=== PATIENT | male | born 1975 | race Caucasian/White ===

== ENCOUNTER 2016-08-08 13:09 | Emergency (ER) | payer MEDICARE, MEDICAID ==
[~2016-08-08] VITALS: Ht 170.2 cm; Wt 70.5 kg
[~2016-08-08 13:09] MED LIST: CIPR-198 PO; DICY20TA33 PO; METR500T PO; MORP15TA PO; ONDA-54 PO; ONDA8TAB7 PO; OXYC-474 PO; POLY17PO6 PO; TAMS0.4C98 PO
[2016-08-08 13:23] VITALS: BP 152/90; PULSE 91; RESP 18; O2SAT 99
--- NOTE | 2016-08-08 14:20 | ED.REPORT ---
HPI-Back Pain 40 and Over Date of Service Aug 08, 2016 ED Provider: Doc,Ed MD History of Present Illness: 40-year-old male here for back pain. He had back surgery on 07/08/2016 down at [facility]. He states he had fatty tissue removed from his spinal canal as well as a widening of the spinal canal. He has gradually improved since that surgery and was walking normally and had minimal pain. 2 Days ago he bent over and picked up his 70 pound daughter. Not supposed to bend or lift anything during his healing. He had immediate pain in his low back with occasional radiation down his bilateral legs as well as intermittent numbness and tingling down bilateral legs. Radiculopathy depends on which position he is in. His position of comfort is standing. Denies loss of bowel or bladder, saddle anesthezia, or LE weakness. Nursing Notes Stated Complaint: BACK PAIN/LEG NUMBNESS/TINGLING Chief Complaint: Back Pain or Injury Allergies: Coded Allergies: No Known Allergies (Unverified , 04/28/16) Scheduled Ciprofloxacin (Ciprofloxacin) 500 Mg Tablet 500 MG PO BID Metronidazole (Flagyl) 500 Mg Tablet 500 MG PO Q8H Morphine Sulfate (Morphine Sulfate) 15 Mg Tablet 15 MG PO BID Polyethylene Glycol 3350 (Miralax) 17 Gm Powd.pack 17 GM PO DAILY Tamsulosin (Flomax) 0.4 Mg Capsule 0.4 MG PO DAILY Scheduled PRN Dicyclomine (Bentyl) 20 Mg Tablet 20 MG PO QID PRN PRN cramps Ondansetron (Ondansetron) 8 Mg Tablet 8 MG PO PRN For Nausea Ondansetron ODT (Zofran ODT) 8 Mg Tablet 8 MG PO Q4H PRN PRN For Nausea Oxycodone (Roxicodone) 5 Mg Tablet 5 MG PO 5XD PRN PRN For Pain General Time Seen by MD: 14:19 Chief Complaint Back pain Hx Obtained From: Patient Arrived By: Walk-in Sudden in Onset?: Yes Onset Occurred: 2 days ago Symptom Duration: Constant Caused by: Bending, Lifting Location: : Perispinal lumbar Quality: Sharp, Stabbing Radiation: : Left leg above knee: Left leg below knee: Right leg above knee: Right leg below knee Severity: Current: Severe Severity: Maximum: Severe Recent Healthcare: Previous surgery Similar Sx Previous: Yes Past Medical History Past Medical History Notes: PCP: [facility] 04/28/2016 surgery low back 07/08/16 Past Medical History Clostridium difficile colitis 05/2015 and 12/2014 Colitis IBS Cyclical vomiting Small bowel obstruction Migraine. Guillen's esophagus. GERD. Prostatitis. Fibromyalgia. Kidney stones Reports: GERD, Gastritis Past Surgical History Right ear drum repair laparoscopy in 2001 and again in 2013 with lysis of adhesion and incidental appy at that time at [facility] in [place] Right ACL reconstruction C5, C6, C7 Fusion Jul 30, 2014 done at [facility] [place] Reports: Appendectomy Family History Reviewed, not relevant. Prostate cancer in brother and father. Mom-stroke, HTN Smoking History Current Every Day Smoker Social History Alcohol Use: Denies alcohol use Drug Use: Denies drug use Other Social History: Frequent ED visitor, , Local resident Occupation no work or school Ambulatory Status Independent Review of Systems Review of Systems Note: denies saddle anesthsia or loss of bowel/bladder feels similar as the day after his surgery. Basic Review of Systems Eyes: Vision NL ENT: Hearing NL Hematologic: No bleeding Skin: No bruising, No rash Psychiatric: Normal thought content Constitutional: Denies: Fatigue, Fever Respiratory: Denies: Dyspnea on exertion Cardiovascular: Denies: Chest pain GI: Denies: Abdominal pain, Nausea, Vomiting Musculoskeletal: Reports: Back pain, Extremity pain Complete sys rev & neg: except as marked. Physical Exam Physical Exam Notes: Pt in obvious discomfort. Initial Vital Signs Vital Signs (First) Date Time Temp Pulse Resp B/P Pulse Ox O2 Delivery O2 Flow Rate FiO2 08/08/16 13:23 37.0 91 18 152/90 99 Room Air Head / Eyes: Atraumatic Neck: Supple Lymphatic: No lymphadenopathy Extremities: Vascular intact, Neuro intact, No swelling, No tenderness Skin: Warm, Dry, No cyanosis Psychiatric: Mood/affect normal, Behavior normal, Normal thought content Cardiovascular: Heart rate NL, Regular rhythm, Heart sounds NL, No gallop, No murmurs, No rubs Flank / Spine / Paraspinal: Positive: Lumbar paraspinal tend..., Lumbar spine tender... Muscle Spasm / ROM: Positive: Lumbar area spasm straight leg not tested r/t pain patellar reflexes 3+ and equal and intact bilaterally. The patient present in bilateral lower extremities. Ankle strength bilaterally strong. Neurologic: Oriented X3, Speech NL, No motor deficits, No sensory deficits Re-Eval/Medical Decision Med Decision/Clinical Course Patient having decreased pain since receiving 2 mg of Dilaudid. He feels that he gets 1 more milligram and he can go home and controlled the pain with his home medications. He has Percocet and takes 30 mg a day. Agreed to give him 1 more milligram and will send him on his way to follow up with Dr. Garrett. She does appear more comfortable sitting on the [facility] Discharge & Departure Shift Change Sign-Out Response to Therapy: Improved Impression: Primary Impression: Low back pain Chronicity: unspecified Back pain laterality: bilateral Sciatica presence: with sciatica Sciatica laterality: bilateral sciatica Qualified Code: M54.42 - Lumbago with sciatica, left side Disposition: Home Discharge Condition All VS Reviewed: Yes Condition: Stable Patient Instructions: Low Back Strain (ED) Additional Instructions: Use home pain meds to treat pain as you have been. Follow-up with Dr. Garrett tomorrow to review pain contract and ER visit. If saddle anesthesia, severe pain, loss of bowel or bladder, or fever return to ER immediately. Otherwise follow-up with [facility] as discussed or to get an earlier appointment or extra week as scheduled. Referrals: Haroon Perdomo DO (PCP) EDSupervising Provider for APC: Jarek Billy MD, Linnea K ARNP Aug 08, 2016 14:20
[2016-08-08] MEDS ORDERED: HYDROmorphone 1 mg/mL Inj IM ONE ×3 (14:30→15:55)
[2016-08-08 16:07] VITALS: BP 136/83; PULSE 74; RESP 16; O2SAT 96
== END 2016-08-08 16:09 | disposition home or self-care (01) ==
LOC: SED 13:09
DX: M54.42 Lumbago with sciatica, left side (principal); X50.0XXA Overexertion from strenuous movement or load, initial encounter; Y92.9 Unspecified place or not applicable; Y93.89 Activity, other specified; Y99.8 Other external cause status; K21.9 Gastro-esophageal reflux disease without esophagitis; K29.70 Gastritis, unspecified, without bleeding; F17.200 Nicotine dependence, unspecified, uncomplicated; Z98.890 Other specified postprocedural states; Z87.442 Personal history of urinary calculi
CPT/HCPCS: 96372; 99284; J1170

== ENCOUNTER 2016-08-10 20:21 | Emergency (ER) | payer MEDICARE, MEDICAID ==
[~2016-08-10] VITALS: Ht 170.2 cm; Wt 70.0 kg
[2016-08-10 20:42] VITALS: BP 156/87; PULSE 81; RESP 22; O2SAT 99
--- NOTE | 2016-08-10 22:05 | ED.REPORT ---
HPI-Back Pain 40 and Over Date of Service Aug 10, 2016 ED Provider: Joe Crooks MD Patient is a 40 year old male with a history of fibromyalgia, chronic back pain , and recent back surgery on 07/08/2016 who presents to the ED after he developed urinary incontinence numbness today, associated with a recent injury to his back. Patient had fatty tissue and widening of the spinal canal at L4 preformed at [facility] by Dr. Nunn on July 08. Patient states that he was instructed not to lift or bending over until he was healed. However, 5 days ago his daughter injured her foot and he bent down to pick her up out of instinct. She weighted approximately 70lbs and he has been experiencing increased pain since that time. The patient was seen in the ED on 08/08 for increased back pain following this event. However, he only reported radiation of his pain down his legs at that time. Since then he has developed saddle/groin pain and numbness, urine incontinence, and leg numbness. Patient reports difficulty ambulating. He reports associated nausea due to pain. Nursing Notes Stated Complaint: BACK PAIN, HAD BACK SURGERY 07/08/2016 Chief Complaint: General Complaint Nursing Notes Reviewed: Yes Allergies: Coded Allergies: No Known Allergies (Unverified , 04/28/16) Scheduled Ciprofloxacin (Ciprofloxacin) 500 Mg Tablet 500 MG PO BID Metronidazole (Flagyl) 500 Mg Tablet 500 MG PO Q8H Morphine Sulfate (Morphine Sulfate) 15 Mg Tablet 15 MG PO BID Polyethylene Glycol 3350 (Miralax) 17 Gm Powd.pack 17 GM PO DAILY Tamsulosin (Flomax) 0.4 Mg Capsule 0.4 MG PO DAILY Scheduled PRN Dicyclomine (Bentyl) 20 Mg Tablet 20 MG PO QID PRN PRN cramps Ondansetron (Ondansetron) 8 Mg Tablet 8 MG PO PRN For Nausea Ondansetron ODT (Zofran ODT) 8 Mg Tablet 8 MG PO Q4H PRN PRN For Nausea Oxycodone (Roxicodone) 5 Mg Tablet 5 MG PO 5XD PRN PRN For Pain General Time Seen by MD: 22:00 Chief Complaint Back pain, Other (urinary incontinence) Hx Obtained From: Patient Arrived By: Walk-in Sudden in Onset?: No Onset Occurred: 5 - 8 hours ago Quality: Painful Severity: Current: Severe Severity: Maximum: Severe Recent Healthcare: Recent doctor visit, Previous surgery Similar Sx Previous: No Past Medical History Past Medical History Notes: [facility]: [facility] Past Medical History Clostridium difficile colitis 05/2015 and 12/2014 Colitis IBS Cyclical vomiting Small bowel obstruction Migraine. Guillen's esophagus. GERD. Prostatitis. Fibromyalgia. Kidney stones Reports: Gastritis Past Surgical History Right ear drum repair laparoscopy in 2001 and again in 2013 with lysis of adhesion and incidental appy at that time at [facility] in [place] Right ACL reconstruction C5, C6, C7 Fusion Jul 30, 2014 done at [facility] fatty tissue removal and spinal canal widening at [facility] on Jul 08 2016 Reports: Appendectomy Family History Reviewed, not relevant. Prostate cancer in brother and father. Mom-stroke, HTN Smoking History Current Every Day Smoker Social History Alcohol Use: Denies alcohol use Drug Use: Denies drug use Other Social History: Frequent ED visitor, , Local resident Occupation no work or school Ambulatory Status Independent Review of Systems GI: Reports: Nausea Male: Reports Incontinence Musculoskeletal: Reports: Back pain, Extremity pain Neurologic: Reports: Bladder dysfunction, Numbness, Weakness Complete sys rev & neg: except as marked. Physical Exam Initial Vital Signs Vital Signs (First) Date Time Temp Pulse Resp B/P Pulse Ox O2 Delivery O2 Flow Rate FiO2 08/10/16 20:42 36.8 81 22 156/87 99 Room Air Initial VS: Reviewed, Vital signs normal Head / Eyes: Atraumatic, Normocephalic, PERRL ENT: Conjunctiva normal, No scleral icterus Neck: Supple, Full range of motion Extremities: Vascular intact, Neuro intact Skin: Warm, Dry, No cyanosis Psychiatric: Mood/affect normal, Behavior normal, Normal thought content General/Constitutional: Awake, Alert Respiratory / Chest: Breath sounds NL, Breath sounds = bilat, No respiratory distress, No rales, No rhonchi, No wheezing Cardiovascular: Heart rate NL, Regular rhythm, Heart sounds NL, No murmurs Abdomen: Soft, Non-tender Back: Incision site is healing well, covered with bandage. It is not soaked through and there is no surrounding erythema. Neurologic: Oriented X3, Speech NL, No sensory deficits Reflexes are 3+ and symmetric at the patellar tendons. 2+ and symmetric reflexes at the achilles tendons. strength is diminished globally by complaint of pain. Neck: Supple, Full range of motion Lower Extremity / Pelvis / MS: Neurologic intact, Vascular intact ambulating with a slow broad based gait Interpretation & Diagnostics MR LUMBAR SPINE CONCLUSION: Findings are most consistent with an anterior epidural hematoma extending from the L4-5 disc level down through S1 and impinging on the spinal canal. There are expected postoperative changes with edema and enhancement in the operative bed posteriorly involving the superficial and deeper paraspinal tissues. This postoperative process extends somewhat into the epidural space, particularly on the right and into the element of spinal canal stenosis. Radiologist: Tiago Calderon MD 08/10/2016 - 11:23:21 PM PST Lab Results Interpretation Test 08/11/16 00:00 Hold Urine Received (Received) Re-Eval/Medical Decision Med Decision/Clinical Course 40-year-old male with recent lumbar spine surgery was healing well until he lifted a child 4 days ago. He now has increasing low back pain with pain and numbness in his legs and today developed urinary incontinence. Dry of the lumbar spine with and without contrast shows an epidural hematoma at the L4 through S1 level impinging the cord and compressing the nerve roots. Case was discussed with Dr. Boyer, on-call spine surgeon at [facility]. He accepted him in transfer for further evaluation and treatment. Source of Hx: Old records Re-Evaluation/Progress #1: Time of Eval: 23:51 Patient Status: Condition improved Re-Evaluation/Progress Note: Informed the patient of the results of his MRI. Will consult [facility] for how to proceed and if he needs transfer to their facility. All questions were addressed. Re-Evaluation/Progress #2: Time of Eval: 00:36 Re-Evaluation/Progress Note: Informed the patient of the plan to transfer him to [facility]. Patient understands and agrees with this plan. All questions were addressed. Consultation #1: Call Returned at: 00:00 Note: Spoke to the [facility] transfer center about the patient's case. Will call back. Consultation #2: Call Returned at: 00:31 Biomedical Technician: Will see patient, Agrees with eval, Agrees with plan, Accepts admit Note: Spoke with Dr. Veronica Boyer, spinal surgeon at [facility]. He agrees to accept the patient for transfer. Counseled Regarding: Diagnosis, Need for transfer Discharge & Departure Impression: Primary Impression: Epidural hematoma Additional Impressions: Postoperative hematoma Surgical complication system/body Area: musculoskeletal system Procedure type : musculoskeletal Qualified Code: M96.830 - Postprocedural hemorrhage and hematoma of a musculoskeletal structure following a musculoskeletal system procedure Urinary incontinence Urinary Incontinence type: other incontinence Qualified Code: N39.498 - Other specified urinary incontinence Disposition: Transfer, Acute Care Facility Receiving Hospital: [facility] Transfer Accepted: Yes Transfer Accepted at: 00:33 Transfer Reason: Higher level of care Spoke with: Specialty physician (Dr. Veronica Boyer) Patient Status: Stable Patient Informed: Yes Discharge Condition All VS Reviewed: Yes Condition: Stable Referrals: Haroon Perdomo DO (PCP) Ryanne Attestation Portions of this note were transcribed by Carlene Davila. I, Dr. Crooks personally performed the history, physical exam and medical decision-making; I reviewed and confirmed the accuracy of the information in the transcribed note. Signed by: Ryanne Antonio, 08/11/2016 0038 copies to: Haroon Perdomo Howard L MD Aug 10, 2016 22:05 Carlene Davila Aug 10, 2016 22:17
[2016-08-10] MEDS ORDERED: Ondansetron 2 mg/mL 2 mL Inj IV PRN (22:15)
[2016-08-10] MEDS: HYDROmorphone 0.5 mg/0.5 mL iSecure Syringe IVPUSH PRN ×2 (22:37→23:58)
[2016-08-11 00:09] VITALS: BP 123/69; PULSE 62; RESP 18; O2SAT 99
[2016-08-11] MEDS: HYDROmorphone 0.5 mg/0.5 mL iSecure Syringe IVPUSH PRN ×2 (00:09→00:45)
[2016-08-11 01:00] VITALS: BP 123/69; PULSE 62; RESP 18; O2SAT 99
--- NOTE | 2016-08-11 10:26 | DRSVH ---
PROCEDURE: MRI LUMBAR SPINE WITH AND WITHOUT CONTRAST ([id number]) INDICATIONS: Urinary incontinence s/p lumbar spine surgery TECHNIQUE: Noncontrast sagittal T1 spin echo and T2 fast spin echo, sagittal STIR, axial T1 and T2 fast spin ech o through the lumbar spine. In cases with scoliosis, additional coronal T2 fast spin echo may be per formed. After the administration of contrast, sagittal and axial T1 spin echo with fat saturation th rough the lumbar spine. COMPARISON: [facility], MR, MR LUMBAR SPINE WO CON, 04/28/2016, 8:18. FINDINGS: Image quality: Excellent. Alignment and curvature: There is normal bony alignment. Marrow: Marrow is of normal overall signal. No acute vertebral body compression fractures. No susp icious marrow enhancement. Postsurgical changes are noted dorsal to L5 and S1. Spinal cord: Conus medullaris terminates at the L1 L. no Devan Eric radiology level. Visualized spinal cord demonstrates normal signal, without suspicious enhancement. Paraspinous soft tissues: No paravertebral masses or abnormal enhancement. L1-L2: Normal appearance. L2-L3: Normal appearance. L3-L4: Normal appearance. L4-L5: Stable appearance of moderate degenerative disc disease with a posterior broad-based transvers e disc bulge, previously present. Moderate facet osteoarthritis is present, as was previously the ca se, perhaps very slightly greater on the right than the left, and this could produce asymmetric mild impingement on the course of the right L4 nerve root. L5-S1: Postsurgical change with prominent granulation tissue through the bilateral laminectomy bed, w ithout rim-enhancing fluid collection that would indicate abscess formation. On axial and sagittal i maging there is a mild to moderate degree of narrowing of the inferior tip of the thecal sac, associa carlos with this inflammatory process, and the nerve roots crossing through this area do not appear appr eciably displaced or compressed but are certainly surrounded by the enhancing inflammatory change. A hematoma is not seen. IMPRESSION: 1. Stable appearance of the lumbosacral spine to the L4-5 level where mild to moderate degenerative osteoarthritis at the facet joints is slightly greater on the right than the left, with potential for mild asymmetric impingement on the course of the right L4 nerve root as a result. No significant sp inal stenosis at that level, where a mild posterior disc bulge is present. 2. Prominent granulation tissue, with inflammatory enhancement, is shown at the operative bed after L5 S1 laminectomy bilaterally, with mild mass effect against the thecal sac at its inferior aspect th rough that area. No rim-enhancing fluid collection is seen that would indicate abscess formation. T he granulation tissue surrounds the individual nerve roots bilaterally crossing inferiorly through th e operative area. No hematoma is identified after surgery. Note: These findings are concordant with the preliminary interpretation, except for the opinion that a L5-S1 anterior hematoma is not present. Dictated by: Devan Reyes M.D. on 08/11/2016 at 10:06 Approved by: Devan Reyes M.D. on 08/11/2016 at 10:23
== END 2016-08-11 01:03 | disposition short-term general hospital (02) ==
LOC: SED 20:21
DX: S06.4X0A Epidural hemorrhage without loss of consciousness, initial encounter (principal); X50.0XXA Overexertion from strenuous movement or load, initial encounter; Y92.9 Unspecified place or not applicable; Y93.89 Activity, other specified; Y99.8 Other external cause status; M96.830 Postprocedural hemorrhage of a musculoskeletal structure following a musculoskeletal system procedure; N39.498 Other specified urinary incontinence; R11.0 Nausea; R20.2 Paresthesia of skin; M79.7 Fibromyalgia; M54.9 Dorsalgia, unspecified; G89.29 Other chronic pain; K21.9 Gastro-esophageal reflux disease without esophagitis; F17.200 Nicotine dependence, unspecified, uncomplicated; Z98.890 Other specified postprocedural states
CPT/HCPCS: 72158; 96374; 96375; 96376; 99285; A9585; J1170; J2405

== ENCOUNTER 2016-08-15 14:53 | Emergency (ER) | payer MEDICARE, MEDICAID ==
[~2016-08-15] VITALS: Ht 170.2 cm; Wt 70.5 kg
[2016-08-15 15:07] VITALS: BP 155/96; PULSE 84; RESP 16; O2SAT 98
--- NOTE | 2016-08-15 15:45 | ED.REPORT ---
HPI- Male Date of Service Aug 15, 2016 ED Provider: Dr. Jarek Billy M.D. A 40 year old male with a medical history including interstitial cystitis, colitis, gastritis, IBS, and epidural hematoma s/p recent back surgery x2 presents to the ED with intermittent inability to urinate onset four days ago. Associated symptoms include suprapubic pain, dysuria, subjective fever, and buttocks numbness. The patient denies leg weakness or vomiting. He underwent fatty tissue removal and spinal canal widening on 07/08/16 and another emergency back surgery for an epidural hematoma on 08/10/16. The patient has an appointment with his PCP in three days. Nursing Notes Stated Complaint: UNABLE TO URINATE AFTER BACK SURGERY Chief Complaint: General Complaint Nursing Notes Reviewed: Yes Allergies: Coded Allergies: No Known Allergies (Unverified , 08/15/16) Scheduled Ciprofloxacin (Ciprofloxacin) 500 Mg Tablet 500 MG PO BID Metronidazole (Flagyl) 500 Mg Tablet 500 MG PO Q8H Morphine Sulfate (Morphine Sulfate) 15 Mg Tablet 15 MG PO BID Polyethylene Glycol 3350 (Miralax) 17 Gm Powd.pack 17 GM PO DAILY Tamsulosin (Flomax) 0.4 Mg Capsule 0.4 MG PO DAILY Scheduled PRN Dicyclomine (Bentyl) 20 Mg Tablet 20 MG PO QID PRN PRN cramps Ondansetron (Ondansetron) 8 Mg Tablet 8 MG PO PRN For Nausea Ondansetron ODT (Zofran ODT) 8 Mg Tablet 8 MG PO Q4H PRN PRN For Nausea Oxycodone (Roxicodone) 5 Mg Tablet 5 MG PO 5XD PRN PRN For Pain General Time Seen by MD: 15:44 Chief Complaint Unable to urinate Hx Obtained From: Patient Arrived By: Walk-in Onset Occurred: 4 days ago Symptom Duration: Since onset Location: : Suprapubic Quality: Painful Severity: Current: Moderate Severity: Maximum: Moderate Associated with: Reports: Fever, Denies: Vomiting Pertinent Negative: Relieved by nothing Recent Healthcare: Recent doctor visit, Recent hospitalization Past Medical History Past Medical History Notes: [facility]CP: [facility] Past Medical History Clostridium difficile colitis 05/2015 and 12/2014 Colitis IBS Cyclical vomiting Small bowel obstruction Migraine. Guillen's esophagus. GERD. Prostatitis. Fibromyalgia. Kidney stones Interstitial cystitis Epidural hematoma Reports: Gastritis Past Surgical History Right ear drum repair laparoscopy in 2001 and again in 2013 with lysis of adhesion and incidental appy at that time at [facility] in [place] Right ACL reconstruction C5, C6, C7 Fusion Jul 30, 2014 done at [facility] [place] Fatty tissue removal and spinal canal widening at [facility] [place] on Jul 08 2016 Back surgery for epidural hematoma, Aug 10, 2016 Reports: Appendectomy Family History Reviewed, not relevant. Prostate cancer in brother and father. Mom-stroke, HTN Smoking History Current Every Day Smoker Social History Alcohol Use: Denies alcohol use Drug Use: Denies drug use Other Social History: Frequent ED visitor, , Local resident Occupation no work or school Ambulatory Status Independent Review of Systems Constitutional: Reports: Fever (Subjective) GI: Reports: Abdominal pain (Suprapubic), Denies: Vomiting Male: Reports Dysuria, Reports Urination decreased (Inability to Urinate) Complete sys rev & neg: except as marked. Respiratory: Denies: Non-productive cough, Shortness of breath Neurologic: Reports: Numbness (Buttocks), Denies: Focal weakness Physical Exam Initial Vital Signs Vital Signs (First) Date Time Temp Pulse Resp B/P Pulse Ox O2 Delivery O2 Flow Rate FiO2 08/15/16 15:07 37.4 84 16 155/96 98 Room Air Initial VS: Reviewed Head / Eyes: Atraumatic, Normocephalic ENT: Conjunctiva normal, No scleral icterus Neck: Supple, Full range of motion Respiratory: Breath sounds normal, Clear to auscultation, No respiratory distress Cardiovascular: Regular rate & rhythm, Heart sounds normal Skin: Warm, Dry, No cyanosis Neurologic: Alert, Oriented, Nonfocal Psychiatric: Mood/affect normal, Behavior normal, Normal thought content General/Constitutional: Awake, Alert, No acute distress Abdomen: Soft Tenderness/Guarding/Rebound: Positive: Tender diffuse (Mild) Interpretation & Diagnostics Lab Results Interpretation Test 08/15/16 17:16 Urine Color Yellow (YELLOW) Urine Appearance Clear (CLEAR,HAZY) Urine pH 7.0 (5.0-8.0) Urine Specific [place] 1.020 (1.003-1.035) Urine Protein Negativemg/dL (NEG,TRACE) Urine Glucose (UA) Negativemg/dL (NEGATIVE) Urine Ketones Negativemg/dL (NEGATIVE) Urine Occult Blood Negative (NEGATIVE) Urine Nitrite Negative (NEGATIVE) Urine Bilirubin Negative (NEGATIVE) Urine Urobilinogen Normalmg/dL (NORMAL) Urine Leukocyte Esterase Negative (NEGATIVE) Urine RBC 0-2/hpf (0-2) Urine WBC 0-5/hpf (0-5) Urine Epithelial Cells None/hpf (NONE-MOD) Urine Crystals None seen (NONE SEEN) Urine Bacteria None/hpf (NONE-FEW) Urine Hyaline Casts None/lpf (NONE) Urine Granular Casts None seen (NONE SEEN) Urine Waxy Casts None seen (NONE SEEN) Urine Red Blood Cell Casts None seen (NONE SEEN) Urine White Blood Cell Casts None seen (NONE SEEN) Urine Mucus None seen (None Seen) Urine Trichomonas None seen (NONE SEEN) Urine Yeast None (NONE SEEN) Urinalysis Comment None Urine Culture Reflexed Not indicated Re-Eval/Medical Decision Source of Hx: Old records Re-Evaluation/Progress : Time of Eval: 16:00 Patient Status: Condition improved Re-Evaluation/Progress Note: Catheter was placed. Discussed with patient diagnosis and plan for discharge. Follow-up and return to the ER instructions given. Patient agrees with plan for care and all questions were addressed. Counseled Regarding: Diagnosis, Need for follow-up, When/why to return to ED Discharge & Departure Impression: Primary Impression: Urinary retention Disposition: Home Discharge Condition All VS Reviewed: Yes Condition: Stable Patient Instructions: Urinary Retention in Men (ED) Additional Instructions: Leave the catheter in place until you see your doctor on . Call [facility] or return to the emergency department if you have new neurologic problems. Referrals: Haroon Perdomo DO (PCP) Ryanne Attestation Portions of this note were transcribed by Marci Stack. I, Dr. Billy, personally performed the history, physical exam, and medical decision-making; I reviewed and confirmed the accuracy of the information in the transcribed note. Signed by: Raynne Franco, 08/15/2016, 16:44 copies to: Haroon Perdomo Kirk H MD Aug 15, 2016 15:45 MARCI STACK Aug 15, 2016 15:59
[2016-08-15 17:54] LABS: APPEARANCE,URINE CLEAR (CLEAR,HAZY); COLOR,URINE YELLOW (YELLOW); OCCULT BLOOD,URINE NEGATIVE (NEGATIVE); UROBILINOGEN,URINE NORMAL (NORMAL)
== END 2016-08-15 16:35 | disposition home or self-care (01) ==
LOC: SED 14:53
DX: R33.9 Retention of urine, unspecified (principal); R10.30 Lower abdominal pain, unspecified; R30.0 Dysuria; R50.9 Fever, unspecified; R20.0 Anesthesia of skin; K21.9 Gastro-esophageal reflux disease without esophagitis; Z98.890 Other specified postprocedural states; F17.200 Nicotine dependence, unspecified, uncomplicated

== ENCOUNTER 2016-08-17 11:11 | Emergency (ER) | payer MEDICARE, MEDICAID ==
[~2016-08-17] VITALS: Ht 170.2 cm; Wt 70.5 kg
[2016-08-17 11:13] VITALS: BP 139/98; PULSE 87; RESP 16; O2SAT 100
--- NOTE | 2016-08-17 11:17 | ED.REPORT ---
HPI- Male Date of Service Aug 17, 2016 ED Provider: Aarti Hernandez MD The patient is a 40 year old male who presents to the ED with a plugged Christie catheter which was inserted 3 days ago. Pt had emergency surgery at [facility] a week ago for a blood clot. Following this surgery, he couldn't urinate so he came to [facility] 3 days ago and had a catheter inserted. He now reports with hematuria onset last night, dysuria and lower abdominal pain when he sits or puts pressure on his bladder. He has been able to produce a small amount of urine in the past 3 hours but still states that he feels very, "full, uncomfortable, and lots of pressure." Pt c/o associated nausea, fever, and diaphoresis. He is not on anticoagulants and denies vomiting. Pt also had a surgery 5 weeks ago (07/08/16) on his spine. Nursing Notes Stated Complaint: BLOOD IN URINE Chief Complaint: Male Abdominal Pain Nursing Notes Reviewed: Yes Allergies: Coded Allergies: No Known Allergies (Unverified , 08/17/16) Scheduled Ciprofloxacin (Ciprofloxacin) 500 Mg Tablet 500 MG PO BID Metronidazole (Flagyl) 500 Mg Tablet 500 MG PO Q8H Morphine Sulfate (Morphine Sulfate) 15 Mg Tablet 15 MG PO BID Polyethylene Glycol 3350 (Miralax) 17 Gm Powd.pack 17 GM PO DAILY Tamsulosin (Flomax) 0.4 Mg Capsule 0.4 MG PO DAILY Scheduled PRN Dicyclomine (Bentyl) 20 Mg Tablet 20 MG PO QID PRN PRN cramps Ondansetron (Ondansetron) 8 Mg Tablet 8 MG PO PRN For Nausea Ondansetron ODT (Zofran ODT) 8 Mg Tablet 8 MG PO Q4H PRN PRN For Nausea Oxycodone (Roxicodone) 5 Mg Tablet 5 MG PO 5XD PRN PRN For Pain General Time Seen by MD: 11:17 Chief Complaint Urinary catheter problem Hx Obtained From: Patient Arrived By: Walk-in Onset Occurred: 1 day ago Symptom Duration: Since onset Location: : Abdomen lower Quality: Heaviness, Painful Severity: Current: Mild Recent Healthcare: Recent doctor visit, Recent hospitalization Similar Sx Previous: Yes Past Medical History Past Medical History Notes: [facility]: [facility] Past Medical History Clostridium difficile colitis 05/2015 and 12/2014 Colitis IBS Cyclical vomiting Small bowel obstruction Migraine. Guillen's esophagus. GERD. Prostatitis. Fibromyalgia. Kidney stones Interstitial cystitis Epidural hematoma Reports: Gastritis Past Surgical History Right ear drum repair laparoscopy in 2001 and again in 2013 with lysis of adhesion and incidental appy at that time at [facility] in [place] Right ACL reconstruction C5, C6, C7 [place] Jul [place] [facility] [place] [facility] [place] Back surgery for epidural hematoma, Aug 10, 2016 Reports: Appendectomy Family History Reviewed, not relevant. Prostate cancer in brother and father. Mom-stroke, HTN Smoking History Current Every Day Smoker Social History Alcohol Use: Denies alcohol use Drug Use: Denies drug use Other Social History: Frequent ED visitor, , Local resident Occupation no work or school Ambulatory Status Independent Review of Systems Constitutional: Reports: Fever GI: Reports: Nausea, Denies: Vomiting Male: Reports Dysuria, Reports Hematuria, Reports Urination decreased Skin: Reports Diaphoresis Complete sys rev & neg: except as marked. Physical Exam Initial Vital Signs Vital Signs (First) Date Time Temp Pulse Resp B/P Pulse Ox O2 Delivery O2 Flow Rate FiO2 08/17/16 11:13 36.5 87 16 139/98 100 Room Air Initial VS: Reviewed General/Constitutional: Well-developed Head / Eyes: Atraumatic, Normocephalic, PERRL ENT: Mucous membranes moist, Conjunctiva normal, No scleral icterus Neck: Supple, Non-tender, Full range of motion Respiratory: Breath sounds normal, Clear to auscultation, No respiratory distress Extremities: Vascular intact, Neuro intact, No swelling, No tenderness Skin: Warm, Dry, No cyanosis Neurologic: Alert, Oriented, Nonfocal Psychiatric: Mood/affect normal, Behavior normal, Normal thought content Male Genitourinary: Atraumatic christie catheter in place with some urine output Abdomen: Atraumatic, Soft general tenderness super pubic area Heart Rate / Rhythm: Positive: Tachycardia Interpretation & Diagnostics Lab Results Interpretation Test 08/17/16 11:34 Hold Urine Received (Received) Re-Eval/Medical Decision Med Decision/Clinical Course This patient presented with urinary retention, there are no blood clots seen in his back and he is producing urine. On examination he had discomfort but I did not palpate her bladder. He was observed and continued to have urinary output and was discharged home. Counseled Regarding: Diagnosis, Lab results, Need for follow-up, When/why to return to ED Discharge & Departure Impression: Primary Impression: Christie catheter problem Encounter type: initial encounter Qualified Code: T83.9XXA - Unspecified complication of genitourinary prosthetic device, implant and graft, initial encounter Disposition: Home Discharge Condition All VS Reviewed: Yes Condition: Stable Additional Instructions: Thank you for coming to the Emergency Department today. Make sure you're drinking plenty of water and fluids to keep the catheter flowing. If there is no urine output for more then 6 hours, seek care. Return to the Emergency Department if you experience any new or worsening symptoms. We hope you feel better soon! Referrals: Haroon Perdomo DO (PCP) Francescaibkathy Attestation Portion of this note were transcribed by Fernando Raya. I, Dr. Hernandez, personally performed the history, physical exam, and medical decision-making: I reviewed and confirmed the accuracy for the information in the transcribed note. Signed by: lalo Wright, 08/17/16 1200 copies to: Haroon Perdomo Jena M MD Aug 17, 2016 11:17 FERNANDO RAYA Aug 17, 2016 11:37
[2016-08-17] MEDS ORDERED: Ondansetron 8 mg ODT Tablet PO ONE (12:25)
[2016-08-17 12:35] VITALS: BP 142/101; PULSE 80; RESP 18; O2SAT 98
== END 2016-08-17 12:54 | disposition home or self-care (01) ==
LOC: SED 11:11
DX: T83.091A Other mechanical complication of indwelling urethral catheter, initial encounter (principal); Y73.2 Prosthetic and other implants, materials and accessory gastroenterology and urology devices associated with adverse incidents; Y92.9 Unspecified place or not applicable; Y93.89 Activity, other specified; Y99.8 Other external cause status; R31.9 Hematuria, unspecified; R30.0 Dysuria; R10.30 Lower abdominal pain, unspecified; K29.70 Gastritis, unspecified, without bleeding; K21.9 Gastro-esophageal reflux disease without esophagitis; F17.200 Nicotine dependence, unspecified, uncomplicated; Z98.890 Other specified postprocedural states

== ENCOUNTER 2016-09-06 20:44 | Emergency (ER) | payer MEDICARE, MEDICAID ==
[~2016-09-06] VITALS: Ht 170.2 cm; Wt 70.5 kg
[2016-09-06 20:47] VITALS: BP 152/94; PULSE 92; RESP 18; O2SAT 98
[2016-09-06 22:31] LABS: BASOPHILS % (AUTO) 0.4 % (0-3); EOSINOPHILS % (AUTO) 1.3 % (0-5); MONOCYTES % (AUTO) 11.9 % (4-12); Mean Corpuscular Volume 90.3 fL (81-100); NEUTROPHILS % (AUTO) 51.7 % (40-74); Platelet Count 292 bil/L (150-400)
[2016-09-06 22:53] LABS: Magnesium 1.9 mg/dL (1.6-2.6)
[2016-09-06 22:54] VITALS: BP 145/96; PULSE 85; RESP 16; O2SAT 98
--- NOTE | 2016-09-06 23:49 | ED.REPORT ---
HPI-General Illness Date of Service Sep 06, 2016 ED Provider: Dr. Man Shore The patient is a 41 year old male w/ multiple recent back surgeries who presents to the ED due to intermittent fever for the past 2 days that peaked at 100.9F. Patient denies cough, sore throat, ear ache, dysuria, diarrhea. He also c/o dizziness and one episode of vomiting yesterday. Patient denies numbness in his legs. He has had a rough go over the past couple of months. He is status post lumbar surgery with fatty tumor resection. This was complicated with an epidural hematoma that also required drainage. He had classic I Murphy if the symptoms with numbness, weakness and intractable pain. He states that none of that is going on right now. He has not been incontinent of urine. He has not had urine retention. He has not had any numbness, weakness or paresthesias that are new since his surgery. He does have pain however it is well controlled with oxycodone. Fatty tissue removal and spinal canal widening [place] [facility] [place] C5, C6, C7 Fusion Jul 30, 2014 done at [facility] [place] Back surgery for epidural hematoma, Aug 10, 2016 Nursing Notes Stated Complaint: BACK PAIN,LEG NUMBNESS,NAUSEA,FEVER Chief Complaint: General Complaint Nursing Notes Reviewed: Yes Allergies: Coded Allergies: No Known Allergies (Unverified , 09/06/16) Scheduled Ciprofloxacin (Ciprofloxacin) 500 Mg Tablet 500 MG PO BID Metronidazole (Flagyl) 500 Mg Tablet 500 MG PO Q8H Morphine Sulfate (Morphine Sulfate) 15 Mg Tablet 15 MG PO BID Polyethylene Glycol 3350 (Miralax) 17 Gm Powd.pack 17 GM PO DAILY Prednisone (PredniSONE) 5 Mg Tab 5 MG PO DIRECTED 8 tabs po on day 1, then 7 tabs po on day 2, then 6 tabs po on day 3, then 5 tabs po on day 4, then 4 tabs po on day 5, then 3 tabs po on day 6, then 2 tabs po on day 7, then 1 tab po on day 8 Tamsulosin (Flomax) 0.4 Mg Capsule 0.4 MG PO DAILY Scheduled PRN Dicyclomine (Bentyl) 20 Mg Tablet 20 MG PO QID PRN PRN cramps Ondansetron (Ondansetron) 8 Mg Tablet 8 MG PO PRN For Nausea Ondansetron ODT (Zofran ODT) 8 Mg Tablet 8 MG PO Q4H PRN PRN For Nausea Oxycodone (Roxicodone) 5 Mg Tablet 5 MG PO 5XD PRN PRN For Pain General Time Seen by MD: 23:48 Chief Complaint Fever Hx Obtained From: Patient Arrived By: Walk-in Sudden in Onset?: Yes Symptom Duration: 2 days Location: : Back Quality: Painful Radiation: : Does not radiate Severity: Current: Moderate Recent Healthcare: Recent doctor visit, Recent hospitalization, Previous surgery Similar Sx Previous: No Past Medical History Past Medical History Notes: [facility]CP: [facility] Past Medical History Clostridium difficile colitis 05/2015 and 12/2014 Colitis IBS Cyclical vomiting Small bowel obstruction Migraine. Guillen's esophagus. GERD. Prostatitis. Fibromyalgia. Kidney stones Interstitial cystitis Epidural hematoma Reports: Gastritis Past Surgical History Right ear drum repair laparoscopy in 2001 and again in 2013 with lysis of adhesion and incidental appy at that time at [facility] in [place] Right ACL reconstruction C5, C6, C7 Fusion Jul 30, 2014 done at [facility] [place] Fatty tissue removal and spinal canal widening at [facility] [place] Back surgery for epidural hematoma, Aug 10, 2016 Reports: Appendectomy Family History Reviewed, not relevant. Prostate cancer in brother and father. Mom-stroke, HTN Smoking History Current Every Day Smoker Social History Alcohol Use: Denies alcohol use Drug Use: Denies drug use Other Social History: Frequent ED visitor, , Local resident Occupation no work or school Ambulatory Status Independent Review of Systems Full Review of Systems Constitutional: Reports: Fever Ears / Nose / Throat: Denies: Earache bilateral, Sore throat Respiratory: Denies: Dyspnea on exertion, Non-productive cough, Pleuritic pain Cardiovascular: Denies: Chest pain GI: Reports: Vomiting, Denies: Diarrhea Male: Denies Dysuria Neurologic: Denies: Bladder dysfunction, Bowel dysfunction, Focal weakness, Problem walking, Seizure, Shaking Complete sys rev & neg: except as marked. Physical Exam Vital Signs Vital Signs Date Time Temp Pulse Resp B/P Pulse Ox O2 Delivery O2 Flow Rate FiO2 09/07/16 02:49 36.1 76 18 140/85 96 Room Air 09/07/16 02:38 36.1 76 18 140/85 96 Room Air 09/06/16 22:54 85 16 145/96 98 Room Air 09/06/16 20:47 36.8 92 18 152/94 98 Room Air Initial VS: Reviewed General/Constitutional: Well-developed, Well-nourished Head / Eyes: Atraumatic, Normocephalic, PERRL ENT: Mucous membranes moist, Conjunctiva normal, No scleral icterus Neck: Supple, Non-tender, Full range of motion Respiratory: Breath sounds normal, Clear to auscultation, No respiratory distress Cardiovascular: Regular rate & rhythm, Heart sounds normal, Intact distal pulses Abdomen / GI: Soft, Non-tender, No guarding, No rebound, No distention Lymphatic: No lymphadenopathy Extremities: Vascular intact, Neuro intact, No swelling, No tenderness Skin: Warm, Dry, No cyanosis Neurologic: Alert, Oriented, Nonfocal Psychiatric: Mood/affect normal, Behavior normal, Normal thought content Flank / Spine / Paraspinal: Positive: Lumbar spine tender... Trauma - General: Positive: Laceration midline posterior incision tender at caudal aspect of wound Neurologic: Oriented X3, Speech NL, No motor deficits, No sensory deficits, CN II - XII intact, Reflexes equal bilat, Cerebellar NL, Memory NL, Gait NL Interpretation & Diagnostics Lab Results Interpretation Result Diagram: 09/06/16 2223 09/06/16 2223 Test 09/06/16 22:23 09/07/16 00:04 09/07/16 00:45 White Blood Count 12.0th/mm3 (3.8-10.1) Red Blood Count 4.53mil/mm3 (4.40-5.80) Hemoglobin 13.6g/dL (13.8-17.2) Hematocrit 40.9% (41.0-50.0) Mean Corpuscular Volume 90.3fL (81-100) Mean Corpuscular Hemoglobin 30.0pg (27.0-35.0) Mean Corpuscular Hemoglobin Concent 33.3% (32.0-37.0) Red Cell Distribution Width 14.2% (12.3-15.4) Platelet Count 292bil/L (150-400) Neutrophils (%) (Auto) 51.7% (40-74) Lymphocytes (%) (Auto) 34.4% (14-46) Monocytes (%) (Auto) 11.9% (4-12) Eosinophils (%) (Auto) 1.3% (0-5) Basophils (%) (Auto) 0.4% (0-3) Band Neutrophils % 0% (1-5) Sodium Level 136mEq/L (134-144) Potassium Level 3.3mEq/L (3.5-5.2) Chloride Level 98mEq/L (97-108) Carbon Dioxide Level 23mmol/L (18-29) Blood Urea Nitrogen 12mg/dL (6-24) Creatinine 0.70mg/dL (0.76-1.27) Estimat Glomerular Filtration Rate 131mL/min (>59) Glucose Level 94mg/dL (60-99) Calcium Level 8.9mg/dL (8.5-10.1) Magnesium Level 1.9mg/dL (1.6-2.6) Total Bilirubin 0.3mg/dL (0.0-1.2) Aspartate Amino Transf (AST/SGOT) 17U/L (0-50) Alanine Aminotransferase (ALT/SGPT) 13U/L (0-44) Alkaline Phosphatase 55U/L (25-150) Total Protein 7.5g/dL (6.4-8.4) Albumin 4.6g/dL (3.4-5.0) Hold Andrea Top Tube Received (Received) Procalcitonin 0.03ng/mL (0.00-0.08) Urine Color Yellow (YELLOW) Urine Appearance Clear (CLEAR,HAZY) Urine pH 6.0 (5.0-8.0) Urine Specific [place] 1.030 (1.003-1.035) Urine Protein Negativemg/dL (NEG,TRACE) Urine Glucose (UA) Negativemg/dL (NEGATIVE) Urine Ketones Negativemg/dL (NEGATIVE) Urine Occult Blood Negative (NEGATIVE) Urine Nitrite Negative (NEGATIVE) Urine Bilirubin Negative (NEGATIVE) Urine Urobilinogen Normalmg/dL (NORMAL) Urine Leukocyte Esterase Negative (NEGATIVE) Urine RBC 0-2/hpf (0-2) Urine WBC 0-5/hpf (0-5) Urine Epithelial Cells Occasional/hpf (NONE-MOD) Urine Crystals None seen (NONE SEEN) Urine Bacteria Few/hpf (NONE-FEW) Urine Hyaline Casts None/lpf (NONE) Urine Granular Casts None seen (NONE SEEN) Urine Waxy Casts None seen (NONE SEEN) Urine Red Blood Cell Casts None seen (NONE SEEN) Urine White Blood Cell Casts None seen (NONE SEEN) Urine Mucus None seen (None Seen) Urine Trichomonas None seen (NONE SEEN) Urine Yeast None (NONE SEEN) Urinalysis Comment None Urine Culture Reflexed Not indicated Lab Results Interpretation: negative for influenza A & B Re-Eval/Medical Decision Med Decision/Clinical Course Orlando has done very well. He has been here for almost 6 hours and is yet to spike a fever. His vital signs are stable. He does not show any signs of sepsis. His examination is very reassuring. He has no saddle anesthesia. He has no loss of bowel or bladder control. He has no urine retention. He has no leg weakness. He has symmetric reflexes. He has no signs of a cord syndrome myelopathy. He is certain that his symptoms are nothing like his epidural hematoma. His white blood cell count is normal. I take that back is slightly elevated. His pro-calcitonin is normal. All things considered I do not think that he has a deep space infection. His wound looks good and has trivial amount of midline tenderness. No signs of cellulitis or an abscess. A CT scan was performed however it was inadvertently performed without contrast. Taking into account the limitations of a noncontrast lumbar spine CT there are no signs of infection. I talked this over with Orlando. I think then said of putting him through another CT with IV contrast that he should probably have an MRI for really concerned about infection. I do not think that he has a deep space infection but I certainly could be wrong. He and I made up the following plan: He is going to go home tonight and rest. He is going to call his spinal surgeon first thing in the morning. If his surgeon recommends an MRI he will come in. If he has any fever later tonight she will come back to the emergency department. He will follow up the blood cultures as well. And if there is any questions whatsoever he will come back for an MRI. I think this is a very reasonable plan. As it were we do not have hospital beds right now. I did offer Orlando admission into the emergency department until we could get an MRI in the morning. He does not have an acute neurosurgical emergencies I will not transfer him right now for an emergent MRI. He would much rather go home. He will come back as instructed. Counseled Regarding: Diagnosis, Lab results, Need for follow-up, When/why to return to ED Discharge & Departure Primary Impression: Low back pain Chronicity: chronic Back pain laterality: midline Sciatica presence: without sciatica Qualified Code: M54.5 - Low back pain Additional Impression: Fever Fever type: unspecified Qualified Code: R50.9 - Fever, unspecified Disposition: Home Discharge Condition All VS Reviewed: Yes Condition: Stable Patient Instructions: Acute Low Back Pain (ED), Fever in Adults (GEN) Additional Instructions: Contact your surgeon first thing this morning. If he or she wants you to have an MRI then come back and we will do this. If you develop another fever then come back and we will MRI your back. If the pain is not better or if you have any new or worsening symptoms come back and we will perform an MRI. Come back after about 8 AM b so that we can perform the MRI. Your exam, lab work and noncontrast CT were not consistent with an infection. Nothing is 100% however. If you are developing a deep space infection this will only get worse. It is essential that you followed up with closely. Do not drive tonight as you have received sedating medications. Otherwise use your oxycodone as instructed. It was very nice seeing you again. I am glad that you seem to be healing well. Referrals: Haroon Perdomo DO (PCP) Francescaibkathy Attestation Portion of this note were transcribed by Ninoska Raya. I, Dr. Shore, personally performed the history, physical exam, and medical decision-making: I reviewed and confirmed the accuracy for the information in the transcribed note. Signed by: lalo Wright, 09/07/16 020 copies to: Haroon Perdomo Todd P DO Sep 06, 2016 23:48 Ninoska Raya Sep 07, 2016 00:05
[2016-09-07] MEDS: HYDROmorphone 0.5 mg/0.5 mL iSecure Syringe IVPUSH PRN ×3 (00:40→02:49)
[2016-09-07 00:56] LABS: APPEARANCE,URINE CLEAR (CLEAR,HAZY); OCCULT BLOOD,URINE NEGATIVE (NEGATIVE); UROBILINOGEN,URINE NORMAL (NORMAL)
[2016-09-07 02:38] VITALS: BP 140/85; PULSE 76; RESP 18; O2SAT 96
[2016-09-07 02:49] VITALS: BP 140/85; PULSE 76; RESP 18; O2SAT 96
--- NOTE | 2016-09-07 11:27 | DRSVH ---
PROCEDURE: CT LUMBAR SPINE WITHOUT CONTRAST ([id number]) INDICATIONS: post op pain and fever TECHNIQUE: Noncontrast 3 mm thick sections acquired from the T12 level to the sacrum. Sagittal and coronal refo rmats were constructed. For radiation dose reduction, the following was used: automated exposure co ntrol. COMPARISON: None. FINDINGS: Image quality: Excellent. Diagnostic sensitivity for abscess is limited secondary to lack of contras t administration. Bones: Postsurgical changes compatible with L5 and S1 laminectomy is noted. There is normal bony ali gnment. No acute vertebral body compression fractures. No suspicious lytic or blastic bony lesions. Central spinal caliber is of normal overall caliber. No pars defects. Soft tissues: No retroperitoneal masses or hematomas. Postsurgical scarring noted in the posterior p araspinous soft tissues level of the laminectomies. Visualized aorta is normal in caliber. Scattered atherosclerotic desiccation is noted in the abdominal and pelvic vasculature. IMPRESSION: 1. Status post L5 and S1 laminectomies. 2. No definite abscess identified within limitations related to sensitivity of noncontrast study. Dictated by: Amanda Bermudez MD, PhD on 09/07/2016 at 11:17 Approved by: Amanda Bermudez MD, PhD on 09/07/2016 at 11:20
[2016-09-07] MEDS ORDERED: PRD5T PO (11:36)
[2016-09-09 11:13] LABS: COLOR,URINE YELLOW (YELLOW)
== END 2016-09-07 02:50 | disposition home or self-care (01) ==
LOC: SED 20:44
DX: M54.5 Low back pain (principal); R50.9 Fever, unspecified; R42 Dizziness and giddiness; R11.10 Vomiting, unspecified; K21.9 Gastro-esophageal reflux disease without esophagitis; M79.7 Fibromyalgia; F17.200 Nicotine dependence, unspecified, uncomplicated; Z98.1 Arthrodesis status
CPT/HCPCS: 36415; 72131; 80053; 81000; 82308; 83735; 85025; 87040; 87804; 96374; 96376; 99285; J1170

== ENCOUNTER 2016-09-07 04:59 | Emergency (ER) | payer MEDICARE, MEDICAID ==
[~2016-09-07] VITALS: Ht 170.2 cm; Wt 70.5 kg
[2016-09-07 05:14] VITALS: BP 144/95; PULSE 62; RESP 16; O2SAT 95
--- NOTE | 2016-09-07 06:50 | ED.REPORT ---
HPI-Back Pain 40 and Over Date of Service Sep 07, 2016 ED Provider: Paul Cedillo DO A 41 year old male with a history of bulging discs, arthritis of spine, multiple back surgeries, and a blood clot in August presents to the ED complaining of bilateral leg pain exacerbated by movement and bilateral leg numbness. Numbness has been present for the last week. Associated symptoms include diminished sensation below left knee and generalized weakness, describing that he has difficulty standing or sitting up if he sits down for too long. He does report having sensation in genital area and denies any incontinence. The patient visited the ED yesterday complaining of fever (max 100.9) and numbness in his legs caused by walking. Tylenol helped to relieve the fever. He reports that he had back surgery on August 11 and July 11 at [facility], with his last check-up being a week ago. He was told to get an MRI by the doctors that performed the procedure. He reports that fatty tissue has built up on the back of his spinal chord. Recent Back surgeries include: Fatty tissue removal and spinal canal widening at [facility] [place] on [place] 08 2016 C5, C6, C7 Fusion Jul 30, 2014 done at [facility] [place] Back surgery for epidural hematoma, Aug 10, 2016 Nursing Notes Stated Complaint: LEG PAIN/NUMBNESS/FEVER Chief Complaint: General Complaint Nursing Notes Reviewed: Yes Allergies: Coded Allergies: No Known Allergies (Unverified , 09/06/16) Scheduled Ciprofloxacin (Ciprofloxacin) 500 Mg Tablet 500 MG PO BID Metronidazole (Flagyl) 500 Mg Tablet 500 MG PO Q8H Morphine Sulfate (Morphine Sulfate) 15 Mg Tablet 15 MG PO BID Polyethylene Glycol 3350 (Miralax) 17 Gm Powd.pack 17 GM PO DAILY Prednisone (PredniSONE) 5 Mg Tab 5 MG PO DIRECTED 8 tabs po on day 1, then 7 tabs po on day 2, then 6 tabs po on day 3, then 5 tabs po on day 4, then 4 tabs po on day 5, then 3 tabs po on day 6, then 2 tabs po on day 7, then 1 tab po on day 8 Tamsulosin (Flomax) 0.4 Mg Capsule 0.4 MG PO DAILY Scheduled PRN Dicyclomine (Bentyl) 20 Mg Tablet 20 MG PO QID PRN PRN cramps Ondansetron (Ondansetron) 8 Mg Tablet 8 MG PO PRN For Nausea Ondansetron ODT (Zofran ODT) 8 Mg Tablet 8 MG PO Q4H PRN PRN For Nausea Oxycodone (Roxicodone) 5 Mg Tablet 5 MG PO 5XD PRN PRN For Pain General Time Seen by MD: 06:30 Chief Complaint Other (Bilateral leg pain and numbness) Hx Obtained From: Patient Arrived By: Walk-in Sudden in Onset?: No Onset Occurred: More than a week ago... Symptom Duration: Intermittent Severity: Current: Moderate Severity: Maximum: Moderate Recent Healthcare: Recent doctor visit Similar Sx Previous: Yes (Visited ED yesterday) Past Medical History Past Medical History Notes: PCP: Conor [facility]. Nunn is Spine Doctor/Surgeon. Past Medical History Clostridium difficile colitis 05/2015 and 12/2014 Colitis IBS Cyclical vomiting Small bowel obstruction Migraine. Guillen's esophagus. GERD. Prostatitis. Fibromyalgia. Kidney stones Interstitial cystitis Epidural hematoma Reports: Gastritis Past Surgical History Right ear drum repair laparoscopy in 2001 and again in 2013 with lysis of adhesion and incidental appy at that time at [facility] in [place] Right ACL reconstruction C5, C6, C7 Fusion Jul 30, 2014 done at [facility] [place] Fatty tissue removal and spinal canal widening at [facility] [place] on Jul 08 2016 Back surgery for epidural hematoma, Aug 10, 2016 Reports: Appendectomy Family History Reviewed, not relevant. Prostate cancer in brother and father. Mom-stroke, HTN Smoking History Current Every Day Smoker Social History Alcohol Use: Denies alcohol use Drug Use: Denies drug use Other Social History: Frequent ED visitor, , Local resident Occupation no work or school Ambulatory Status Independent Review of Systems Review of Systems Note: Diminished sensation below left knee. Constitutional: Reports: Fever Male: Denies Incontinence Neurologic: Reports: Numbness (in legs), Weakness Complete sys rev & neg: except as marked. Physical Exam Physical Exam Notes: Initial Vital Signs Vital Signs (First) Date Time Temp Pulse Resp B/P Pulse Ox O2 Delivery O2 Flow Rate FiO2 09/07/16 05:14 36.1 62 16 144/95 95 09/07/16 11:34 Room Air Initial VS: Reviewed General/Constitutional: Awake, Alert Distress / Hydration: Positive: Distress mild Respiratory / Chest: Atraumatic, Breath sounds NL, Breath sounds = bilat, No respiratory distress Cardiovascular: Heart rate NL, Regular rhythm, Heart sounds NL, No gallop, No murmurs, No rubs Abdomen: Atraumatic, No guarding, No rebound Back: Atraumatic, Full range of motion Neurologic: Oriented X3, Speech NL Paresthesia in right leg from knee down. Neck: Atraumatic, Full range of motion Right sided weakness in lower extremities. 4/5 strength test on right leg. Skin: Warm, Dry Incision from back surgery is clean, dry, and intact. Head / Eyes: Atraumatic, Normocephalic, PERRL, EOMI ENT: Atraumatic, Mucous membranes moist Upper Extremity / MS: Atraumatic, Full range of motion Wrist / Hand: Atraumatic, Full range of motion Interpretation & Diagnostics Interpretation & Diagnostics: Lumbar Spine MRI without contrast IMPRESSION 1. L4-5 post surgical changes. Overall exam is stable over recent prior exams without evidence of acute change. Dictated by: Christiana Bruce M.D. on 09/07/2016 at 9:44 Approved by: Christiana Bruce M.D. on 09/07/2016 at 10:16 Lab Results Interpretation Result Diagram: 09/07/16 0710 Test 09/07/16 07:10 White Blood Count 8.1th/mm3 (3.8-10.1) Red Blood Count 4.13mil/mm3 (4.40-5.80) Hemoglobin 12.3g/dL (13.8-17.2) Hematocrit 37.2% (41.0-50.0) Mean Corpuscular Volume 90.1fL (81-100) Mean Corpuscular Hemoglobin 29.8pg (27.0-35.0) Mean Corpuscular Hemoglobin Concent 33.1% (32.0-37.0) Red Cell Distribution Width 14.0% (12.3-15.4) Platelet Count 261bil/L (150-400) Neutrophils (%) (Auto) 44.9% (40-74) Lymphocytes (%) (Auto) 40.7% (14-46) Monocytes (%) (Auto) 12.0% (4-12) Eosinophils (%) (Auto) 2.1% (0-5) Basophils (%) (Auto) 0.2% (0-3) Erythrocyte Sedimentation Rate 7mm/hr (0-15) C-Reactive Protein 0.1mg/dL (0.0-0.5) Re-Eval/Medical Decision Med Decision/Clinical Course No obvious infection and stable appearance of lumbar spine MRI, patient will be discharged to follow-up with [facility] spine. This is decided after discussion with [facility] spine. Return precautions given. Prednisone taper prescribed. Source of Hx: Old records Re-Evaluation/Progress #1: Time of Eval: 10:20 Re-Evaluation/Progress Note: Rechecked patient. Patient reports that numbness has recently been worse than it was after his first back surgery. Numbness and tingling have been more excessive since 2nd surgery. Re-Evaluation/Progress #2: Time of Eval: 11:30 Re-Evaluation/Progress Note: Rechecked patient, explained test results, diagnosis, and plan for discharge. Patient understands and agrees with the plan. All questions addressed. Consultation : Call Returned at: 11:02 Note: Consulted Dr. Gerard Nunn, orthopedic surgeon who states that patient can followup as an outpatient ,steroid taper if improvement on last dose. Counseled Regarding: Diagnosis, Lab results, Need for follow-up, When/why to return to ED Discharge & Departure Impression: Primary Impression: Low back pain Disposition: Home Discharge Condition All VS Reviewed: Yes Condition: Improved Additional Instructions: Call [facility] for close follow-up regarding your ongoing back pain. There is no obvious changes on your MRI compared to prior. If you develop loss of bowel or bladder function, inability to ambulate due to neurologic weakness, these are life-threatening emergencies and you should return the ER or if you have other concerns. Referrals: Haroon Perdomo DO (PCP) Francescaibkathy Attestation Portions of this note were transcribed by Anival Vargas. I, Dr. Cedillo personally performed the history, physical exam and medical decision-making; I reviewed and confirmed the accuracy of the information in the transcribed note. Signed by: Ryanne Dominguez, 09/07/2016 1143. copies to: Haroon Perdomo Timothy S DO Sep 07, 2016 06:50 Anival Vargas Sep 07, 2016 06:53
[2016-09-07 07:35] LABS: BASOPHILS % (AUTO) 0.2 % (0-3); EOSINOPHILS % (AUTO) 2.1 % (0-5); Mean Corpuscular Hemoglobin 29.8 pg (27.0-35.0); Mean Corpuscular Volume 90.1 fL (81-100); NEUTROPHILS % (AUTO) 44.9 % (40-74); Platelet Count 261 bil/L (150-400)
[2016-09-07 08:14] LABS: ERYTHROCYTE SEDIMENTATION RATE 7 mm/hr (0-15)
--- NOTE | 2016-09-07 10:18 | DRSVH ---
PROCEDURE: MRI LUMBAR SPINE WITH AND WITHOUT CONTRAST ([id number]) INDICATIONS: recent lumbar surgery, fever, leg weakness TECHNIQUE: Noncontrast sagittal T1 spin echo and T2 fast spin echo, sagittal STIR, axial T1 and T2 fast spin ech o through the lumbar spine. In cases with scoliosis, additional coronal T2 fast spin echo may be per formed. After the administration of contrast, sagittal and axial T1 spin echo with fat saturation th rough the lumbar spine. COMPARISON: [facility], CT, CT LUMBAR SPINE WO CON, 09/07/2016, 1:30. [facility], MR, MR LUMBAR SPINE W&WO CON, 08/10/2016, 22:44. FINDINGS: Image quality: Excellent. Alignment and curvature: There is trace retrolisthesis of L4 on L5 and L5 on S1. Marrow: Marrow is of normal overall signal. No acute vertebral body compression fractures. No susp icious marrow enhancement. Spinal cord: Conus medullaris terminates at the L1 level. Visualized spinal cord demonstrates gary l signal, without suspicious enhancement. Paraspinous soft tissues: No paravertebral masses or abnormal enhancement. Discs: Moderate desiccation is present at L4-5 and L5-S1. L1-L2: No disc bulge, spinal stenosis or foraminal narrowing. No interval change. L2-L3: No disc bulge, spinal stenosis or foraminal narrowing. No interval change. L3-L4: No disc bulge or spinal stenosis. There is minimal bilateral foraminal narrowing. No interval change. L4-L5: Mild disc bulge with superimposed posterior central protrusion with increased T2 signal. This is suspicious for an underlying annular fissure or tear. This appears more prominent when compared to prior exam. Postsurgical right laminectomy changes are noted. There is moderate bilateral foraminal narrowing. L5-S1: Postsurgical bilateral laminectomy changes are present at this level. There is mild narrowing of the thecal sac by presumed granulation tissue. There is mild to moderate bilateral foraminal narr owing. IMPRESSION 1. L4-5 post surgical changes. Overall exam is stable over recent prior exams without evidence of ac clarice change. Dictated by: Christiana Bruce M.D. on 09/07/2016 at 9:44 Approved by: Christiana Bruce M.D. on 09/07/2016 at 10:16
[2016-09-07 11:34] VITALS: BP 130/83; PULSE 69; O2SAT 97
[2016-09-07] MEDS ORDERED: PRD5T PO (11:36)
[2016-09-07 12:18] VITALS: BP 130/83; PULSE 69; O2SAT 97
== END 2016-09-07 12:17 | disposition home or self-care (01) ==
LOC: SED 04:59
DX: M54.5 Low back pain (principal); M79.605 Pain in left leg; R20.0 Anesthesia of skin; R53.1 Weakness; R50.9 Fever, unspecified; K21.9 Gastro-esophageal reflux disease without esophagitis; M79.7 Fibromyalgia; F17.200 Nicotine dependence, unspecified, uncomplicated; Z98.890 Other specified postprocedural states
CPT/HCPCS: 36415; 72158; 85025; 85651; 86140; 96374; 99285; A9585; J2270

== ENCOUNTER 2016-11-06 13:26 | Emergency (ER) | payer MEDICARE, MEDICAID ==
[~2016-11-06] VITALS: Ht 170.2 cm; Wt 65.9 kg
[~2016-11-06 13:26] MED LIST changes: +PRD5T PO
[2016-11-06 13:49] VITALS: BP 144/84; PULSE 81; RESP 19; O2SAT 98
== END 2016-11-06 13:56 | disposition left against medical advice (07) ==
LOC: SED 13:26
DX: Z53.21 Procedure and treatment not carried out due to patient leaving prior to being seen by health care provider (principal)

== ENCOUNTER 2016-12-05 12:18 | Inpatient (IN) | payer MEDICARE, MEDICAID ==
[~2016-12-05] VITALS: Ht 170.2 cm; Wt 67.0 kg
[2016-12-05 12:21] VITALS: BP 143/92; PULSE 73; RESP 16; O2SAT 100
--- NOTE | 2016-12-05 12:30 | ED.REPORT ---
HPI-General Illness Date of Service Dec 05, 2016 ED Provider: Dr. Valerio Pt is a 41 year old male with a history of gastritis, IBS, and hemorrhoids who presents to the ED complaining of abdominal pain onset 6 days ago. Pt c/o blood in stool (every other day), stool incontinence, dizziness, vomiting, nausea, fever on (3 days ago, 102.1), chills, diaphoresis, and diarrhea. Pain is exacerbated by movement and drinking, and relieved with sitting. He denies hematemesis, lightheadedness, or any other symptoms. [place] [facility] he was diagnosed via CT with Crohn's then was told to come here today if his symptoms do not improve because [facility] has a GI doctor. He was unable to keep any food or fluid down. Pt describes the pain as primarily pain (95%) when moving, with muscles spasms occurring before vomiting and diarrhea episodes. He has been taking Tylenol for his symptoms. He stopped taking pain medications 12 days ago from his back surgery. He was able to successfully taper off of them. Nursing Notes Stated Complaint: ABDOMINAL PAIN Chief Complaint: Male Abdominal Pain Nursing Notes Reviewed: Yes Allergies: Coded Allergies: No Known Allergies (Unverified , 12/05/16) Scheduled PRN Acetaminophen (Acetaminophen) 500 Mg Tablet 1,000 MG PO BID PRN PRN For Pain Ondansetron (Ondansetron) 8 Mg Tablet 8 MG PO PRN For Nausea General Time Seen by MD: 12:41 Chief Complaint Abdominal pain Hx Obtained From: Patient Arrived By: Walk-in Sudden in Onset?: No Onset Occurred: 6 days ago Symptom Duration: Since onset Location: : Abdomen Quality: Painful Radiation: : Does not radiate Severity: Current: Moderate Severity: Maximum: Moderate Recent Healthcare: Recent doctor visit Similar Sx Previous: Yes Past Medical History Past Medical History Notes: PCP: Conor [facility] Dr. Nunn is Spine Doctor/Surgeon. Hx of narcotic seeking 10/02/15: Records from Lambert Tirado MD, at . Work up with enteroscopy and capsule exam demonstrating no luminal abnormality. No inflammatory bowel changes. Past Medical History Clostridium difficile colitis 05/2015 and 12/2014 Colitis IBS Cyclical vomiting Small bowel obstruction Migraine. Guillen's esophagus. GERD. Prostatitis. Fibromyalgia. Kidney stones Interstitial cystitis Epidural hematoma Internal and blood BM chronically diverticulitus Reports: Gastritis, Denies: Diabetes mellitus Past Surgical History Right ear drum repair laparoscopy in 2001 and again in 2013 with lysis of adhesion and incidental appy at that time at [facility] in [place] Right ACL reconstruction C5, C6, C7 Fusion Jul 30, 2014 [place] [facility] [place] canal [place] [facility] [place] Back surgery for epidural hematoma, Aug 10, 2016 Reports: Appendectomy Family History Reviewed, not relevant. Prostate cancer in brother and father. Mom-stroke, HTN Smoking History Current Every Day Smoker (4-5 cigarettes per day) Social History Trying to quit smoking Alcohol Use: Denies alcohol use Drug Use: Denies drug use Other Social History: Frequent ED visitor, , Local resident Occupation no work or school Ambulatory Status Independent Review of Systems +Incontinence of stool Full Review of Systems Constitutional: Reports: Chills, Fever GI: Reports: Abdominal pain, Diarrhea, Hematochezia, Nausea, Vomiting, Denies: Hematemesis Neurologic: Reports: Dizziness, Denies: Lightheaded Complete sys rev & neg: except as marked. Physical Exam Vital Signs Vital Signs Date Time Temp Pulse Resp B/P Pulse Ox O2 Delivery O2 Flow Rate FiO2 12/05/16 15:20 36.4 66 14 137/75 100 Room Air 12/05/16 13:59 66 14 137/75 100 Room Air 12/05/16 12:21 36.4 73 16 143/92 100 Room Air Initial VS: Reviewed Head / Eyes: Atraumatic, Normocephalic Extremities: Vascular intact, Neuro intact Skin: Warm, Dry, No cyanosis Neurologic: Alert, Oriented, Nonfocal Psychiatric: Mood/affect normal, Behavior normal General/Constitutional: Awake, Alert, Cooperative Brown stool with red clots observed in stool sample. Neck: Atraumatic, Full range of motion Respiratory / Chest: Atraumatic, Breath sounds NL, Breath sounds = bilat Cardiovascular: Heart rate NL, Regular rhythm Heart Sounds / Murmur: Positive: Systolic murmur present.. (II/) Abdomen: Atraumatic, Soft No bowel tones. Not particularly distended. Guarding over whole abdominal region. Mild peritoneal signs. Interpretation & Diagnostics Lab Results Interpretation Result Diagram: 12/06/16 0455 12/06/16 0455 Test 12/05/16 12:30 12/05/16 12:35 Urine Color Yellow (YELLOW) Urine Appearance Clear (CLEAR,HAZY) Urine pH 6.0 (5.0-8.0) Urine Specific Emery 1.030 (1.003-1.035) Urine Protein Negativemg/dL (NEG,TRACE) Urine Glucose (UA) Negativemg/dL (NEGATIVE) Urine Ketones Negativemg/dL (NEGATIVE) Urine Occult Blood Negative (NEGATIVE) Urine Nitrite Negative (NEGATIVE) Urine Bilirubin Negative (NEGATIVE) Urine Urobilinogen Normalmg/dL (NORMAL) Urine Leukocyte Esterase Negative (NEGATIVE) Urine RBC 0-2/hpf (0-2) Urine WBC 0-5/hpf (0-5) Urine Epithelial Cells Occasional/hpf (NONE-MOD) Urine Crystals None seen (NONE SEEN) Urine Bacteria None/hpf (NONE-FEW) Urine Hyaline Casts None/lpf (NONE) Urine Granular Casts None seen (NONE SEEN) Urine Waxy Casts None seen (NONE SEEN) Urine Red Blood Cell Casts None seen (NONE SEEN) Urine White Blood Cell Casts None seen (NONE SEEN) Urine Mucus Present (None Seen) Urine Trichomonas None seen (NONE SEEN) Urine Yeast None (NONE SEEN) Urine Culture Reflexed Not indicated Hold Urine Received (Received) Magnesium Level 1.8mg/dL (1.6-2.6) Hold Andrea Top Tube Received (Received) Re-Eval/Medical Decision Med Decision/Clinical Course 41-year-old gentleman with 6-7 days of severe diarrhea and bloody with clots and intractable nausea now with severely increasing abdominal pain. Presented to [facility] yesterday was rehydrated labs were relatively reassuring CT scan of the abdomen suggested ulcerative colitis. Over the 12 hours since discharge from that emergency department he has worsened pain is back to similar levels and he presents to our emergency department for additional help. Stool was sent for PCR. It does have blood clots in it. He is not hemodynamically unstable. Pain has been controlled with nausea medicine Dilaudid and IV fluid. Discussed with GI, Dr. Garcia, who recommended against steroids at this time. He will consult. Records from the [facility] where he has had a camera endoscopy and colonoscopy within the last year are obtained. Records from [facility] with labs and CT results are also available on the chart We need to be admitted for pain control hydration and any additional workup recommended His belly is significantly tender Source of Hx: Old records Time of Eval: 14:04 Re-Evaluation/Progress Note: Pt rechecked. The pain is controlled as long as he doesn't move. Informed pt of plan for admission. Pt understands and agrees with plan for admission. All questions addressed. Consultation #1: Referral / Consult Name: Jovany Garcia MD Call Returned at: 14:09 Taxi Servicer: Will see patient, Agrees with eval, Agrees with plan Note: Consult with Dr. Garcia in GI. Discussed patient's case. Advised against using steroids. Agrees to consult. Consultation #2: Consulted With: Hospitalist Note: Dr Mcfarland will be admitting Counseled Regarding: Diagnosis, Lab results, Need for admission Discharge & Departure Primary Impression: Crohn's disease Gastrointestinal tract location: unspecified location Digestive disease complication type: unspecified complication Qualified Code: K50.919 - Crohn' s disease, unspecified, with unspecified complications Additional Impressions: Intractable nausea and vomiting Vomiting type: unspecified Qualified Code: R11.2 - Nausea with vomiting, unspecified Abdominal pain Abdominal location: unspecified location Qualified Code: R10.9 - Unspecified abdominal pain Disposition: ADMITTED TO HOSPITAL Discharge Condition All VS Reviewed: Yes Condition: Stable Referrals: Haroon Perdomo DO (PCP) Ryanne Attestation Portions of this note were transcribed by Lucien Rucker. Dr. Iman Carty personally performed the history, physical exam and medical decision-making; I reviewed and confirmed the accuracy of the information in the transcribed note. Signed by: Ryanne Cross, 12/05/16 and 14:30 copies to: Haroon Perdomo Shawna L MD Dec 05, 2016 12:30 Keesha Gongora Dec 05, 2016 12:45 LUCIEN DONNELLY Dec 05, 2016 13:05 Condition: Stable Referrals: Haroon Perdomo DO (PCP) Ryanne Attestation Portions of this note were transcribed by Lucien Rucker. Dr. Iman Carty personally performed the history, physical exam and medical decision-making; I reviewed and confirmed the accuracy of the information in the transcribed note. Signed by: Ryanne Cross, 12/05/16 and 14:30 copies to: Haroon Perdomo Shawna L MD Dec 05, 2016 12:30 Keesha Gongora Dec 05, 2016 12:45 LUCIEN DONNELLY Dec 05, 2016 13:05
[2016-12-05] MEDS ORDERED: 0.9% Sodium Chloride 1,000 ML IV ONE (12:57)
[2016-12-05] MEDS ORDERED: HYDROmorphone 1 mg/mL Inj IVPUSH ONE (13:00)
[2016-12-05] MEDS ORDERED: Pantoprazole 4 mg/mL 10 mL Inj IVPUSH ONE (13:00)
[2016-12-05] MEDS ORDERED: Ondansetron 2 mg/mL 2 mL Inj IVPUSH ONE (13:00)
[2016-12-05 13:06] LABS: BASOPHILS % (AUTO) 0.3 % (0-3); EOSINOPHILS % (AUTO) 0.2 % (0-5); MONOCYTES % (AUTO) 8.5 % (4-12); Mean Corpuscular Hemoglobin 29.1 pg (27.0-35.0); Mean Corpuscular Volume 86.4 fL (81-100); NEUTROPHILS % (AUTO) 68.1 % (40-74); Platelet Count 257 bil/L (150-400)
[2016-12-05 13:16] LABS: Magnesium 1.8 mg/dL (1.6-2.6)
[2016-12-05] MEDS: HYDROmorphone 1 mg/mL Inj IVPUSH PRN ×2 (13:58→14:57)
[2016-12-05 13:59] VITALS: BP 137/75; PULSE 66; RESP 14; O2SAT 100
[2016-12-05] MEDS ORDERED: Promethazine Inj 50 MG in 0.9% Sodium Chloride-Pha MIX 100 ML IV ONE (14:50)
[2016-12-05 15:20] VITALS: BP 137/75; PULSE 66; RESP 14; O2SAT 100
[2016-12-05] MEDS ORDERED: Polyethylene Glycol (PEG) 17 Gm Powder PO PRN (15:40)
[2016-12-05] MEDS ORDERED: Alum-Mag Hydrox-Simeth 30 mL Suspension PO PRN (15:40)
--- NOTE | 2016-12-05 15:48 | PCM.HPMED ---
Subjective Date of Service Dec 05, 2016 Primary Provider: Admitting Physician: Mady Mcfarland DO Primary Care Physician: Haroon Perdomo DO Attending Physician: Mady Mcfarland DO Admit Status: From the Emergency Department Chief Complaint: Lower abdominal pain History of Present Illness: This is a 41-year-old white male with PMH of chronic abdominal pain , chronic diarrhea , chronic intermittent hematochezia ( without a clear diagnosis of etiology of all these symptoms except that he has IBS), C. difficile colitis 2 , small bowel adhesions 3 (one of which required surgery), Guillen's esophagus , cyclical vomiting syndrome, fibromyalgia, interstitial cystitis and nephrolithiasis, chronic pain secondary to back problems and several spine surgeries ( states he voluntarily guard up of chronic pain medications 13 days ago with the help of his ) presenting to the ER with diffuse abdominal pain. States that he went to [facility] yesterday with similar symptoms, was offered a CT abdominopelvic that he says showed Crohn's disease type of findings ( this cannot be verified as I do not have a copy of the CT scan from the ER, it is requested but not available at this time). It appears that they discharged him on Cipro, Flagyl, and a tapering dose of prednisone. He denies being on these medications at home, states that he takes no home medications. [facility] ER also told him to go to [facility] ed if his symptoms have not resolved overnight, as [facility] does not have GI. Last bout of severe diarrhea was in June 2015. States had 35 bowel movements so far since yesterday. He states that [facility] has mentioned partial colon resection at one point. He states that his chronic symptoms would usually resolve after a few days but this time around he has been sick for 4-5 days and significantly getting worse. His hematochezia is intermittent, he has fevers and chills at home he had a fever 102 on Tuesday. He is nauseated and has not eaten in 2 days. States that he is feeling lightheaded his abdominal pain is currently 7 out of 10 he has tingling in his legs, he has shooting back pain towards left side, denies edema , urinary symptoms, dyspnea, orthopnea, chest pain. He states that [facility] told him that he has diffuse colitis based on his CT abdomen, and he believes that he is now finally diagnosed with Crohn's. In the ER that showed concern for hypokalemia at 3.3 lipase is elevated at 129. Stool PCR is ordered and results are pending. White count is 10.4 H&H 13.9 over 41.3. Records were requested from and on 10/02/2015 records from [facility] showed enteroscopy and capsule exam without any abnormal findings. Dilaudid 1 mg 2, Phenergan 50 mg IV, Zofran IV, pantoprazole 40 mg IV were given. He was thought to be having mild peritoneal signs in the ER. At the time of this visit, patient is conversing though occasionally complaining that if he moves his pain will get worse. He was able to give me history. While he displayed diffuse abdominal pain emphasizing pain below his umbilicus more to the left than right, he did not display peritoneal signs. Records indicate the patient has seen Dr. Mello in the past. He says he did not transfer from Dr. cesar, rather Dr. cesar felt he did not have equipment ready for a video capsule endoscopy and asked him to go to . Records indicate that patient has several visits to ER. He states that he has had a colonoscopy in [facility] last November. He he has not seen Dr. Cesar since October 2015. He also had a double balloon enteroscopy into the small bowel going from antegrade and retrograde and nothing was found. Review of Systems: All review of systems negative except as stated in the history of present illness Allergies Coded Allergies: No Known Allergies (Unverified , 12/05/16) Home Medications None per patient PMH C. difficile colitis 2, IBS, small bowel obstructions due to adhesions, cyclical vomiting syndrome, Guillen's esophagus, GERD, prostatitis, fibromyalgia , kidney stones, interstitial cystitis, epidural hematoma, chronic bloody bowel movements, chronic reticulitis, gastritis, chronic pain issues, diverticulosis, hemorrhoids Surgical History C5 C6 C7 fusion performed on 07/30/14 at [facility], removal of fatty tissue, spinal widening, back surgery due to hematoma and 08/10/16, appendectomy, several colonoscopies, last colonoscopy was last November in Family History Prostate cancer in brother and father Mom had stroke and hypertension Social History Occupation: disabled Hx Alcohol Use: No Hx Substance Use: No Hx Tobacco Use: Yes (5 cigarettes/day x 2years; previous 1ppd x25y) Smoking Status: Current Every Day Smoker (4-5 cigarettes per day) Living Arrangement: with Family ( and 2 children) Additional Information The patient is , with two children. He lives in [place]. He currently does not work. Exam Vital Signs Vital Sign - Last Date Time Temp Pulse Resp B/P Pulse Ox O2 Delivery O2 Flow Rate FiO2 12/05/16 15:20 36.4 66 14 137/75 100 Room Air Exam Gen.: Appears somewhat nervous HEENT: NCAT, poor dentition Heart: Regular rate and rhythm no S3-S4 sounds Lungs: Clear to auscultation no crackles or wheezes Abdomen: Not noticeably distended, he states he has tenderness all over his abdomen but mainly below the umbilicus more to the left than right. Bowel sounds are present Extremities: Negative for edema Vascular: Pedal pulses are palpable Skin: No rashes or erythema, abdominal surgical incisions are seen Neuro: No focal deficits Psych: Affect is reserved, mood neutral Lab and Diagnostics Result Diagram: 12/05/16 1235 12/05/16 1235 Assessment & Plan K if the MRI is available at night MRI of work. The active but at that time with any This is a 41-year-old male with several complaints mostly related to abdominal pain and back pain and neck pain with several medical facility visits is presenting to the ER with abdominal pain. Because of her toenail signs that were noticed in the ER we will need to have surgery involved (to rule out bowel infarction, peneumatoperitoneum, mesenteric ischemia etc) , GI is already consulted by ER and they are aware. Assessment #1 lower abdominal pain: Due to peritoneal signs, pneumatoperitoneum , peritonitis will need ot be rule dout. -- Consult general surgery to rule out bowel infarction, peneumatoperitoneum, mesenteric ischemia, truama etc : Spoke with Dr. Headley and he asked for a repeat CT abd/pelvic wiht IV and PO contrast. This has been ordered and no diffuse inflammation is noted on the read. "IMPRESSION: Normal for age, source of current symptoms is not seen." -- We will consult GI: ER has contacted Dr. Cody, he has done an extensive investigation already and is willing to investigate patient's symptoms further as long as trauma etc are ruled out. -- Cipro, Flagyl antibiotics per GI. -- Morphine IV for pain control -- Protonix IV 40 mg for GI prophylaxis -- Nothing by mouth diet -- Normal 100 mL per hour -- Cipro, flagyl IV abx per GI -- Dr. Garcia is recommending an MR Enterography (to investigate small bowel scarring )after surgery evaluates patient and r/o peritoneal signs. There is currently no order for this study, topography technician has gone home for the day. Call and investigate this study in the AM. Assessment #2 elevated lipase : --DDX includes Acute pancreatitis, Chronic pancreatitis, Acute cholecystitis, Bowel obstruction or infarction, Duodenal ulceration, Pancreatic calculus, Pancreatic tumors, HIV disease Macrolipasemia, Celiac disease, Idiopathic Drugs -- CT abdominopelvic ruled out acute pancreatitis, chronic pancreatitis, acute cholecystitis, bowel obstruction, pancreatic tumors -- Surgery will be looking at bowel infarction as a cause. -- RUQ U/S will be ordered. -- Consider MR abdomen W contrast after discussing with Dr. Garcia/GI -- HIV test -- GGT is ordered -- Celiac panel is ordered Assessment #3 Hematochezia, POA: apparently his H&H is fairly stable -- H&H follow up in 4 hrs -- Stool guiac is ordered. Assessment #4 GERD,chronic: -- IV Protonix 40 mg Daily Pain Evaluation: Pain not Controlled VTE Prophylaxis Indicated: Contraindicated (he states he has rectal bleeding) Resuscitation Status: CPR: Attempt Resuscitation ( is his alternate decision-maker) Time spent 40 min Mady Mcfarland DO Dec 05, 2016 15:48
[2016-12-05 16:08] VITALS: BP 137/83; PULSE 58; RESP 20; O2SAT 98
--- NOTE | 2016-12-05 16:30 | NUR ---
Admit Patient admitted into room 1005 via ED [facility] at 1600. Patient transferred SBA onto bed in room and was unsteady on his feet and patient reports he has been weak since he has been unable to eat or drink. RA. Dk Locked. Belongings came up with patient. Admission completed, patient good historian. Patient does deny N/V but reports 12/11 for pain in abdomen and radiates to left side and to back and is tender to touch. Oriented to room, call light within reach. Addendum: 12/05/16 at 1818 by MANNY SHARMA RN Med Rec completed. MD in room and went through medications with patient and RN at bedside.
[2016-12-05] MEDS ORDERED: ACET-171 PO (16:46)
[2016-12-05] MEDS: 0.9% Sodium Chloride 1,000 ML IV SCH (16:51)
[2016-12-05] MEDS ORDERED: DEXTROSE IV ONE ×2 (17:25)
[2016-12-05] MEDS ORDERED: POTASSIUM CHLORIDE 10 MEQ/100 ML IV ONE ×2 (17:25)
--- NOTE | 2016-12-05 17:34 | CONS ---
[address] [address] CONSULTATION REPORT PATIENT: SARAH SELBY : 1975 MR#: [id number] ADMIT: 12/05/2016 JOB ID: [id number] DATE OF SERVICE: 12/05/2016 REASON FOR CONSULTATION: I am seeing this patient at [facility] for diarrhea and blood in the stools. HISTORY OF PRESENT ILLNESS: This is a 41-year-old gentleman who has extensive GI workup history for obscure GI bleeding, possible small bowel obstruction who also had a history of leaving against medical advice during anemia workup and had rectal bleeding as well as melena. He had multiple EGD/colonoscopies done locally in [place] as well as [facility]. Initially, he was seen in [place], then he saw Dr. Mast a few times and he was transferred to [facility] for further care. It appears the last time he had an EGD done was in 2014 where they found esophagitis. Colonoscopy was also done in 2014 where they found hyperplastic polyps. He also had a double balloon enteroscopy into the small bowel going from antegrade and retrograde and nothing was found. They also did a capsule endoscopy which was negative. He also has a history of cyclic vomiting as well and this was also looked into. At one point, he had C. difficile and he presented with 10-15 times of stools a day. He also has a history of irritable bowel syndrome, and he came to the ED complaining of abdominal pain starting six days ago. Prior to six days ago, he had no prior history of travel, camping. However, there was a barbecue that he was at. Prior to six days ago, he said he was doing great. No abdominal pain, nausea, vomiting. Then, six days ago, he slowly starting having abdominal discomfort. Abdominal discomfort was described as generalized abdominal bloating, cramping sensation with increasing intensity without any radiation. This was also associated with nausea, later vomiting, and diarrhea later on. Then, the following days, his symptoms have gotten worse with increased frequency of diarrhea, worsening of abdominal pain and now getting persistent vomiting. Three days ago, he had a temp of 102.1. Started having chills, diaphoresis and diarrhea worsens. Because the pain was getting worse and every time he tried to eat something, he said he felt like there was glass. Nothing seems to make it better or worse, and he stopped eating. But, he persistently had diarrhea. Then, he went to [facility] where they did a CT scan, and they said there could be Crohn disease. However, I do not have the CT scan results from the [facility]. Then, he was discharged from [facility] saying they could not do anything for him.It appears he was given steroids cipro and flagyl. If the symptoms did not get any better, he was asked to go to [facility]. He was unable to keep food down and he was unable to also keep fluids down. Because of this, because of the persistent symptoms, weakness, he came to the emergency department. In the emergency department, he was noted to be in pain. By the time I saw him, he was given pain medications. His abdominal examination by the ED doctor was documented as atraumatic, soft, no bowel tones, not particularly distended and guarding all over the abdominal region. He said there were mild peritoneal signs. White count was elevated at 10.4. The patient was given pain medications. The patient informed me that the pain is better than how it was, but still having quite a bit of pain. He is not nauseated right now and has not vomited since he has been in the hospital. PAST MEDICAL HISTORY: C. diff colitis, cyclical vomiting, small bowel obstruction, migraine, Guillen's esophagus. However, the [facility] documentation indicates only esophagitis. Reflux, prostatitis, fibromyalgia, kidney stone, cystitis, epidural hematoma, internal and external hemorrhoids, diverticulitis, gastritis. PAST SURGICAL HISTORY: 1. Right eardrum repaired. 2. Laparoscopy in 2001 and 2013. 3. Appendectomy. 4. Right ACL reconstruction. 5. Back surgery. FAMILY HISTORY: Prostate cancer. SOCIAL HISTORY: Smokes 5-6 cigarettes per day. Denies use of alcohol or drugs. MEDICATIONS HERE: Include Dilaudid, pantoprazole, morphine, Tylenol, polyethylene glycol, senna, Zofran, Maalox. PHYSICAL EXAMINATION: Patient is alert, oriented, did appear comfortable when I saw him. Temp of 36.9, pulse 58, respiration 20, blood pressure 137/83. Head and neck: No icterus. Lungs: Clear. Cardiovascular: Regular rate, rhythm. Normal S1, S2. Abdomen: Diffuse tenderness. I do not elicit guarding, rebound or firmness. Bowel sounds are there but quiet then intermittently are very active. Extremities: No pitting edema of the ankles. Skin shows no jaundice. Radial pulses bilateral strong and intact. LABORATORY DATA: Hemoglobin 13.9, platelets are 257,000, white count is 10.4. Chemistry shows potassium of 3.3, BUN of 8, creatinine 0.70, lipase of 129. Cultures from stool samples were all negative including C. difficile. IMPRESSION and PLAN: This is a gentleman who says on the CT scan from outside saying he could have Crohn disease, however, in 2014 and 2016 extensive workup was done for Crohn's, and there was no evidence of Crohn disease. He comes in suddenly with fever and diarrhea. This appears more to be an infectious type of diarrhea. However, the stool studies are thus far negative. On the other hand, he was given flagyl and cipro from [facility] as well as steroids. This can give false negative for C dif. therefore, our negative stool studies do not completely rule out infection. The ED note indicates that there were peritoneal signs. Because the patient received pain medication, my physical examination will be less accurate. Therefore, I will get surgeon on board for the ER finding. For now,I would recommend possible continuation of antibiotics with Cipro/ Flagyl. Please obtain surgical evaluation NEVILLE because the ED physical examination revealed peritoneal signs. I did not elicit peritoneal signs, however, by the time I did the physical examination, the patient received significant pain medication, therefore, it may not be as accurate. Please obtain MR enterography which is more accurate for small bowel scarring and inflammation. Plan discussed with the primary doctor. Dr. Mcfarland. RADHA
[2016-12-05] MEDS: Ondansetron 2 mg/mL 2 mL Inj IVPUSH PRN (17:54)
--- NOTE | 2016-12-05 18:10 | NUR ---
NAUSEA Patient currently NPO, but CT ABD/PELVIS ordered with contrast. After 1/4 of contrast had gone down patient began to feel nauseous and stated pain started to increase. Administered 8mg zofran IVP and IV morphine was administered by another RN for 6/10 abdominal pain.
--- NOTE | 2016-12-05 18:45 | NUR ---
To CT Patient off unit to CT via wheelchair. Saline locked for CT.
--- NOTE | 2016-12-05 19:06 | DRSVH ---
PROCEDURE: CT ABDOMEN AND PELVIS WITH CONTRAST ([id number]) INDICATIONS: peritoneal signs TECHNIQUE: After the administration of oral and intravenous contrast, 5 mm thick sections acquired from the diap hragms to the symphysis. 5 mm thick coronal and sagittal reformats were performed. For radiation do se reduction, the following was used: automated exposure control, adjustment of mA and/or kV accordi ng to patient size. COMPARISON: [facility], CT, CT ABD PELVIS W CON, 06/21/2015, 16:36. FINDINGS: Image quality: Excellent. ABDOMEN: Lung bases: Lung bases are clear. Heart size is normal. Solid organs: Liver and spleen are normal in size and enhancement. Gallbladder appears normal. Pan iary system is non-dilated. Pancreas enhances normally. No adrenal nodules. Kidneys are normal in size and enhancement, without hydronephrosis. Peritoneum and bowel: Stomach, small bowel, and colon loops are normal in caliber and wall thickness . No free fluid or air. Nodes and vessels: No retroperitoneal or mesenteric adenopathy. Aorta and inferior vena cava are no rmal in caliber. Miscellaneous: No ventral hernias. PELVIS: Genitourinary: Bladder wall thickness is normal. Miscellaneous: No inguinal hernias or adenopathy. Bones: No suspicious bony lesions. No vertebral body compression fractures. IMPRESSION: Normal for age, source of current symptoms is not seen. Dictated by: Devan Reyes M.D. on 12/05/2016 at 19:04 Approved by: Devan Reyes M.D. on 12/05/2016 at 19:05
--- NOTE | 2016-12-05 19:10 | CONS ---
[address] [address] CONSULTATION REPORT PATIENT: SARAH SELBY : 1975 MR#: [id number] ADMIT: 12/05/2016 JOB ID: [id number] DATE OF SERVICE: 12/05/2016 CHIEF COMPLAINT: Abdominal pain, blood in the stool, nausea, vomiting. HISTORY OF PRESENT ILLNESS: The patient is a 41-year-old male with a complicated past GI history who presented to the emergency department today due to abdominal pain. According to the patient he has been having abdominal pain for the past six days or so. This is associated with nausea, vomiting, and also diarrhea and there has been blood in the stool in four of the six days. He reports having a fever three days ago and he has been having dizziness and chills. Due to the abdominal complaint, patient was seen yesterday at [facility] where they did a CT scan. According the patient, they told him that this could be Crohn's and that there is nothing that they could do for him. He was released. They told him that if his abdominal pain gets worse to present to [facility] because there is a GI doc available. The patient has had previous history of obscure bleeding where he has undergone extensive workup up in [facility] with EGD and colonoscopies and also has had workup at the [facility] in 2016 with a capsule endoscopy and also double balloon enteroscopy, and according to the patient the findings were all negative. The patient also has had a history of C. diff colitis and cyclic vomiting syndrome and also has had history of small bowel obstructions, where he required a laparotomy for bowel obstruction up in [place] in 2013. I was consulted by the hospitalist, Dr. Mcfarland. PAST MEDICAL HISTORY: Is quite extensive and includes right eardrum surgery, history of SBO, history of EGD and colonoscopy, and extensive GI workup at the [facility], C. diff colitis, cyclic vomiting syndrome, IBS, appendectomy, right knee surgery, back surgery x3 this year at [facility], history of gastritis, hemorrhoids, Guillen's esophagus, fibromyalgia, kidney stones, migraines, neck fusion and a brain aneurysm. MEDICATIONS AT HOME: Include Tylenol, Maalox, Cipro, Flagyl, Zofran, Protonix, MiraLAX, senna. ALLERGIES: None. SOCIAL HISTORY: The patient is , with two children. He lives in [place]. He currently does not work. FAMILY HISTORY: Positive for prostate cancer. REVIEW OF SYSTEMS: Positive for the generalized abdominal pain, more on the left side. Nausea, vomiting, diarrhea and blood in the stool and chills. PHYSICAL EXAMINATION: The patient is currently in the hospital bed in no acute distress. His BMI is 22. His temperature is 36.9, blood pressure 137/83, pulse is 58, respirations 20. Head is normocephalic, atraumatic. The patient wears glasses. Neck is supple. Heart is regular rate. Lungs are clear bilaterally. Abdomen is nondistended. He is fairly tender to palpation on the left lateral abdomen and also in the epigastric location. The right side of the abdomen is soft and rather nontender. When I shake the bed he does report having abdominal pain. Extremities show no clubbing and no cyanosis. Neurologically, he is awake and alert and nonfocal and he is able to provide medical history. LABORATORY EXAMINATION: Today shows a white blood count of 10.4, hematocrit 41.3. Platelet count is 257. Sodium is 141, potassium 3.3, creatinine 0.70. Total bilirubin 0.5, lipase of 129. Currently, we do not have any of his records from [facility] yesterday. I do not have the CT scan report from yesterday. ASSESSMENT: This is a 41-year-old male with a 6-day history of abdominal pain, nausea, vomiting, and bloody diarrhea. The patient has a fairly extensive GI history as well the IBS, C. diff colitis and cyclic vomiting issues in the past. The patient also has prior surgical history in terms of appendectomy and laparotomy for small bowel obstruction up in [place]. It is not entirely clear to me at this point what is going on. I would like to see his CT scan report from [facility] yesterday. The patient does have a degree of pancreatitis due to his elevation of lipase. The patient is currently scheduled to undergo another CT scan here at this institution. I would recommend n.p.o. and IV fluid hydration and starting him on IV antibiotics. I believe the GI service has been consulted already. Stool studies should be helpful as well. I will follow the patient along with you. This patient does not have a rigid abdomen or gross peritonitis and does not need surgery tonight. CC: Mady Mcfarland MD. MTDD
[2016-12-05 20:20] VITALS: BP 138/77; PULSE 57; RESP 20; O2SAT 99
[2016-12-05] MEDS: Ciprofloxacin Inj 400 MG in IV Premix 1 EACH IV SCH (21:21)
[2016-12-05] MEDS: metroNIDAZOLE Inj 500 MG in IV Premix 1 EACH IV SCH (22:42)
[2016-12-06 00:06] LABS: APPEARANCE,URINE CLEAR (CLEAR,HAZY); COLOR,URINE YELLOW (YELLOW); OCCULT BLOOD,URINE NEGATIVE (NEGATIVE); UROBILINOGEN,URINE NORMAL (NORMAL)
--- NOTE | 2016-12-06 00:36 | NUR ---
PAIN/GI m.s. effective for abd pain. No reported bms. No c/o nausea or vomiting. Slept off and on this shift. NPO.
[2016-12-06 00:48] VITALS: BP 147/80; PULSE 47; RESP 16; O2SAT 96
[2016-12-06] MEDS: Ondansetron 2 mg/mL 2 mL Inj IVPUSH PRN ×5 (03:43→19:59)
[2016-12-06] MEDS: 0.9% Sodium Chloride 1,000 ML IV SCH ×2 (03:44→16:47)
[2016-12-06 05:43] LABS: BASOPHILS % (AUTO) 0.3 % (0-3); EOSINOPHILS % (AUTO) 2.2 % (0-5); MONOCYTES % (AUTO) 10.1 % (4-12); Mean Corpuscular Volume 88.8 fL (81-100); NEUTROPHILS % (AUTO) 43.5 % (40-74); Platelet Count 205 bil/L (150-400)
[2016-12-06 05:56] LABS: INR 1.02 ratio
[2016-12-06 06:04] VITALS: BP 130/75; PULSE 56; RESP 16; O2SAT 98
[2016-12-06 07:10] LABS: BASOPHILS % (AUTO) 0.3 % (0-3); Mean Corpuscular Volume 89.6 fL (81-100); NEUTROPHILS % (AUTO) 46.1 % (40-74); Platelet Count 193 bil/L (150-400)
[2016-12-06 08:21] LABS: Magnesium 1.8 mg/dL (1.6-2.6)
[2016-12-06] MEDS: metroNIDAZOLE Inj 500 MG in IV Premix 1 EACH IV SCH (08:26)
[2016-12-06] MEDS: Pantoprazole 4 mg/mL 10 mL Inj IVPUSH SCH (08:26)
[2016-12-06] MEDS: Ciprofloxacin Inj 400 MG in IV Premix 1 EACH IV SCH (09:20)
--- NOTE | 2016-12-06 10:13 | NUR ---
Case Management: HURT and Medicare Part D Pamphlet delivered and explained to patient. Signed original placed in chart. Copy left at bedside. Trinity Heredia RN
--- NOTE | 2016-12-06 10:30 | NUR ---
Off Unit to Xray at 1015 via w/c with chart = A&Ox3, ARCINIEGA, In stable condition and aware of imaging to be performed, IV infusing abx, left via w/c, pain present but tolerating at rest. Returned to [facility] unit 1005 from Xray d/t residual contrast from CT scan = unable to perform scan per central office technician. Pt back to bed. Dr. Levi made aware of this. Care continues.
[2016-12-06 10:33] VITALS: BP 124/77; PULSE 51; RESP 17; O2SAT 99
--- NOTE | 2016-12-06 10:44 | DRSVH ---
PROCEDURE: US ABDOMEN, LIMITED ([id number]) INDICATIONS: elevated lipase, pain, n./v TECHNIQUE: Real-time focused scanning was performed of the abdomen, with image documentation. COMPARISON: [facility], CT, ABD/PELVIS W/CON (PNL), 03/03/2015, 1:09. [facility], US, ABDOMEN SONOGRAM LIMITED, 03/04/2013, 23:26. FINDINGS: Multiple subcentimeter presumed hepatic cysts seen on prior CT scan not definitively identi fied sonographically. No gallstones identified. Normal gallbladder wall. No pericholecystic fluid. Negative sonographic Davis sign. No biliary dilatation. IMPRESSION: 1. Normal gallbladder. 2. No biliary dilatation. 3. Presumed hepatic cysts seen on prior CT scan not appreciated sonographically. Dictated by: Delvin CELAYA Interpreted: Shravan Tilley MD on 12/06/2016 at 10:41 Transcribed by: DAVID on 12/06/2016 at 10:43 Approved by: Ronen Tilley M.D. on 12/06/2016 at 10:47
--- NOTE | 2016-12-06 10:49 | DRSVH ---
PROCEDURE: X-RAY ABDOMEN, ONE VIEW ([id number]) INDICATIONS: ? chrohns TECHNIQUE: One view of the abdomen acquired. COMPARISON: [facility], CT, CT ABD PELVIS W CON, 12/05/2016, 18:51. FINDINGS: Surgical changes and devices: Lumbosacral spine fixation hardware redemonstrated. Bowel: Bowel gas pattern is normal, aside from residual contrast media throughout the course of the colon. Soft tissues: No suspicious abdominal calcifications. Visualized solid organ contours appear normal in size. Bones: No suspicious bony lesions. IMPRESSION: Residual contrast media within the colon. Patient will be rescheduled for small bowel se petey. Dictated by: Delvin CELAYA Interpreted: Shravan Tilley MD on 12/06/2016 at 10:47 Transcribed by: DAVID on 12/06/2016 at 10:48 Approved by: Ronen Tilley M.D. on 12/06/2016 at 16:31
--- NOTE | 2016-12-06 10:52 | PCM.PNSURG ---
Subjective Date of Service: Dec 06, 2016 Date of Service: Dec 06, 2016 Visit Information: Reason for Visit Colitis, Dehydration, Question New Onset Chrons Date of Admission: Dec 05, 2016 at 15:21 Hospital Day #2 Subjective: This morning patient reports pain that is worse with movement, when the pain worsens he becomes nauseous. The pain is localized in the lower abdominal area and with movement he feels it go up his left side and midline upward next to his belly button. Patient had 1 small bowel movement this morning of runny stool without blood. He has not been vomiting since he has been in the hospital however he continues to feel chills and nausea. No fevers have been recorded. Generally motion makes this pain worse, specifically it is the getting out of bed and turning, he does not feel an increase in his pain when he takes a step. His history is positive for bowel obstruction in September 2013, during his operation he also underwent appendectomy. His last episode of abdominal pain and severe IBS was over one year ago. He does report a history of diverticulosis in the past. Day 2 of IV ciprofloxacin and metronidazole. Gastrointestinal: Passing Stool, Other (severe abdominal pain, patient is nothing by mouth) Pain Management: IV Push Postop Activity: Ambulating Independently Objective Vital Sign- Last 8 Hours Date Time Temp Pulse Resp B/P Pulse Ox O2 Delivery O2 Flow Rate FiO2 12/06/16 10:33 36.7 51 17 124/77 99 Room Air 12/06/16 06:04 36.2 56 16 130/75 98 Room Air Intake and Output- Last 8 Hour 12/06/16 Cumulative From/Thru 07:00 12/05/16 12:21 - 12/06/16 06:04 Intake Total 1300 ml 1300 ml Output Total 1000 ml 1000 ml Balance 300 ml 300 ml Intake Oral 0 ml 0 ml IV Total 1300 ml 1300 ml Output Urine Total 1000 ml 1000 ml # Bowel Movements 0 0 General: Alert, Oriented X3, Mild Distress Neck: Supple, Full Range of Motion Lungs: Clear to Auscultation Heart: Regular Rate/Rhythm, No Murmurs/Rubs/Gallops Abdomen: Soft, Guarding, Non-distended, Normoactive bowel tones, Other ( acutely tender to very light palpation) Extremities: Distal Pulses Palpable, Warm Neuro: Grossly Neurologically Intact Catheters: None Result Diagram: 12/06/16 0700 12/06/16 0700 Diagnostics: PROCEDURE: CT ABDOMEN AND PELVIS WITH CONTRAST IMPRESSION: Normal for age, source of current symptoms is not seen. ADDENDUM: Findings were discussed with Dr. Headley of the surgical staff. He reports that a prior CT scan from one day ago was performed at an outside hospital, reporting a single loop of mildly thickened small bowel wall. The current study shows no area of small bowel mural thickening or inflammation and no pneumatosis is seen. A normal or abnormal appendix is not found. There is no secondary CT evidence of appendicitis at the right lower quadrant. Approved by: Devan Reyes M.D. on 12/05/2016 at 19:51 PROCEDURE: US ABDOMEN, LIMITED FINDINGS: Multiple subcentimeter presumed hepatic cysts seen on prior CT scan not definitively identified sonographically. No gallstones identified. Normal gallbladder wall. No pericholecystic fluid. Negative sonographic Davis sign. No biliary dilatation. IMPRESSION: 1. Normal gallbladder. 2. No biliary dilatation. 3. Presumed hepatic cysts seen on prior CT scan not appreciated sonographically. Dictated by: Delvin French [facility] Interpreted: Shravan Tilley MD on 12/06/2016 at 10: 41 Transcribed by: DAVID on 12/06/2016 at 10:43 Approved by: Ronen Tilley M.D. on 12/06/2016 at 10:47 Abdominal x-ray showed residual contrast and will be rescheduled. Assessment & Plan Impression This is a 41-year-old male with a 6-day history of abdominal pain, nausea, vomiting, and bloody diarrhea. The patient has a fairly extensive GI history as well with IBS, C. diff colitis, and cyclic vomiting issues in the past. The patient also has prior surgical history in terms of laparotomy for small bowel obstruction with appendectomy up in [place]. He is passing small amounts of non bloody stool. His Lipase continues to be normal at 16 after elevation on admission. Limited US does not show evidence of cholecystitis or biliary dilation. Stool PCR negative. Prior CT scan from the day prior to admission was performed at an outside hospital, reporting a single loop of mildly thickened small bowel wall. The current study shows no area of small bowel mural thickening or inflammation and no pneumatosis is seen. It was read as normal for age. Problems: Plan Recommend continuation of n.p.o. and IV fluid hydration Continue IV antibiotics. GI service has been consulted already which will be helpful for this patient, they will be moving forward with colonoscopy This patient does not have a rigid abdomen, gross peritonitis, is passing stool at this time and does not need surgery today. Pain Management: IV morphine as patient is NPO Resuscitation Status: CPR: Attempt Resuscitation ( is his alternate decision-maker) Attending Statement: I agree with Dr. Webb's assessment and plan. GI service is involved. copies to: Tonny Headley MD, Erika R DO Dec 06, 2016 10:52 Tonny Headley MD Dec 08, 2016 08:11
[2016-12-06] MEDS ORDERED: PEG/Electrolytes 4,000 mL Solution PO ONE (12:10)
--- NOTE | 2016-12-06 14:11 | NUR ---
NUTRITION ASSESSMENT: ASSESS: 41YOM admit with n/v/abdominal pain x 6d prior to admit. Note improvement in vomiting, abdominal pain persists,+fever, GI consulted, pt to undergo abdominal x-ray. MD notes indicate continue NPO/IV fluids. PMHX: Bowel obstruction, IBS,Diverticulosis,burden's esophagus,gastritis,laparotomy DIET: NPO LABS: Alb 3.5 MEDS: Reviewed GI: +BM per MD notes,non bloody WEIGHT: 65.0kg;BMI:22.4 admit wt 63.6kg: Wt in September 2016:70.5kg 9% weight loss x 3mos = Severe EST.NEEDS: Based on UBW 70.5kg (25-30kcal/kg;1.0-1.5g/kg pro) Kcal: 5956-5142 Pro: 70-105g NUTRITION DIAGNOSIS: (1) Severe protein calorie malnutrition related to altered GI tract function, n/v/abdominal pain as evidenced by 9% weight loss x 3mos per PMHx. INTERVENTION: (1) Await timely diet advancement vs. potential for nutrition support. MONITOR/EVALUATE: F/U per high risk.
--- NOTE | 2016-12-06 14:13 | PCM.PNMED ---
Subjective Date of Service Dec 06, 2016 Subjective No bowel movement overnight. No blood per rectum. Abdominal pain much improved. Exam Vital Signs Vital Sign - Last Date Time Temp Pulse Resp B/P Pulse Ox O2 Delivery O2 Flow Rate FiO2 12/06/16 10:33 36.7 51 17 124/77 99 Room Air Intake and Output 12/05/16 12/05/16 12/06/16 Cumulative From/Thru 15:00 23:00 07:00 12/05/16 12:21 - 12/06/16 06:04 Intake Total 1300 ml 1300 ml Output Total 1000 ml 1000 ml Balance 300 ml 300 ml Intake Oral 0 ml 0 ml IV Total 1300 ml 1300 ml Output Urine Total 1000 ml 1000 ml # Bowel Movements 0 0 Exam Gen.: Appears somewhat nervous HEENT: NCAT, poor dentition Heart: Regular rate and rhythm no S3-S4 sounds Lungs: Clear to auscultation no crackles or wheezes Abdomen: Abdomen is soft today. No tenderness appreciated. Positive bowel sounds. Extremities: Negative for edema Vascular: Pedal pulses are palpable Skin: No rashes or erythema, abdominal surgical incisions are seen Neuro: No focal deficits Psych: Affect is reserved, mood neutral IVs and Medications Medications Reviewed: Medications were reviewed in detail Lab and Diagnostics Result Diagram: 12/06/16 0700 12/06/16 0700 X-Rays, CTs and MRIs PROCEDURE: CT ABDOMEN AND PELVIS WITH CONTRAST ([id number]) INDICATIONS: peritoneal signs IMPRESSION: Normal for age, source of current symptoms is not seen. ADDENDUM: Findings were discussed with Dr. Headley of the surgical staff. He reports that a prior CT scan from one day ago was performed at an outside hospital, reporting a single loop of mildly thickened small bowel wall. The current study shows no area of small bowel mural thickening or inflammation and no pneumatosis is seen. A normal or abnormal appendix is not found. There is no secondary CT evidence of appendicitis at the right lower quadrant. Approved by: Devan Reyes M.D. on 12/05/2016 at 19:51 PROCEDURE: US ABDOMEN, LIMITED ([id number]) INDICATIONS: elevated lipase, pain, n./v IMPRESSION: 1. Normal gallbladder. 2. No biliary dilatation. 3. Presumed hepatic cysts seen on prior CT scan not appreciated sonographically. Dictated by: Delvin CELAYA Interpreted: Shravan Tilley MD on 12/06/2016 at 10: 41 Assessment & Plan This is a 41-year-old male with several complaints mostly related to abdominal pain and back pain and neck pain with several medical facility visits is presenting to the ER with abdominal pain. Because of her toenail signs that were noticed in the ER we will need to have surgery involved (to rule out bowel infarction, peneumatoperitoneum, mesenteric ischemia etc) , GI is already consulted by ER #1 lower abdominal pain: Probably due to his known IBS -- Initial CT at outside facility /[facility] reportedly showed Crohn's disease. Repeat CT in 12/06 normal. Patient also had extensive workup previously and no Crohn's disease. -- He was started on Cipro, Flagyl antibiotics. No diarrhea currently. Afebrile. No leukocytosis. procalcitonin negative. Stool guaiac negative . Discontinued antibiotic -- Morphine IV for pain control -- Protonix IV 40 mg for GI prophylaxis -- Dr. Garcia is initially recommending an MR Enterography. Spoke with technical product manager. Patient needs to take contrast 24 hours prior to study. Discussed with , he will do colonoscopy tomorrow given a normal CT scan yesterday. he will consider MRI enterography outpatient if colonoscopy is unrevealing and if patient continues to have symptoms #2 elevated lipase : --DDX includes Acute pancreatitis, Chronic pancreatitis, Acute cholecystitis, Bowel obstruction or infarction, Duodenal ulceration, Pancreatic calculus, Pancreatic tumors, HIV disease Macrolipasemia, Celiac disease, Idiopathic Drugs -- CT abdominopelvic ruled out acute pancreatitis, chronic pancreatitis, acute cholecystitis, bowel obstruction, pancreatic tumors -- RUQ U/S negative -- HIV test -- GGT is ordered -- Celiac panel is ordered #3 reported Hematochezia, POA: apparently his H&H is fairly stable -- H&H stable -- Stool guiac is negative #4 GERD,chronic: -- IV Protonix 40 mg Daily Disposition: Possible discharge tomorrow after colonoscopy Observation status VTE Mechanical Devices: Intermittant Pneumatic CD Resuscitation Status: CPR: Attempt Resuscitation ( is his alternate decision-maker) Gerardo Levi MD Dec 06, 2016 14:13 #4 GERD,chronic: -- IV Protonix 40 mg Daily VTE Mechanical Devices: Intermittant Pneumatic CD Resuscitation Status: CPR: Attempt Resuscitation ( is his alternate decision-maker) Gerardo Levi MD Dec 06, 2016 14:13
--- NOTE | 2016-12-06 14:50 | NUR ---
Social Work: Initial Assessment D: EMR reviewed. Pt is a 41 y/o male admitted for colitis, dehydration, question new onset per H&P. SW met with pt at bedside to conduct initial assessment. Pt was alert and oriented x3. SW explained role and wrote phone number on white board. Pt's insurance is Medicare and HS supplemental. Pt's PCP is Haroon Perdomo DO. SW discussed DPOA/advanced directive ppw and pt declined any further information. Pt has no Hx of HH or SNF. Pt has no LTC insurance or VA benefits. Pt is independent with ADLs. Pt does not use any DME. Pt drives. Pt is independent at baseline. Pt lives in an with 2 steps to enter in [place] with his spouse. Pt does not anticipate any discharge needs. Pt confirmed his spouse will provide transport home via POV when pt is medically stable. SW does not anticipate any discharge needs at this time but will continue to follow if needs arise. A: Pt who is independent at baseline P: Pt confirmed his spouse will provide transport home via POV when pt is medically stable. SHAHBAZ does not anticipate any discharge needs at this time but will continue to follow if needs arise. DAFNE Miller Addendum: 12/06/16 at 1454 by GAYATRI VEGA Amended: Links added.
--- NOTE | 2016-12-06 16:48 | NUR ---
Pain/Colyte Pt with abdominal pain, stated to be constant. Pt receiving 2mg IVP Morphine with IVP Zofran q4h as available. Stated no emesis, but nausea brought on d/t pain. Pt started on clear liquid diet for lunch, did not tolerate - unsure if d/t nausea with having been NPO previously or d/t pain issues. Pt continuing IVP Morphine and Zofran. Colyte started at 1415. Pt aware of prep for 12/07/16 colonoscopy plan. Pt not tolerating well - stating increased abdominal cramping and nausea. Stated feeling of bile in esophagus, not productive. Cook page to for increase in IVP Morphine as 2mg no longer effective for 4hr duration. Received increase in IV Morphine doses. Pt encouraged to drink what he can of the Colyte. Colyte on ice. Pt in pain but has been pleasant and cooperative with - Care continues. Addendum: 12/06/16 at 1855 by DENZEL BRADLEY RN Dinner Pt able to tolerate liquid tray, stating that he feels 'things moving' in bowels. Was able to drink his glass of Colyte and even requested more jello to rotate back and forth between jello and colyte. Care continues.
--- NOTE | 2016-12-06 17:02 | PCM.PNMED ---
Subjective Date of Service Dec 06, 2016 Subjective Patient still complains of abdominal pain however it is a lot better since he received pain medication about an hour ago. He is still having some blood in the stools but no diarrhea. Exam Vital Signs Vital Sign - Last Date Time Temp Pulse Resp B/P Pulse Ox O2 Delivery O2 Flow Rate FiO2 12/06/16 10:33 36.7 51 17 124/77 99 Room Air Intake and Output 12/05/16 12/05/16 12/06/16 Cumulative From/Thru 15:00 23:00 07:00 12/05/16 12:21 - 12/06/16 06:04 Intake Total 1300 ml 1300 ml Output Total 1000 ml 1000 ml Balance 300 ml 300 ml Intake Oral 0 ml 0 ml IV Total 1300 ml 1300 ml Output Urine Total 1000 ml 1000 ml # Bowel Movements 0 0 Exam Patient is alert oriented does appear comfortable. Head and neck no icterus Lungs clear Cardia vascular regular rate and rhythm, S1 and S2 Abdomen soft with diffuse tenderness nondistended active bowel sounds. No guarding rebound or firmness. Extremities no pitting edema ankles Lab and Diagnostics Result Diagram: 12/06/16 0700 12/06/16 0700 X-Rays, CTs and MRIs PROCEDURE: CT ABDOMEN AND PELVIS WITH CONTRAST ([id number]) INDICATIONS: peritoneal signs IMPRESSION: Normal for age, source of current symptoms is not seen. ADDENDUM: Findings were discussed with Dr. Headley of the surgical staff. He reports that a prior CT scan from one day ago was performed at an outside hospital, reporting a single loop of mildly thickened small bowel wall. The current study shows no area of small bowel mural thickening or inflammation and no pneumatosis is seen. A normal or abnormal appendix is not found. There is no secondary CT evidence of appendicitis at the right lower quadrant. Approved by: Devan Reyes M.D. on 12/05/2016 at 19:51 PROCEDURE: US ABDOMEN, LIMITED ([id number]) INDICATIONS: elevated lipase, pain, n./v IMPRESSION: 1. Normal gallbladder. 2. No biliary dilatation. 3. Presumed hepatic cysts seen on prior CT scan not appreciated sonographically. Dictated by: Delvin CELAYA Interpreted: Shravan Tilley MD on 12/06/2016 at 10: 41 Assessment & Plan This is a gentleman who says on the CT scan from outside saying he could have Crohn disease, however, in 2014 and 2015 extensive workup was done for Crohn's and there was no evidence of Crohn disease. He comes in suddenly with fever and diarrhea. This appears more to be an infectious type of diarrhea. However he has been on antibiotics for almost 36 hours now. His abdominal pain has gone any better. He still having a lot of nausea vomiting. She now tells me he did not receive antibiotics at [facility]. By tomorrow morning, if his abdominal pain has not improved significantly, we will proceed with colonoscopy. Tomorrow morning if his abdominal pain has improved significantly , and so colonoscopy. At this point, I do not think patient has Crohn's disease. Repeat CT scan was normal. Therefore we will proceed with colonoscopy and if terminal ileum is normal, we will proceed with MRI enterography will be the best test in short of a capsule or double balloon. If terminal ileum shows evidence of Crohn's disease , the CT that was done in [facility] was probably correct and he may be having Crohn's disease. If the colonoscopy is negative an MR enterography is negative, would not proceed any further. Hemoglobin 13.9 down to 11.3 and 11.4 down to 11.7. Stable for the past 24 hours. VTE Mechanical Devices: Intermittant Pneumatic CD Resuscitation Status: CPR: Attempt Resuscitation ( is his alternate decision-maker) Jovany Garcia MD Dec 06, 2016 17:02
--- NOTE | 2016-12-06 19:58 | NUR ---
Case Management: COS to IP. Explained IMM to patient at 1950, all questions answered. Signed original placed in chart, copy given to patient. Shea Granda RN
[2016-12-06 20:20] VITALS: BP 115/74; PULSE 60; RESP 16; O2SAT 94
[2016-12-07 02:13] LABS: Gamma Glutamyl Transpeptidase 6 IU/L (0-65)
--- NOTE | 2016-12-07 04:30 | NUR ---
Pain/colyte pt has reported pain in his abdomen 02/10. he has been getting 4mg of IV morphine for pain every 3-4 hrs this shift and says the 4mg dose is sufficient and allows him to sleep for a few hours. pt was only able to drink about half of the colyte prep. pt stated the cramping was too severe for him to continue. he did say that his last BM appeared clear with no stool. he has been NPO since midnight. zofran has been given as needed for nausea tho pt says that has improved as well. care continues.
[2016-12-07 05:02] VITALS: BP 138/75; PULSE 55; RESP 16; O2SAT 99
[2016-12-07 07:01] VITALS: BP 127/83; PULSE 43; RESP 14; O2SAT 98
[2016-12-07] MEDS: Lactated Ringer's 1,000 ML IV SCH ×2 (07:01→07:14)
--- NOTE | 2016-12-07 07:01 | PCM.HPANE ---
Patient Data Surgeon Admitting Provider:Mady Mcfarland DO Attending Provider:Mady Mcfarland DO Primary Care Physician:Haroon Perdomo DO Other Provider: Reason for Visit Colitis, Dehydration, Question New Onset Chrons Ht/WT & BMI Height (Feet): 5 Height (Inches): 7.00 Weight (Kilograms): 67.000 Body Mass Index 22.01 Allergies Coded Allergies: No Known Allergies (Unverified , 12/05/16) Past Anesthesia History Anesthesia History: Denies:: Abnormal Airway, Anesthesia Reactions, Difficult Intubation, Fam Anesthesia Reaction, Fam Malignant Hypertherm, Malignant Hyperthermia Diabetes History Hx Diabetes?: No MRSA MRSA: No Medications Hypertension Medication: No Home Meds Incl Beta Feli: No Active Scripts oxyCODONE-Acetaminophen 5-325 mg 1 Each Tablet1 Tab PO Q4H PRN For Pain #30 TABLET Prov:Gerardo Levi MD 12/07/16 Reported Medications Acetaminophen 500 Mg Tablet1,000 Mg PO BID PRN For Pain 12/05/16 Ondansetron 8 Mg Tablet8 Mg PO PRN For Nausea 10/09/15 Discontinued Reported Medications Oxycodone (Roxicodone)5 Mg Tablet5 Mg PO 5XD PRN For Pain Ref 0 10/09/15 Morphine Sulfate 15 Mg [id number] Mg PO BID 10/09/15 Discontinued Scripts Prednisone (PredniSONE)5 Mg Tab5 Mg PO DIRECTED #36 TABLET Ref 0 8 tabs po on day 1, then 7 tabs po on day 2, then 6 tabs po on day 3, then 5 tabs po on day 4, then 4 tabs po on day 5, then 3 tabs po on day 6, then 2 tabs po on day 7, then 1 tab po on day 8 Prov:Paul Cedillo DO 09/07/16 Dicyclomine (Bentyl)20 Mg Kprold56 Mg PO QID PRN cramps #20 TABLET Prov:Grey Cook MD 06/03/16 Ondansetron ODT (Zofran ODT)8 Mg Tablet8 Mg PO Q4H PRN For Nausea #12 TABLET Prov:Grey Beckford PAC 04/05/16 Tamsulosin (Flomax)0.4 Mg Capsule0.4 Mg PO DAILY 30 Days Ref 0 Prov:Robert Gama MD 03/10/16 Metronidazole (Flagyl)500 Mg [id number] Mg PO Q8H 10 Days Prov:Robert Gama MD 03/10/16 Ciprofloxacin 500 Mg [id number] Mg PO BID 10 Days Prov:Robert Gama MD 03/10/16 Polyethylene Glycol 3350 (Miralax)17 Gm Powd.pack17 Gm PO DAILY 30 Days Ref 0 Prov:Yulissa Moody MD 10/11/15 History History of ENT Problems?: Yes HEENT History: Positive for:: Hearing Problem (RIGHT EAR IMPLANT) Denies:: Abnormal Airway Cataracts Difficult Intubation Dysphagia Glaucoma Sinus Problem Denture Type: None Teeth Condition: Within Normal Limits Other HEENT Pertinent History: right prostetic ear drum. small brain aneurysm. Hx of Heart Problems?: Yes Cardiovascular History: Denies:: Atrial Fibrillation Cardiac Surgery Chest Pain Congestive Heart Failure Edema Heart Murmur Hypertension Irregular Heartbeat Pacemaker Thrombophlebitis Valvular Heart Disease Hx of Respiratory Problem?: Yes Respiratory History: Positive for:: Cough Pneumonia (2010 walking pneumonia) Denies:: Asthma COPD Chest Surgery Dyspnea Emphysema Hemoptysis Tuberculosis Use of C-PAP Machine Hx Neurologic Problems?: Yes Neurological History: Positive for:: Headaches Denies:: Alzheimer's Disease CVA Dementia Dizziness Parkinson's Disease Seizures Hx of GI Problems?: Yes Other GI Pertinent History: chronic abdonimal pain that comes and goes for about 2-3 days. vomiting diarrhea, and pain. Hx of Problems?: Yes Genitourinary History: Positive for:: Kidney Stones (once) Urinary Tract Infection Denies:: HX of Hemodialysis HX of Peritoneal Dialysis: No Male Hx: Positive for:: Prostate Problems (BPH) Denies:: Scrotal Mass Testicular Surgery Skin History: Positive for:: History Skin Disorders? (PSORIASIS) Denies:: Pressure Ulcers Hx Musculoskeletal Problems?: Yes Musculoskeletal History: Positive for:: Back Injury (3 back surgeries most recent 10/05/16) Denies:: Joint Replacement Musculoskeletal Trauma Hx of Psycho/Social Problems?: No Psycho Social History: Denies:: Anxiety Bipolar Disorder Hx Depression Suicide Attempt Hx Surgeries?: Yes (3 back surgeries) Hx Any Other Health Problems?: Yes Other History: Positive for:: Hospitalization (back surgeries) Denies:: Cancer Endocrine Disease Thyroid Disease History Blood Transfusions: Positive for:: Accept Blood Products? Denies:: Blood Transfuse Reaction Blood Transfusions Hx Diabetes: No Occupation: disabled Hx Alcohol Use: NoHx Substance Use: No Smoking Status: Current Every Day Smoker (4-5 cigarettes per day) Have You Smoked inLast 12 mo: YesApprox How Many Cigarettes/day: 4-5 cigarettes/day Stop/Bang Treated for Sleep Apnea?: No Do You Have a CPAP Machine?: No S-Snoring: Do You Snore Loudly: Yes T-Tired: feel tired, fatigued: Yes O-Obsered: Observed not breath: Yes P-Blood Pressure: treated: No B- Body Mass Index > 35 kg/m2: No A- Age over 50: No N- Neck Large Circumference: No G- Gender Male: Yes LIZ Total Score: 4 LIZ Risk Assessment: High Risk, =/>3 Yes LIZ Category 4 OutPt Procedure: Yes Risk Assessment Category Category 1A: Patient has history of documented sleep apnea, and HAS NOT received any narcotic, sedative or anesthesia administration during this stay. Category 1B: Patient has history of documented sleep apnea, and HAS received any narcotic , sedative or anesthesia administration during this stay Category 2: Patient has SUSPECTED Obstructive Sleep Apnea, and HAS received any narcotic , sedative or anesthesia administration during this stay. Category 3: Patient has SUSPECTED Obstructive Sleep Apnea and HAS NOT received narcotic, sedative or anesthesia administration during this stay. Category 4: Outpatient in Procedural Areas with known sleep apnea or who screen positive for High Risk via the STOP/BANG questionnaire. Exam Exam Vital Signs Vital Signs Date Time Temp Pulse Resp B/P Pulse Ox O2 Delivery O2 Flow Rate FiO2 12/07/16 05:02 36.9 55 16 138/75 99 Room Air General Appearance: Alert, Oriented X3, Cooperative, No Acute Distress HEENT/AIRWAY: MP 2 Lungs: Clear to Auscultation Heart: Regular Rate/Rhythm, No Murmurs/Rubs/Gallops Meds/Labs/Diagnostics Admission Meds Current Medications Pantoprazole (Protonix Inj) 40 mg DAILYAC IVPUSH Last administered on 12/06/16 08:26; Start 12/06/16 at 07:30 Polyethylene Glycol/ Electrolytes (Colyte) 4,000 ml ONCE ONCE PO Last administered on 12/06/16 14:12; Start 12/06/16 at 12:10; Stop 12/06/16 at 12:11; Status DC Morphine Sulfate (Morphine 2 mg/ mL Syringe) 2 mg STK-MED ONCE .ROUTE Last administered on 12/06/16t 15:45; Start 12/06/16 at 15:38; Stop 12/06/16 at 15:42; Status DC Labs Test 12/05/16 12:30 12/05/16 12:35 12/06/16 04:55 12/06/16 07:00 Urine Color Yellow (YELLOW) Urine Appearance Clear (CLEAR,HAZY) Urine pH 6.0 (5.0-8.0) Urine Specific Emblem 1.030 (1.003-1.035) Urine Protein Negativemg/dL (NEG,TRACE) Urine Glucose (UA) Negativemg/dL (NEGATIVE) Urine Ketones Negativemg/dL (NEGATIVE) Urine Occult Blood Negative (NEGATIVE) Urine Nitrite Negative (NEGATIVE) Urine Bilirubin Negative (NEGATIVE) Urine Urobilinogen Normalmg/dL (NORMAL) Urine Leukocyte Esterase Negative (NEGATIVE) Urine RBC 0-2/hpf (0-2) Urine WBC 0-5/hpf (0-5) Urine Epithelial Cells Occasional/hpf (NONE-MOD) Urine Crystals None seen (NONE SEEN) Urine Bacteria None/hpf (NONE-FEW) Urine Hyaline Casts None/lpf (NONE) Urine Granular Casts None seen (NONE SEEN) Urine Waxy Casts None seen (NONE SEEN) Urine Red Blood Cell Casts None seen (NONE SEEN) Urine White Blood Cell Casts None seen (NONE SEEN) Urine Mucus Present (None Seen) Urine Trichomonas None seen (NONE SEEN) Urine Yeast None (NONE SEEN) Urine Culture Reflexed Not indicated Hold Urine Received (Received) Hold Andrea Top Tube Received (Received) Prothrombin Time 10.9sec (8.1-12.5) Prothromb Time International Ratio 1.02ratio Gamma Glutamyl Transpeptidase 6IU/L (0-65) HIV (1&2) Ag and Ab, 4th Generation Non reactive (Non Reactive) White Blood Count 7.1th/mm3 (3.8-10.1) Red Blood Count 4.04mil/mm3 (4.40-5.80) Hemoglobin 11.7g/dL (13.8-17.2) Hematocrit 36.2% (41.0-50.0) Mean Corpuscular Volume 89.6fL (81-100) Mean Corpuscular Hemoglobin 29.0pg (27.0-35.0) Mean Corpuscular Hemoglobin Concent 32.3% (32.0-37.0) Red Cell Distribution Width 14.5% (12.3-15.4) Platelet Count 193bil/L (150-400) Neutrophils (%) (Auto) 46.1% (40-74) Lymphocytes (%) (Auto) 41.5% (14-46) Monocytes (%) (Auto) 10.0% (4-12) Eosinophils (%) (Auto) 2.0% (0-5) Basophils (%) (Auto) 0.3% (0-3) Sodium Level 142mEq/L (134-144) Potassium Level 4.2mEq/L (3.5-5.2) Chloride Level 109mEq/L (97-108) Carbon Dioxide Level 22mmol/L (18-29) Blood Urea Nitrogen 6mg/dL (6-24) Creatinine 0.70mg/dL (0.76-1.27) Estimat Glomerular Filtration Rate 131mL/min (>59) Glucose Level 94mg/dL (60-99) Calcium Level 8.7mg/dL (8.5-10.1) Magnesium Level 1.8mg/dL (1.6-2.6) Total Bilirubin 0.4mg/dL (0.0-1.2) Aspartate Amino Transf (AST/SGOT) 20U/L (0-50) Alanine Aminotransferase (ALT/SGPT) 9U/L (0-44) Alkaline Phosphatase 48U/L (25-150) Total Protein 5.6g/dL (6.4-8.4) Albumin 3.5g/dL (3.4-5.0) Lipase 16U/L (13-60) Procalcitonin 0.02ng/mL (0.00-0.08) Plan Impression Patient chart reviewed, patient interviewed and anesthestic plan with risks, benefits, and alternatives discussed, and informed consent obtained. NPO per Anesth. Guidelines: Yes ASA Physical Status: ASA2 Mod Systemic Disease Bene/Risks/Altern/Consents: Yes HP Complete Prior to Induction: Yes Bryant Hinton MD Dec 07, 2016 07:01
[2016-12-07] MEDS ORDERED: MetoCLOpramide 5 mg/mL 2 mL Inj IVPUSH PRN (07:05)
[2016-12-07] MEDS ORDERED: Ondansetron 2 mg/mL 2 mL Inj IVPUSH PRN (07:05)
[2016-12-07 07:50] VITALS: BP 104/55; PULSE 53; RESP 14; O2SAT 97
--- NOTE | 2016-12-07 07:53 | PCM.ENDCOL ---
Colonoscopy Date of Service: Dec 07, 2016 Physician Mady Mcfarland DO Pre Procedure Diagnosis: Abdominal pain and bloody diarrhea Post Procedure Dx & Findings: Diverticuli hemorrhoids normal TI poor prep Procedure Colonoscopy PROCEDURE IN DETAIL: Prep poor After unremarkable rectal examination the Olympus video colonoscope was inserted patient's anal canal and was advanced to cecum. Landmarks were identified including the ileocecal valve and appendiceal orifice. Further events to terminal ileum. We advanced 10 cm. The terminal visualization was again compromised due to fecal material but the areas that washed showed normal villous structures without any ulcer mass or erosion. Significant amount of fecal material noted. Some reddish tinge to to the fecal material. Was sent for guaiac. He had orange and red Jell-O yesterday. Scope was withdrawn systematically. Visualized colonic mucosa was significantly compromised however it showed healthy shiny mucosa with normal healthy-appearing vasculature. Diverticuli noted in the sigmoid colon and there were small into view. In the rectum retroflexion was done which showed hemorrhoids. Anal canal was inspected carefully on the way out and hemorrhoids noted. Impression Poor prep visualization of the mucosa significantly compromised. Terminal ileum appeared normal. Fecal material in the terminal ileum had a little bit of reddish tinged. However he took orange and red Jell-O yesterday. Hemorrhoids Recommendation MR enterography. If this is negative, I think were he does not have underlying Crohn's disease. Advanced diet as tolerated Fecal material that was suctioned. Presedation Assessment Risks and Benefits Informed consent was obtained from the patient after all risks and benefits including but not limited to drug reaction, infection, pain, bleeding, perforation, as well as alternatives were discussed. Patient monitoring Continuous pulse oximetry, cardiac monitoring, blood pressure monitoring, IV access, and oxygen at 2L per nasal cannula. Complications There were no periprocedural complications identified. Post Procedure Plan Post Procedure Recommendations 1. Restrict activities today. 2. Resume normal activities in the morning. 3. Resume medications. 4. Patient informed of normal post procedure side effects as bloating, drowsiness, blood streaking in the stool. 5. average risk CRCS. If colon polyps come back as: -Hyperplastic- can repeat colonoscopy in 10 years -Tubular adenoma- repeat colonoscopy in 5 years -Tubulovillous/villous adenoma- repeat colonoscopy in 3 years -If any dysplasia- return to clinic as soon as possible 6. Please don't hesitate to call me with any questions. Jovany Garcia MD Dec 07, 2016 07:53
[2016-12-07 08:00] VITALS: BP 114/66; PULSE 49; RESP 16; O2SAT 97
[2016-12-07 08:32] VITALS: BP 128/83; PULSE 56; RESP 16; O2SAT 99
--- NOTE | 2016-12-07 08:38 | PCM.PNSURG ---
Subjective Date of Service: Dec 07, 2016 Visit Information: Reason for Visit Colitis, Dehydration, Question New Onset Chrons Surgery/Surgery Date Post-Op Day # Date of Admission: Dec 05, 2016 at 15:21 Hospital Day #3 Subjective: Has just returned from colonoscopy which did not reveal evidence of Crohn's or other evidence of inflammation per Dr. Garcia's report. The patient reports that he has progressively been improving since his hospitalization. He still has diffuse abdominal pain, worse in the left lower quadrant, that requires IV pain medication. He denies nausea or vomiting. He is ambulatory in the room. Postop General: Other (as above) Gastrointestinal: Passing Stool Pain Management: IV Push Postop Activity: Ambulating in Room Only Objective Vital Sign- Last 8 Hours Date Time Temp Pulse Resp B/P Pulse Ox O2 Delivery O2 Flow Rate FiO2 12/07/16 08:00 49 16 114/66 97 Room Air 12/07/16 07:50 53 14 104/55 97 Room Air 12/07/16 07:01 36.1 43 14 127/83 98 Room Air 12/07/16 05:02 36.9 55 16 138/75 99 Room Air Intake and Output- Last 8 Hour 12/07/16 Cumulative From/Thru 07:00 12/05/16 12:21 - 12/07/16 06:19 Intake Total 1080 ml 4482 ml Output Total 750 ml 2520 ml Balance 330 ml 1962 ml Intake Oral 525 ml 1295 ml IV Total 555 ml 3187 ml Output Urine Total 750 ml 2520 ml # Bowel Movements 0 2 General: Alert, Cooperative, No Acute Distress, Anicteric Lungs: Clear to Auscultation Heart: Regular Rate/Rhythm, No Murmurs/Rubs/Gallops Abdomen: Soft, Non-distended, Other (subjectively tender in the left lower quadrant. Negative Davis's) Neuro: Normal Speech Catheters: None Result Diagram: 12/06/16 0700 12/06/16 0700 Assessment & Plan Impression Primary diagnosis: Abdominal pain. Most likely a nonspecific colitis. Other chronic conditions: History of C. difficile colitis 2 IBS History of small bowel obstructions Cyclical vomiting syndrome Guillen's esophagus GERD Prostatitis Fibromyalgia History of kidney stones History of interstitial cystitis History of epidural hematoma History of chronic bloody bowel movements [place] chronic reticulitis History of gastritis Chronic pain issues Diverticulosis Hemorrhoids Daily cigarette smoker Problems: Plan As per hospitalist team. No surgical intervention is warranted. Pain Management: Intermittent IV analgesic Resuscitation Status: CPR: Attempt Resuscitation ( is his alternate decision-maker) Dimitry Astudillo PA-C Dec 07, 2016 08:38
[2016-12-07] MEDS: Pantoprazole 4 mg/mL 10 mL Inj IVPUSH SCH (08:41)
[2016-12-07] MEDS: Ondansetron 2 mg/mL 2 mL Inj IVPUSH PRN (08:58)
[2016-12-07] MEDS ORDERED: oxyCODONE-Acetamin 5-325 mg Tablet PO PRN (09:05)
--- NOTE | 2016-12-07 09:11 | PCM.DIMED ---
Discharge Instructions Date of Service Dec 07, 2016 Dates of Hospitalization Dec 05, 2016 at 15:21 Discharge Diagnosis Discharge Diagnosis # lower abdominal pain: Probably due to his known IBS. There was initial concern for Crohn's disease but CT scan and colonoscopy negative. Patient also had extensive workup previously and is negative for Crohn's disease. # reported Hematochezia but stool guaiac is negative, POA: apparently his H&H is fairly stable # GERD,chronic: Diet Discharge Diet: Low fat, Low Sodium Activity Discharge Activity: Limited until seen by PCP Call your provider Call your provider for: Fever or Chills, Shortness of breath, Bleeding, Chest pain, Vomitting, Excessive diarrhea, Weakness (unilateral) Patient Instructions Patient Instructions You were hospitalized due to abdominal pain. CT scan in outside facility reportedly showed Crohn's disease but repeat CT scan here did not show any abnormality.You underwent colonoscopy which is also negative for Crohn's disease. Please follow-up with or his partner for MRI enterograph outpatient. Follow-up Provider: Haroon Perdomo DO Follow-up with PCP in: 2 weeks Provider: Jovany Garcia MD Follow-up in: 2 weeks Gerardo Levi MD Dec 07, 2016 09:11
[2016-12-07] MEDS ORDERED: OXYC1TAB24 PO (09:12)
--- NOTE | 2016-12-07 09:18 | PCM.DC.MED ---
Discharge Summary Date of Service Dec 07, 2016 Dates of Hospitalization Date of Hospital Admission Dec 05, 2016 at 15:21 Date of Discharge: Dec 07, 2016 Providers: Admitting Physician: Mady Mcfarland DO Primary Care Physician: Haroon Perdomo DO Attending Physician: Mady Mcfarland DO Diagnosis at Time of Discharge Diagnosis at Time of Discharge # lower abdominal pain: Probably due to his known IBS. There was initial concern for Crohn's disease but CT scan and colonoscopy negative. Patient also had extensive workup previously and is negative for Crohn's disease. # reported Hematochezia but stool guaiac is negative, POA: apparently his H&H is fairly stable # GERD,chronic: Procedures XRay, CTs & MRIs PROCEDURE: CT ABDOMEN AND PELVIS WITH CONTRAST ([id number]) INDICATIONS: peritoneal signs IMPRESSION: Normal for age, source of current symptoms is not seen. ADDENDUM: Findings were discussed with Dr. Headley of the surgical staff. He reports that a prior CT scan from one day ago was performed at an outside hospital, reporting a single loop of mildly thickened small bowel wall. The current study shows no area of small bowel mural thickening or inflammation and no pneumatosis is seen. A normal or abnormal appendix is not found. There is no secondary CT evidence of appendicitis at the right lower quadrant. Approved by: Devan Reyes M.D. on 12/05/2016 at 19:51 PROCEDURE: US ABDOMEN, LIMITED ([id number]) INDICATIONS: elevated lipase, pain, n./v IMPRESSION: 1. Normal gallbladder. 2. No biliary dilatation. 3. Presumed hepatic cysts seen on prior CT scan not appreciated sonographically. Dictated by: Delvin French [facility] Interpreted: Shravan Tilley MD on 12/06/2016 at 10: 41 Invasive Procedures Pre Procedure Diagnosis: Abdominal pain and bloody diarrhea Post Procedure Dx & Findings: Diverticuli hemorrhoids normal TI poor prep Procedure Colonoscopy PROCEDURE IN DETAIL: Prep poor After unremarkable rectal examination the Olympus video colonoscope was inserted patient's anal canal and was advanced to cecum. Landmarks were identified including the ileocecal valve and appendiceal orifice. Further events to terminal ileum. We advanced 10 cm. The terminal visualization was again compromised due to fecal material but the areas that washed showed normal villous structures without any ulcer mass or erosion. Significant amount of fecal material noted. Some reddish tinge to to the fecal material. Was sent for guaiac. He had orange and red Jell-O yesterday. Scope was withdrawn systematically. Visualized colonic mucosa was significantly compromised however it showed healthy shiny mucosa with normal healthy-appearing vasculature. Diverticuli noted in the sigmoid colon and there were small into view. In the rectum retroflexion was done which showed hemorrhoids. Anal canal was inspected carefully on the way out and hemorrhoids noted. Impression Poor prep visualization of the mucosa significantly compromised. Terminal ileum appeared normal. Fecal material in the terminal ileum had a little bit of reddish tinged. However he took orange and red Jell-O yesterday. Hemorrhoids Recommendation MR enterography. If this is negative, I think were he does not have underlying Crohn's disease. Advanced diet as tolerated Fecal material that was suctioned. Brief History per HPI This is a 41-year-old white male with PMH of chronic abdominal pain , chronic diarrhea , chronic intermittent hematochezia ( without a clear diagnosis of etiology of all these symptoms except that he has IBS), C. difficile colitis 2 , small bowel adhesions 3 (one of which required surgery), Guillen's esophagus , cyclical vomiting syndrome, fibromyalgia, interstitial cystitis and nephrolithiasis, chronic pain secondary to back problems and several spine surgeries ( states he voluntarily guard up of chronic pain medications 13 days ago with the help of his ) presenting to the ER with diffuse abdominal pain. States that he went to [facility] yesterday with similar symptoms, was offered a CT abdominopelvic that he says showed Crohn's disease type of findings ( this cannot be verified as I do not have a copy of the CT scan from the ER, it is requested but not available at this time). It appears that they discharged him on Cipro, Flagyl, and a tapering dose of prednisone. He denies being on these medications at home, states that he takes no home medications. [facility] ER also told him to go to [facility] ed if his symptoms have not resolved overnight, as [facility] does not have GI. Last bout of severe diarrhea was in June 2015. States had 35 bowel movements so far since yesterday. He states that [facility] has mentioned partial colon resection at one point. He states that his chronic symptoms would usually resolve after a few days but this time around he has been sick for 4-5 days and significantly getting worse. His hematochezia is intermittent, he has fevers and chills at home he had a fever 102 on Tuesday. He is nauseated and has not eaten in 2 days. States that he is feeling lightheaded his abdominal pain is currently 7 out of 10 he has tingling in his legs, he has shooting back pain towards left side, denies edema , urinary symptoms, dyspnea, orthopnea, chest pain. He states that [facility] told him that he has diffuse colitis based on his CT abdomen, and he believes that he is now finally diagnosed with Crohn's. In the ER that showed concern for hypokalemia at 3.3 lipase is elevated at 129. Stool PCR is ordered and results are pending. White count is 10.4 H&H 13.9 over 41.3. Records were requested from and on 10/02/2015 records from [facility] showed enteroscopy and capsule exam without any abnormal findings. Dilaudid 1 mg 2, Phenergan 50 mg IV, Zofran IV, pantoprazole 40 mg IV were given. He was thought to be having mild peritoneal signs in the ER. At the time of this visit, patient is conversing though occasionally complaining that if he moves his pain will get worse. He was able to give me history. While he displayed diffuse abdominal pain emphasizing pain below his umbilicus more to the left than right, he did not display peritoneal signs. Records indicate the patient has seen Dr. Mello in the past. He says he did not transfer from Dr. cesar, rather Dr. cesar felt he did not have equipment ready for a video capsule endoscopy and asked him to go to . Records indicate that patient has several visits to ER. He states that he has had a colonoscopy in [facility] last November. He he has not seen Dr. Cesar since October 2015. He also had a double balloon enteroscopy into the small bowel going from antegrade and retrograde and nothing was found. Hospital Course This is a 41-year-old male with several complaints mostly related to abdominal pain and back pain and neck pain with several medical facility visits is presenting to the ER with abdominal pain. Because of her toenail signs that were noticed in the ER we will need to have surgery involved (to rule out bowel infarction, peneumatoperitoneum, mesenteric ischemia etc) , GI is already consulted by ER #1 lower abdominal pain: Probably due to his known IBS -- Initial CT at outside facility /[facility], [place] reportedly showed Crohn's disease. Repeat CT in 12/06 normal. Patient also had extensive workup previously and no Crohn's disease. Underwent colonoscopy on 12/07 which is negative for Crohn's -- He was started on Cipro, Flagyl antibiotics initially. No diarrhea currently. Afebrile. No leukocytosis. procalcitonin negative. Stool guaiac negative . Discontinued antibiotics -- Dr. Garcia recommending an MR Enterography outpatient if patient continues to have symptoms Patient states pain is controlled and he is able to go home on by mouth pain medications #2 initially elevated lipase : --DDX includes Acute pancreatitis, Chronic pancreatitis, Acute cholecystitis, Bowel obstruction or infarction, Duodenal ulceration, Pancreatic calculus, Pancreatic tumors, HIV disease Macrolipasemia, Celiac disease, Idiopathic Drugs -- CT abdominopelvic ruled out acute pancreatitis, chronic pancreatitis, acute cholecystitis, bowel obstruction, pancreatic tumors -- RUQ U/S negative -- HIV test negative -- GGT and Celiac panel is ordered and pending. Follow-up results with #3 reported Hematochezia, POA: apparently his H&H is fairly stable -- H&H stable -- Stool guiac is negative #4 GERD,chronic: Protonix as needed Disposition: Discharge home Condition on discharge stable Exam Vital Signs (Last) Date Time Temp Pulse Resp B/P Pulse Ox O2 Delivery O2 Flow Rate FiO2 12/07/16 08:32 36.8 56 16 128/83 99 Room Air Exam Gen.: Appears somewhat nervous HEENT: NCAT, poor dentition Heart: Regular rate and rhythm no S3-S4 sounds Lungs: Clear to auscultation no crackles or wheezes Abdomen: Abdomen is soft today. No tenderness appreciated. Positive bowel sounds. Extremities: Negative for edema Vascular: Pedal pulses are palpable Skin: No rashes or erythema, abdominal surgical incisions are seen Neuro: No focal deficits Psych: Affect is reserved, mood neutral Test 12/05/16 12:30 12/05/16 12:35 12/06/16 04:55 12/06/16 07:00 Urine Color Yellow (YELLOW) Urine Appearance Clear (CLEAR,HAZY) Urine pH 6.0 (5.0-8.0) Urine Specific [place] 1.030 (1.003-1.035) Urine Protein Negativemg/dL (NEG,TRACE) Urine Glucose (UA) Negativemg/dL (NEGATIVE) Urine Ketones Negativemg/dL (NEGATIVE) Urine Occult Blood Negative (NEGATIVE) Urine Nitrite Negative (NEGATIVE) Urine Bilirubin Negative (NEGATIVE) Urine Urobilinogen Normalmg/dL (NORMAL) Urine Leukocyte Esterase Negative (NEGATIVE) Urine RBC 0-2/hpf (0-2) Urine WBC 0-5/hpf (0-5) Urine Epithelial Cells Occasional/hpf (NONE-MOD) Urine Crystals None seen (NONE SEEN) Urine Bacteria None/hpf (NONE-FEW) Urine Hyaline Casts None/lpf (NONE) Urine Granular Casts None seen (NONE SEEN) Urine Waxy Casts None seen (NONE SEEN) Urine Red Blood Cell Casts None seen (NONE SEEN) Urine White Blood Cell Casts None seen (NONE SEEN) Urine Mucus Present (None Seen) Urine Trichomonas None seen (NONE SEEN) Urine Yeast None (NONE SEEN) Urine Culture Reflexed Not indicated Hold Urine Received (Received) Hold Andrea Top Tube Received (Received) Prothrombin Time 10.9sec (8.1-12.5) Prothromb Time International Ratio 1.02ratio Gamma Glutamyl Transpeptidase 6IU/L (0-65) HIV (1&2) Ag and Ab, 4th Generation Non reactive (Non Reactive) White Blood Count 7.1th/mm3 (3.8-10.1) Red Blood Count 4.04mil/mm3 (4.40-5.80) Hemoglobin 11.7g/dL (13.8-17.2) Hematocrit 36.2% (41.0-50.0) Mean Corpuscular Volume 89.6fL (81-100) Mean Corpuscular Hemoglobin 29.0pg (27.0-35.0) Mean Corpuscular Hemoglobin Concent 32.3% (32.0-37.0) Red Cell Distribution Width 14.5% (12.3-15.4) Platelet Count 193bil/L (150-400) Neutrophils (%) (Auto) 46.1% (40-74) Lymphocytes (%) (Auto) 41.5% (14-46) Monocytes (%) (Auto) 10.0% (4-12) Eosinophils (%) (Auto) 2.0% (0-5) Basophils (%) (Auto) 0.3% (0-3) Sodium Level 142mEq/L (134-144) Potassium Level 4.2mEq/L (3.5-5.2) Chloride Level 109mEq/L (97-108) Carbon Dioxide Level 22mmol/L (18-29) Blood Urea Nitrogen 6mg/dL (6-24) Creatinine 0.70mg/dL (0.76-1.27) Estimat Glomerular Filtration Rate 131mL/min (>59) Glucose Level 94mg/dL (60-99) Calcium Level 8.7mg/dL (8.5-10.1) Magnesium Level 1.8mg/dL (1.6-2.6) Total Bilirubin 0.4mg/dL (0.0-1.2) Aspartate Amino Transf (AST/SGOT) 20U/L (0-50) Alanine Aminotransferase (ALT/SGPT) 9U/L (0-44) Alkaline Phosphatase 48U/L (25-150) Total Protein 5.6g/dL (6.4-8.4) Albumin 3.5g/dL (3.4-5.0) Lipase 16U/L (13-60) Procalcitonin 0.02ng/mL (0.00-0.08) Discharge Medications As needed Acetaminophen (Acetaminophen) 500 Mg Tablet 1,000 MG PO BID PRN PRN For Pain ( Reported) Ondansetron (Ondansetron) 8 Mg Tablet 8 MG PO PRN For Nausea (Reported) oxyCODONE-Acetaminophen 5-325 mg (oxyCODONE-Acetaminophen 5-325 mg) 1 Each Tablet 1 TAB PO Q4H PRN PRN For Pain Prescribed by: DION LOVE MD Followup Plan Disposition: Home Discharge Diet: Low fat, Low Sodium Discharge Activity: Limited until seen by PCP Patient Instructions You were hospitalized due to abdominal pain. CT scan in outside facility reportedly showed Crohn's disease but repeat CT scan here did not show any abnormality.You underwent colonoscopy which is also negative for Crohn's disease. Please follow-up with or his partner for MRI enterograph outpatient. Follow-up Provider: Haroon Perdomo DO Follow-up with PCP in: 2 weeks Provider: Jovany Garcia MD Follow-up in: 2 weeks Time spent 35 minutes copies to: Michelle Mast MD; Jovany Garcia MD; Haroon Perdomo Melaku MD Dec 07, 2016 09:18
--- NOTE | 2016-12-07 09:27 | NUR ---
Social Work- Readiness for Discharge Data: EMR reviewed. Pt is on day 2 of hospitalization for colitis, dehydration per H&P. Pt is likely to discharge today. Pt independent at baseline. Pt to discharge home with spouse to transport via POV. Anticipate no discharge needs, SW will continue to follow. Assessment: Pt who is independent at baseline. Plan: Pt anticipated to discharge home with spouse to transport via POV. Anticipate no discharge needs, SW will continue to follow. Megha Cheek MSW
--- NOTE | 2016-12-07 10:55 | NUR ---
Discharge Pt discharged from unit, accompanied by his family. Pt provided with information on diagnosis, signs to watch for, and follow up. Pt is still experience abd pain but confirms it is decreasing and feels comfortable going home. Taken off floor in a wheelchair with his belongings.
[2016-12-07] MEDS ORDERED: fentaNYL-PF 50 mCg/mL 2 mL Inj ONE (10:59)
[2016-12-07] MEDS ORDERED: Propofol 10,000 mCg/mL 20 mL Inj ONE (10:59)
[2016-12-07] MEDS ORDERED: Ketamine 10 mg/mL 20 mL Inj ONE (10:59)
--- NOTE | 2016-12-07 11:12 | PCM.ANEP1 ---
Post Anesthesia PACU Phase 1 Assessment Vital Signs Vital Signs Date Time Temp Pulse Resp B/P Pulse Ox O2 Delivery O2 Flow Rate FiO2 12/07/16 08:32 36.8 56 16 128/83 99 Room Air 12/07/16 08:00 49 16 114/66 97 Room Air 12/07/16 07:50 53 14 104/55 97 Room Air 12/07/16 07:01 36.1 43 14 127/83 98 Room Air 12/07/16 05:02 36.9 55 16 138/75 99 Room Air Anesthetic Administered: MAC Level of Alertness: Awake, talking ARCINIEGA's with Equal Strength: Yes Pain: Yes Pain Scale Score: 4 Nausea or Vomiting: No CV Function & Hydration Stable: Yes Airway Device: none Oxygen Delivery: Nasal Cannula Lungs: Clear to Auscultation Dermatome Level: Full Sensation PACU Phase 2 Assessment Complications: No Follow up Care: No Patient Instructions Provided: Yes Bryant Hinton MD Dec 07, 2016 11:12
--- NOTE | 2016-12-07 11:27 | NUR ---
Social Work-Discharge Data: EMR reviewed. Pt is on day 2 of hospitalization for colitis, dehydration per H&P. Pt discharged today. Pt independent at baseline. Pt to discharge home with spouse to transport via POV. No discharge needs. Assessment: Pt who is independent at baseline. Plan: Pt discharged home with spouse to transport via POV. No discharge needs. Megha Cheek [employer]
== END 2016-12-07 11:00 | disposition home or self-care (01) | DRG 392 ==
LOC: SED 12:18 → OBSVTOIN 15:21 → OSC 15:21
PROVIDERS: ADMIT Family Medicine; ATTEND Family Medicine
PROC: 0DJD8ZZ Inspection of Lower Intestinal Tract, Via Natural or Artificial Opening Endoscopic (ICD-10-PCS; principal; 2016-12-07 07:30)
DX: K58.0 Irritable bowel syndrome with diarrhea (principal); K21.9 Gastro-esophageal reflux disease without esophagitis; M79.7 Fibromyalgia; F17.200 Nicotine dependence, unspecified, uncomplicated; E87.6 Hypokalemia; E86.0 Dehydration; K22.70 Barrett's esophagus without dysplasia; G89.29 Other chronic pain; K57.30 Diverticulosis of large intestine without perforation or abscess without bleeding; Z90.49 Acquired absence of other specified parts of digestive tract

== ENCOUNTER 2016-12-31 18:18 | Emergency (ER) | payer MEDICARE, MEDICAID ==
[~2016-12-31] VITALS: Ht 170.2 cm; Wt 70.4 kg
[~2016-12-31 18:18] MED LIST changes: +ACET-171 PO; -CIPR-198 PO; -DICY20TA33 PO; -METR500T PO; -MORP15TA PO; -ONDA8TAB7 PO; -OXYC-474 PO; +OXYC1TAB24 PO; -POLY17PO6 PO; -PRD5T PO; -TAMS0.4C98 PO
[2016-12-31 18:27] VITALS: BP 130/84; PULSE 94; RESP 16; O2SAT 100
--- NOTE | 2016-12-31 18:42 | ED.REPORT ---
HPI-General Illness Date of Service Dec 31, 2016 ED Provider: Jim Milian MD Patient is a 41 year old male with a history of cyclic vomiting syndrome, opiate dependence, GERD, fibromyalgia, small bowel obstructions, IBS, diverticulitis and colitis who presents to the ED complaining of epigastric pain onset 3 days ago. Associated symptoms include nausea, vomiting, decreased appetite, constipation, belching and vomiting. He states that he was able to pass gas yesterday but has not been able to today. Patient denies dysuria. The patient states that the pain is worsened with eating and that belching helps relieve the pain. Patient describes the pain as a constant pressure and sharp when he moves. He reports that he has only had one bowel movement in the past 5 days. Nursing Notes Stated Complaint: DIZZINESS,STOMACH/CHEST/BACK PAIN,SHORT OF BREATH Chief Complaint: Chest Pain Nursing Notes Reviewed: Yes Allergies: Coded Allergies: No Known Allergies (Unverified , 12/05/16) Scheduled PRN Acetaminophen (Acetaminophen) 500 Mg Tablet 1,000 MG PO BID PRN PRN For Pain Ondansetron (Ondansetron) 8 Mg Tablet 8 MG PO PRN For Nausea oxyCODONE-Acetaminophen 5-325 mg (oxyCODONE-Acetaminophen 5-325 mg) 1 Each Tablet 1 TAB PO Q4H PRN PRN For Pain General Time Seen by MD: 18:40 Chief Complaint Abdominal pain Hx Obtained From: Patient Arrived By: Walk-in Sudden in Onset?: Yes Onset Occurred: 3 days ago Symptom Duration: Constant Location: : Abdomen Quality: Painful Radiation: : Shoulder Severity: Current: Moderate Recent Healthcare: Recent doctor visit, Recent hospitalization Similar Sx Previous: Yes Past Medical History Past Medical History Notes: PCP: Conor at [facility] Dr. Nunn is Spine Doctor/Surgeon. Hx of narcotic seeking Past Medical History Clostridium difficile colitis 05/2015 and 12/2014 Colitis IBS Cyclical vomiting Small bowel obstruction Migraine. Guillen's esophagus. GERD. Prostatitis. Fibromyalgia. Kidney stones Interstitial cystitis Epidural hematoma Internal and blood BM chronically diverticulitus Reports: Gastritis Past Surgical History Right ear drum repair laparoscopy in 2001 and again in 2013 with lysis of adhesion and incidental appy at that time at [facility] in [place] Right ACL reconstruction C5, C6, C7 [place] [facility] [place] and [place] canal [place] [facility] [place] Back surgery for epidural hematoma, Aug 10, 2016 Reports: Appendectomy Family History Reviewed, not relevant. Prostate cancer in brother and father. Mom-stroke, HTN Smoking History Current Every Day Smoker Social History Trying to quit smoking Alcohol Use: Denies alcohol use Drug Use: Denies drug use Other Social History: Frequent ED visitor, , Local resident Occupation no work or school Ambulatory Status Independent Review of Systems Full Review of Systems Constitutional: Denies: Chills, Fever Respiratory: Denies: Non-productive cough, Shortness of breath GI: Reports: Abdominal pain, Belching, Constipation, Nausea, Vomiting Male: Denies Dysuria Complete sys rev & neg: except as marked. Physical Exam Vital Signs Vital Signs Date Time Temp Pulse Resp B/P Pulse Ox O2 Delivery O2 Flow Rate FiO2 12/31/16 21:09 82 16 142/82 98 Room Air 12/31/16 19:36 82 16 149/86 97 Room Air 12/31/16 18:27 36.8 94 16 130/84 100 Room Air Initial VS: Reviewed General/Constitutional: Awake, Alert Appearance / Presentation: Positive: Uncomfortable Head / Eyes: Atraumatic, Normocephalic, PERRL, EOMI ENT: Atraumatic, Airway patent Mouth: Positive: Mucous membranes dry Respiratory / Chest: Atraumatic, Breath sounds NL, Breath sounds = bilat, No respiratory distress Cardiovascular: Heart rate NL, Regular rhythm, Heart sounds NL Abdomen: Atraumatic, Soft, No guarding, No rebound Tenderness/Guarding/Rebound: Positive: Tender epigastric tolerate palpation in all other quadrants bowel sounds are present but diminished Skin: Atraumatic, Color NL, No rash, Warm, Dry Neurologic: Oriented X3, Speech NL, No motor deficits, No sensory deficits Psychiatric: Affect NL, Mood NL Interpretation & Diagnostics Lab Results Interpretation Result Diagram: 12/31/16 1900 12/31/16 190 Test 12/31/16 19:00 12/31/16 19:46 White Blood Count 9.8th/mm3 (3.8-10.1) Red Blood Count 4.57mil/mm3 (4.40-5.80) Hemoglobin 13.4g/dL (13.8-17.2) Hematocrit 39.4% (41.0-50.0) Mean Corpuscular Volume 86.2fL (81-100) Mean Corpuscular Hemoglobin 29.3pg (27.0-35.0) Mean Corpuscular Hemoglobin Concent 34.0% (32.0-37.0) Red Cell Distribution Width 15.8% (12.3-15.4) Platelet Count 257bil/L (150-400) Neutrophils (%) (Auto) 58.2% (40-74) Lymphocytes (%) (Auto) 31.5% (14-46) Monocytes (%) (Auto) 9.3% (4-12) Eosinophils (%) (Auto) 0.6% (0-5) Basophils (%) (Auto) 0.2% (0-3) Sodium Level 140mEq/L (134-144) Potassium Level 3.5mEq/L (3.5-5.2) Chloride Level 102mEq/L (97-108) Carbon Dioxide Level 21mmol/L (18-29) Blood Urea Nitrogen 8mg/dL (6-24) Creatinine 0.63mg/dL (0.76-1.27) Estimat Glomerular Filtration Rate 148mL/min (>59) Glucose Level 97mg/dL (60-99) Calcium Level 9.6mg/dL (8.5-10.1) Magnesium Level 1.9mg/dL (1.6-2.6) Total Bilirubin 0.7mg/dL (0.0-1.2) Aspartate Amino Transf (AST/SGOT) 22U/L (0-50) Alanine Aminotransferase (ALT/SGPT) 17U/L (0-44) Alkaline Phosphatase 48U/L (25-150) Troponin T < 0.010ug/L (0.0-0.011) Total Protein 7.4g/dL (6.4-8.4) Albumin 4.5g/dL (3.4-5.0) Lipase 23U/L (13-60) Hold Andrea Top Tube Received (Received) Urine Color Yellow (YELLOW) Urine Appearance Clear (CLEAR,HAZY) Urine pH 5.5 (5.0-8.0) Urine Specific [place] 1.010 (1.003-1.035) Urine Protein Negativemg/dL (NEG,TRACE) Urine Glucose (UA) Negativemg/dL (NEGATIVE) Urine Ketones Tracemg/dL (NEGATIVE) Urine Occult Blood Negative (NEGATIVE) Urine Nitrite Negative (NEGATIVE) Urine Bilirubin Negative (NEGATIVE) Urine Urobilinogen Normalmg/dL (NORMAL) Urine Leukocyte Esterase Negative (NEGATIVE) Urine RBC 0-2/hpf (0-2) Urine WBC 0-5/hpf (0-5) Urine Epithelial Cells None/hpf (NONE-MOD) Urine Crystals None seen (NONE SEEN) Urine Bacteria None/hpf (NONE-FEW) Urine Hyaline Casts None/lpf (NONE) Urine Granular Casts None seen (NONE SEEN) Urine Waxy Casts None seen (NONE SEEN) Urine Red Blood Cell Casts None seen (NONE SEEN) Urine White Blood Cell Casts None seen (NONE SEEN) Urine Mucus None seen (None Seen) Urine Trichomonas None seen (NONE SEEN) Urine Yeast None (NONE SEEN) Urinalysis Comment None Urine Culture Reflexed Not indicated ECG Interpretation ECG Interpretation: normal axis normal interval no ST segment elevation no T wave abnormalities when compared to 10/09/15, no acute changes Time: 19:06 Interpreted by: ED physician Normal ECG Interpretation: Normal rate (74), Normal sinus rhythm X-Ray Abdominal Interpretation IMPRESSION: Normal bowel gas pattern. Dictated by: Devan Reyes M.D. on 12/31/2016 at 20:35 Approved by: Devan Reyes M.D. on 12/31/2016 at 20:36 Study: KUB Interpretation / Wet Read by: Interpret - Radiologist Re-Eval/Medical Decision Med Decision/Clinical Course Patient is a 41 year old male with a history of cyclic vomiting syndrome, opiate dependence, GERD, fibromyalgia, small bowel obstructions, IBS, diverticulitis and colitis who presents to the ED complaining of epigastric pain onset 3 days ago. Associated symptoms include nausea, vomiting, decreased appetite, constipation, belching and vomiting. He states that he was able to pass gas yesterday but has not been able to today. Patient denies dysuria. The patient states that the pain is worsened with eating and that belching helps relieve the pain. Patient describes the pain as a constant pressure and sharp when he moves. He reports that he has only had one bowel movement in the past 5 days. Here in the emergency department the patient is afebrile stable vital signs in no apparent distress. Examination of his abdomen is relatively benign. Patient was treated with the below medications: Zofran, GI cocktail, 1L NS Patient was reevaluated thereafter and reported significant symptomatic improvement that he stated he started some ongoing pain and requested IV narcotic pain medications. In reviewing the patient's RYLEY report I am surprised to see that he is obtained prescriptions for oxycodone and relatively large quantities from 6 different prescribing physicians in the last year. In the absence of any significant evidence of organic illness I am hesitant to provide the patient with more narcotic pain medications. X-ray acute abdominal series demonstrated no evidence of small bowel obstruction. Labs as below: CBC and CMP unremarkable Trop: negative Lipase within normal limits Urinalysis: no sign of UTI While the patient initially presented complaining of epigastric pain. This was apparently interpreted as possible chest pain by nursing staff. Therefore he had EKG and troponin ordered from triage neither of which demonstrate evidence of cardiac ischemia. Moreover, the patient has few cardiac risk factors, denies any chest pain on my history taking and evaluation and is relatively low risk from a cardiac standpoint. He has no cardiac history. I do not feel that further cardiac workup is indicated. Examination of his abdomen is not consistent with an acute surgical intra-abdominal process. Much of his presentation seems consistent with GERD/gastritis and he had significant improvement in his symptoms after receiving a GI cocktail. He is advised to take a PPI and follow up with his primary care physician. At this time, I feel he is appropriate for discharge. Prior to discharge follow-up and return precautions were reviewed in detail with the patient who verbalized understanding and agreement with the plan. The patient was discharged in stable condition. Time of Eval: 20:53 Re-Evaluation/Progress Note: Discussed results and plan for discharge. patient understands and agrees to plan. All questions were addressed. Counseled Regarding: Diagnosis, Lab results, Need for follow-up, When/why to return to ED Discharge & Departure Primary Impression: Abdominal pain Abdominal location: epigastric Qualified Code: R10.13 - Epigastric pain Additional Impressions: GERD (gastroesophageal reflux disease) Esophagitis presence: esophagitis presence not specified Qualified Code: K21.9 - Gastro-esophageal reflux disease without esophagitis Epigastric pain Opiate dependence Substance use status: with unspecified opioid-induced disorder Qualified Code : F11.29 - Opioid dependence with unspecified opioid-induced disorder Disposition: Home Discharge Condition All VS Reviewed: Yes Condition: Stable Patient Instructions: Abdominal Pain (ED) Additional Instructions: Thank you for seeking care at the emergency room. Our primary goal today in the ED was to evaluate you for any life-threatening conditions. Your evaluation was reassuring. You should follow-up with your primary doctor in the next week. You should return to the ED immediately if you develop any worsening symptoms, fevers, vomiting, cough, shortness of breath, chest pain, lightheadedness, weakness or any other concerning signs or symptoms. Referrals: Haroon Perdomo DO (PCP) Ryanne Attestation Portions of this note were transcribed by Sophy Kaur. I, Dr. Milian personally performed the history, physical exam and medical decision-making; I reviewed and confirmed the accuracy of the information in the transcribed note. Signed by: Ryanne Boyle, 12/31/16 and 1940 copies to: Haroon Perdomo Beck O MD Dec 31, 2016 18:42 Celestina Kaur Dec 31, 2016 19:22
[2016-12-31] MEDS ORDERED: Ondansetron 2 mg/mL 2 mL Inj IVPUSH ONE ×2 (19:05→20:10)
[2016-12-31] MEDS ORDERED: 0.9% Sodium Chloride 1,000 ML IV ONE ×2 (19:05→19:26)
[2016-12-31 19:13] LABS: BASOPHILS % (AUTO) 0.2 % (0-3); EOSINOPHILS % (AUTO) 0.6 % (0-5); MONOCYTES % (AUTO) 9.3 % (4-12); Mean Corpuscular Hemoglobin 29.3 pg (27.0-35.0); Mean Corpuscular Volume 86.2 fL (81-100); NEUTROPHILS % (AUTO) 58.2 % (40-74); Platelet Count 257 bil/L (150-400)
[2016-12-31] MEDS ORDERED: HYDROmorphone 0.5 mg/0.5 mL iSecure Syringe IVPUSH PRN (19:30)
[2016-12-31 19:36] VITALS: BP 149/86; PULSE 82; RESP 16; O2SAT 97
[2016-12-31 19:36] LABS: TROPONIN T < 0.010 ug/L (0.0-0.011)
[2016-12-31] MEDS ORDERED: LidocaineVisc 2%:Antacid 1:1 10 mL Syringe PO ONE (19:40)
[2016-12-31 19:45] LABS: Magnesium 1.9 mg/dL (1.6-2.6)
[2016-12-31 20:11] LABS: APPEARANCE,URINE CLEAR (CLEAR,HAZY); COLOR,URINE YELLOW (YELLOW); OCCULT BLOOD,URINE NEGATIVE (NEGATIVE); PH,URINE 5.5 (5.0-8.0); UROBILINOGEN,URINE NORMAL (NORMAL)
[2016-12-31] MEDS ORDERED: MetoCLOpramide 5 mg/mL 2 mL Inj IVPUSH PRN (20:35)
--- NOTE | 2016-12-31 20:38 | DRSVH ---
PROCEDURE: X-RAY ACUTE ABDOMINAL SERIES ([id number]) INDICATIONS: Assess for small bowel obstruction. TECHNIQUE: One view chest and two views of the abdomen were acquired. COMPARISON: Recent plain films of the abdomen/pelvis 12/06/[address] abdomen/pelvis 12/05/16 reveal ed. FINDINGS: Surgical changes and devices: No new surgery items found.. Chest: Lungs are clear. Heart size is normal. No pleural effusions. No pneumoperitoneum. Abdomen: Bowel gas pattern is normal. No suspicious calcifications. Visualized solid organ contour s appear normal. Bones: No suspicious bony lesions. IMPRESSION: Normal bowel gas pattern. Dictated by: Devan Reyes M.D. on 12/31/2016 at 20:35 Approved by: Devan Reyes M.D. on 12/31/2016 at 20:36
[2016-12-31 21:09] VITALS: BP 142/82; PULSE 82; RESP 16; O2SAT 98
== END 2016-12-31 21:05 | disposition home or self-care (01) ==
LOC: SED 18:18
DX: R10.13 Epigastric pain (principal); K21.9 Gastro-esophageal reflux disease without esophagitis; F11.29 Opioid dependence with unspecified opioid-induced disorder; K59.00 Constipation, unspecified; R63.0 Anorexia; G43.909 Migraine, unspecified, not intractable, without status migrainosus; M79.7 Fibromyalgia; F17.200 Nicotine dependence, unspecified, uncomplicated
CPT/HCPCS: 36415; 74022; 80053; 81000; 83690; 83735; 84484; 85025; 93005; 96361; 96374; 96375; 96376; 99285; J2405; J2765; J7030

== ENCOUNTER 2017-01-08 19:09 | Emergency (ER) | payer MEDICARE, MEDICAID ==
[~2017-01-08] VITALS: Ht 170.2 cm; Wt 65.9 kg
[2017-01-08 19:14] VITALS: BP 157/114; PULSE 98; RESP 16; O2SAT 99
--- NOTE | 2017-01-08 21:30 | ED.REPORT ---
HPI-Back Pain 40 and Over Date of Service Jan 08, 2017 ED Provider: Grey Cook MD 41-year-old male with history of drug abuse, multiple back surgeries on L5-S1. Comes in today with a seven-day history of progressive pain and weakness with neurological deficits. He states that his pain began 7 days ago he took opioids but this has not divided significant pain relief. He also appears to have loss of sensation in both legs, however he states that depending on his positioning it varies between legs as to which is more numb. His pain is rated 8/10 and radiates down the legs bilaterally. October was his most recent back surgery (performed at [facility]) and shortly after this an MRI was done which showed a "fluid sac" within the spinal cord. He states that sugars were concerned for infection however reluctant to open the surgery site at that time and elected to observe for time. Since that time he said no further workup, and no symptoms until now. He had one incidence of loss of bowel control, however part from this incidence he denies loss of bowel or bladder control. He states that he has had a low-grade fever which has been intermittent since the day of surgery. He has pain meds at home which are controlled by his . He states that once he noted the pain meds are not working his then confiscated them and he elected to come to the ER at that time. He is not asking for opioid pain meds at this time, however, suggested a dose of Toradol for pain control. He has not yet been able to follow-up with [facility] and want to come to the ER here for workup with MRI to determine if he needs to continue further workup at [facility] or if this is a benign situation which may be dealt with as an outpatient. Nursing Notes Chief Complaint: Back Pain or Injury Nursing Notes Reviewed: Yes Allergies: Coded Allergies: No Known Allergies (Unverified , 12/05/16) Scheduled PRN Acetaminophen (Acetaminophen) 500 Mg Tablet 1,000 MG PO BID PRN PRN For Pain Methocarbamol (Robaxin-750) 750 Mg Tablet 750 MG PO QID PRN PRN For Pain Ondansetron (Ondansetron) 8 Mg Tablet 8 MG PO PRN For Nausea oxyCODONE-Acetaminophen 5-325 mg (oxyCODONE-Acetaminophen 5-325 mg) 1 Each Tablet 1 TAB PO Q4H PRN PRN For Pain General Time Seen by MD: 21:09 Chief Complaint Back pain, Lumbar pain Hx Obtained From: Patient Sudden in Onset?: No Onset Occurred: 1 week ago Symptom Duration: Since onset Severity: Current: Pain level 8 out of 10 Associated with: Reports: Nausea, Numbness both low ext, Weakness both lower ext, Denies: Incontinence bladder, Vomiting Risk Factors )( AAA Risk Stratification Risk factors reviewed )( TAD Risk Stratification Risk factors reviewed Epidural Hematoma Risk Stratif Risk factors reviewed Epidural Abscess Risk Stratifi Risk factors reviewed Past Medical History Past Medical History Notes: PCP: Conor at [facility] Dr. Nunn is Spine Doctor/Surgeon. Hx of narcotic seeking Past Medical History Clostridium difficile colitis 05/2015 and 12/2014 Colitis IBS Cyclical vomiting Small bowel obstruction Migraine. Guillen's esophagus. GERD. Prostatitis. Fibromyalgia. Kidney stones Interstitial cystitis Epidural hematoma Internal and blood BM chronically diverticulitus Reports: Gastritis Past Surgical History Right ear drum repair laparoscopy in 2001 and again in 2013 with lysis of adhesion and incidental appy at that time at [facility] in [place] Right ACL reconstruction C5, C6, C7 [place] Jul [place] [facility] [place] [facility] [place] surgery for epidural hematoma, Aug 10, 2016 Reports: Appendectomy Family History Reviewed, not relevant. Prostate cancer in brother and father. Mom-stroke, HTN Smoking History Current Every Day Smoker Social History Trying to quit smoking Alcohol Use: Denies alcohol use Drug Use: Denies drug use Other Social History: Frequent ED visitor, , Local resident Occupation no work or school Ambulatory Status Independent Review of Systems Complete sys rev & neg: except as marked. Physical Exam Physical Exam Notes: Pain with palpation or movement of the lower extremity DTR diminished right patella, left intact Lower leg Range of motion intact bilaterally Sensation decreased to palpation on the left lower leg Initial Vital Signs Vital Signs (First) Date Time Temp Pulse Resp B/P Pulse Ox O2 Delivery O2 Flow Rate FiO2 01/08/17 19:14 37.2 98 16 157/114 99 Room Air Initial VS: Reviewed, Vital signs abnormal (slightly tachycardic on admission, likely due to pain) Head / Eyes: Atraumatic, Normocephalic, PERRL ENT: Mucous membranes moist, Conjunctiva normal, No scleral icterus Extremities: Vascular intact, Neuro intact Skin: Warm, Dry, No cyanosis Psychiatric: Mood/affect normal, Behavior normal, Normal thought content Lower Extremity / Pelvis / MS: Atraumatic, Full range of motion, No deformity, Vascular intact, No compartment syndrome Right Leg / Calf: Positive: Swelling present... (Mild), Tenderness present... ( Mild), Negative: Ecchymosis present, Erythema present Left Leg / Calf: Positive: Swelling present... (Mild), Tenderness present... ( Mild), Negative: Ecchymosis present, Erythema present Interpretation & Diagnostics MRI LUMBAR SPINE Findings: L5-S1 posterior spinal fusion noted. No bone marrow edema. Alignment anatomic. Post surgical related deformity of the thecal sac distally. Infiltration of epidural/perineural fat by enhancing soft tissue intensity. Posterior paraspinal enhancing soft tissue signal at the level of surgery consistent with scarring. Impression: Postoperative findings in the lumbosacral junction as above with enhancing fibrosis. No obvious acute traumatic change seen. Stability of findings is unknown in the absence of prior studies for comparison. Please see final report for other non-emergent incidental findings. This report was transmitted to the emergency room at 01/09/2017 12:04 a.m. Araseli Del Toro M.D. (manufacturing shift supervisor radiology) Lab Results Interpretation Result Diagram: 01/08/17 2330 01/08/17 2330 Test 01/08/17 22:05 01/08/17 23:30 Urine Color Straw (YELLOW) Urine Appearance Clear (CLEAR,HAZY) Urine pH 6.5 (5.0-8.0) Urine Specific [place] 1.020 (1.003-1.035) Urine Protein Negativemg/dL (NEG,TRACE) Urine Glucose (UA) Negativemg/dL (NEGATIVE) Urine Ketones Negativemg/dL (NEGATIVE) Urine Occult Blood Negative (NEGATIVE) Urine Nitrite Negative (NEGATIVE) Urine Bilirubin Negative (NEGATIVE) Urine Urobilinogen Normalmg/dL (NORMAL) Urine Leukocyte Esterase Negative (NEGATIVE) Urine RBC 0-2/hpf (0-2) Urine WBC 0-5/hpf (0-5) Urine Epithelial Cells Occasional/hpf (NONE-MOD) Urine Crystals None seen (NONE SEEN) Urine Bacteria None/hpf (NONE-FEW) Urine Hyaline Casts None/lpf (NONE) Urine Granular Casts None seen (NONE SEEN) Urine Waxy Casts None seen (NONE SEEN) Urine Red Blood Cell Casts None seen (NONE SEEN) Urine White Blood Cell Casts None seen (NONE SEEN) Urine Mucus Present (None Seen) Urine Trichomonas None seen (NONE SEEN) Urine Yeast None (NONE SEEN) Urinalysis Comment None Urine Culture Reflexed Not indicated White Blood Count 10.1th/mm3 (3.8-10.1) Red Blood Count 4.46mil/mm3 (4.40-5.80) Hemoglobin 12.9g/dL (13.8-17.2) Hematocrit 38.9% (41.0-50.0) Mean Corpuscular Volume 87.2fL (81-100) Mean Corpuscular Hemoglobin 28.9pg (27.0-35.0) Mean Corpuscular Hemoglobin Concent 33.2% (32.0-37.0) Red Cell Distribution Width 16.0% (12.3-15.4) Platelet Count 256bil/L (150-400) Neutrophils (%) (Auto) 54.4% (40-74) Lymphocytes (%) (Auto) 36.3% (14-46) Monocytes (%) (Auto) 7.3% (4-12) Eosinophils (%) (Auto) 1.5% (0-5) Basophils (%) (Auto) 0.3% (0-3) Erythrocyte Sedimentation Rate 4mm/hr (0-15) Sodium Level 139mEq/L (134-144) Potassium Level 3.9mEq/L (3.5-5.2) Chloride Level 103mEq/L (97-108) Carbon Dioxide Level 22mmol/L (18-29) Blood Urea Nitrogen 7mg/dL (6-24) Creatinine 0.61mg/dL (0.76-1.27) Estimat Glomerular Filtration Rate 153mL/min (>59) Glucose Level 98mg/dL (60-99) Calcium Level 8.8mg/dL (8.5-10.1) Total Bilirubin 0.3mg/dL (0.0-1.2) Aspartate Amino Transf (AST/SGOT) 16U/L (0-50) Alanine Aminotransferase (ALT/SGPT) 16U/L (0-44) Alkaline Phosphatase 47U/L (25-150) C-Reactive Protein 0.0mg/dL (0.0-0.5) Total Protein 6.8g/dL (6.4-8.4) Albumin 4.2g/dL (3.4-5.0) Hold Andrea Top Tube Received (Received) Lab Results Interpretation: Laboratory results insignificant, no concern for bleeding or infection at this time Re-Eval/Medical Decision Med Decision/Clinical Course MRI shows no evidence of acute pathology. It appears that the pain along with the neurological symptoms are most likely caused by excessive scarring and/or muscular/fascial changes post surgically. Patient should follow-up with [facility] for further workup. Counseled Regarding: Diagnosis, Lab results, Need for follow-up, When/why to return to ED Discharge & Departure Impression: Primary Impression: Low back pain Chronicity: acute Back pain laterality: midline Sciatica presence: with sciatica Sciatica laterality: bilateral sciatica Qualified Code: M54.42 - Lumbago with sciatica, left side Additional Impressions: Postoperative back pain Sciatica Laterality: bilateral Qualified Code: M54.31 - Sciatica, right side Disposition: Home Discharge Condition All VS Reviewed: Yes Condition: Stable Patient Instructions: Acute Low Back Pain (ED) Additional Instructions: You was seen today in the emergency room for back pain, as a follow-up from your surgery in October. MRI done today shows no obvious acute or traumatic changes. Your labs today showed no evidence of infection or postoperative complications. Decadron was given here in the hospital to help decrease inflammation. A prescription for Robaxin was provided to help with muscle pain relief. Is also appropriate to take 1 pill nightly of the opioids for your previously prescribed to help you sleep more comfortably. You should follow-up with [facility] whenever possible for further evaluation. Referrals: [facility] (PCP) Attending Statement As attending of record for this patient, I conducted an independent history and physical examination, and agree with the resident documentation as above and as amended. copies to: [facility] Lambert Mcclelland DO Jan 08, 2017 21:30 Grey Cook MD Jan 09, 2017 06:47
[2017-01-08 22:08] VITALS: BP 138/96; PULSE 81; RESP 20; O2SAT 98
[2017-01-08 22:38] LABS: APPEARANCE,URINE CLEAR (CLEAR,HAZY); COLOR,URINE STRAW (YELLOW); OCCULT BLOOD,URINE NEGATIVE (NEGATIVE); PH,URINE 6.5 (5.0-8.0); UROBILINOGEN,URINE NORMAL (NORMAL)
[2017-01-08 23:41] LABS: BASOPHILS % (AUTO) 0.3 % (0-3); EOSINOPHILS % (AUTO) 1.5 % (0-5); MONOCYTES % (AUTO) 7.3 % (4-12); Mean Corpuscular Hemoglobin 28.9 pg (27.0-35.0); Mean Corpuscular Volume 87.2 fL (81-100); NEUTROPHILS % (AUTO) 54.4 % (40-74); Platelet Count 256 bil/L (150-400)
[2017-01-08 23:57] LABS: ERYTHROCYTE SEDIMENTATION RATE 4 mm/hr (0-15)
[2017-01-09] MEDS ORDERED: Dexamethasone 10 mg/mL Inj IVPUSH ONE (01:00)
[2017-01-09] MEDS ORDERED: METH-313 PO (01:13)
[2017-01-09 01:23] VITALS: BP 138/100; PULSE 73; RESP 16; O2SAT 98
--- NOTE | 2017-01-09 09:16 | DRSVH ---
PROCEDURE: MRI LUMBAR SPINE WITH AND WITHOUT CONTRAST ([id number]) INDICATIONS: Bilateral leg numbness,recent surgery L5 S1 TECHNIQUE: Noncontrast sagittal T1 spin echo and T2 fast spin echo, sagittal STIR, axial T1 and T2 fast spin ech o through the lumbar spine. In cases with scoliosis, additional coronal T2 fast spin echo may be per formed. After the administration of contrast, sagittal and axial T1 spin echo with fat saturation th rough the lumbar spine. COMPARISON: [facility], CT, CT ABD PELVIS W CON, 12/05/2016, 18:51. [facility], CR, XR ABD ACUTE SERIES 3VW, 12/31/2016, 20:03. [facility], MR, MR LUMBAR SPINE W&WO CON, 09/07/2016, 8:07. [facility], CT, CT LUMBAR SPINE WO CON, 09/07/2016, 1:30. [facility], MR, MR LUMBAR SPINE W&WO CON, 08/10/2016, 22:44. [facility], CR, XR LUMBA R SPINE 2 OR 3VW, 04/16/2016, 14:55. FINDINGS: Image quality: Limited by metallic artifact at the lumbosacral junction. Alignment and curvature: There is normal bony alignment. 5 lumbar type vertebral levels are present by plain film. Marrow: Marrow is of normal overall signal. No acute vertebral body compression fractures. No susp icious marrow enhancement. L5 laminectomy has been performed. L4-L5 fusion has been performed with p aired posterior rods and pedicle screws. An interbody device at L5-S1 is present. Spinal cord: Conus medullaris terminates at the lower L1 level. Visualized spinal cord demonstrates normal signal, without suspicious enhancement. Paraspinous soft tissues: No paravertebral masses. Postsurgical STIR signal elevation and enhancemen t within the paraspinous soft tissues at L5-S1 is present. L1-L2: Normal appearance. L2-L3: Normal appearance. L3-L4: Normal appearance. L4-L5: Disc desiccation and diffuse disc bulge. Central/right paracentral annular tear. Bilateral fac et hypertrophy. Mild canal stenosis. Mild foraminal stenosis bilaterally. No change. L5-S1: There is low T1 signal intensity within the anterior and posterior epidural space, which demon strate probable postcontrast enhancement (this determination is limited by metallic artifact), as bef ore, consistent with scarring/granulation tissue. There is associated effacement of the CSF surroundi ng the cauda equina, which is decreased. No significant foraminal stenosis is present. There is mild relative enlargement of the left S1 nerve root within the lateral recess, as before, suggestive of ne uritis. IMPRESSION: 1. L5-S1 laminectomy, and fusion. There is enhancing scar/granulation tissue surrounding the thecal s pace at L5-S1, as before. There is associated effacement of CSF surrounding the cauda equina, which h as decreased, but persists. No change in mild relative enlargement of the left S1 nerve root within t he lateral recess, consistent with neuritis. 2. Concordant with preliminary interpretation. Dictated by: Rickey Payne M.D. on 01/09/2017 at 9:02 Approved by: Rickey Payne M.D. on 01/09/2017 at 9:15
== END 2017-01-09 01:19 | disposition home or self-care (01) ==
LOC: SED 19:09
DX: M54.42 Lumbago with sciatica, left side (principal); M54.31 Sciatica, right side; G89.18 Other acute postprocedural pain; G43.909 Migraine, unspecified, not intractable, without status migrainosus; R20.8 Other disturbances of skin sensation; R53.1 Weakness; K21.9 Gastro-esophageal reflux disease without esophagitis; M79.7 Fibromyalgia; F17.200 Nicotine dependence, unspecified, uncomplicated; Z98.890 Other specified postprocedural states; Z87.442 Personal history of urinary calculi; Z87.448 Personal history of other diseases of urinary system
CPT/HCPCS: 36415; 72158; 80053; 81000; 85025; 85651; 86140; 96374; 96375; 99285; A9585; J1100; J1885

== ENCOUNTER 2017-01-10 17:26 | Emergency (ER) | payer MEDICARE, MEDICAID ==
[~2017-01-10] VITALS: Ht 170.2 cm; Wt 65.9 kg
[~2017-01-10 17:26] MED LIST changes: +METH-313 PO
[2017-01-10 17:39] VITALS: BP 165/89; PULSE 89; RESP 16; O2SAT 99
--- NOTE | 2017-01-10 18:04 | ED.REPORT ---
HPI-Back Pain 40 and Over Date of Service Jan 10, 2017 ED Provider: Dr. Hernandez 41 y/o male with a hx of multiple back surgeries on L5-S1 (last surgery 3 months ago) , opiate dependence, fibromyalgia and multiple gastric diagnosis presents to the ED complaining of back pain with a tingling sensation shooting down his left leg, onset 10 days ago. His pain is sharp when he walks and dull and numb when lying down. He had some pain yesterday but it worsened last night when he rolled over in bed, at which point he also lost control of his bowel. Associated sx include mild swelling on the left side of the back, decreased sensation in the left groin area, left buttock and left leg. He is also experiencing numbness in the buttock and groin when sitting and weakness in lower extremity upon standing and walking. The pt denies fever, chills, dysuria , urinary incontinence, dehydration and change in appetite. The pt fell last week and a couple of hours later, he had lost control of his bowel. He was seen at the ED 2 days ago. At the time, his MRI was normal and he was discharged with a prescription for Robaxin and instructions to follow up with [facility]. He has an appointment with Dr. Nunn at [facility] in 2 weeks. Today, the pt contacted [facility] and was advised to go to the ED due to fecal incontinence. He states "little bit of stool keeps leaking out". The pt takes Methocarbamol for his pain, as prescribed by a PCP at [facility]. Nursing Notes Stated Complaint: SWOLLEN BACK, NUMB LEGS Chief Complaint: Back Pain or Injury Nursing Notes Reviewed: Yes Allergies: Coded Allergies: No Known Allergies (Unverified , 12/05/16) Scheduled PRN Acetaminophen (Acetaminophen) 500 Mg Tablet 1,000 MG PO BID PRN PRN For Pain Methocarbamol (Robaxin-750) 750 Mg Tablet 750 MG PO QID PRN PRN For Pain Ondansetron (Ondansetron) 8 Mg Tablet 8 MG PO PRN For Nausea oxyCODONE-Acetaminophen 5-325 mg (oxyCODONE-Acetaminophen 5-325 mg) 1 Each Tablet 1 TAB PO Q4H PRN PRN For Pain General Time Seen by MD: 18:03 Chief Complaint Back pain Hx Obtained From: Patient Arrived By: Walk-in Sudden in Onset?: No Onset Occurred: More than a week ago... (10 days) Symptom Duration: Since onset Location: : Coccyx: Spinal lumbar area: Spinal sacral area Quality: Painful Severity: Current: Severe Severity: Maximum: Severe Recent Healthcare: Recent doctor visit Similar Sx Previous: Yes Past Medical History Past Medical History Notes: PCP: Conor at [facility] Dr. Nunn is Spine Doctor/Surgeon. Hx of narcotic seeking Past Medical History Clostridium difficile colitis 05/2015 and 12/2014 Colitis IBS Cyclical vomiting Small bowel obstruction Migraine. Guillen's esophagus. GERD. Prostatitis. Fibromyalgia. Kidney stones Interstitial cystitis Epidural hematoma Internal and blood BM chronically diverticulitus Reports: Gastritis Past Surgical History Right ear drum repair laparoscopy in 2001 and again in 2013 with lysis of adhesion and incidental appy at that time at [facility] in [place] Right ACL reconstruction C5, C6, C7 Fusion Jul 30, 2014 done at [facility] Fatty tissue removal and spinal canal widening at [facility] on Jul 08 2016 Back surgery for epidural hematoma, Aug 10, 2016 Reports: Appendectomy Family History Reviewed, not relevant. Prostate cancer in brother and father. Mom-stroke, HTN Smoking History Current Every Day Smoker Social History Trying to quit smoking Alcohol Use: Denies alcohol use Drug Use: Denies drug use Other Social History: Frequent ED visitor, , Local resident Occupation no work or school Ambulatory Status Independent Review of Systems Reports: fecal incontinence Reports: tingling sensation in lower extremities Denies: urinary incontinence Denies: dehydration Denies; change in appetite Constitutional: Denies: Chills, Fever Male: Denies Dysuria Musculoskeletal: Reports: Back pain, Extremity pain (left leg) Neurologic: Reports: Numbness (buttock, left side of the groin), Weakness ( lower extremities ) Complete sys rev & neg: except as marked. Physical Exam Initial Vital Signs Vital Signs (First) Date Time Temp Pulse Resp B/P Pulse Ox O2 Delivery O2 Flow Rate FiO2 01/10/17 17:39 36.8 89 16 165/89 99 Room Air Initial VS: Reviewed, Vital signs abnormal Head / Eyes: Atraumatic, Normocephalic Extremities: Vascular intact, No swelling Skin: Warm, Dry, No cyanosis Respiratory / Chest: Atraumatic, Breath sounds NL, Breath sounds = bilat, No respiratory distress, No rales, No rhonchi, No wheezing Cardiovascular: Heart rate NL, Regular rhythm, Heart sounds NL, No gallop, No murmurs, No rubs Abdomen: Atraumatic, Soft, Non-tender, No guarding, No rebound, BS normoactive Back: Atraumatic, Full range of motion Neurologic: Oriented X3, Speech NL, No motor deficits Decreased groin sensation on the left. Decreased perianal sensation Rectum / Perineum: Atraumatic Decreased rectal tone Male Genitourinary: Atraumatic Absent bulbocavernosus reflex Re-Eval/Medical Decision Med Decision/Clinical Course The patient feels he has had a progression of symptoms. He had an MRI 2 days ago which did not show any obvious compression and he had had similar symptoms already. It may be related to inflammation of his S1 nerve root. I spoke with the on-call spine doctor from [facility] felt he should come down for evaluation. He lifted MRI and there was no need for emergent surgery however given he is getting worse he did not feel he should wait till the next possible appointment which should be in 1 week. Source of Hx: Old records Re-Evaluation/Progress #1: Time of Eval: 19:08 Re-Evaluation/Progress Note: Contacted [facility]. They will call back. Re-Evaluation/Progress #2: Time of Eval: 20:06 Re-Evaluation/Progress Note: Rechecked pt. Discussed diagnosis and plan to transfer to [facility]. Pt understands and agrees with the plan. All questions addressed. Consultation : Call Returned at: 19:18 Size Stamper: Will see patient, Agrees with eval, Accepts admit Note: Dr. Monique from [facility] accepts transfer Counseled Regarding: Diagnosis, Need for transfer Discharge & Departure Impression: Primary Impression: Neuritis Additional Impression: Fecal incontinence Fecal incontinence type: full incontinence of feces Qualified Code: R15.9 - Full incontinence of feces Disposition: Transfer, Acute Care Facility Receiving Hospital: [facility] Transfer Accepted at: 19:18 Transfer Reason: Higher level of care Spoke with: Attending physician Patient Status: Stable Patient Informed: Yes Discharge Condition All VS Reviewed: Yes Referrals: [facility] (PCP) Scribe Attestation Portions of this note were transcribed by Pete Ennis. I, , personally performed the history, physical exam and medical decision-making;I reviewed and confirmed the accuracy of the information in the transcribed note. Signed by Ryanne Ugarte. 01/10/17 20:07 Aarti Hernandez MD Jan 10, 2017 18:04 Pete Ennis Jan 10, 2017 18:09
[2017-01-10] MEDS ORDERED: HYDROmorphone 1 mg/mL Inj IM ONE (19:25)
[2017-01-10] MEDS ORDERED: HYDROmorphone 1 mg/mL Inj IVPUSH ONE (20:15)
[2017-01-10 20:22] VITALS: BP 142/98; PULSE 71; RESP 20; O2SAT 98
[2017-01-11] MEDS ORDERED: OXYC1TAB24 PO (14:32)
== END 2017-01-10 20:26 | disposition short-term general hospital (02) ==
LOC: SED 17:26
DX: M79.2 Neuralgia and neuritis, unspecified (principal); R15.9 Full incontinence of feces; F11.20 Opioid dependence, uncomplicated; M79.7 Fibromyalgia; K21.9 Gastro-esophageal reflux disease without esophagitis; K29.70 Gastritis, unspecified, without bleeding; F17.200 Nicotine dependence, unspecified, uncomplicated; Z98.890 Other specified postprocedural states; Z87.19 Personal history of other diseases of the digestive system
CPT/HCPCS: 96372; 96374; 99285; J1170

== ENCOUNTER 2017-01-11 14:08 | Emergency (ER) | payer MEDICARE, MEDICAID ==
[~2017-01-11] VITALS: Ht 170.2 cm; Wt 65.9 kg
[2017-01-11 14:11] VITALS: PULSE 85; RESP 16; O2SAT 98
--- NOTE | 2017-01-11 14:29 | ED.REPORT ---
HPI-General Illness Date of Service Jan 11, 2017 ED Provider: Jim Milian MD Prior to the patient's arrival I received a call from Dr. Kong at [facility]. The patient had been evaluated there earlier today after waiting for a prolonged period of time. He was seen for back pain with history of multiple neurospinal surgeries. The patient was seen and evaluated by neurosurgery and spinal surgery. He was discharged with 12 tablets of 5 mg oxycodone. Unfortunately he was given a prescription belonging to a different patient. They are unable to fax a prescription because it needs to be signed. They are requesting that we evaluate him here and prescribe the medication. They state he has already been fully worked up and evaluated earlier today and just needs the prescription. The patient denies any new or changed symptoms since he was discharged this morning. Nursing Notes Stated Complaint: BACK PAIN, LEG NUMBNESS Chief Complaint: General Complaint Nursing Notes Reviewed: Yes Allergies: Coded Allergies: No Known Allergies (Unverified , 01/11/17) Scheduled PRN Acetaminophen (Acetaminophen) 500 Mg Tablet 1,000 MG PO BID PRN PRN For Pain Methocarbamol (Robaxin-750) 750 Mg Tablet 750 MG PO QID PRN PRN For Pain Ondansetron (Ondansetron) 8 Mg Tablet 8 MG PO PRN For Nausea oxyCODONE-Acetaminophen 5-325 mg (oxyCODONE-Acetaminophen 5-325 mg) 1 Each Tablet 1 TAB PO Q4H PRN PRN For Pain oxyCODONE-Acetaminophen 5-325 mg (oxyCODONE-Acetaminophen 5-325 mg) 1 Each Tablet 1 TAB PO Q6H PRN PRN For Pain General Time Seen by MD: 14:28 Chief Complaint Medication refill Hx Obtained From: Patient Arrived By: Walk-in Sudden in Onset?: No Onset Occurred: 1 week ago Symptom Duration: Since onset Location: : Back Quality: Painful Severity: Current: Moderate Severity: Maximum: Moderate Recent Healthcare: Recent doctor visit Similar Sx Previous: Yes Past Medical History Past Medical History Notes: PCP: Conor [facility] Dr. Nunn is Spine Doctor/Surgeon. Hx of narcotic seeking Past Medical History Clostridium difficile colitis 05/2015 and 12/2014 Colitis IBS Cyclical vomiting Small bowel obstruction Migraine. Guillen's esophagus. GERD. Prostatitis. Fibromyalgia. Kidney stones Interstitial cystitis Epidural hematoma Internal and blood BM chronically diverticulitus Reports: Gastritis Past Surgical History Right ear drum repair laparoscopy in 2001 and again in 2013 with lysis of adhesion and incidental appy at that time at [facility] in [place] Right ACL reconstruction C5, C6, C7 Fusion Jul 30, 2014 done at [facility] Fatty tissue removal and spinal canal widening at [facility] on Jul 08 2016 Back surgery for epidural hematoma, Aug 10, 2016 Reports: Appendectomy Family History Reviewed, not relevant. Prostate cancer in brother and father. Mom-stroke, HTN Smoking History Current Every Day Smoker Social History Trying to quit smoking Alcohol Use: Denies alcohol use Drug Use: Denies drug use Other Social History: Frequent ED visitor, , Local resident Occupation no work or school Ambulatory Status Independent Review of Systems Full Review of Systems Musculoskeletal: Reports: Back pain Complete sys rev & neg: except as marked. Physical Exam Vital Signs Vital Signs Date Time Temp Pulse Resp B/P Pulse Ox O2 Delivery O2 Flow Rate FiO2 01/11/17 14:11 36.6 85 16 98 Room Air Initial VS: Reviewed Head / Eyes: Atraumatic, Normocephalic, PERRL ENT: Mucous membranes moist, Conjunctiva normal, No scleral icterus Neck: Supple, Non-tender, Full range of motion Respiratory: Breath sounds normal, Clear to auscultation, No respiratory distress Cardiovascular: Regular rate & rhythm, Heart sounds normal, Intact distal pulses Abdomen / GI: Soft, Non-tender, No guarding, No rebound, No distention Extremities: Vascular intact, Neuro intact, No swelling, No tenderness Skin: Warm, Dry, No cyanosis Neurologic: Alert, Oriented, Nonfocal Psychiatric: Mood/affect normal, Behavior normal, Normal thought content General/Constitutional: Awake, Alert Re-Eval/Medical Decision Med Decision/Clinical Course Prior to the patient's arrival I received a call from Dr. Kong at [facility]. The patient had been evaluated there earlier today after waiting for a prolonged period of time. He was seen for back pain with history of multiple neurospinal surgeries. The patient was seen and evaluated by neurosurgery and spinal surgery. He was discharged with 12 tablets of 5 mg oxycodone. Unfortunately he was given a prescription belonging to a different patient. They are unable to fax a prescription because it needs to be signed. They are requesting that we evaluate him here and prescribe the medication. They state he has already been fully worked up and evaluated earlier today and just needs the prescription. The patient denies any new or changed symptoms since he was discharged this morning. Here in the emergency department the patient is afebrile, hemodynamically stable and in no apparent distress. He has no acute complaints. The patient is been discussed with emergency physician at [facility] and I have confirmed the above prescription. He is provided with 12 tablets of oxycodone 5 mg strength. Prior to discharge follow-up and return precautions were reviewed in detail with the patient who verbalized understanding and agreement with the plan. The patient was discharged in stable condition. Source of Hx: Old records Time of Eval: 14:30 Re-Evaluation/Progress Note: Discussed plan for discharge. Counseled Regarding: Diagnosis, Need for follow-up, When/why to return to ED Discharge & Departure Primary Impression: Back pain Back pain location: back pain in unspecified location Chronicity: unspecified Back pain laterality: unspecified Qualified Code: M54.9 - Dorsalgia, unspecified Additional Impression: Medication refill Disposition: Home Discharge Condition All VS Reviewed: Yes Condition: Stable Additional Instructions: Thank you for entrusting us with your care today. We have refilled the prescription for pain medication that you should have been given at [facility]. Do not drink alcohol, drive, or operate heavy machinery while taking this medication. Followup as recommended by [facility]. Return to the emergency department for new or changed back pain, bladder incontinence, bowel incontinence, focal weakness, or any other new or concerning symptoms. Referrals: [facility] (PCP) Scribe Attestation Portions of this note were transcribed by Kary Guillory. I, Dr. Milian personally performed the history, physical exam and medical decision-making; I reviewed and confirmed the accuracy of the information in the transcribed note. Signed by: Ryanne Pressley, 01/11/2017 at 1500. copies to: [facility] Jim Milian MD Jan 11, 2017 14:29 Kary Guillory Jan 11, 2017 14:34
[2017-01-11] MEDS ORDERED: OXYC1TAB24 PO (14:32)
== END 2017-01-11 14:45 | disposition home or self-care (01) ==
LOC: SED 14:08
DX: M54.9 Dorsalgia, unspecified (principal); Z76.0 Encounter for issue of repeat prescription; K21.9 Gastro-esophageal reflux disease without esophagitis; M79.7 Fibromyalgia; F17.200 Nicotine dependence, unspecified, uncomplicated

== ENCOUNTER 2017-01-31 12:10 | Emergency (ER) | payer MEDICARE, MEDICAID ==
[~2017-01-31] VITALS: Ht 170.2 cm; Wt 65.9 kg
[2017-01-31 12:18] VITALS: BP 155/100; PULSE 90; RESP 15; O2SAT 99
[2017-01-31 12:54] LABS: BASOPHILS % (AUTO) 0.2 % (0-3); EOSINOPHILS % (AUTO) 0.5 % (0-5); MONOCYTES % (AUTO) 7.2 % (4-12); NEUTROPHILS % (AUTO) 72.5 % (40-74); Platelet Count 266 bil/L (150-400)
[2017-01-31 13:22] LABS: Magnesium 1.9 mg/dL (1.6-2.6)
== END 2017-01-31 15:28 | disposition left against medical advice (07) ==
LOC: SED 12:10
DX: Z53.21 Procedure and treatment not carried out due to patient leaving prior to being seen by health care provider (principal)

== ENCOUNTER 2017-02-17 17:19 | Emergency (ER) | payer MEDICARE, MEDICAID ==
[~2017-02-17] VITALS: Ht 170.2 cm; Wt 65.5 kg
[2017-02-17 17:22] VITALS: BP 148/99; PULSE 112; RESP 18; O2SAT 100
[2017-02-17] MEDS ORDERED: 0.9% Sodium Chloride 1,000 ML IV ONE (18:58)
[2017-02-17] MEDS ORDERED: Ondansetron 2 mg/mL 2 mL Inj IVPUSH ONE ×2 (19:00→21:15)
[2017-02-17] MEDS ORDERED: HYDROmorphone 1 mg/mL Inj IVPUSH PRN (19:05)
--- NOTE | 2017-02-17 19:13 | ED.REPORT ---
HPI-Abd Pain M 40 and Over Date of Service Feb 17, 2017 ED Provider: Sampson Russo PA-C [place] is a 41 over a history of cyclic vomiting syndrome, opiate dependence, GERD, fibromyalgia, small bowel obstructions, IBS, diverticulitis, colitis presenting to the emergency department with a chief complaint of bloody bowels/ vomiting. Patient reports an 8 day history of constipation, with the development of abdominal pain on Tuesday which affects his sleep. He reports he has not been eating, drinks only a small amount which sometimes causes him to vomit. Does report episodes of diarrhea which is described as watery, small volume, occasionally with blood and foamy. Measured a temperature of 100.9 at home, complains of chills. Pain is primarily suprapubic, constant and crampy but becomes sharp with vomiting. Also complains of dysuria. He has been attempting to treat himself with Zofran and oxycodone at home. Patient is seen by Dr. Joy at the residency clinic. He reports there was some concern about AAA at a previous visit. Denies chest pain, palpitations, shortness of breath, cough, hematuria, hematochezia, melena. Nursing Notes Stated Complaint: BLOODY BOWELS/VOMITING Chief Complaint: Male Abdominal Pain Nursing Notes Reviewed: Yes Allergies: Coded Allergies: No Known Allergies (Unverified , 01/31/17) Scheduled PRN Acetaminophen (Acetaminophen) 500 Mg Tablet 1,000 MG PO BID PRN PRN For Pain Methocarbamol (Robaxin-750) 750 Mg Tablet 750 MG PO QID PRN PRN For Pain Ondansetron (Ondansetron) 8 Mg Tablet 8 MG PO PRN For Nausea oxyCODONE-Acetaminophen 5-325 mg (oxyCODONE-Acetaminophen 5-325 mg) 1 Each Tablet 1 TAB PO Q4H PRN PRN For Pain oxyCODONE-Acetaminophen 5-325 mg (oxyCODONE-Acetaminophen 5-325 mg) 1 Each Tablet 1 TAB PO Q6H PRN PRN For Pain General Time Seen by MD: 18:38 Chief Complaint Other (bloody bowel/vomiting.) Sudden in Onset?: No Past Medical History Past Medical History Notes: PCP: Conor at Residency clinic Dr. Nunn is Spine Doctor/Surgeon. Hx of narcotic seeking Past Medical History Clostridium difficile colitis 05/2015 and 12/2014 Colitis IBS Cyclical vomiting Small bowel obstruction Migraine. Guillen's esophagus. GERD. Prostatitis. Fibromyalgia. Kidney stones Interstitial cystitis Epidural hematoma Internal and blood BM chronically diverticulitus Reports: Gastritis Past Surgical History Right ear drum repair laparoscopy in 2001 and again in 2013 with lysis of adhesion and incidental appy at that time at [facility] in [place] Right ACL reconstruction C5, C6, C7 [place] [facility] [place] [facility] [place] surgery for epidural hematoma, Aug 10, 2016 Reports: Appendectomy Family History Reviewed, not relevant. Prostate cancer in brother and father. Mom-stroke, HTN Smoking History Current Every Day Smoker Social History Trying to quit smoking Alcohol Use: Denies alcohol use Drug Use: Denies drug use Other Social History: Frequent ED visitor, , Local resident Occupation no work or school Ambulatory Status Independent Review of Systems General: Admits fever, chills, malaise. HEENT: Denies congestion, headache, sore throat. Respiratory: Denies dyspnea, cough, shortness of breath, wheezing. Cardiovascular: Denies chest pain, palpitations. Gastrointestinal: Admits vomiting, diarrhea, abdominal pain. Genitourinary: Admits dysuria, denies hematuria Otherwise as noted in HPI. Physical Exam General: Well appearing, well developed, well nourished, moderate distress. Appears quite uncomfortable. Head: Atraumatic, normocephalic. Eyes: No scleral icterus or injection. No discharge. Vision grossly intact. ENT: Voice clear, hearing grossly intact. Respiratory: Regular rate and rhythm. Breath sounds present, clear to auscultation and equal bilaterally. No respiratory distress. No increased work of breathing, speaks in complete sentences. Cardiovascular: Regular rate (88) and rhythm, without murmur, gallop or rub. No pedal edema. Gastrointestinal: Abdomen flat diffusely tender, most prominently suprapubic without rebound. Bowel sounds normoactive. Back: Normal to inspection, bilateral CVA tenderness to percussion. Skin: Warm and dry. Legs: Bilateral DP and PT pulses 2+. Neurological: Grossly nonfocal. Psychological: Alert and oriented. Speech appropriate, linear and logical. Behavior appropriate. Initial Vital Signs Vital Signs (First) Date Time Temp Pulse Resp B/P Pulse Ox O2 Delivery O2 Flow Rate FiO2 8/17/17 17:22 37.1 112 18 148/99 100 Room Air Tachycardic, elevated blood pressure Interpretation & Diagnostics Lab Results Interpretation Result Diagram: 02/17/174 02/17/171943 Test 02/17/17 17:46 02/17/17 19:44 Urine Color Yellow (YELLOW) Urine Appearance Turbid (CLEAR,HAZY) Urine pH 5.5 (5.0-8.0) Urine Specific [place] 1.030 (1.003-1.035) Urine Protein Negativemg/dL (NEG,TRACE) Urine Glucose (UA) Negativemg/dL (NEGATIVE) Urine Ketones Negativemg/dL (NEGATIVE) Urine Occult Blood Negative (NEGATIVE) Urine Nitrite Negative (NEGATIVE) Urine Bilirubin Negative (NEGATIVE) Urine Urobilinogen Normalmg/dL (NORMAL) Urine Leukocyte Esterase Negative (NEGATIVE) Urine RBC 0-2/hpf (0-2) Urine WBC 0-5/hpf (0-5) Urine Epithelial Cells None/hpf (NONE-MOD) Urine Crystals Amorphous urates (NONE Urine Bacteria Few/hpf (NONE-FEW) Urine Hyaline Casts None/lpf (NONE) Urine Granular Casts None seen (NONE SEEN) Urine Waxy Casts None seen (NONE SEEN) Urine Red Blood Cell Casts None seen (NONE SEEN) Urine White Blood Cell Casts None seen (NONE SEEN) Urine Mucus None seen (None Seen) Urine Trichomonas None seen (NONE SEEN) Urine Yeast None (NONE SEEN) Urinalysis Comment None Urine Culture Reflexed Not indicated Hold Urine Received (Received) White Blood Count 10.6th/mm3 (3.8-10.1) Red Blood Count 4.70mil/mm3 (4.40-5.80) Hemoglobin 13.9g/dL (13.8-17.2) Hematocrit 40.8% (41.0-50.0) Mean Corpuscular Volume 86.8fL (81-100) Mean Corpuscular Hemoglobin 29.6pg (27.0-35.0) Mean Corpuscular Hemoglobin Concent 34.1% (32.0-37.0) Red Cell Distribution Width 15.2% (12.3-15.4) Platelet Count 243bil/L (150-400) Neutrophils (%) (Auto) 66.3% (40-74) Lymphocytes (%) (Auto) 25.7% (14-46) Monocytes (%) (Auto) 7.1% (4-12) Eosinophils (%) (Auto) 0.4% (0-5) Basophils (%) (Auto) 0.2% (0-3) Sodium Level 141mEq/L (134-144) Potassium Level 3.8mEq/L (3.5-5.2) Chloride Level 104mEq/L (97-108) Carbon Dioxide Level 22mmol/L (18-29) Blood Urea Nitrogen 12mg/dL (6-24) Creatinine 0.64mg/dL (0.76-1.27) Estimat Glomerular Filtration Rate 145mL/min (>59) Glucose Level 94mg/dL (60-99) Calcium Level 9.6mg/dL (8.5-10.1) Total Bilirubin 0.5mg/dL (0.0-1.2) Aspartate Amino Transf (AST/SGOT) 26U/L (0-50) Alanine Aminotransferase (ALT/SGPT) 15U/L (0-44) Alkaline Phosphatase 47U/L (25-150) Total Protein 7.7g/dL (6.4-8.4) Albumin 4.8g/dL (3.4-5.0) Lipase 15U/L (13-60) Hold Andrea Top Tube Received (Received) Re-Eval/Medical Decision Med Decision/Clinical Course 41-year-old male with a history of abdominal complaints presents to the emergency department with complaint of abdominal pain, diarrhea, vomiting. Reports recent history of constipation followed by small volume watery diarrhea occasionally with blood and foamy. Complains of suprapubic, steady crampy abdominal pain worsened by vomiting or moving. Reports fever, chills, poor sleep, anorexia. Attempting treatment with oxycodone and Zofran to poor affect. Physical examination reveals a diffusely tender abdomen without rebound most prominently suprapubic. Bowel sounds are normal, heart tones are normal, lung sounds clear bilaterally. Pedal pulses are equal bilaterally. CVA tenderness bilaterally to percussion. Vital signs revealed moderately elevated blood pressure as well as tachycardia. CBC reveals trivial leukocytosis and reduced hematocrit. CMP, lipase return normal. Urinalysis is normal. Tachycardia resolved after 1 L of normal saline. Pain and nausea have improved after IV Dilaudid and ondansetron. Review of records indicates a normal abdominal aorta on CT with contrast roughly 1 month ago. I discussed the case with Dr. Yeung, who reviewed lab results as well as records. We agree that in light of recent normal workup for similar and normal labs today, this is unlikely to be to be an immediately dangerous condition such as cholecystitis, appendicitis, pancreatitis, bleeding ulcer, obstruction, pyelonephritis, nephrolithiasis, colitis, AAA. He believe he is stable and safe to be discharged home. Patient feels ready to be discharged to home. Advised analgesia at baseline with acetaminophen with the addition of his normal regimen of oxycodone. Advised increasing the MiraLAX to twice a day and follow up with primary care. Patient verbalizes understanding of and consent to the plan. Discharge & Departure Primary Impression: Abdominal pain Abdominal location: lower abdomen, unspecified Qualified Code: R10.30 - Lower abdominal pain, unspecified Disposition: Home Vital Signs - All Vital Signs Date Time Temp Pulse Resp B/P Pulse Ox O2 Delivery O2 Flow Rate FiO2 02/17/17 17:22 37.1 112 18 148/99 100 Room Air )( All Prior VS Reviewed: Yes Condition: Stable Patient Instructions: Acute Abdominal Pain (ED) Additional Instructions: Evaluation for abdominal pain in the emergency department includes interview, physical examination, blood work, urinalysis and routine lab records all of which are reassuring that she your symptoms are unlikely because plan immediately dangerous condition. Replete her stable and safe to go home. Continue to treat your nausea with ondansetron. I recommend increasing your MiraLAX for the next several days to twice a day. 1000 mg of acetaminophen every 6 hours for baseline pain control. To this you can add your typical regimen of oxycodone, though I cautioned that this will likely aggravate your abdominal symptoms. Follow-up your primary care provider in the next couple days to be sure this is progressing as expected. Return to emergency department for new or worsening symptoms such as significant increases in your abdominal pain, high fever, vomiting that does not respond to medication. Referrals: [facility] (PCP) EDSupervising Provider for APC: Jimbo Yeung MD, Seth PA-C Feb 17, 2017 19:13
[2017-02-17 19:34] LABS: APPEARANCE,URINE TURBID (CLEAR,HAZY); COLOR,URINE YELLOW (YELLOW); OCCULT BLOOD,URINE NEGATIVE (NEGATIVE); PH,URINE 5.5 (5.0-8.0); UROBILINOGEN,URINE NORMAL (NORMAL)
[2017-02-17 19:58] LABS: BASOPHILS % (AUTO) 0.2 % (0-3); EOSINOPHILS % (AUTO) 0.4 % (0-5); MONOCYTES % (AUTO) 7.1 % (4-12); Mean Corpuscular Hemoglobin 29.6 pg (27.0-35.0); Mean Corpuscular Volume 86.8 fL (81-100); NEUTROPHILS % (AUTO) 66.3 % (40-74); Platelet Count 243 bil/L (150-400)
[2017-02-17 21:19] VITALS: BP 138/85; PULSE 73; RESP 16; O2SAT 98
[2017-02-21] MEDS ORDERED: METR500T PO (13:03)
== END 2017-02-17 21:21 | disposition home or self-care (01) ==
LOC: SED 17:19
DX: R10.30 Lower abdominal pain, unspecified (principal); R11.10 Vomiting, unspecified; K59.00 Constipation, unspecified; R50.9 Fever, unspecified; K21.9 Gastro-esophageal reflux disease without esophagitis; F17.200 Nicotine dependence, unspecified, uncomplicated; Z87.442 Personal history of urinary calculi
CPT/HCPCS: 36415; 80053; 81000; 83690; 85025; 96361; 96374; 96375; 99285; J1170; J2405; J7030

== ENCOUNTER 2017-02-18 10:09 | Emergency (ER) | payer MEDICARE, MEDICAID ==
[~2017-02-18] VITALS: Ht 170.2 cm; Wt 65.9 kg
[2017-02-18 10:36] VITALS: BP 125/75; PULSE 98; RESP 18; O2SAT 100
--- NOTE | 2017-02-18 10:42 | ED.REPORT ---
HPI-General Illness Date of Service Feb 18, 2017 ED Provider: Jim Milian MD Pt is a 41 year old male with a hx of cyclic vomiting, gastroparesis, GERD, diverticulitis presenting to the ED complaining of nausea, vomiting and epigastric abdominal fullness. Associated symptoms include nausea, vomiting and diarrhea. Denies SOB, headache, fever, or chills. He was seen yesterday for similar symptoms, and when he went home he ate bread and drank 4 ounces of water and his symptoms returned. He states that this is similar to his previous symptoms associated with his gastroparesis, but that this also happens sometimes when he is about to have a bowel obstruction. His labs yesterday were normal. CBC unremarkable. White count 106, hematocrit 40.8 metabolic panel normal. Lipase within normal limits. LFTs normal. Not felt to require imaging studies. Nursing Notes Stated Complaint: BOWEL ISSUE/ NAUSEA/VOMITING Chief Complaint: Male Abdominal Pain Nursing Notes Reviewed: Yes Allergies: Coded Allergies: No Known Allergies (Unverified , 01/31/17) Scheduled PRN Acetaminophen (Acetaminophen) 500 Mg Tablet 1,000 MG PO BID PRN PRN For Pain Methocarbamol (Robaxin-750) 750 Mg Tablet 750 MG PO QID PRN PRN For Pain Ondansetron (Ondansetron) 8 Mg Tablet 8 MG PO PRN For Nausea oxyCODONE-Acetaminophen 5-325 mg (oxyCODONE-Acetaminophen 5-325 mg) 1 Each Tablet 1 TAB PO Q4H PRN PRN For Pain oxyCODONE-Acetaminophen 5-325 mg (oxyCODONE-Acetaminophen 5-325 mg) 1 Each Tablet 1 TAB PO Q6H PRN PRN For Pain General Time Seen by MD: 10:39 Chief Complaint Abdominal pain Hx Obtained From: Patient Arrived By: Walk-in Sudden in Onset?: Yes Onset Occurred: Yesterday Context of Onset: Other (After eating) Symptom Duration: Since onset Location: : Abdomen Quality: Painful Severity: Current: Moderate Severity: Maximum: Severe Recent Healthcare: No recent hospitalization, Recent doctor visit Similar Sx Previous: Yes Past Medical History Past Medical History Notes: PCP: Conor at Residency clinic Dr. Nunn is Spine Doctor/Surgeon. Hx of narcotic seeking Past Medical History Clostridium difficile colitis 05/2015 and 12/2014 Colitis IBS Cyclical vomiting Small bowel obstruction Migraine. Guillen's esophagus. GERD. Prostatitis. Fibromyalgia. Kidney stones Interstitial cystitis Epidural hematoma Internal and blood BM chronically diverticulitus Reports: Gastritis Past Surgical History Right ear drum repair laparoscopy in 2001 and again in 2013 with lysis of adhesion and incidental appy at that time at [facility] in [place] Right ACL reconstruction C5, C6, C7 Fusion Jul 30, 2014 [place] [facility] [place] canal [place] [facility] [place] Back surgery for epidural hematoma, Aug 10, 2016 Reports: Appendectomy Family History Reviewed, not relevant. Prostate cancer in brother and father. Mom-stroke, HTN Smoking History Current Every Day Smoker Social History Trying to quit smoking Alcohol Use: Denies alcohol use Drug Use: Denies drug use Other Social History: Frequent ED visitor, , Local resident Occupation no work or school Ambulatory Status Independent Review of Systems Full Review of Systems Constitutional: Denies: Chills, Fever Respiratory: Denies: Shortness of breath GI: Reports: Abdominal pain, Diarrhea, Nausea, Vomiting Neurologic: Denies: Headache Complete sys rev & neg: except as marked. Physical Exam Vital Signs Vital Signs Date Time Temp Pulse Resp B/P Pulse Ox O2 Delivery O2 Flow Rate FiO2 02/18/17 14:37 36.6 84 20 138/81 98 Room Air 02/18/17 14:25 36.6 84 20 138/81 98 Room Air 02/18/17 10:36 37 98 18 125/75 100 Room Air Initial VS: Reviewed General/Constitutional: Well-developed, Well-nourished Head / Eyes: Atraumatic, Normocephalic, PERRL ENT: Mucous membranes moist, Conjunctiva normal, No scleral icterus Neck: Supple, Non-tender, Full range of motion Respiratory: Breath sounds normal, Clear to auscultation, No respiratory distress Cardiovascular: Regular rate & rhythm, Heart sounds normal, Intact distal pulses Skin: Warm, Dry, No cyanosis Neurologic: Alert, Oriented, Nonfocal Psychiatric: Mood/affect normal, Behavior normal, Normal thought content Abdomen: Atraumatic, No guarding, No rebound, BS normoactive Mild tenderness in all 4 quadrants Interpretation & Diagnostics Lab Results Interpretation Test 02/18/17 11:05 02/18/17 12:41 Hold Purple Top Tube Received (Received) Hold Blue Top Tube Received (Received) Hold Red Top Tube Received (Received) Hold [place] Top Tube Received (Received) Hold Andrea Top Tube Received (Received) CT Abd / Pelvis Interpretation IMPRESSION: 1. No visualized obstruction. Mild, scattered fluid fluid loops of small bowel are noted with minimal thickening. Findings are overall nonspecific but can be seen with enteritis. Dictated by: Christiana Bruce M.D. on 02/18/2017 at 13:45 Study type: Abdominal CT IV contrast Interpretation / Wet Read by: Interpret - Radiologist Re-Eval/Medical Decision Med Decision/Clinical Course In summary, the patient is a 41-year-old male with a history of cyclical vomiting syndrome, gastroparesis, previous "partial small bowel obstructions" presents to the emergency department complaining of nausea, vomiting, diarrhea and epigastric abdominal fullness. He was seen here and evaluated in this emergency department yesterday. His labs yesterday were normal. CBC unremarkable. White count 106, hematocrit 40.8 metabolic panel normal. Lipase within normal limits. LFTs normal. Not felt to require imaging studies. Here in the emergency department he is afebrile with stable vital signs and examination as above. Even that he just had laboratory studies yesterday I did not feel that was necessary to repeat these today. Patient was treated with the below medications Phenergan and IV fluids Thereafter he reported mild symptom improvement and stated he is still very nauseated. He requested to be treated with IV opiates however I do not feel that this is the best treatment modality for gastroparesis and cyclical vomiting. Therefore, I discuss other treatment options and we opted to proceed with IV Haldol and Benadryl with good effect. His overall presentation is not suggestive of an acute surgical process however given his history of bowel obstruction opted to obtain a CT scan as below: No visualized obstruction. Mild, scattered fluid fluid loops of small bowel are noted with minimal thickening. Findings are overall nonspecific but can be seen with enteritis. At this time I feel that the patient is appropriate for discharge home. Overall presentation is consistent with an exacerbation of his underlying gastroparesis and cyclical vomiting syndrome. He has antiemetics at home which she will continue to take. He will follow up with his primary care physician. Prior to discharge follow-up and return precautions were reviewed in detail with the patient who verbalized understanding and agreement with the plan. The patient was discharged in stable condition. Time of Eval: 12:00 Patient Status: Condition improved Re-Evaluation/Progress Note: Discussed plan for CT and then discharge. Pt understands and agrees. Time of Eval: 14:03 Patient Status: Condition improved Re-Evaluation/Progress Note: Discussed CT results and plan for discharge. Pt understands and agrees. Counseled Regarding: Diagnosis, Lab results, Need for follow-up, When/why to return to ED Discharge & Departure Primary Impression: Cyclical vomiting syndrome Vomiting Intractability: non-intractable Nausea presence: with nausea Qualified Code: G43.A0 - Cyclical vomiting, not intractable Additional Impressions: Gastroparesis Dehydration History of small bowel obstruction Disposition: Home Discharge Condition All VS Reviewed: Yes Condition: Improved Patient Instructions: Dehydration (ED), Gastroparesis (ED) Additional Instructions: Thank you for seeking care at the emergency room. It is difficult for us to make definitive diagnoses in the ED but we believe that you are experiencing symptoms related to your gastroparesis and cyclical vomiting. Our primary goal today in the ED was to evaluate you for any life-threatening conditions. Your evaluation was reassuring. Continue taking your usual medications. You should follow-up with your primary doctor in the next week. You should return to the ED immediately if you develop fevers, worsened vomiting , cough, shortness of breath, chest pain, lightheadedness, weakness or any other concerning signs or symptoms. Thank you for letting us partake in your care today. Referrals: [facility] (PCP) Scribe Attestation Portions of this note were transcribed by Helen Condon. I, Dr. Milian personally performed the history, physical exam and medical decision-making; I reviewed and confirmed the accuracy of the information in the transcribed note. Signed by: Ryanne Austin, 02/18/2017. copies to: [facility] Jim Milian MD Feb 18, 2017 10:41 HELEN CONDON Feb 18, 2017 11:43
[2017-02-18] MEDS ORDERED: 0.9% Sodium Chloride 1,000 ML IV ONE (10:46)
[2017-02-18] MEDS ORDERED: Promethazine Inj 25 MG in 0.9% Sodium Chloride 50 ML IV ONE (10:50)
[2017-02-18] MEDS ORDERED: Haloperidol 5 mg/mL Inj IVPUSH ONE ×2 (12:05→14:05)
--- NOTE | 2017-02-18 14:00 | DRSVH ---
PROCEDURE: CT ABDOMEN AND PELVIS WITH CONTRAST ([id number]) INDICATIONS: abd pain/vomiting, h/o sbo TECHNIQUE: After the administration of intravenous contrast, 5 mm thick sections acquired from the diaphragm to the symphysis. 5 mm coronal and sagittal reformats were acquired. For radiation dose reduction, the following was used: automated exposure control, adjustment of mA and/or kV according to patient sae chavez. COMPARISON: [facility], CT, CT ABD PELVIS W CON, 12/05/2016, 18:51. FINDINGS: Image quality: Excellent. ABDOMEN: Lung bases: Lung bases are clear. Heart size is normal. Solid organs: Liver is mildly enlarged with steatosis. The spleen is normal in size. Low attenuatio n hepatic foci are present, unchanged Gallbladder is unremarkable. Biliary system is non dilated. Pancreas enhances normally. No adrenal nodules. Kidneys demonstrate normal size and enhancement, wi thout hydronephrosis. Peritoneum and bowel: Bowel loops are nonobstructed. There are minimal scattered fluid filled loops of small bowel with thickening. Nodes and vessels: No retroperitoneal or mesenteric adenopathy by size criteria. Aorta and inferior vena cava are normal in size. Miscellaneous: No ventral hernias. PELVIS: Genitourinary: Bladder wall thickness is normal. Miscellaneous: No inguinal hernias or adenopathy. Bones: No suspicious bony lesions. No vertebral body compression fractures. L5-S1 posterior fixati on is noted. Positioning a surgical hardware with distal tips extending across the margin of the vert ebral endplate are again noted. IMPRESSION: 1. No visualized obstruction. Mild, scattered fluid fluid loops of small bowel are noted with minimal thickening. Findings are overall nonspecific but can be seen with enteritis. Dictated by: Christiana Bruce M.D. on 02/18/2017 at 13:45 Approved by: Christiana Bruce M.D. on 02/18/2017 at 13:58
[2017-02-18 14:25] VITALS: BP 138/81; PULSE 84; RESP 20; O2SAT 98
[2017-02-18 14:37] VITALS: BP 138/81; PULSE 84; RESP 20; O2SAT 98
[2017-02-19] MEDS ORDERED: ONDA8TAB10 PO (16:39)
[2017-02-21] MEDS ORDERED: METR500T PO (13:03)
== END 2017-02-18 14:30 | disposition home or self-care (01) ==
LOC: SED 10:09
DX: G43.A0 Cyclical vomiting, in migraine, not intractable (principal); E86.0 Dehydration; K31.84 Gastroparesis; K21.9 Gastro-esophageal reflux disease without esophagitis; M79.7 Fibromyalgia; G43.909 Migraine, unspecified, not intractable, without status migrainosus; F17.200 Nicotine dependence, unspecified, uncomplicated; Z87.442 Personal history of urinary calculi; Z87.19 Personal history of other diseases of the digestive system
CPT/HCPCS: 74177; 96361; 96374; 96375; 96376; 99285; J1200; J1630; J2550; J7030; Q9967

== ENCOUNTER 2017-02-19 12:52 | Emergency (ER) | payer MEDICARE, MEDICAID ==
[~2017-02-19] VITALS: Ht 170.2 cm; Wt 65.9 kg
[2017-02-19 13:17] VITALS: BP 153/96; PULSE 87; RESP 22; O2SAT 100
[2017-02-19] MEDS ORDERED: Ondansetron 2 mg/mL 2 mL Inj IVPUSH ONE ×2 (13:25→16:20)
[2017-02-19] MEDS ORDERED: 0.9% Sodium Chloride 1,000 ML IV ONE ×2 (13:25→13:55)
--- NOTE | 2017-02-19 13:51 | ED.REPORT ---
HPI-Abd Pain M 40 and Over Date of Service Feb 19, 2017 ED Provider: Jimbo Yeung MD A 41 year old male with an extensive medical history including C. difficile, IBS , cyclical vomiting, small bowel obstruction, DVT, small brain aneurysm, stomach adhesions, GERD, fibromyalgia, kidney stones and frequent ED visits presents to the ED complaining of a possible IBS flare. The pt has been experiencing abdominal pain, back pain, nausea, vomiting and diarrhea for one week. These symptoms have been worsening over the last week to include dizziness , shortness of breath, weakness, dysuria, decreased appetite, low grade fever and possible syncope. The pt describes his abdominal pain as a constant cramping with intermittent sharp pains. His diarrhea is currently painful and watery with 10+ episodes per day. The pt was last admitted in 12/2016 and had an extensive negative workup performed, including endoscopy and colonoscopy. This is the third time the pt has been seen in the ED in the last three days for this complaint. Nursing Notes Stated Complaint: DIZZINESS,VOMITING Chief Complaint: Male Abdominal Pain Nursing Notes Reviewed: Yes (Linkdex not reconciled) Allergies: Coded Allergies: No Known Allergies (Unverified , 01/31/17) Scheduled PRN Acetaminophen (Acetaminophen) 500 Mg Tablet 1,000 MG PO BID PRN PRN For Pain Methocarbamol (Robaxin-750) 750 Mg Tablet 750 MG PO QID PRN PRN For Pain Ondansetron (Ondansetron) 8 Mg Tablet 8 MG PO PRN For Nausea Ondansetron ODT (Ondansetron ODT) 8 Mg Tab.rapdis 8 MG PO Q4H PRN PRN For Nausea oxyCODONE-Acetaminophen 5-325 mg (oxyCODONE-Acetaminophen 5-325 mg) 1 Each Tablet 1 TAB PO Q4H PRN PRN For Pain oxyCODONE-Acetaminophen 5-325 mg (oxyCODONE-Acetaminophen 5-325 mg) 1 Each Tablet 1 TAB PO Q6H PRN PRN For Pain General Time Seen by MD: 13:19 Chief Complaint Other (Possible IBS) Hx Obtained From: Patient Arrived By: Walk-in Sudden in Onset?: No Onset Occurred: 1 week ago Symptom Duration: Since onset Recent Healthcare: Recent doctor visit, Recent hospitalization Similar Sx Previous: Yes Past Medical History Past Medical History Notes: PCP: [facility] Dr. Nunn is Spine Doctor/Surgeon. 'Hx of narcotic seeking" - per EMR Multiple ED visits including yesterday and ealier this week, CT scan abdomen 02/2017 negative Last admit 12/2016: Extensive workup including endoscopy and colonoscopy negative (D/C notes indicate w/u for Inflammatory Bowel Disease negative) Past Medical History Clostridium difficile colitis 05/2015 and 12/2014 Colitis IBS Cyclical vomiting Small bowel obstruction Migraine. Guillen's esophagus. GERD. Prostatitis. Fibromyalgia. Kidney stones Interstitial cystitis Epidural hematoma Internal and blood BM chronically diverticulitus DVT Small brain aneurysm Stomach adhesions Back surgery Reports: Gastritis Past Surgical History Right ear drum repair laparoscopy in 2001 and again in 2013 with lysis of adhesion and incidental appy at that time at [facility] in [place] Right ACL reconstruction C5, C6, C7 Fusion Jul 30, 2014 done at [facility] Fatty tissue removal and spinal canal widening at [facility] on Jul 08 2016 Back surgery for epidural hematoma, Aug 10, 2016 Reports: Appendectomy Family History Reviewed, not relevant. Prostate cancer in brother and father. Mom-stroke, HTN Smoking History Current Every Day Smoker Social History Trying to quit smoking Alcohol Use: Denies alcohol use Drug Use: Denies drug use Other Social History: Good social support, Frequent ED visitor, , Local resident Occupation no work or school Ambulatory Status Independent Review of Systems Constitutional: Reports: Fever, Weakness - generalized Respiratory: Reports: Shortness of breath, Denies: Non-productive cough Cardiovascular: Denies: Chest pain GI: Reports: Abdominal pain, Diarrhea, Nausea, Vomiting Male: Reports Dysuria Musculoskeletal: Reports: Back pain, Denies: Neck pain Complete sys rev & neg: except as marked. Skin: Denies Rash Neurologic: Reports: Dizziness, Syncope (possible) Physical Exam Initial Vital Signs Vital Signs (First) Date Time Temp Pulse Resp B/P Pulse Ox O2 Delivery O2 Flow Rate FiO2 02/19/17 13:17 36.7 87 22 153/96 100 Room Air Initial VS: Reviewed, Vital signs normal General/Constitutional: Awake, Alert restless tremulous fatigued Respiratory / Chest: Atraumatic, Breath sounds NL, Breath sounds = bilat, No respiratory distress Cardiovascular: Heart rate NL, Regular rhythm, Heart sounds NL Abdomen: Atraumatic, Soft, BS normoactive diffusely tender, baseline Back: Atraumatic, Full range of motion Head / Eyes: Atraumatic, Normocephalic, PERRL, EOMI ENT: Atraumatic, Airway patent Mouth: Positive: Mucous membranes dry (mildly) Skin: Atraumatic, Color NL, No rash, Warm, Dry Neurologic: Oriented X3, Speech NL, No motor deficits, No sensory deficits Neck: Atraumatic, Supple, Full range of motion Upper Extremity / MS: Atraumatic, Full range of motion Lower Extremity / Pelvis / MS: Atraumatic, Full range of motion Psychiatric: Affect NL, Mood NL Interpretation & Diagnostics Interpretation & Diagnostics: CT abdomen from yesterday reviewed Lab Results Interpretation Result Diagram: 02/19/17 1329 02/19/17 1329 Test 02/19/17 13:29 02/19/17 15:50 White Blood Count 10.1th/mm3 (3.8-10.1) Red Blood Count 4.78mil/mm3 (4.40-5.80) Hemoglobin 14.1g/dL (13.8-17.2) Hematocrit 41.2% (41.0-50.0) Mean Corpuscular Volume 86.2fL (81-100) Mean Corpuscular Hemoglobin 29.5pg (27.0-35.0) Mean Corpuscular Hemoglobin Concent 34.2% (32.0-37.0) Red Cell Distribution Width 15.2% (12.3-15.4) Platelet Count 277bil/L (150-400) Neutrophils (%) (Auto) 65.8% (40-74) Lymphocytes (%) (Auto) 26.8% (14-46) Monocytes (%) (Auto) 6.6% (4-12) Eosinophils (%) (Auto) 0.4% (0-5) Basophils (%) (Auto) 0.3% (0-3) Sodium Level 142mEq/L (134-144) Potassium Level 3.3mEq/L (3.5-5.2) Chloride Level 105mEq/L (97-108) Carbon Dioxide Level 20mmol/L (18-29) Blood Urea Nitrogen 7mg/dL (6-24) Creatinine 0.69mg/dL (0.76-1.27) Estimat Glomerular Filtration Rate 133mL/min (>59) Glucose Level 102mg/dL (60-99) Calcium Level 9.8mg/dL (8.5-10.1) Total Bilirubin 0.5mg/dL (0.0-1.2) Aspartate Amino Transf (AST/SGOT) 23U/L (0-50) Alanine Aminotransferase (ALT/SGPT) 20U/L (0-44) Alkaline Phosphatase 52U/L (25-150) Total Protein 8.1g/dL (6.4-8.4) Albumin 5.0g/dL (3.4-5.0) Lipase 24U/L (13-60) Hold Andrea Top Tube Received (Received) Hold Urine Received (Received) Lab Results Interpretation: CBC normal CMP mild hypokalemia consistent with GI loss Lipase normal ECG Interpretation ECG Interpretation: normal sinus rhythm with a rate of 72 Time: 14:10 Interpreted by: ED physician Re-Eval/Medical Decision Med Decision/Clinical Course This is a 41-year-old male returns again to the emergency department complaining of ongoing abdominal pain, diarrhea, nausea and vomiting. Patient complex history, including a component what has been labeled cyclic vomiting,'s had a multiple ED visits. He has had an extensive evaluation with initial concern for Crohn's or inflammatory bowel disease, but endoscopies and evaluation were negative as of his most recent admission earlier this year. Been seen twice this week in the emergency department, and yesterday underwent CT imaging that was negative. It turns out, the patient's normally on between 5 and 6 oxycodone a day, has been trying to wean himself off, and rapidly cut back his oxycodone was only had one in the past 2 days. He presented today complaining of increasing tremors, nausea, vomiting, diarrhea, body aches-80. Quite uncomfortable initial arrival, and given the rapid titration he described, I raised the concern for the possible withdrawal which he had never thought of as contributing to his symptoms. He has mild abdominal tenderness on exam, but I know from previous visits and is routinely tender, do not appreciate jocelin signs of peritonitis. Repeat labs are obtained were normal. Again patient CT imaging was negative yesterday. In given my suspicion for withdrawal contributing to his symptoms a trial dose of Dilaudid was given-and the patient's parents marked resolution of symptoms. When I see chested my theory regarding a component of withdrawal exacerbating his symptoms, he can clearly agreed in retrospect. The patient feels much improved. I am not finding indication requires hospitalization or repeat imaging. He is discharged in much improved condition and will resume his oxycodone at his prescribed dose, but will continue to work with his PCP this point working on titrating him off slowly. She return precautions reviewed, and I provided additional prescription for ondansetron to make sure he has plenty of antiemetics. Source of Hx: Old records Time of Eval: 16:14 Patient Status: Condition improved Re-Evaluation/Progress Note: Pt rechecked, who is resting comfortably and significantly improved. Lab results are discussed. The diagnosis and plan for discharge are discussed. The pt understands and agrees with the plan. All questions are addressed at this time. Differential Diagnosis: Positive: Acute abdominal pain, Negative: Abdominal aortic aneurysm, Abscess, Bladder outlet obstruct, Bowel obstruction, Esophageal rupture, Pancreatitis, Stab wound abdomen, Unstable angina, Urinary obstruction Counseled Regarding: Diagnosis, Lab results, Need for follow-up, When/why to return to ED Discharge & Departure Primary Impression: Abdominal pain Abdominal location: generalized Qualified Code: R10.84 - Generalized abdominal pain Additional Impression: Vomiting Vomiting type: unspecified Vomiting Intractability: non-intractable Nausea presence: with nausea Qualified Code: R11.2 - Nausea with vomiting, unspecified Disposition: Home Vital Signs - All Vital Signs Date Time Temp Pulse Resp B/P Pulse Ox O2 Delivery O2 Flow Rate FiO2 02/19/17 13:17 36.7 87 22 153/96 100 Room Air )( All Prior VS Reviewed: Yes Condition: Stable Additional Instructions: 1. I suspect her symptoms are from a combination of flareup of your IBS as well as a component of some opiate withdrawal given her 10th back off the oxycodone so rapidly. 2. Your CT scan from yesterday was reviewed, and your blood tests are today were normal - and you responded well to medication in the department here today. 3. Resume your oxycodone. 4. Continue your nausea medicine. Drink small, frequent sips of fluids. Slowly advance diet as tolerated. 5. Return again if new or worsening symptoms. 6. Follow up with your doctor at the [facility] clinic. Referrals: [facility] Res[facility] (PCP) Scribe Attestation Portions of this note were transcribed by Karen Salmon. I, Dr. Yeung personally performed the history, physical exam and medical decision-making; I reviewed and confirmed the accuracy of the information in the transcribed note. copies to: [facility] Jimbo Yeung MD Feb 19, 2017 13:50 KAREN SALMON Feb 19, 2017 14:00
[2017-02-19 13:55] LABS: BASOPHILS % (AUTO) 0.3 % (0-3); EOSINOPHILS % (AUTO) 0.4 % (0-5); MONOCYTES % (AUTO) 6.6 % (4-12); Mean Corpuscular Hemoglobin 29.5 pg (27.0-35.0); Mean Corpuscular Volume 86.2 fL (81-100); NEUTROPHILS % (AUTO) 65.8 % (40-74); Platelet Count 277 bil/L (150-400)
[2017-02-19] MEDS ORDERED: Promethazine Inj 25 MG in Dextrose 5%-Pha MIX 50 ML IV ONE (13:55)
[2017-02-19] MEDS ORDERED: HYDROmorphone 1 mg/mL Inj IVPUSH ONE ×2 (14:00→16:20)
[2017-02-19] MEDS ORDERED: HYDROmorphone 0.5 mg/0.5 mL iSecure Syringe IVPUSH ONE ×2 (16:20→17:25)
[2017-02-19] MEDS ORDERED: ONDA8TAB10 PO (16:39)
[2017-02-19 17:53] VITALS: BP 143/92; PULSE 62; RESP 20; O2SAT 98
[2017-02-21] MEDS ORDERED: METR500T PO (13:03)
== END 2017-02-19 17:53 | disposition home or self-care (01) ==
LOC: SED 12:52
DX: R10.84 Generalized abdominal pain (principal); R11.2 Nausea with vomiting, unspecified; R19.7 Diarrhea, unspecified; F17.200 Nicotine dependence, unspecified, uncomplicated; K21.9 Gastro-esophageal reflux disease without esophagitis; Z86.718 Personal history of other venous thrombosis and embolism; Z86.19 Personal history of other infectious and parasitic diseases; Z87.442 Personal history of urinary calculi
CPT/HCPCS: 36415; 80053; 83690; 85025; 93005; 96361; 96374; 96375; 96376; 99285; J1170; J1200; J2405; J2550; J7030

== ENCOUNTER 2017-02-20 15:31 | Emergency (ER) | payer MEDICARE, MEDICAID ==
[~2017-02-20] VITALS: Ht 170.2 cm; Wt 65.9 kg
[~2017-02-20 15:31] MED LIST changes: +ONDA8TAB10 PO
[2017-02-20 15:34] VITALS: BP 128/63; PULSE 93; RESP 16; O2SAT 99
--- NOTE | 2017-02-20 16:48 | DRSVH ---
PROCEDURE: X-RAY CHEST ONE VIEW, PORTABLE ([id number]) INDICATIONS: EPIGASTRIC PAIN TECHNIQUE: One view of the chest was acquired. COMPARISON: None. FINDINGS: Surgical changes and devices: Cervical fixation hardware is partially visualized. Lungs and pleura: No pleural effusions or pneumothorax. Lungs are clear. Mediastinum: Mediastinal contours appear normal. Heart size is normal. Bones and chest wall: No suspicious bony lesions. Overlying soft tissues appear unremarkable. IMPRESSION: No acute cardiopulmonary findings. Dictated by: Angelita Alvarado M.D. on 02/20/2017 at 16:46 Approved by: Angelita Alvarado M.D. on 02/20/2017 at 16:47
--- NOTE | 2017-02-20 18:09 | ED.REPORT ---
HPI-Abd Pain M 40 and Over Date of Service Feb 20, 2017 ED Provider: Man Shore DO A 41 year old male with an extensive medical history including C. difficile, IBS , cyclical vomiting, small bowel obstruction, DVT, small brain aneurysm, stomach adhesions, GERD, fibromyalgia, kidney stones and frequent ED visits presents to the ED complaining of bloody diarrhea that initially began 6 days ago and become increasingly worse at 1300 this afternoon. He describes blood clots in his stool mixed with melanotic stools. Patient has been experiencing intractable vomiting, nausea, diarrhea, abdominal cramping and bloating. His Zofran and Oxycodone have been ineffective in relieving his symptoms. Patient was last seen in the ED on 02/19 and 02/18 for identical symptoms. He was discharged in stable condition after negative abdominal workup. His symptoms were attributed to a likely flare of IBS as well as a component of opiate withdrawal. He denies recent antibiotic use. Patient denies fever or chills. Nursing Notes Stated Complaint: BLOODY BOWEL,STOMACH PAIN,NAUSEA/VOMITING,DIZZY Chief Complaint: Male Abdominal Pain Nursing Notes Reviewed: Yes Allergies: Coded Allergies: No Known Allergies (Unverified , 01/31/17) Scheduled PRN Acetaminophen (Acetaminophen) 500 Mg Tablet 1,000 MG PO BID PRN PRN For Pain Methocarbamol (Robaxin-750) 750 Mg Tablet 750 MG PO QID PRN PRN For Pain Ondansetron (Ondansetron) 8 Mg Tablet 8 MG PO PRN For Nausea Ondansetron ODT (Ondansetron ODT) 8 Mg Tab.rapdis 8 MG PO Q4H PRN PRN For Nausea oxyCODONE-Acetaminophen 5-325 mg (oxyCODONE-Acetaminophen 5-325 mg) 1 Each Tablet 1 TAB PO Q4H PRN PRN For Pain oxyCODONE-Acetaminophen 5-325 mg (oxyCODONE-Acetaminophen 5-325 mg) 1 Each Tablet 1 TAB PO Q6H PRN PRN For Pain General Time Seen by MD: 18:07 Chief Complaint Diarrhea moderate Hx Obtained From: Patient Arrived By: Walk-in Sudden in Onset?: No Onset Occurred: 6 days ago Symptom Duration: Waxes and wanes Progression since Onset: Waxes and wanes Location: : Diffuse Quality: Cramping Radiation: : Does not radiate Severity: Current: Moderate Severity: Maximum: Moderate Associated with: Reports: Diarrhea, Nausea, Vomiting, Denies: Chills, Fever Pertinent Negative: Pt denies other symptoms Recent Healthcare: Recent doctor visit, Recent hospitalization Risk Factors )( AAA Risk Stratification Risk factors reviewed Past Medical History Past Medical History Notes: PCP: [facility] GI Specialisit: Dr. Pro Nunn is Spine Doctor/Surgeon. Multiple ED visits including yesterday and ealier this week, CT scan abdomen 02/2017 negative Last admit 12/2016: Extensive workup including endoscopy and colonoscopy negative (D/C notes indicate w/u for Inflammatory Bowel Disease negative) Past Medical History 1. Clostridium difficile colitis 05/2015 and 12/2014 2. Colitis 3. IBS 4. Cyclical vomiting 5. Small bowel obstruction 6. Migraine 7. Guillen's esophagus 8. GERD 9. Gastritis Prostatitis. Fibromyalgia. Kidney stones Interstitial cystitis Epidural hematoma Internal and blood BM chronically diverticulitus DVT Small brain aneurysm Stomach adhesions Back surgery Past Surgical History 1. Right ear drum repair 2. Laparoscopy in 2001 and again in 2013 with lysis of adhesion and incidental appy at that time at [facility] in [place] 3. Right ACL reconstruction 4. C5, C6, C7 Fusion Jul 30, 2014 done at [facility] 5. Fatty tissue removal and spinal canal widening at [facility] on Jul 08 2016 6. Back surgery for epidural hematoma, Aug 10, 2016 7. Appendectomy Family History Reviewed, not relevant. Prostate cancer in brother and father. Mom-stroke, HTN Smoking History Current Every Day Smoker Social History Trying to quit smoking 'Hx of narcotic seeking" - per EMR Alcohol Use: Denies alcohol use Drug Use: Denies drug use Other Social History: Good social support, Frequent ED visitor, , Local resident Occupation no work or school Ambulatory Status Independent Review of Systems Constitutional: Denies: Chills, Fever GI: Reports: Abdominal pain, Bloody/tarry stool, Diarrhea, Melena, Nausea, Vomiting Complete sys rev & neg: except as marked. Physical Exam Initial Vital Signs Vital Signs (First) Date Time Temp Pulse Resp B/P Pulse Ox O2 Delivery O2 Flow Rate FiO2 02/20/17 15:34 36.8 93 16 128/63 99 Initial VS: Reviewed Head / Eyes: Atraumatic, Normocephalic, PERRL Neck: Supple, Non-tender, Full range of motion Extremities: Vascular intact, Neuro intact, No swelling, No tenderness Skin: Warm, Dry, No cyanosis Neurologic: Alert, Oriented, Nonfocal Psychiatric: Mood/affect normal, Behavior normal, Normal thought content General/Constitutional: Awake, Alert Distress / Hydration: Positive: Distress mild Appearance / Presentation: Positive: Uncomfortable Respiratory / Chest: Atraumatic, Breath sounds NL, Breath sounds = bilat, No respiratory distress Cardiovascular: Heart rate NL, Regular rhythm, Heart sounds NL, Peripheral circulation NL, Pulses = bilaterally Abdomen: Atraumatic, Soft Tenderness/Guarding/Rebound: Positive: Tender diffuse (Moderate) Back: Atraumatic, Inspection NL Interpretation & Diagnostics Lab Results Interpretation Result Diagram: 02/20/174 02/20/174 Test 02/20/17 18:34 White Blood Count 10.7th/mm3 (3.8-10.1) Red Blood Count 4.88mil/mm3 (4.40-5.80) Hemoglobin 14.5g/dL (13.8-17.2) Hematocrit 42.1% (41.0-50.0) Mean Corpuscular Volume 86.3fL (81-100) Mean Corpuscular Hemoglobin 29.7pg (27.0-35.0) Mean Corpuscular Hemoglobin Concent 34.4% (32.0-37.0) Red Cell Distribution Width 14.9% (12.3-15.4) Platelet Count 305bil/L (150-400) Neutrophils (%) (Auto) 65.1% (40-74) Lymphocytes (%) (Auto) 25.0% (14-46) Monocytes (%) (Auto) 8.8% (4-12) Eosinophils (%) (Auto) 0.6% (0-5) Basophils (%) (Auto) 0.3% (0-3) Sodium Level 137mEq/L (134-144) Potassium Level 5.6mEq/L (3.5-5.2) Chloride Level 101mEq/L (97-108) Carbon Dioxide Level 22mmol/L (18-29) Blood Urea Nitrogen 8mg/dL (6-24) Creatinine 0.64mg/dL (0.76-1.27) Estimat Glomerular Filtration Rate 145mL/min (>59) Glucose Level 90mg/dL (60-99) Calcium Level 9.4mg/dL (8.5-10.1) Magnesium Level 1.9mg/dL (1.6-2.6) Total Bilirubin 0.6mg/dL (0.0-1.2) Aspartate Amino Transf (AST/SGOT) 103U/L (0-50) Alanine Aminotransferase (ALT/SGPT) 27U/L (0-44) Alkaline Phosphatase 37U/L (25-150) Troponin T < 0.010ug/L (0.0-0.011) Total Protein 8.5g/dL (6.4-8.4) Albumin 4.9g/dL (3.4-5.0) Hold Andrea Top Tube Received (Received) Pulse Oximetry Interpretation Pulse Oximetry: Pulse Ox normal (99%), On room air ECG Interpretation ECG Interpretation: Sinus Rhythm Rate 82 bpm No change from previous 02/19/2017 Time: 17:43 Interpreted by: ED physician Rhythm Strip Interpretation : Time: 18:10 Rhythm Strip Interpretation: Interpreted by me, Rate (82), Normal sinus rhythm X-Ray Chest Interpretation Chest Xray Interpretation: IMPRESSION: No acute cardiopulmonary findings. Dictated by: Angelita Alvaardo M.D. on 02/20/2017 at 16:46 Interpretation / Wet Read by: Interpret - Radiologist Re-Eval/Medical Decision Med Decision/Clinical Course Multiple visits with similar complaints. Benign examination. I did not appreciate any significant tenderness. Certainly no peritonitis. Laboratory work reassuring. Good symptomatic control. He was unable to produce a stool sample. After treatment he looked and felt better. He kept down a dose of his oral pain medication. Ready to be discharged. Recommend next day follow-up. Routine opiate warnings were given. Time of Eval: 18:25 Patient Status: Condition improved Re-Evaluation/Progress Note: Patient is rechecked. Symptoms have improved upon recheck. He is informed of his results including lab work, EKG and chest X-ray. All of his questions about the intended treatment plan are addressed. The patient understands and agrees with the plan to discharge with follow up. Counseled Regarding: Diagnosis, Lab results, Need for follow-up, When/why to return to ED Discharge & Departure Primary Impression: Abdominal pain Abdominal location: generalized Qualified Code: R10.84 - Generalized abdominal pain Disposition: Home Vital Signs - All Vital Signs Date Time Temp Pulse Resp B/P Pulse Ox O2 Delivery O2 Flow Rate FiO2 02/20/17 21:41 88 20 141/84 98 02/20/17 15:34 36.8 93 16 128/63 99 )( All Prior VS Reviewed: Yes Condition: Improved Patient Instructions: Acute Abdominal Pain (ED) Additional Instructions: Thank you for entrusting us with your care today. Your emergency department evaluation today including examination, EKG and chest X-ray are reassuring that there is no dangerous cause for concern at this time and I believe your symptoms are due to exacerbation of your IBS. Your white count was slightly elevated but your lab work was otherwise reassuring. Eat a clear liquid diet for the next 24 hours. Continue to take your home medication as directed. Do not however take any other pain medication tonight as he received IV and oral pain medication. Do not drive tonight. Please schedule a follow-up appointment with your primary care physician and your GI specialist in the next week for a recheck. Please return to the emergency department for any new or worsening conditions including any worsening abdominal pain, large amounts of blood in your stool, blood in your vomit, chest pain, shortness of breath, fevers, chills, lightheadedness, numbness/tingling or weakness. Referrals: [facility] (PCP) Michelle Mast MD Scribe Attestation Portions of this note were transcribed by Ijeoma Bocanegra. I, Dr. Shore, personally performed the history, physical exam and medical decision-making; I reviewed and confirmed the accuracy of the information in the transcribed note. Signed by: Ijeoma Bocanegra, 02/20/17. copies to: [facility] Man Shore DO Feb 20, 2017 18:08 IJEOMA BOCANEGRA Feb 20, 2017 18:12
[2017-02-20] MEDS ORDERED: Promethazine Inj 12.5 MG in Dextrose 5%-Pha MIX 50 ML IV ONE (18:25)
[2017-02-20] MEDS ORDERED: 0.9% Sodium Chloride 1,000 ML IV SCH (18:25)
[2017-02-20] MEDS: HYDROmorphone 1 mg/mL Inj IVPUSH PRN ×2 (18:37→19:25)
[2017-02-20 18:39] LABS: BASOPHILS % (AUTO) 0.3 % (0-3); EOSINOPHILS % (AUTO) 0.6 % (0-5); MONOCYTES % (AUTO) 8.8 % (4-12); Mean Corpuscular Hemoglobin 29.7 pg (27.0-35.0); Mean Corpuscular Volume 86.3 fL (81-100); NEUTROPHILS % (AUTO) 65.1 % (40-74); Platelet Count 305 bil/L (150-400)
[2017-02-20 18:58] LABS: TROPONIN T < 0.010 ug/L (0.0-0.011)
--- NOTE | 2017-02-20 19:06 | DRSVH ---
PROCEDURE: X-RAY ABDOMEN, ONE VIEW ([id number]) INDICATIONS: pain, vomiting, prior sbo TECHNIQUE: One view of the abdomen acquired. COMPARISON: None. FINDINGS: Surgical changes and devices: Cervical fixation hardware is present at L5-S1. Bowel: Bowel gas pattern is normal. Soft tissues: No suspicious abdominal calcifications. Visualized solid organ contours appear normal in size. Probable phleboliths are present within the pelvis. Bones: No suspicious bony lesions. IMPRESSION: No acute intra-abdominal findings. Dictated by: Angelita Alvarado M.D. on 02/20/2017 at 19:04 Approved by: Angelita Alvarado M.D. on 02/20/2017 at 19:04
[2017-02-20 19:09] LABS: Magnesium 1.9 mg/dL (1.6-2.6)
[2017-02-20] MEDS ORDERED: HYDROmorphone 0.5 mg/0.5 mL iSecure Syringe IVPUSH ONE (20:25)
[2017-02-20 21:41] VITALS: BP 141/84; PULSE 88; RESP 20; O2SAT 98
[2017-02-21] MEDS ORDERED: METR500T PO (13:03)
== END 2017-02-20 21:42 | disposition home or self-care (01) ==
LOC: SED 15:31
DX: R10.84 Generalized abdominal pain (principal); R11.2 Nausea with vomiting, unspecified; R19.7 Diarrhea, unspecified; F17.200 Nicotine dependence, unspecified, uncomplicated; K21.9 Gastro-esophageal reflux disease without esophagitis; Z87.19 Personal history of other diseases of the digestive system; Z86.79 Personal history of other diseases of the circulatory system; Z86.718 Personal history of other venous thrombosis and embolism; Z90.89 Acquired absence of other organs; Z87.442 Personal history of urinary calculi
CPT/HCPCS: 36415; 71010; 74000; 80053; 83735; 84484; 85025; 87493; 93005; 96374; 96375; 96376; 99285; J1170; J2550; J7030

== ENCOUNTER 2017-02-21 13:50 | Emergency (ER) | payer MEDICARE, MEDICAID ==
[~2017-02-21] VITALS: Ht 170.2 cm; Wt 65.9 kg
[~2017-02-21 13:50] MED LIST changes: +METR500T PO
[2017-02-21 13:53] VITALS: BP 145/84; PULSE 92; RESP 15; O2SAT 98
--- NOTE | 2017-02-21 15:31 | ED.REPORT ---
HPI-Abd Pain M 40 and Over Date of Service Feb 21, 2017 ED Provider: Sampson Russo PA-C [place] is a 41-year-old male with a history of C. difficile, cyclical vomiting, small bowel obstruction, DVT, brain aneurysm, stomach adhesions, GERD, fibromyalgia, kidney stones showing tumor to department after being informed of positive test results for C. difficile in his stool culture. Patient has been seen daily for the last 5 days for symptoms of abdominal pain, vomiting, diarrhea sometimes bloody. This is not responding well to Zofran and oxycodone and is aggravated by eating and drinking. He describes pain and difficulty having bowel movements which he describes as soft and small volume but not watery. Denies fever, shaking chills, antibiotic use. Previous visits resulted and the patient being discharged to home with diagnosis of a likely IBS flare with component of opiate withdrawal. Patient reports that he does not have money to purchase the required metronidazole and hopefully can be dispensed here. Nursing Notes Stated Complaint: ABD PAIN,POSSIBLE C DIF Chief Complaint: Male Abdominal Pain Nursing Notes Reviewed: Yes Allergies: Coded Allergies: No Known Allergies (Unverified , 01/31/17) Scheduled Metronidazole (Flagyl) 500 Mg Tablet 500 MG PO TID Scheduled PRN Acetaminophen (Acetaminophen) 500 Mg Tablet 1,000 MG PO BID PRN PRN For Pain Methocarbamol (Robaxin-750) 750 Mg Tablet 750 MG PO QID PRN PRN For Pain Ondansetron (Ondansetron) 8 Mg Tablet 8 MG PO PRN For Nausea Ondansetron ODT (Ondansetron ODT) 8 Mg Tab.rapdis 8 MG PO Q4H PRN PRN For Nausea oxyCODONE-Acetaminophen 5-325 mg (oxyCODONE-Acetaminophen 5-325 mg) 1 Each Tablet 1 TAB PO Q4H PRN PRN For Pain oxyCODONE-Acetaminophen 5-325 mg (oxyCODONE-Acetaminophen 5-325 mg) 1 Each Tablet 1 TAB PO Q6H PRN PRN For Pain General Time Seen by MD: 15:02 Chief Complaint Abdominal pain Sudden in Onset?: No Past Medical History Past Medical History Notes: [facility] Special[facility]: Dr. Pro Nunn is Spine Doctor/Surgeon. Multiple ED visits including yesterday and ealier this week, CT scan abdomen 02/2017 negative Last admit 12/2016: Extensive workup including endoscopy and colonoscopy negative (D/C notes indicate w/u for Inflammatory Bowel Disease negative) Past Medical History 1. Clostridium difficile colitis 05/2015 and 12/2014 2. Colitis 3. IBS 4. Cyclical vomiting 5. Small bowel obstruction 6. Migraine 7. Guillen's esophagus 8. GERD 9. Gastritis Prostatitis. Fibromyalgia. Kidney stones Interstitial cystitis Epidural hematoma Internal and blood BM chronically diverticulitus DVT Small brain aneurysm Stomach adhesions Back surgery Past Surgical History 1. Right ear drum repair 2. Laparoscopy in 2001 and again in 2013 with lysis of adhesion and incidental appy at that time at [facility] in [place] 3. Right ACL reconstruction 4. C5, C6, C7 Fusion Jul 30, 2014 done at [facility] [place] [place] 5. Fatty tissue removal and spinal canal widening at [facility] [place] [place] on Jul 08 2016 6. Back surgery for epidural hematoma, Aug 10, 2016 7. Appendectomy Family History Reviewed, not relevant. Prostate cancer in brother and father. Mom-stroke, HTN Smoking History Current Every Day Smoker Social History Trying to quit smoking 'Hx of narcotic seeking" - per EMR Alcohol Use: Denies alcohol use Drug Use: Denies drug use Other Social History: Good social support, Frequent ED visitor, , Local resident Occupation no work or school Ambulatory Status Independent Review of Systems Review of Systems Note: Negative unless stated otherwise in history of present illness Physical Exam General: Well appearing, well developed, well nourished, moderate distress. Head: Atraumatic, normocephalic. Eyes: No scleral icterus or injection. No discharge. Vision grossly intact. ENT: Voice clear, hearing grossly intact. Respiratory: Regular rate and rhythm. Breath sounds present, clear to auscultation and equal bilaterally. No respiratory distress. No increased work of breathing, speaks in complete sentences. Cardiovascular: Regular rate and rhythm, without murmur, gallop or rub. No pedal edema. Gastrointestinal: Abdomen flat and diffusely tender with guarding but no rebound. Bowel sounds normoactive. Skin: Warm and dry. Neurological: Grossly nonfocal. Psychological: Alert and oriented. Speech appropriate, linear and logical. Behavior appropriate. Initial Vital Signs Vital Signs (First) Date Time Temp Pulse Resp B/P Pulse Ox O2 Delivery O2 Flow Rate FiO2 02/21/17 13:53 37 92 15 145/84 98 Room Air Normal Re-Eval/Medical Decision Med Decision/Clinical Course 41-year-old male seen repeatedly in this department in recent days for symptoms of abdominal pain, vomiting, diarrhea. Patient reports ongoing symptoms aggravated by eating and drinking. He presents today because he is been informed of a stool study that tested positive for C. difficile. He does not have money to purchase metronidazole and hopes it can be dispensed. Physical examination reveals diffuse abdominal tenderness, negative for peritoneal signs, otherwise benign. Vital signs are normal. Review of records indicates stable blood work including a very mild leukocytosis of just slightly over 10. Patient had a reassuring abdominal CT , abdominal x-ray series 02/20 and a chest x-ray 02/20. EKG last night was normal. I discussed this case with Dr. Shadi Mckeon. We agree that in light of his unchanged symptomology, stable vitals, reassuring studies and stable labs no further workup is warranted at this time. We will fill his metronidazole, offer ketorolac for pain. Advised continuing home medications, follow-up with primary care as soon as possible. Advised regarding primary care follow-up, provided emergency return precautions. Patient verbalized understanding of, and consent to, the plan. Discharge & Departure Primary Impression: C. difficile colitis Additional Impressions: Generalized abdominal pain Nausea and vomiting Vomiting type: unspecified Vomiting Intractability: unspecified Qualified Code: R11.2 - Nausea with vomiting, unspecified Disposition: Home Vital Signs - All Vital Signs Date Time Temp Pulse Resp B/P Pulse Ox O2 Delivery O2 Flow Rate FiO2 02/21/17 13:53 37 92 15 145/84 98 Room Air )( All Prior VS Reviewed: Yes Patient Instructions: Acute Abdominal Pain (ED) Additional Instructions: Evaluation for abdominal pain with vomiting in the emergency department includes interview, physical examination and review of recent laboratory testing including abdominal CT, chest x-ray, abdominal x-ray, serial blood work. Testing of the stool indicates infection with Clostridium difficile. This is treated with antibiotics which we will provide to you. Imaging and testing appears to be otherwise reassuring and stable. We see no indication for further testing today. Continue taking your home medications as directed. Please follow up with your primary care provider tomorrow. Return the emergency Department for new or worsening symptoms including worsening abdominal pain, large amounts of blood in your stool, blood in your vomit, chest pain, shortness of breath, fevers, chills, lightheadedness, numbness/tingling or weakness. Referrals: [facility] (PCP) EDSupervising Provider for APC: Paul Cedillo Seth PA-C Feb 21, 2017 15:31
[2017-02-21 16:16] VITALS: BP 137/81; PULSE 71; RESP 16; O2SAT 98
[2017-02-21] MEDS ORDERED: _metroNIDAZOLE 500 mg Tablet PO SCH (20:30)
== END 2017-02-21 16:17 | disposition home or self-care (01) ==
LOC: SED 13:50
DX: A04.7 Enterocolitis due to Clostridium difficile (principal); K21.9 Gastro-esophageal reflux disease without esophagitis; F17.200 Nicotine dependence, unspecified, uncomplicated
CPT/HCPCS: 96372; 99283; J1885

== ENCOUNTER 2017-03-02 17:39 | Emergency (ER) | payer MEDICARE, MEDICAID ==
[~2017-03-02] VITALS: Ht 170.2 cm; Wt 65.0 kg
[2017-03-02 17:50] VITALS: BP 136/83; PULSE 89; RESP 17; O2SAT 98
--- NOTE | 2017-03-02 17:57 | ED.REPORT ---
HPI-General Illness Date of Service Mar 02, 2017 ED Provider: Jim Milian MD Patient is a 41 year old male with a history of previous bowel surgery, diverticulitis, bowel obstruction, hiatal hernia, GERD, C.diff and IBS who presents to the ED complaining of abdominal bloating onset today. Associated symptoms include increasing vague/diffuse abdominal pain and constipation. The patient reports he has been unable to pass gas and has not had a bowel movement for the past 4 days. Patient is on his 8th day of Flagyl for C.diff. Nursing Notes Stated Complaint: STOMACH/BACK PAIN,DIZZINESS,NAUSEA,C-DIFF Chief Complaint: Male Abdominal Pain Nursing Notes Reviewed: Yes Allergies: Coded Allergies: No Known Allergies (Unverified , 01/31/17) Scheduled Metronidazole (Flagyl) 500 Mg Tablet 500 MG PO TID Scheduled PRN Acetaminophen (Acetaminophen) 500 Mg Tablet 1,000 MG PO BID PRN PRN For Pain Methocarbamol (Robaxin-750) 750 Mg Tablet 750 MG PO QID PRN PRN For Pain Ondansetron (Ondansetron) 8 Mg Tablet 8 MG PO BID PRN PRN For Nausea oxyCODONE-Acetaminophen 5-325 mg (oxyCODONE-Acetaminophen 5-325 mg) 1 Each Tablet 1 TAB PO Q6H PRN PRN For Pain General Time Seen by MD: 17:55 Chief Complaint Abdominal pain Hx Obtained From: Patient Arrived By: Walk-in Sudden in Onset?: Yes Onset Occurred: 1 - 4 hours ago Symptom Duration: Since onset Location: : Abdomen Quality: Painful Severity: Current: Moderate Recent Healthcare: Recent doctor visit Similar Sx Previous: Yes Past Medical History Past Medical History Notes: [facility] Special[facility]: Dr. Pro Nunn is Spine Doctor/Surgeon. Multiple ED visits including yesterday and ealier this week, CT scan abdomen 02/2017 negative Last admit 12/2016: Extensive workup including endoscopy and colonoscopy negative (D/C notes indicate w/u for Inflammatory Bowel Disease negative) Past Medical History 1. Clostridium difficile colitis 05/2015 and 12/2014 2. Colitis 3. IBS 4. Cyclical vomiting 5. Small bowel obstruction 6. Migraine 7. Guillen's esophagus 8. GERD 9. Gastritis Prostatitis. Fibromyalgia. Kidney stones Interstitial cystitis Epidural hematoma Internal and blood BM chronically diverticulitus DVT Small brain aneurysm Stomach adhesions Back surgery Past Surgical History 1. Right ear drum repair 2. Laparoscopy in 2001 and again in 2013 with lysis of adhesion and incidental appy at that time at [facility] in [place] 3. Right ACL reconstruction 4. C5, C6, C7 [place] [facility] [place] [facility] [place] 6. Back surgery for epidural hematoma, Aug 10, 2016 7. Appendectomy Family History Reviewed, not relevant. Prostate cancer in brother and father. Mom-stroke, HTN Smoking History Current Every Day Smoker Social History Trying to quit smoking 'Hx of narcotic seeking" - per EMR Alcohol Use: Denies alcohol use Drug Use: Denies drug use Other Social History: Good social support, Frequent ED visitor, , Local resident Occupation no work or school Ambulatory Status Independent Review of Systems Full Review of Systems Constitutional: Denies: Chills, Fever Respiratory: Denies: Non-productive cough, Shortness of breath GI: Reports: Abdominal pain, Constipation, Denies: Belching, Diarrhea Neurologic: Denies: Numbness, Weakness Complete sys rev & neg: except as marked. Physical Exam Vital Signs Vital Signs Date Time Temp Pulse Resp B/P Pulse Ox O2 Delivery O2 Flow Rate FiO2 03/02/17 21:23 63 18 148/79 97 Room Air 03/02/17 17:50 36.7 89 17 136/83 98 Room Air Initial VS: Reviewed General/Constitutional: Awake, Alert Head / Eyes: Atraumatic, Normocephalic, PERRL, EOMI Respiratory / Chest: Atraumatic, Breath sounds NL, Breath sounds = bilat, No respiratory distress Cardiovascular: Heart rate NL, Regular rhythm, Heart sounds NL, No gallop, No murmurs, No rubs Abdomen: Atraumatic, Soft Tenderness/Guarding/Rebound: Positive: Tender diffuse well healed midline surgical scar abdomen distended slightly tympanic Upper Extremities Upper Extremity / MS: Atraumatic, Full range of motion Lower Extremity / Pelvis / MS: Atraumatic, Inspection NL Skin: Atraumatic, Color NL, No rash, Warm, Dry Neurologic: Oriented X3, Speech NL Interpretation & Diagnostics Lab Results Interpretation Result Diagram: 03/02/17 1810 03/02/17 181 Test 03/02/17 18:10 03/02/17 18:49 White Blood Count 9.8th/mm3 (3.8-10.1) Red Blood Count 4.55mil/mm3 (4.40-5.80) Hemoglobin 13.5g/dL (13.8-17.2) Hematocrit 40.2% (41.0-50.0) Mean Corpuscular Volume 88.4fL (81-100) Mean Corpuscular Hemoglobin 29.7pg (27.0-35.0) Mean Corpuscular Hemoglobin Concent 33.6% (32.0-37.0) Red Cell Distribution Width 16.2% (12.3-15.4) Platelet Count 308bil/L (150-400) Neutrophils (%) (Auto) 44.0% (40-74) Lymphocytes (%) (Auto) 43.5% (14-46) Monocytes (%) (Auto) 9.6% (4-12) Eosinophils (%) (Auto) 2.5% (0-5) Basophils (%) (Auto) 0.3% (0-3) Sodium Level 143mEq/L (134-144) Potassium Level 3.8mEq/L (3.5-5.2) Chloride Level 103mEq/L (97-108) Carbon Dioxide Level 26mmol/L (18-29) Blood Urea Nitrogen 12mg/dL (6-24) Creatinine 0.75mg/dL (0.76-1.27) Estimat Glomerular Filtration Rate 121mL/min (>59) Glucose Level 114mg/dL (60-99) Calcium Level 9.3mg/dL (8.5-10.1) Magnesium Level 2.1mg/dL (1.6-2.6) Total Bilirubin 0.2mg/dL (0.0-1.2) Aspartate Amino Transf (AST/SGOT) 18U/L (0-50) Alanine Aminotransferase (ALT/SGPT) 22U/L (0-44) Alkaline Phosphatase 52U/L (25-150) Total Protein 7.3g/dL (6.4-8.4) Albumin 4.4g/dL (3.4-5.0) Lipase 25U/L (13-60) Hold Andrea Top Tube Received (Received) Urine Color Yellow (YELLOW) Urine Appearance Cloudy (CLEAR,HAZY) Urine pH 7.5 (5.0-8.0) Urine Specific [place] 1.010 (1.003-1.035) Urine Protein Negativemg/dL (NEG,TRACE) Urine Glucose (UA) Negativemg/dL (NEGATIVE) Urine Ketones Negativemg/dL (NEGATIVE) Urine Occult Blood Negative (NEGATIVE) Urine Nitrite Negative (NEGATIVE) Urine Bilirubin Negative (NEGATIVE) Urine Urobilinogen Normalmg/dL (NORMAL) Urine Leukocyte Esterase Negative (NEGATIVE) Urine RBC 0-2/hpf (0-2) Urine WBC 0-5/hpf (0-5) Urine Epithelial Cells Occasional/hpf (NONE-MOD) Urine Crystals None seen (NONE SEEN) Urine Bacteria None/hpf (NONE-FEW) Urine Hyaline Casts None/lpf (NONE) Urine Granular Casts None seen (NONE SEEN) Urine Waxy Casts None seen (NONE SEEN) Urine Red Blood Cell Casts None seen (NONE SEEN) Urine White Blood Cell Casts None seen (NONE SEEN) Urine Mucus None seen (None Seen) Urine Trichomonas None seen (NONE SEEN) Urine Yeast None (NONE SEEN) Urinalysis Comment None Urine Culture Reflexed Not indicated CT Abd / Pelvis Interpretation IMPRESSION: 1. Fluid-filled stomach and small intestine. This finding is nonspecific and could be related to gastroenteritis. 2. Diverticulosis. No acute diverticulitis. 3. Moderate amount of colonic stool. 4. Tiny hepatic hypodensities are too small to further characterize but probably cysts. Dictated by: Danny Sage M.D. on 03/02/2017 at 20:09 Approved by: Danny Sage M.D. on 03/02/2017 at 20:15 Interpretation / Wet Read by: Interpret - Radiologist Re-Eval/Medical Decision Med Decision/Clinical Course Patient is a 41 year old male with a history of previous bowel surgery, diverticulitis, bowel obstruction, hiatal hernia, GERD, C.diff and IBS who presents to the ED complaining of abdominal bloating onset today. Associated symptoms include increasing vague/diffuse abdominal pain and constipation. The patient reports he has been unable to pass gas and has not had a bowel movement for the past 4 days. Patient is on his 8th day of Flagyl for C.diff. Here in the emergency department the patient is afebrile stable vital signs and examination as above. The patient treated with IV fluids, Zofran and hydromorphone. He reported significant subjective improvement. Labs: CBC unremarkable CMP unremarkable Lipase within normal limits Urine dip demonstrated no signs of infection CT ABDOMEN: IMPRESSION: 1. Fluid-filled stomach and small intestine. This finding is nonspecific and could be related to gastroenteritis. 2. Diverticulosis. No acute diverticulitis. 3. Moderate amount of colonic stool. 4. Tiny hepatic hypodensities are too small to further characterize but probably cysts. Initial presentation was concerning for possible small bowel obstruction with distention of his abdomen and not passing flatus. Here in the emergency department he passed flatus and thereafter reported feeling dramatically better. His abdominal distention had improved. I see no evidence at this time of any acute surgical process. He does have quite a bit of fluid in his stomach I suspect that this may be related to his chronic/long-term use of opiates and delayed gastric emptying as a result thereof. Given the patient's reassuring workup I feel it is appropriate for discharge. On further discussion he reports that he has had multiple similar presentations in the past and that this is not all that out of the ordinary for him. He is advised to return for any new or worsening symptoms. Prior to discharge follow-up and return precautions were reviewed in detail with the patient who verbalized understanding and agreement with the plan. The patient was discharged in stable condition. Time of Eval: 20:52 Re-Evaluation/Progress Note: Discussed CT results and plan for discharge. Patient understands and agrees to plan. All questions were addressed. Counseled Regarding: Diagnosis, Lab results, Need for follow-up, When/why to return to ED Discharge & Departure Primary Impression: Constipation Constipation type: unspecified constipation type Qualified Code: K59.00 - Constipation, unspecified Additional Impressions: Generalized abdominal pain History of small bowel obstruction Abdominal distention History of abdominal surgery Disposition: Home Discharge Condition All VS Reviewed: Yes Condition: Stable Additional Instructions: Thank you for seeking care at the emergency room. Your CT scan was reassuring. Our primary goal today in the Emergency Department was to evaluate you for any life-threatening conditions. Start using your suppositories to help with your constipation. You should follow-up with your primary doctor in the next week. You should return to the Emergency Department immediately if you develop fevers , vomiting, weakness or any other concerning signs or symptoms. Thank you for letting us partake in your care today. Referrals: [facility] (PCP) Francescaibkathy Attestation Portions of this note were transcribed by Sophy Kaur. I, Dr. Milian personally performed the history, physical exam and medical decision-making; I reviewed and confirmed the accuracy of the information in the transcribed note. Signed by: Ryanne Boyle, 03/02/17 copies to: [facility] Jim Milian MD Mar 02, 2017 17:57 Celestina Kaur Mar 02, 2017 19:05
[2017-03-02] MEDS ORDERED: 0.9% Sodium Chloride 1,000 ML IV ONE (17:58)
[2017-03-02] MEDS ORDERED: Ondansetron 2 mg/mL 2 mL Inj IVPUSH ONE ×2 (18:00→20:10)
[2017-03-02 18:23] LABS: BASOPHILS % (AUTO) 0.3 % (0-3); EOSINOPHILS % (AUTO) 2.5 % (0-5); MONOCYTES % (AUTO) 9.6 % (4-12); Mean Corpuscular Hemoglobin 29.7 pg (27.0-35.0); Mean Corpuscular Volume 88.4 fL (81-100); Platelet Count 308 bil/L (150-400)
[2017-03-02] MEDS ORDERED: HYDROmorphone 1 mg/mL Inj IVPUSH ONE ×2 (18:50→20:10)
[2017-03-02 18:55] LABS: Magnesium 2.1 mg/dL (1.6-2.6)
[2017-03-02 19:16] LABS: APPEARANCE,URINE CLOUDY (CLEAR,HAZY); COLOR,URINE YELLOW (YELLOW)
[2017-03-02 19:17] LABS: OCCULT BLOOD,URINE NEGATIVE (NEGATIVE); PH,URINE 7.5 (5.0-8.0); UROBILINOGEN,URINE NORMAL (NORMAL)
--- NOTE | 2017-03-02 20:16 | DRSVH ---
PROCEDURE: CT ABDOMEN AND PELVIS WITH CONTRAST ([id number]) INDICATIONS: pain TECHNIQUE: After the administration of intravenous contrast, 5 mm thick sections acquired from the diaphragm to the symphysis. 5 mm coronal and sagittal reformats were acquired. For radiation dose reduction, the following was used: automated exposure control, adjustment of mA and/or kV according to patient siz e. COMPARISON: [facility], CT, CT ABD PELVIS W CON, 05/21/2015, 18:07. [facility], CT, CT ABD PELVIS W CON, 06/21/2015, 16:36. [facility], CT, CT ABD PELVIS W CON, 10/2016, 18:51. [facility], CT, CT ABD PELVIS W CON, 02/18/2017, 13:34. FINDINGS: Image quality: Excellent. ABDOMEN: Lung bases: Lung bases are clear. Heart size is normal. Solid organs: There are tiny indeterminate hepatic hypodensities, too small to further characterize. Liver and spleen are normal in size and enhancement. Gallbladder is normal. Biliary system is non dilated. Pancreas enhances normally. No adrenal nodules. Kidneys demonstrate normal size and enhan cement, without hydronephrosis. Peritoneum and bowel: Fluid filled stomach and small intestines. There is moderate amount of stool i n colon. There are scattered colonic diverticula. No active diverticulitis. Bowel loops demonstrate n ormal wall thickness and caliber. No free fluid or air. Nodes and vessels: No retroperitoneal or mesenteric adenopathy by size criteria. Aorta and inferior vena cava are normal in size. Miscellaneous: No ventral hernias. PELVIS: Genitourinary: Bladder wall thickness is normal. Miscellaneous: No inguinal hernias or adenopathy. Bones: No suspicious bony lesions. No vertebral body compression fractures. Post surgical changes i n lumbar spine. IMPRESSION: 1. Fluid-filled stomach and small intestine. This finding is nonspecific and could be related to ivis roenteritis. 2. Diverticulosis. No acute diverticulitis. 3. Moderate amount of colonic stool. 4. Tiny hepatic hypodensities are too small to further characterize but probably cysts. Dictated by: Danny Sage M.D. on 03/02/2017 at 20:09 Approved by: Danny Sage M.D. on 03/02/2017 at 20:15
[2017-03-02 21:23] VITALS: BP 148/79; PULSE 63; RESP 18; O2SAT 97
== END 2017-03-02 21:24 | disposition home or self-care (01) ==
LOC: SED 17:39
DX: K59.00 Constipation, unspecified (principal); R14.0 Abdominal distension (gaseous); K21.9 Gastro-esophageal reflux disease without esophagitis; M79.7 Fibromyalgia; G43.909 Migraine, unspecified, not intractable, without status migrainosus; Z98.890 Other specified postprocedural states; F17.200 Nicotine dependence, unspecified, uncomplicated; Z87.19 Personal history of other diseases of the digestive system; Z87.442 Personal history of urinary calculi
CPT/HCPCS: 36415; 74177; 80053; 81000; 83690; 83735; 85025; 96361; 96374; 96375; 96376; 99285; J1170; J2405; J7030; Q9967

== ENCOUNTER 2017-03-11 11:37 | Emergency (ER) | payer MEDICARE, MEDICAID ==
[~2017-03-11] VITALS: Ht 170.2 cm; Wt 68.2 kg
[~2017-03-11 11:37] MED LIST changes: -ONDA8TAB10 PO
[2017-03-11 12:09] VITALS: BP 129/92; PULSE 95; RESP 18; O2SAT 99
[2017-03-11 13:50] LABS: BASOPHILS % (AUTO) 0.2 % (0-3); EOSINOPHILS % (AUTO) 0.2 % (0-5); MONOCYTES % (AUTO) 6.5 % (4-12); Mean Corpuscular Hemoglobin 30.2 pg (27.0-35.0); NEUTROPHILS % (AUTO) 83.6 % (40-74); Platelet Count 245 bil/L (150-400)
--- NOTE | 2017-03-11 14:34 | ED.REPORT ---
HPI-Abd Pain M 40 and Over Date of Service Mar 11, 2017 ED Provider: Dr. Cedillo Pt is a 41 y/o male w/ a hx of recurrent and recent C. difficile colitis, IBS, cyclical vomiting, SBO, GI bleeding, diverticulitis, gastric adhesions, presenting to the ED with multiple GI complaints. The patient recently finished a 14 day course of Flagyl prescribed for C. difficile colitis on 03/08. The next day he began to experience diarrhea, fever, and nausea. This morning he woke up experiencing nausea, vomiting, diarrhea, and severe LLQ abdominal pain. He is scheduled to see infectious disease specialist Dr. Valencia on 03/16. Last abd/ pelvis CT scan on 03/02 was unremarkable. Nursing Notes Stated Complaint: NAUSOUS/ VOMITING, STOMACH, BACK PAIN, FEVER, DIAR Chief Complaint: Male Abdominal Pain Nursing Notes Reviewed: Yes Allergies: Coded Allergies: No Known Allergies (Unverified , 01/31/17) Scheduled Metronidazole (Flagyl) 500 Mg Tablet 500 MG PO TID Vancomycin (Vancomycin) 125 Mg Capsule 125 MG PO QID Scheduled PRN Acetaminophen (Acetaminophen) 500 Mg Tablet 1,000 MG PO BID PRN PRN For Pain Methocarbamol (Robaxin-750) 750 Mg Tablet 750 MG PO QID PRN PRN For Pain Ondansetron (Ondansetron) 8 Mg Tablet 8 MG PO BID PRN PRN For Nausea oxyCODONE-Acetaminophen 5-325 mg (oxyCODONE-Acetaminophen 5-325 mg) 1 Each Tablet 1 TAB PO Q6H PRN PRN For Pain General Time Seen by MD: 14:33 Chief Complaint Abdominal pain Hx Obtained From: Patient Arrived By: Walk-in Sudden in Onset?: No Onset Occurred: 9 - 12 hours ago Symptom Duration: Since onset Progression since Onset: Gradually improving Location: : LLQ Quality: Painful Severity: Current: Moderate Severity: Maximum: Severe Recent Healthcare: Recent doctor visit, Recent testing, Previous diagnosis, Prior workup Similar Sx Previous: Yes Past Medical History Past Medical History Notes: [facility]: [facility] Specialisit: Dr. Pro Nunn is Spine Doctor/Surgeon. 8 ED visits from 01/31-03/11 for GI complaints Last admit 12/2016: Extensive workup including endoscopy and colonoscopy negative (D/C notes indicate w/u for Inflammatory Bowel Disease negative) Past Medical History 1. Clostridium difficile colitis 05/2015 and 12/2014 and 02/2017 2. Colitis 3. IBS 4. Cyclical vomiting 5. Small bowel obstruction 6. Migraine 7. Guillen's esophagus 8. GERD 9. Gastritis Prostatitis. Fibromyalgia. Kidney stones Interstitial cystitis Epidural hematoma Internal and blood BM chronically diverticulitus DVT Small brain aneurysm Stomach adhesions Back surgery Past Surgical History 1. Right ear drum repair 2. Laparoscopy in 2001 and again in 2013 with lysis of adhesion and incidental appy at that time at [facility] in [place] 3. Right ACL reconstruction 4. C5, C6, C7 Fusion Jul 30, 2014 done at [facility] [place] 5. Fatty tissue removal and spinal canal widening at [facility] [place] on Jul 08 2016 6. Back surgery for epidural hematoma, Aug 10, 2016 7. Appendectomy Family History Reviewed, not relevant. Prostate cancer in brother and father. Mom-stroke, HTN Smoking History Current Every Day Smoker Social History Trying to quit smoking 'Hx of narcotic seeking" - per EMR Alcohol Use: Denies alcohol use Drug Use: Denies drug use Other Social History: Good social support, Frequent ED visitor, , Local resident Occupation no work or school Ambulatory Status Independent Review of Systems Constitutional: Reports: Chills, Fever, Malaise GI: Reports: Abdominal pain, Diarrhea, Nausea, Vomiting Complete sys rev & neg: except as marked. Physical Exam Initial Vital Signs Vital Signs (First) Date Time Temp Pulse Resp B/P Pulse Ox O2 Delivery O2 Flow Rate FiO2 03/11/17 12:09 37.1 95 18 129/92 99 Room Air Initial VS: Reviewed, Vital signs normal Head / Eyes: Atraumatic, Normocephalic ENT: Mucous membranes moist, Conjunctiva normal Neck: Full range of motion Extremities: Vascular intact, Neuro intact, No swelling Skin: Warm, Dry, No cyanosis Neurologic: Alert, Oriented, Nonfocal Psychiatric: Mood/affect normal, Behavior normal, Normal thought content General/Constitutional: Awake, Alert, No acute distress, Cooperative, Not toxic appearing Respiratory / Chest: Breath sounds NL, Breath sounds = bilat, No respiratory distress, No rales, No rhonchi, No wheezing Cardiovascular: Heart rate NL, Regular rhythm, Heart sounds NL, No gallop, No murmurs, No rubs, Cap refill not delayed, Peripheral circulation NL Abdomen: Atraumatic, Soft, No guarding, No rebound, No distention, No palpable mass Diffuse lower abdominal tenderness Back: Full range of motion, Painless range of motion Interpretation & Diagnostics Lab Results Interpretation Result Diagram: 03/11/17 1335 03/11/17 1335 Test 03/11/17 13:35 03/11/17 13:36 03/11/17 15:00 White Blood Count 12.4th/mm3 (3.8-10.1) Red Blood Count 4.84mil/mm3 (4.40-5.80) Hemoglobin 14.6g/dL (13.8-17.2) Hematocrit 43.1% (41.0-50.0) Mean Corpuscular Volume 89.0fL (81-100) Mean Corpuscular Hemoglobin 30.2pg (27.0-35.0) Mean Corpuscular Hemoglobin Concent 33.9% (32.0-37.0) Red Cell Distribution Width 15.2% (12.3-15.4) Platelet Count 245bil/L (150-400) Neutrophils (%) (Auto) 83.6% (40-74) Lymphocytes (%) (Auto) 9.3% (14-46) Monocytes (%) (Auto) 6.5% (4-12) Eosinophils (%) (Auto) 0.2% (0-5) Basophils (%) (Auto) 0.2% (0-3) Sodium Level 140mEq/L (134-144) Potassium Level 4.6mEq/L (3.5-5.2) Chloride Level 100mEq/L (97-108) Carbon Dioxide Level 25mmol/L (18-29) Blood Urea Nitrogen 12mg/dL (6-24) Creatinine 0.72mg/dL (0.76-1.27) Estimat Glomerular Filtration Rate 127mL/min (>59) Glucose Level 107mg/dL (60-99) Calcium Level 10.1mg/dL (8.5-10.1) Magnesium Level 2.0mg/dL (1.6-2.6) Total Bilirubin 0.6mg/dL (0.0-1.2) Aspartate Amino Transf (AST/SGOT) 20U/L (0-50) Alanine Aminotransferase (ALT/SGPT) 18U/L (0-44) Alkaline Phosphatase 53U/L (25-150) Total Protein 8.0g/dL (6.4-8.4) Albumin 5.1g/dL (3.4-5.0) Lipase 31U/L (13-60) Hold Andrea Top Tube Received (Received) Hold Urine Received (Received) X-Ray Abdominal Interpretation IMPRESSION: 1. No definite acute intra-abdominal radiographic abnormality. Specifically, no evidence of bowel obstruction. Dictated by: Walter Francisco M.D. on 03/11/2017 at 15:27 Approved by: Walter Francisco M.D. on 03/11/2017 at 15:30 Study: 4 view Interpretation / Wet Read by: Interpret - Radiologist Re-Eval/Medical Decision Med Decision/Clinical Course Likely recurrent C. difficile colitis with stable vital signs and labs. Will start oral vancomycin. Return and follow-up precautions given. Stool sent. Source of Hx: Old records Counseled Regarding: Diagnosis, Lab results, Need for follow-up, When/why to return to ED Discharge & Departure Primary Impression: C. difficile colitis Disposition: Home Vital Signs - All Vital Signs Date Time Temp Pulse Resp B/P Pulse Ox O2 Delivery O2 Flow Rate FiO2 03/11/17 12:09 37.1 95 18 129/92 99 Room Air )( All Prior VS Reviewed: Yes Condition: Stable Additional Instructions: You most likely have recurrent C. difficile colitis. Begin taking oral vancomycin as prescribed. Call your regular doctor for close follow-up. Return to the ER as needed if worse. Referrals: [facility] ([facility]P) Scribe Attestation Portions of this note were transcribed by Terry Cedeno. I, Dr. Cedillo personally performed the history, physical exam and medical decision-making; I reviewed and confirmed the accuracy of the information in the transcribed note. copies to: [facility] Paul Cedillo DO Mar 11, 2017 14:34 TERRY CEDENO Mar 11, 2017 14:53
--- NOTE | 2017-03-11 15:32 | DRSVH ---
PROCEDURE: X-RAY ACUTE ABDOMINAL SERIES ([id number]) INDICATIONS: Abdominal dpain, vomiting diarrhea TECHNIQUE: One view chest and two views of the abdomen were acquired. COMPARISON: [facility], CR, XR ABD ACUTE SERIES 3VW, 12/31/2016, 20:03. FINDINGS: Surgical changes and devices: Postsurgical changes are redemonstrated in the lower cervical spine and lower lumbar spine. Chest: Lungs are clear. Heart size is normal. No pleural effusions. No pneumoperitoneum. Abdomen: Bowel gas pattern is normal. No suspicious calcifications. Bones: No suspicious bony lesions. IMPRESSION: 1. No definite acute intra-abdominal radiographic abnormality. Specifically, no evidence of bowel o bstruction. Dictated by: Walter Francisco M.D. on 03/11/2017 at 15:27 Approved by: Walter Francisco M.D. on 03/11/2017 at 15:30
[2017-03-11] MEDS ORDERED: oxyCODONE-Acetamin 5-325 mg Tablet PO ONE (16:05)
[2017-03-11] MEDS ORDERED: VANC125C10 PO (17:18)
[2017-03-12] MEDS ORDERED: METO5TAB78 PO (16:16)
== END 2017-03-11 17:38 | disposition home or self-care (01) ==
LOC: SED 11:37
DX: A04.7 Enterocolitis due to Clostridium difficile (principal); K21.9 Gastro-esophageal reflux disease without esophagitis; G43.909 Migraine, unspecified, not intractable, without status migrainosus; M79.7 Fibromyalgia; F17.200 Nicotine dependence, unspecified, uncomplicated

== ENCOUNTER 2017-03-12 13:08 | Emergency (ER) | payer MEDICARE, MEDICAID ==
[~2017-03-12] VITALS: Ht 170.2 cm; Wt 68.2 kg
[~2017-03-12 13:08] MED LIST changes: +VANC125C10 PO
[2017-03-12 13:11] VITALS: BP 137/95; PULSE 115; RESP 15; O2SAT 100
--- NOTE | 2017-03-12 13:33 | ED.REPORT ---
HPI-General Illness Date of Service Mar 12, 2017 ED Provider: Jim Milian MD Pt is a 41 y/o male w/ a hx of recurrent and recent C. difficile colitis, IBS, cyclical vomiting, SBO, GI bleeding, diverticulitis, gastric adhesions, presenting to the ED with multiple GI complaints. The patient recently finished a 14 day course of Flagyl prescribed for C. difficile colitis on 03/08. The next day he began to experience diarrhea, fever, and nausea. This morning he woke up experiencing nausea, vomiting, diarrhea, and severe LLQ abdominal pain. He is scheduled to see infectious disease specialist Dr. Valencia on 03/16. Last abd/ pelvis CT scan on 03/02 was unremarkable. The patient was seen in the ED once again yesterday at which point stool tested positive for C. difficile toxin. He was started on oral vancomycin with plan to follow-up with Dr. Valencia as scheduled. The patient has not been able to keep down and fluids or food since being discharged and is therefore unable to keep down his medications. His insurance doesn't cover the ODT version of Zofran. His goal today is for symptomatic relief but he does think he may need to be admitted because his symptoms during this episode of C. diff are much worse than previous episodes. He experienced one episode of mildly bloody stool. Nursing Notes Stated Complaint: POSSIBLE C DIFF/ NVD Chief Complaint: Male Abdominal Pain Nursing Notes Reviewed: Yes Allergies: Coded Allergies: No Known Allergies (Unverified , 01/31/17) Scheduled Metronidazole (Flagyl) 500 Mg Tablet 500 MG PO TID Vancomycin (Vancomycin) 125 Mg Capsule 125 MG PO QID Scheduled PRN Acetaminophen (Acetaminophen) 500 Mg Tablet 1,000 MG PO BID PRN PRN For Pain Methocarbamol (Robaxin-750) 750 Mg Tablet 750 MG PO QID PRN PRN For Pain Metoclopramide (Reglan) 5 Mg Tablet 5 MG PO QID PRN PRN For Nausea Ondansetron (Ondansetron) 8 Mg Tablet 8 MG PO BID PRN PRN For Nausea oxyCODONE-Acetaminophen 5-325 mg (oxyCODONE-Acetaminophen 5-325 mg) 1 Each Tablet 1 TAB PO Q6H PRN PRN For Pain General Time Seen by MD: 13:32 Chief Complaint Multip medical complaints Hx Obtained From: Patient Arrived By: Walk-in Sudden in Onset?: No Onset Occurred: Yesterday Symptom Duration: Since onset Location: : Abdomen Quality: Painful Severity: Current: Moderate Severity: Maximum: Severe Recent Healthcare: Recent doctor visit, Recent testing, Previous diagnosis, Prior workup Similar Sx Previous: Yes Past Medical History Past Medical History Notes: [facility]: [facility] Specialis[facility]: Dr. Pro Nunn is Spine Doctor/Surgeon. 8 ED visits from 01/31-03/11 for GI complaints Last admit 12/2016: Extensive workup including endoscopy and colonoscopy negative (D/C notes indicate w/u for Inflammatory Bowel Disease negative) Past Medical History 1. Clostridium difficile colitis 05/2015 and 12/2014 and 02/2017 2. Colitis 3. IBS 4. Cyclical vomiting 5. Small bowel obstruction 6. Migraine 7. Guillen's esophagus 8. GERD 9. Gastritis Prostatitis. Fibromyalgia. Kidney stones Interstitial cystitis Epidural hematoma Internal and blood BM chronically diverticulitus DVT Small brain aneurysm Stomach adhesions Back surgery Past Surgical History 1. Right ear drum repair 2. Laparoscopy in 2001 and again in 2013 with lysis of adhesion and incidental appy at that time at [facility] in [place] 3. Right ACL reconstruction 4. C5, C6, C7 Fusion Jul 30, 2014 done at [facility] [place] 5. Fatty tissue removal and spinal canal widening at [facility] [place] on Jul 08 2016 6. Back surgery for epidural hematoma, Aug 10, 2016 7. Appendectomy Family History Reviewed, not relevant. Prostate cancer in brother and father. Mom-stroke, HTN Smoking History Current Every Day Smoker Social History Trying to quit smoking 'Hx of narcotic seeking" - per EMR Alcohol Use: Denies alcohol use Drug Use: Denies drug use Other Social History: Good social support, Frequent ED visitor, , Local resident Occupation no work or school Ambulatory Status Independent Review of Systems Full Review of Systems Constitutional: Reports: Chills, Fever, Malaise, Weakness - generalized GI: Reports: Abdominal pain, Anorexia, Bloody/tarry stool, Diarrhea, Nausea, Vomiting Complete sys rev & neg: except as marked. Physical Exam Vital Signs Vital Signs Date Time Temp Pulse Resp B/P Pulse Ox O2 Delivery O2 Flow Rate FiO2 03/12/17 16:32 72 12 133/80 97 Room Air 03/12/17 13:11 37 115 15 137/95 100 Room Air Initial VS: Reviewed, Vital signs abnormal Head / Eyes: Atraumatic, Normocephalic Neck: Full range of motion Respiratory: Breath sounds normal, Clear to auscultation, No respiratory distress Cardiovascular: Regular rate & rhythm, Heart sounds normal, Intact distal pulses Extremities: Vascular intact, Neuro intact, No swelling Skin: Warm, Dry, No cyanosis Neurologic: Alert, Oriented, Nonfocal Psychiatric: Mood/affect normal, Behavior normal, Normal thought content General/Constitutional: Awake, Alert, No acute distress, Cooperative, Not toxic appearing Appearance / Presentation: Positive: Uncomfortable ENT: Airway patent Mouth: Positive: Mucous membranes dry Abdomen: Atraumatic, Soft, No guarding, No rebound, No distention, No palpable mass Tenderness/Guarding/Rebound: Positive: Tender diffuse (mild) Interpretation & Diagnostics Lab Results Interpretation Test 03/12/17 14:15 Hold Purple Top Tube Received (Received) Hold Blue Top Tube Received (Received) Hold Red Top Tube Received (Received) Hold Dewitt Top Tube Received (Received) Re-Eval/Medical Decision Med Decision/Clinical Course Pt is a 41 y/o male w/ a hx of recurrent and recent C. difficile colitis, IBS, cyclical vomiting, SBO, GI bleeding, diverticulitis, gastric adhesions, presenting to the ED with multiple GI complaints. The patient recently finished a 14 day course of Flagyl prescribed for C. difficile colitis on 03/08. The next day he began to experience diarrhea, fever, and nausea. This morning he woke up experiencing nausea, vomiting, diarrhea, and severe LLQ abdominal pain. He is scheduled to see infectious disease specialist Dr. Valencia on 03/16. Last abd/ pelvis CT scan on 03/02 was unremarkable. The patient was seen in the ED once again yesterday at which point stool tested positive for C. difficile toxin. He was started on oral vancomycin with plan to follow-up with Dr. Valencia as scheduled. The patient has not been able to keep down and fluids or food since being discharged and is therefore unable to keep down his medications. Here in the emergency department the patient is afebrile with stable vital signs and examination as above. Reviewed labs obtained during ED visit yesterday: borderline leukocytosis of 12.4, stable HCT. Good renal function, no significant electrolyte abnormalities , LFTs and lipase WNL. Plain films of the abdomen were unremarkable. Started on oral vancomycin. Does not examination consistent with ongoing symptoms related to patient's C. difficile. I see no indication to immediately repeat all of his laboratory studies and abdominal examination is reassuring against an acute surgical process. I do not feel that emergent imaging studies are indicated at this moment. In further discussions with the patient is stated goal is symptom improvement though he would like to be admitted for unable to achieve this. Here in the emergency department the patient was treated with IV fluids, Zofran , Reglan and Benadryl. He was additionally given hydromorphone as he stated that he was expressing intermittent cramping pain. After the above interventions the patient reported dramatic subjective improvement and was able to pass a PO challenge. Patient's history is responded relatively well to Reglan and has been provided with a prescription for this medication. He will continue to take his oral Vancomycin and follow-up with infectious disease as previously arranged. Patient is comfortable with this plan. He is to return immediately for new/worsening abdominal pain, fevers, inability to tolerate PO or other concerning signs or symptoms. Prior to discharge follow-up and return precautions were reviewed in detail with the patient who verbalized understanding and agreement with the plan. The patient was discharged in stable condition. Source of Hx: Old records Time of Eval: 16:18 Re-Evaluation/Progress Note: Pt rechecked. Feeling better wanting to be dced. Informed pt of plan for discharge. Pt understands and agrees with plan for discharge. F/U instructions and RTER warnings given. All questions addressed. Counseled Regarding: Diagnosis, Lab results, Need for follow-up, When/why to return to ED Discharge & Departure Primary Impression: C. difficile colitis Additional Impressions: Dehydration Nausea and vomiting Vomiting type: unspecified Vomiting Intractability: unspecified Qualified Code: R11.2 - Nausea with vomiting, unspecified Diarrhea Diarrhea type: unspecified type Qualified Code: R19.7 - Diarrhea, unspecified Abdominal cramping Disposition: Home Discharge Condition All VS Reviewed: Yes Condition: Stable Patient Instructions: Clostridium Difficile Infection (ED) Additional Instructions: Thank you for seeking care at the emergency room. You will be discharged with a prescription for Reglan. Take this as prescribed as needed for nausea and vomiting. This may prove more helpful than the Zofran. Continue taking the Vancomycin as prescribed. You should follow-up with Dr. Valencia as scheduled. You should return to the Emergency Department immediately if you develop fevers , persistent vomiting, worsening abdominal pain, lightheadedness, weakness or any other concerning signs or symptoms. Thank you for letting us partake in your care today. Referrals: [facility] ([facility]P) Lc Valencia MD Scribe Attestation Portions of this note were transcribed by Terry Cedeno. I, Dr. Milian personally performed the history, physical exam and medical decision-making; I reviewed and confirmed the accuracy of the information in the transcribed note. copies to: [facility]; Lc Valencia MD, Beck O MD Mar 12, 2017 13:33 TERRY CEDENO Mar 12, 2017 13:38
[2017-03-12] MEDS ORDERED: MetoCLOpramide 5 mg/mL 2 mL Inj IVPUSH PRN (14:05)
[2017-03-12] MEDS ORDERED: Ondansetron 2 mg/mL 2 mL Inj IVPUSH ONE (14:05)
[2017-03-12] MEDS ORDERED: 0.9% Sodium Chloride 1,000 ML IV SCH (14:05)
[2017-03-12] MEDS ORDERED: HYDROmorphone 1 mg/mL Inj IVPUSH ONE (15:25)
[2017-03-12] MEDS ORDERED: METO5TAB78 PO (16:16)
[2017-03-12 16:32] VITALS: BP 133/80; PULSE 72; RESP 12; O2SAT 97
== END 2017-03-12 16:35 | disposition home or self-care (01) ==
LOC: SED 13:08
DX: A04.7 Enterocolitis due to Clostridium difficile (principal); E86.0 Dehydration; R11.2 Nausea with vomiting, unspecified; K21.9 Gastro-esophageal reflux disease without esophagitis; F17.200 Nicotine dependence, unspecified, uncomplicated; Z86.718 Personal history of other venous thrombosis and embolism; Z87.442 Personal history of urinary calculi; Z87.19 Personal history of other diseases of the digestive system
CPT/HCPCS: 96361; 96374; 96375; 99284; J1170; J1200; J2405; J2765; J7030

== ENCOUNTER 2017-03-28 09:40 | Emergency (ER) | payer MEDICARE, MEDICAID ==
[~2017-03-28] VITALS: Ht 170.2 cm; Wt 63.6 kg
[~2017-03-28 09:40] MED LIST changes: +METO5TAB78 PO
[2017-03-28 09:55] VITALS: BP 151/91; PULSE 109; RESP 22; O2SAT 100
--- NOTE | 2017-03-28 10:04 | ED.REPORT ---
HPI-Abd Pain M 40 and Over Date of Service Mar 28, 2017 ED Provider: Robert Gama MD Pt is a 41 y/o male with a history of multiple ED visits, recurrent and recent C. difficile colitis, IBS, cyclical vomiting, small bowel obstruction two weeks ago, GI bleeding, diverticulitis, and gastric adhesions presenting to the ED c/ o cramping abdominal pain onset three days ago. He states that when he tries to go to the bathroom, he feels a tearing sensation that only gets relieved when he passes a bowel movement. Additional symptoms include vomiting, difficulty eating, intermittent fever with the highest at 101.1, chills, syncope when eating due to pain, and melena onset two days ago that resolved, and bloody stool onset yesterday that has since resolved. He denies diarrhea, constipation , or hematemesis. Seen in ED on 03/12/17 for similar symptoms, and started on a 3-month oral vancomyacin treatment on 03/11/17 that he states he is still taking. Nursing Notes Stated Complaint: VOMITING,NAUSEA,STOMACH/BACK PAIN,FEVER,DIZZY Chief Complaint: Male Abdominal Pain Nursing Notes Reviewed: Yes Allergies: Coded Allergies: No Known Allergies (Unverified , 03/28/17) Scheduled Metronidazole (Flagyl) 500 Mg Tablet 500 MG PO TID Vancomycin (Vancomycin) 125 Mg Capsule 125 MG PO QID Scheduled PRN Acetaminophen (Acetaminophen) 500 Mg Tablet 1,000 MG PO BID PRN PRN For Pain Methocarbamol (Robaxin-750) 750 Mg Tablet 750 MG PO QID PRN PRN For Pain Metoclopramide (Reglan) 5 Mg Tablet 5 MG PO QID PRN PRN For Nausea Ondansetron (Ondansetron) 8 Mg Tablet 8 MG PO BID PRN PRN For Nausea Ondansetron ODT (Zofran ODT) 4 Mg Tablet 4 MG PO Q4H PRN PRN For Nausea oxyCODONE-Acetaminophen 5-325 mg (oxyCODONE-Acetaminophen 5-325 mg) 1 Each Tablet 1 TAB PO Q6H PRN PRN For Pain General Time Seen by MD: 10:00 Chief Complaint Abdominal pain Hx Obtained From: Patient Arrived By: Walk-in Sudden in Onset?: No Onset Occurred: 3 days ago Symptom Duration: Constant Location: : Diffuse Quality: Painful Severity: Current: Moderate Severity: Maximum: Severe Context Related History: Reports: Abdominal surgery, Adhesions, Bowel obstruction, Diverticulosis, Inflam bowel disease Recent Healthcare: Recent doctor visit, Recent hospitalization Similar Sx Previous: Yes Past Medical History Past Medical History Notes: [facility]: [facility]: Dr. Pro Nunn is Spine Doctor/Surgeon. 8 ED visits from 01/31-03/11 for GI complaints Last admit 12/2016: Extensive workup including endoscopy and colonoscopy negative (D/C notes indicate w/u for Inflammatory Bowel Disease negative) Past Medical History 1. Clostridium difficile colitis 05/2015 and 12/2014 and 02/2017 2. Colitis 3. IBS 4. Cyclical vomiting 5. Small bowel obstruction 6. Migraine 7. Guillen's esophagus 8. GERD 9. Gastritis Prostatitis. Fibromyalgia. Kidney stones Interstitial cystitis Epidural hematoma Internal and blood BM chronically diverticulitus DVT Small brain aneurysm Stomach adhesions Back surgery Past Surgical History 1. Right ear drum repair 2. Laparoscopy in 2001 and again in 2013 with lysis of adhesion and incidental appy at that time at [facility] in [place] 3. Right ACL reconstruction 4. C5, C6, C7 [place] Jul 30, 2014 [place] [facility] [place] 5. Fatty tissue removal and [place] canal widening [place] [facility] [place] 6. Back surgery for epidural hematoma, Aug 10, 2016 7. Appendectomy Family History Reviewed, not relevant. Prostate cancer in brother and father. Mom-stroke, HTN Smoking History Current Every Day Smoker Social History Trying to quit smoking 'Hx of narcotic seeking" - per EMR Alcohol Use: Denies alcohol use Drug Use: Denies drug use Other Social History: Good social support, Frequent ED visitor, , Local resident Occupation no work or school Ambulatory Status Independent Review of Systems Review of Systems Note: Difficulty eating Constitutional: Reports: Chills, Fever (intermittent, highest at 101.1) Cardiovascular: Reports: Syncope (when eating) GI: Reports: Abdominal pain (cramping), Bloody/tarry stool (onset yesterday, resolved ), Melena (onset two days, resolved), Nausea, Vomiting, Denies: Constipation, Diarrhea, Hematemesis Complete sys rev & neg: except as marked. Physical Exam Initial Vital Signs Vital Signs (First) Date Time Temp Pulse Resp B/P Pulse Ox O2 Delivery O2 Flow Rate FiO2 03/28/17 09:55 37.1 109 22 151/91 100 Room Air Initial VS: Reviewed Head / Eyes: Atraumatic, Normocephalic Extremities: Vascular intact, Neuro intact, No swelling, No tenderness Skin: Warm, Dry, No cyanosis Neurologic: Alert, Oriented, Nonfocal Psychiatric: Mood/affect normal, Behavior normal, Normal thought content General/Constitutional: Awake, Alert Respiratory / Chest: Atraumatic, Breath sounds NL, Breath sounds = bilat, No respiratory distress Cardiovascular: Heart rate NL, Regular rhythm, Heart sounds NL Abdomen: Soft Tenderness/Guarding/Rebound: Positive: Tender diffuse Back: Full range of motion, No CVA tenderness Rectum / Perineum: No gross blood Guaiac negative Interpretation & Diagnostics Lab Results Interpretation Result Diagram: 03/28/17 1020 03/28/17 1020 Test 03/28/17 10:20 03/28/17 10:36 White Blood Count 7.9th/mm3 (3.8-10.1) Red Blood Count 4.61mil/mm3 (4.40-5.80) Hemoglobin 13.9g/dL (13.8-17.2) Hematocrit 41.1% (41.0-50.0) Mean Corpuscular Volume 89.2fL (81-100) Mean Corpuscular Hemoglobin 30.2pg (27.0-35.0) Mean Corpuscular Hemoglobin Concent 33.8% (32.0-37.0) Red Cell Distribution Width 14.4% (12.3-15.4) Platelet Count 252bil/L (150-400) Neutrophils (%) (Auto) 65.9% (40-74) Lymphocytes (%) (Auto) 23.3% (14-46) Monocytes (%) (Auto) 9.4% (4-12) Eosinophils (%) (Auto) 1.0% (0-5) Basophils (%) (Auto) 0.3% (0-3) Sodium Level 139mEq/L (134-144) Potassium Level 4.2mEq/L (3.5-5.2) Chloride Level 105mEq/L (97-108) Carbon Dioxide Level 21mmol/L (18-29) Blood Urea Nitrogen 12mg/dL (6-24) Creatinine 0.62mg/dL (0.76-1.27) Estimat Glomerular Filtration Rate 150mL/min (>59) Glucose Level 125mg/dL (60-99) Calcium Level 9.4mg/dL (8.5-10.1) Magnesium Level 1.8mg/dL (1.6-2.6) Total Bilirubin 0.4mg/dL (0.0-1.2) Aspartate Amino Transf (AST/SGOT) 23U/L (0-50) Alanine Aminotransferase (ALT/SGPT) 18U/L (0-44) Alkaline Phosphatase 48U/L (25-150) Total Protein 7.3g/dL (6.4-8.4) Albumin 4.5g/dL (3.4-5.0) Lipase 17U/L (13-60) Hold Urine Received (Received) CT Abd / Pelvis Interpretation IMPRESSION: 1. No small bowel obstruction. 2. Nonspecific wall thickening involving the hepatic flexure of the colon may be related to incomplete distention. Additionally, there is mild prominence of the wall of a few jejunal bowel loops. Please correlate clinically to exclude focal colitis/enteritis. 3. Small hiatal hernia and small fat containing right inguinal hernia. 4. Left lower lobe pulmonary nodules may be related to scarring or atelectasis. A CT of the chest in 6 months is recommended to evaluate for interval change. Dictated by: Eduardo Torres M.D. on 03/28/2017 at 12:07 Approved by: Eduardo Torres M.D. on 03/28/2017 at 12:17 Study type: Abdominal CT IV contrast Interpretation / Wet Read by: Interpret - Radiologist Re-Eval/Medical Decision Med Decision/Clinical Course 41-year-old male history of multiple SBO's and recent diagnosis C. difficile colitis on oral vancomycin for 3 months presenting with abdominal cramping and nausea vomiting for several days. Labs are unremarkable. VSS. CT scan of his abdomen shows no acute pathology other than mild bowel thickening. There is no evidence of obstruction. He does not have any diarrhea making c diff flare less likely. He did report some bloody diarrhea yesterday none today. He is guaiac negative here. His vomiting resolved with Zofran. Likely viral gastroenteritis versus C. difficile. Patient requests to go home. He will continue his oral vancomycin. I have given him Zofran to use as needed. Return precautions given. Discussed extensively with patient and he agrees with this plan. Will follow-up with infectious disease and his primary doctor. Source of Hx: Old records Time of Eval: 10:25 Re-Evaluation/Progress Note: Patient rechecked. Performed rectal exam. Time of Eval: 13:24 Patient Status: Condition improved Re-Evaluation/Progress Note: Patient rechecked. Discussed plan for discharge. Patient agrees and understands plan. Gave all RTER and follow-up directions. All questions addresssed at this time. Counseled Regarding: Diagnosis, Lab results, Need for follow-up, When/why to return to ED Discharge & Departure Primary Impression: Abdominal pain Abdominal location: generalized Qualified Code: R10.84 - Generalized abdominal pain Additional Impression: Nausea & vomiting Vomiting type: unspecified Vomiting Intractability: unspecified Qualified Code: R11.2 - Nausea with vomiting, unspecified Disposition: Home Vital Signs - All Vital Signs Date Time Temp Pulse Resp B/P Pulse Ox O2 Delivery O2 Flow Rate FiO2 03/28/17 13:42 64 15 33/80 97 Room Air 03/28/17 09:55 37.1 109 22 151/91 100 Room Air )( All Prior VS Reviewed: Yes Condition: Stable Patient Instructions: Chronic Abdominal Pain (ED) Additional Instructions: Thank you for entrusting us with your care today. Your labs were unremarkable. There is was no sign of a bowel obstruction. Your CAT scan showed that there was some thickening in your intestine that may be due to C. Diff or a viral infection. Please call today to schedule a follow-up appointment with your primary care doctor and Dr. Valencia in 2-3 days for a recheck. Please return to the emergency department if you are having any new or worsening symptoms, such as worsening abdominal pain, nausea, vomiting, fevers, or blood in your vomit or stool. Referrals: Haroon Perdomo Attestation Portions of this note were transcribed by Renuka Karimi. I, Dr. Gama personally performed the history, physical exam and medical decision-making; I reviewed and confirmed the accuracy of the information in the transcribed note. copies to: Haroon Perdomo Ben M MD Mar 28, 2017 10:04 Renuka Karimi Mar 28, 2017 10:24
[2017-03-28] MEDS ORDERED: 0.9% Sodium Chloride 1,000 ML IV ONE (10:21)
[2017-03-28] MEDS ORDERED: Iohexol 300 mg/mL 30 mL Inj PO ONE (10:25)
[2017-03-28] MEDS: Ondansetron 2 mg/mL 2 mL Inj IVPUSH PRN ×3 (10:49→13:47)
[2017-03-28] MEDS: HYDROmorphone 1 mg/mL Inj IVPUSH PRN ×2 (10:49→11:38)
[2017-03-28 10:51] LABS: BASOPHILS % (AUTO) 0.3 % (0-3); MONOCYTES % (AUTO) 9.4 % (4-12); Mean Corpuscular Hemoglobin 30.2 pg (27.0-35.0); Mean Corpuscular Volume 89.2 fL (81-100); NEUTROPHILS % (AUTO) 65.9 % (40-74); Platelet Count 252 bil/L (150-400)
[2017-03-28 11:18] LABS: Magnesium 1.8 mg/dL (1.6-2.6)
--- NOTE | 2017-03-28 13:19 | DRSVH ---
PROCEDURE: CT ABDOMEN AND PELVIS WITH CONTRAST ([id number]) INDICATIONS: Abdominal pain, vomiting with a history of small bowel obstruction. TECHNIQUE: After the administration of intravenous contrast, 5 mm thick sections acquired from the diaphragm to the symphysis. 5 mm coronal and sagittal reformats were acquired. For radiation dose reduction, the following was used: automated exposure control, adjustment of mA and/or kV according to patient siz e. COMPARISON: [facility], CT, ABD/PELVIS W/CON (PNL), 12/26/2014, 23:24. [facility], CT, CT ABD PELVIS W CON, 03/02/2017, 19:22. FINDINGS: Image quality: Diagnostic. ABDOMEN: Lung bases: Mild scarring versus atelectasis is note within the bilateral posterior lung bases. Ther e is a rounded nodular density identified near the lingula, measuring 6 mm in diameter (image 15, ser ies 2), which may be related to normal appearance of the diaphragm. An additional nodule may be pres ent involving the posterior left lower lobe measuring 5 mm (image 5, series 2). These areas are not definitely appreciated on previous exams. Heart size is normal. Solid organs: Multifocal areas of low-attenuation are seen within the liver, which do not appear to d emonstrate enhancement and are unchanged in size and appearance since 2015, compatible with small hep atic cysts. The spleen, adrenals, and pancreas are within normal limits. The kidneys are unremarkab le. There is no hydronephrosis. No renal calculi are appreciated. A small subcentimeter anterior l eft renal cyst appears to be present involving the cortex. Peritoneum and bowel: There may be a small hiatal hernia. Otherwise, the stomach and duodenum are wi thin normal limits. The small bowel loops are nondilated. However, there is questionable thickening of the wall of a few of the jejunal bowel loops within the left abdomen. Moderate residual stool is seen throughout the colon. Partial areas of borderline thickening involving the wall of the hepatic flexure of the colon may be present versus incomplete distention. Mild distal colonic diverticulosi s appears to be present without diverticulitis. No free fluid, loculated fluid collection or free air is identified. Nodes and vessels: No retroperitoneal or mesenteric adenopathy by size criteria. Aorta and inferior vena cava are normal in size. There is aortic atherosclerosis. Bones: No acute fractures or suspicious osseous lesions are present. Postoperative changes related to a lumbosacral fusion are present. PELVIS: Soft tissues: Bladder wall thickness is normal. The ureters do not appear to be enlarged. The pros murphy is not enlarged. A small fat-containing right lumbar hernia appears to be present. No left ing uinal hernia is evident. No free fluid, loculated fluid collection or free air is seen within the pe lvis. Bones: No suspicious bony lesions. No acute pelvic fractures are evident. IMPRESSION: 1. No small bowel obstruction. 2. Nonspecific wall thickening involving the hepatic flexure of the colon may be related to incomple te distention. Additionally, there is mild prominence of the wall of a few jejunal bowel loops. Ple ase correlate clinically to exclude focal colitis/enteritis. 3. Small hiatal hernia and small fat containing right inguinal hernia. 4. Left lower lobe pulmonary nodules may be related to scarring or atelectasis. A CT of the chest i n 6 months is recommended to evaluate for interval change. Dictated by: Eduardo Torres M.D. on 03/28/2017 at 12:07 Approved by: Eduardo Torres M.D. on 03/28/2017 at 12:17
[2017-03-28] MEDS ORDERED: ONDA4TAB9 PO (13:28)
[2017-03-28] MEDS ORDERED: oxyCODONE-Acetamin 10-325 mg Tablet PO ONE (13:30)
[2017-03-28 13:42] VITALS: BP 33/80; PULSE 64; RESP 15; O2SAT 97
[2017-03-29] MEDS ORDERED: OXYC-530 PO (20:14)
[2017-03-29] MEDS ORDERED: GABA-500 PO (20:14)
[2017-03-29] MEDS ORDERED: ONDA-53 PO (20:14)
== END 2017-03-28 13:49 | disposition home or self-care (01) ==
LOC: SED 09:40
DX: R10.84 Generalized abdominal pain (principal); R11.2 Nausea with vomiting, unspecified; R50.9 Fever, unspecified; K21.9 Gastro-esophageal reflux disease without esophagitis; G43.909 Migraine, unspecified, not intractable, without status migrainosus; M79.7 Fibromyalgia; I67.1 Cerebral aneurysm, nonruptured; Z87.442 Personal history of urinary calculi; F17.200 Nicotine dependence, unspecified, uncomplicated
CPT/HCPCS: 36415; 74177; 80053; 83690; 83735; 85025; 96361; 96374; 96375; 96376; 99285; J1170; J2405; J7030; Q9967

== ENCOUNTER 2017-03-28 19:53 | Emergency (ER) | payer MEDICARE, MEDICAID ==
[~2017-03-28] VITALS: Ht 170.2 cm; Wt 63.6 kg
[~2017-03-28 19:53] MED LIST changes: +ONDA4TAB9 PO
[2017-03-28 20:29] VITALS: BP 133/84; PULSE 85; RESP 18; O2SAT 98
[2017-03-29] MEDS ORDERED: GABA-500 PO (20:14)
[2017-03-29] MEDS ORDERED: OXYC-530 PO (20:14)
[2017-03-29] MEDS ORDERED: ONDA-53 PO (20:14)
== END 2017-03-28 21:00 | disposition left against medical advice (07) ==
LOC: SED 19:53
DX: R11.2 Nausea with vomiting, unspecified (principal); Z53.21 Procedure and treatment not carried out due to patient leaving prior to being seen by health care provider

== ENCOUNTER 2017-03-29 13:37 | Inpatient (IN) | payer MEDICARE, MEDICAID ==
[~2017-03-29] VITALS: Ht 170.2 cm; Wt 66.3 kg
[2017-03-29 13:49] VITALS: BP 147/93; PULSE 108; RESP 28; O2SAT 100
[2017-03-29] MEDS ORDERED: 0.9% Sodium Chloride 1,000 ML IV ONE ×2 (16:15→16:50)
[2017-03-29] MEDS ORDERED: Ondansetron 2 mg/mL 2 mL Inj IVPUSH ONE ×2 (16:15→16:50)
--- NOTE | 2017-03-29 16:33 | ED.REPORT ---
HPI-NVD Date of Service Mar 29, 2017 ED Provider: Jimbo Yeung MD Pt is a 41 y/o male with a history of multiple ED visits, recurrent and recent C. difficile colitis, IBS, cyclical vomiting, small bowel obstruction two weeks ago, GI bleeding, diverticulitis, and gastric adhesions presenting to the ED sent by Dr. Valencia c/o diarrhea onset two months that worsened last night at around 2100. He reports having 12 episodes of diarrhea since 2300 last night that is exacerbated by eating and movement. He was seen yesterday for the same symptoms, but states that it has progressively worsened. Pt is currently on week 3 of oral vancomyacin, and also takes zofran, oxycodone, and gabapentin. Additional symptoms include nausea, vomiting, difficulty eating, difficulty sleeping, diffuse abdominal pain that is worse in the RLQ and LLQ, diaphoresis, intermittent fever with the highest at 100.9, and rash. Per record review from [facility], pt was admitted from 03/13/17-03/15/17, but no small bowel obstruction was noted in the records. Nursing Notes Stated Complaint: ABDOMINAL PAIN Chief Complaint: Male Abdominal Pain Nursing Notes Reviewed: Yes ([employer] not reconciled) Allergies: Coded Allergies: No Known Allergies (Unverified , 03/28/17) Scheduled Metronidazole (Flagyl) 500 Mg Tablet 500 MG PO TID Vancomycin (Vancomycin) 125 Mg Capsule 125 MG PO QID Scheduled PRN Acetaminophen (Acetaminophen) 500 Mg Tablet 1,000 MG PO BID PRN PRN For Pain Methocarbamol (Robaxin-750) 750 Mg Tablet 750 MG PO QID PRN PRN For Pain Metoclopramide (Reglan) 5 Mg Tablet 5 MG PO QID PRN PRN For Nausea Ondansetron (Ondansetron) 8 Mg Tablet 8 MG PO BID PRN PRN For Nausea Ondansetron ODT (Zofran ODT) 4 Mg Tablet 4 MG PO Q4H PRN PRN For Nausea oxyCODONE-Acetaminophen 5-325 mg (oxyCODONE-Acetaminophen 5-325 mg) 1 Each Tablet 1 TAB PO Q6H PRN PRN For Pain General Time Seen by MD: 16:08 Chief Complaint Diarrhea Hx Obtained From: Patient Arrived By: Walk-in Onset Occurred: More than a week ago... Symptom Duration: Constant Diarrhea: Diarrhea > 10 episodes Quality: Painful Severity: Current: Moderate Severity: Maximum: Severe Recent Healthcare: Recent doctor visit, Recent hospitalization Similar Sx Previous: Yes Past Medical History Past Medical History Notes: [facility] Special[facility]: Dr. Pro Nunn is Spine Doctor/Surgeon. 10 ED visits from 01/31-03/11 for GI complaints (last seen yest, 03/28: labs, CT abd/pelvis done)) Last admit 12/2016: Extensive workup including endoscopy and colonoscopy negative (D/C notes indicate w/u for Inflammatory Bowel Disease negative) Past Medical History 1. Clostridium difficile colitis 05/2015 and 12/2014 and 02/2017 2. Colitis 3. IBS 4. Cyclical vomiting 5. Small bowel obstruction 6. Migraine 7. Guillen's esophagus 8. GERD 9. Gastritis Prostatitis. Fibromyalgia. Kidney stones Interstitial cystitis Epidural hematoma Internal and blood BM chronically diverticulitus DVT Small brain aneurysm Stomach adhesions Back surgery Past Surgical History 1. Right ear drum repair 2. Laparoscopy in 2001 and again in 2013 with lysis of adhesion and incidental appy at that time at [facility] in [place] 3. Right ACL reconstruction 4. C5, C6, C7 Fusion Jul 30, 2014 done at [facility] 5. Fatty tissue removal and spinal canal widening at [facility] on Jul 08 2016 6. Back surgery for epidural hematoma, Aug 10, 2016 7. Appendectomy Family History Reviewed, not relevant. Prostate cancer in brother and father. Mom-stroke, HTN Smoking History Current Every Day Smoker Social History Trying to quit smoking 'Hx of narcotic seeking" - per EMR Alcohol Use: Denies alcohol use Drug Use: Denies drug use Other Social History: Good social support, Frequent ED visitor, , Local resident Occupation no work or school Ambulatory Status Independent Review of Systems Review of Systems Note: Difficulty eating Difficulty sleeping Constitutional: Reports: Fever (with highest at 100.9) GI: Reports: Abdominal pain, Diarrhea, Nausea, Vomiting Skin: Reports Diaphoresis, Reports Rash Complete sys rev & neg: except as marked. Physical Exam Initial Vital Signs Vital Signs (First) Date Time Temp Pulse Resp B/P Pulse Ox O2 Delivery O2 Flow Rate FiO2 03/29/17 13:49 37.2 108 28 147/93 100 Room Air Initial VS: Reviewed Head / Eyes: Atraumatic, Normocephalic Extremities: Vascular intact, Neuro intact, No swelling, No tenderness Neurologic: Alert, Oriented, Nonfocal Psychiatric: Mood/affect normal, Behavior normal, Normal thought content General/Constitutional: Awake, Alert, Not toxic appearing Mildly uncomfortable Similar presentation to prior visits Abdomen: Soft Abdomen is diffusely tender, as per normal ENT: Atraumatic, Airway patent, Mucous membranes moist Respiratory / Chest: Atraumatic, Breath sounds NL, Breath sounds = bilat, No respiratory distress Cardiovascular: Heart rate NL, Regular rhythm, Heart sounds NL Heart Rate / Rhythm: Negative: Tachycardia Skin: Warm, Dry Faint macular rash, unknown etiology on trunk Non-specific and not urticarial Interpretation & Diagnostics Interpretation & Diagnostics: See labs and CT scan abd/pelvis from yesterday 03/28 She has positive C. difficile studies from 02/20 and 03/11 Lab Results Interpretation Result Diagram: 03/29/17 1620 03/29/17 1620 Test 03/29/17 16:20 White Blood Count 10.8th/mm3 (3.8-10.1) Red Blood Count 4.37mil/mm3 (4.40-5.80) Hemoglobin 13.3g/dL (13.8-17.2) Hematocrit 39.0% (41.0-50.0) Mean Corpuscular Volume 89.2fL (81-100) Mean Corpuscular Hemoglobin 30.4pg (27.0-35.0) Mean Corpuscular Hemoglobin Concent 34.1% (32.0-37.0) Red Cell Distribution Width 14.2% (12.3-15.4) Platelet Count 240bil/L (150-400) Neutrophils (%) (Auto) 76.1% (40-74) Lymphocytes (%) (Auto) 16.1% (14-46) Monocytes (%) (Auto) 7.2% (4-12) Eosinophils (%) (Auto) 0.2% (0-5) Basophils (%) (Auto) 0.2% (0-3) Sodium Level 140mEq/L (134-144) Potassium Level 4.0mEq/L (3.5-5.2) Chloride Level 104mEq/L (97-108) Carbon Dioxide Level 23mmol/L (18-29) Blood Urea Nitrogen 7mg/dL (6-24) Creatinine 0.68mg/dL (0.76-1.27) Estimat Glomerular Filtration Rate 135mL/min (>59) Glucose Level 95mg/dL (60-99) Calcium Level 9.2mg/dL (8.5-10.1) Total Bilirubin 0.5mg/dL (0.0-1.2) Aspartate Amino Transf (AST/SGOT) 19U/L (0-50) Alanine Aminotransferase (ALT/SGPT) 16U/L (0-44) Alkaline Phosphatase 45U/L (25-150) Total Protein 7.1g/dL (6.4-8.4) Albumin 4.3g/dL (3.4-5.0) Lab Results Interpretation: CBC nonspecific leukocytosis CMP normal Re-Eval/Medical Decision Med Decision/Clinical Course This is a 41-year-old male returns the emerge department for the 10th visit in the past 2 months complaining of worsening C. difficile, and continue sent by Dr. Valencia's (ID) office. She was last seen yesterday the emerge, were normal blood work and a CT scan was reassuring, with trace area of nonspecific bowel wall thickening only. She reports she's now been on oral vancomycin for 3 weeks, he claims an admission to [facility] for "small bowel obstruction" around 3 weeks ago (records requested , but have not yet arrived) reports all of his symptoms got worse last night he developed vomiting, diarrhea, and worsening abdominal pain. He reports is unable to take anything by mouth, can keep his medicines down, so he called infectious disease office he was referred to get back to the emergency department. He has normal vitals, he appears anxious. I've seen him a number of times, and he appears about the same as previous visits-he does not appear toxic or acutely ill. I found the right think that some of his complaints have often been a little bit disproportionate to clinical exam findings. He is not tachycardic, his mucous membranes are not particularly dry, his abdomen is diffusely tender-as it is been on multiple previous evaluations, with no marked interval change. He just was CT imaged yesterday, and I'm not finding indication repeat imaging today, particulary given his laboratories remained reassuring. Patient is requesting pain and nausea medicine did receive hydration with some medication. Confirmed C. difficile testing both February 20 and March 11 here, so C. difficile does remain a potential concern in isolation precautions for follow-up. He does seem also bit unusual the patient reports having no diarrhea. Yesterday, and simply has symptoms again last night. However with multiple ED visits, multiple provider visits, and the patient's reported history of discussed the case with Dr. Valencia and the plan is an observation admission. We'll continue supportive care with ongoing oral vancomycin, IV fluids, and at this point was counseled stools to verify presence of the recurrent diarrhea the patient reports is now occurring, which can help determine if any stool additional testing or further change in management is warranted. Source of Hx: Old records Re-Evaluation/Progress : Time of Eval: 16:10 Re-Evaluation/Progress Note: Discussed plan for admission. Patient understands and agrees with plan. All questions addressed. Consultation #1: Referral / Consult Name: Lc Valencia MD Call Returned at: 17:00 Inbound Telemarketer: Will see patient, Agrees with eval, Agrees with plan Note: Discussed patient's case with infectious disease specialist, Dr. Valencia. He will see the patient. Consultation #2: Referral / Consult Name: Lc Valencia MD Call Returned at: 17:49 Inbound Telemarketer: Agrees with eval, Agrees with plan Note: Discussed patient's case with Dr. Valencia. He saw the patient and he agrees with the plan for admission. Consultation #3: Referral / Consult Name: Deepa Eric DO Consulted With: Hospitalist Call Returned at: 19:23 Inbound Telemarketer: Will see patient, Agrees with plan, Accepts admit Differential Diagnosis: Positive: C. diff colitis, Negative: Drug overdose, Drug toxicity, Drug-med reaction, Sri-Rose syndrome, Pancreatitis, Peptic ulcer disease, Counseled Regarding: Diagnosis, Lab results, Need for admission Discharge & Departure Impression: Primary Impression: C. difficile diarrhea Additional Impressions: Abdominal pain Abdominal location: generalized Qualified Code: R10.84 - Generalized abdominal pain Nausea and vomiting Vomiting type: unspecified Vomiting Intractability: unspecified Qualified Code: R11.2 - Nausea with vomiting, unspecified Disposition: ADMITTED TO HOSPITAL Discharge Condition All VS Reviewed: Yes Condition: Stable Referrals: Haroon Perdomo DO [employer] Att[facility] Portions of this note were transcribed by Renuka Karimi. I, Dr. Yeung, personally performed the history, physical exam and medical decision-making; I reviewed and confirmed the accuracy of the information in the transcribed note. copies to: Haroon Perdomo Matthew F MD Mar 29, 2017 16:33 Renuka Karimi Mar 29, 2017 16:42
[2017-03-29 16:35] LABS: BASOPHILS % (AUTO) 0.2 % (0-3); EOSINOPHILS % (AUTO) 0.2 % (0-5); MONOCYTES % (AUTO) 7.2 % (4-12); Mean Corpuscular Hemoglobin 30.4 pg (27.0-35.0); Mean Corpuscular Volume 89.2 fL (81-100); NEUTROPHILS % (AUTO) 76.1 % (40-74); Platelet Count 240 bil/L (150-400)
[2017-03-29] MEDS: HYDROmorphone 1 mg/mL Inj IVPUSH PRN ×2 (16:58→18:00)
[2017-03-29 18:01] VITALS: BP 138/89; PULSE 88; RESP 16; O2SAT 97
[2017-03-29 18:19] VITALS: BP 138/89; PULSE 88; RESP 16; O2SAT 97
[2017-03-29 18:50] VITALS: BP 132/76; PULSE 55; RESP 20; O2SAT 98
--- NOTE | 2017-03-29 19:33 | CONS ---
[address] [address] CONSULTATION REPORT PATIENT: SARAH SELBY : 1975 MR#: [id number] ADMIT: 03/29/2017 JOB ID: [id number] DATE OF SERVICE: 03/29/2017 INFECTIOUS DISEASE CONSULTATION: I thank Dr. Jimbo Yeung of the emergency department team for this consult. REASON FOR CONSULTATION: Abdominal pain, nausea, vomiting, subjective fever and history of C. diff. HISTORY OF PRESENT ILLNESS: The patient is a very confusing 41-year-old gentleman who I have seen one time in my outpatient clinic. That visit was about two weeks ago. The patient has a history of recurrent and really intractable abdominal plain as well as a history of irritable bowel syndrome, partial small bowel obstructions, and C. difficile colitis. The patient states that he first had C. diff a couple of years ago and then has had multiple recurrences. Most recently we have PCR studies from both February and March done at this facility establishing stool positivity for C diff. The patient saw me in clinic two weeks ago and at that time I recommended that we try a prolonged course of vancomycin in an attempt to forestall any more recurrences. The patient tells me he has been compliant with the two weeks of four times a day vancomycin as prescribed, and was about to switch to the twice a day for two weeks as part of the taper. Unfortunately a couple of days ago the patient states he developed worsening abdominal pain and distention associated with very frequent bowel movements, nausea, vomiting, and generalized but especially abdominal pain of such severity that it reduced into tears in spite of the use of oral opiates. For this reason the patient presented to the emergency department and has been evaluated and the decision has been made to admit him. Part of the reason to decide to admit the patient at this time was his very frequent ER visits. It has been noted the patient has had literally more than a dozen ER visits in past weeks including one yesterday. The patient also mentions that he has been admitted recently to the [facility], which is interesting in view of his very frequent ER visits here. This is confusing, but apparently the patient was admitted to the hospital recently at [place] and we are attempting to get records from that admission. It appears from the limited records that we have that he was evaluated for atypical abdominal pain and was discharged from that facility. There is no evidence to suggest that he had a bowel obstruction during the admission at [place]. Also notable as I go through his record is the fact that he appears to have had 61 emergency department visits in the past year including five at [facility], two at [facility] in [place], 29 here, and 25 at [facility]. PAST MEDICAL HISTORY: 1. Chronic back and neck pain requiring chronic narcotics. 2. History of diverticulitis. 3. History of recurrent C. diff. 4. History of partial small-bowel obstructions. 5. Irritable bowel syndrome. 6. History of GI bleeding. 7. History of migraine headaches. 8. History of GERD. 9. Fibromyalgia. PAST SURGICAL HISTORY: Includes fusion surgeries on the spine as well, as lumbar back surgeries in the past, and laparoscopic lysis of intestinal adhesions. SOCIAL HISTORY: The patient is an ongoing cigarette smoker. Does not drink alcohol or use illicit drugs though he does take large amounts of prescription opiates for his back and abdominal pains. FAMILY HISTORY: Negative for tuberculosis. REVIEW OF SYSTEMS: Was done. At this time the patient reports headaches which are mild in nature. No sinus complaint or visual change. He has some sore throat from vomiting. His neck is soft and supple and he denies any neck stiffness. He states he has no cough, shortness of breath, or chest pain. He has frequent vomiting, severe abdominal pain, and intractable nausea. He states he is having frequent bowel movements over the last two or three days and has had up to 12 bowel movements per day in the past 48 hours. He is having no urinary tract symptoms and specifically no pneumaturia. He has not noted any swollen lymph nodes and no peripheral edema or skin rash. Remainder of the review of systems is negative. PHYSICAL EXAMINATION: Reveals an afebrile gentleman lying very quietly on an ER gurney. Temperature 37.2, pulse 88, respiratory rate 16, blood pressure 138/88, saturating well on room air. The patient is awake, alert. His mood seems depressed and his affect is distinctly flat. Examination the head: No trauma. No temporal wasting. No evidence of sinusitis. Eyes without conjunctivitis. Oral cavity without thrush or hairy leukoplakia. No pharyngitis is noted. His neck is supple. No adenopathy. His lungs are clear. Cardiac tones regular rate and rhythm, without murmur. Abdomen has essentially normal bowel tones. His abdomen is almost rigid, though, to palpation. He reports pain in all four quadrants. It is really impossible to assess whether he may have hepatosplenomegaly or any mass due to the rigid nature of his abdomen. His abdomen is not distended, however. No evidence for any hernias is noted. He does not have a Sousa catheter nor does he have suprapubic fullness. His extremities are warm and well perfused. He has excellent peripheral pulses. No synovitis, cellulitis, or edema is noted. Neurologically, he is intact. LABORATORIES: Include white blood count 10,800, basically normal diff. Creatinine 0.68. LFTs are normal. Albumin 4.3. Urinalysis without white cells. An HIV from three months ago was negative. Stool for C. diff positive back in 2014, then there is a negative in May 2016, and then two positives for C. diff, one February 20 and one March 11. IMAGING: Includes an abdominal CT scan done yesterday in this ED when he was seen. We note that this is a separate ER visit today. On that evaluation no small bowel obstruction. Nonspecific wall thickening of the hepatic flexure which may or may not be significant. Also noted was mild prominence of some jejunal loops. There were some left lower lobe pulmonary nodules which may represent scarring or atelectasis. Back on March 11 he had a plain film which showed no obstruction. An abdominal CT was done March 02 that showed diverticulosis without diverticulitis. IMPRESSION: This is an extremely difficult case of a gentleman with over 60 ED visits in 12 months, many of these ED visits related to various abdominal complaints, and he reports he has been worked up in multiple localities for partial bowel obstruction as well as recurrent C. diff. We do have absolute proof that he is at least colonized with a toxigenic capable C. diff strain as we have two positive PCRs from February and March of this year. Whether or not his current symptomatology is related to C. diff is unclear, and how much of his presentation is related to his chronic pain syndromes and use of relatively significant doses of opiates is unclear as well. It is distinctly unusual for someone not to respond to four times a day oral vancomycin for two weeks. The patients almost always improve with this intensity of therapy for C. diff and the problem really is that they can relapse after treatment is stopped, not that they get worse two weeks into therapy, which I find highly unlikely. RECOMMENDATIONS: 1. I would continue with the oral vancomycin which he has been receiving in a dose of 125 q.i.d. We will taper this after his discharge. 2. I am not certain of the value of repeating a C. diff as we have one from two weeks ago that was positive and it is likely to continue to be positive. What I would do is to carefully quantitate the frequency of his stools. If indeed the patient is having very frequent diarrhea we may need to repeat a PCR using the multiplex PCR study just to see if there may be co-pathogens present. 3. I would definitely consult GI on this case. The patient tells me he has seen Dr. Beaver in the past of the GI service. 4. I will continue to follow this complex patient with you Thank you very much.
[2017-03-29] MEDS ORDERED: HYDROmorphone 1 mg/mL Inj IVPUSH PRN (20:10)
[2017-03-29] MEDS ORDERED: OXYC-530 PO (20:14)
[2017-03-29] MEDS ORDERED: ONDA-53 PO (20:14)
[2017-03-29] MEDS ORDERED: GABA-500 PO (20:14)
[2017-03-29 20:30] LABS: APPEARANCE,URINE CLEAR (CLEAR,HAZY); COLOR,URINE YELLOW (YELLOW); OCCULT BLOOD,URINE NEGATIVE (NEGATIVE); UROBILINOGEN,URINE NORMAL (NORMAL)
--- NOTE | 2017-03-29 21:00 | NUR ---
admit: admit assessment complete, admit RN completed med rec and questions. pt A&OX3, c/o abd pain. pt tolerating broth, and water, and crackers. will continue to monitor.
--- NOTE | 2017-03-29 21:47 | PCM.HPMED ---
Subjective Date of Service Mar 29, 2017 Primary Provider: Admitting Physician: Fred Castle MD Primary Care Physician: Dennys,[facility] Residency Attending Physician: Fred Castle MD Chief Complaint: Abdominal pain and diarrhea History of Present Illness: Orlando Levin is a 41-year-old male with past medical history significant for chronic back pain with opioid habituation, recurrent abdominal pain with numerous partial small bowel obstructions, and history of 3 episodes of C. difficile who presents with increasing diarrhea, emesis, and abdominal pain. Patient has had frequent ER visits over the last months not only at our facility but also at [facility], [facility], and [facility] for similar complaints of abdominal pain, nausea, and vomiting. Most recent ER visit was yesterday. At yesterday's ER visit a CT was completed which showed no small bowel obstruction and nonspecific wall thickening involving the hepatic flexure of the colon. Patient was sent home but returns today stating he has had 12 episodes of diarrhea since discharge yesterday along with 2-3 episodes of emesis. Pertinent history includes that the patient has recently tested positive for C. difficile on both 03/11/2017 and 02/20/2017. Dr. Valencia , ID, saw him in the outpatient and started him on oral vancomycin 4 times a day which he has been compliant with for the last 2 weeks. The patient notes that his diarrhea had slowed and he had an average of 2 soft bowel movements per day until 03/27/2017 when he developed watery diarrhea. Patient states that with the increased bowel movements he has had significant worsening of his diffuse abdominal pain. Pain is worse in his left lower quadrant. He states it is achy in nature and has intermittent sharp episodes. Pain is typically relieved after a bowel movement or episode of emesis. He states he has had 1 or 2 bouts of hematochezia. Last bowel movement was 03/29/2017 at 1230 and last emesis was at 0130. On presentation to the ED initial vitals were temperature 37.2, pulse 108, respiratory rate 28, blood pressure 147/93, satting 100% on room air. Initial labs revealed a white blood cell count of 10.8 with a slight neutrophilic elevation at 76.1%, hemoglobin of 13.3, hematocrit 39, and an unremarkable CMP. As the patient had a CT of his abdomen yesterday no further imaging was completed at today's visit. He received 2 L of redness in the ED along with Zofran and Dilaudid. Patient was also seen by Dr. Valencia in consultation in the ED. Dr. Valencia recommending continuation of his vancomycin along with close monitoring of frequency of diarrheal episodes. Review of Systems: Comprehensive review of systems was conducted with the patient and found to be negative except as noted above in HPI. Allergies Coded Allergies: No Known Allergies (Unverified , 03/28/17) Home Medications Gabapentin 300 mg nightly Oxycodone 10 mg every 6 hours when necessary Acetaminophen 500 mg twice a day Zofran when necessary Vancomycin PMH 1. Chronic back and neck pain requiring chronic narcotics. 2. History of diverticulitis. 3. History of recurrent C. diff. 4. History of partial small-bowel obstructions. 5. Irritable bowel syndrome. 6. History of GI bleeding. 7. History of migraine headaches. 8. History of GERD. 9. Fibromyalgia. Surgical History Includes fusion surgeries on the spine as well, as lumbar back surgeries in the past, and laparoscopic lysis of intestinal adhesions. Family History Father - prostate cancer Brother - prostate cancer Mother - colon polyps, stroke, and hypertension Social History Hx Alcohol Use: No Hx Substance Use: No Hx Tobacco Use: Yes (5 cigarettes/day x 2years; previous 1ppd x25y) Smoking Status: Current Every Day Smoker Living Arrangement: with Family ( and has 2 kids) Exam Vital Signs Vital Sign - Last Date Time Temp Pulse Resp B/P Pulse Ox O2 Delivery O2 Flow Rate FiO2 03/29/17 18:50 36.6 55 20 132/76 98 Room Air Exam General: Age-appropriate male lying comfortably in bed. Appropriately interactive in no acute stress. HEENT: Normocephalic, atraumatic. External ears without defect. Pupils equal, round, and reactive to light and accommodation. Anicteric sclerae, moist conjunctivae, and no lid lag. Halitosis. Moist oral mucosa. Poor dentition. Neck: Supple with full range of motion. No jugular venous distension. Cardiovascular: Regular rate and rhythm with no murmurs, rubs, or gallops appreciated Pulmonary: Clear to auscultation bilaterally with no crackles, wheezes, or rhonchi. Normal respiratory effort with no use of accessory muscles. Abdomen: Bowel tones present. Abdomen rigid with palpation partially secondary to the patient dina abdominal muscles. Less rigid when palpating with stethoscope. Hepatosplenomegaly difficult to assess. No rebound. Extremities: No clubbing, cyanosis, edema, or lymphadenopathy appreciated. Skin: Normal temperature, turgor, and texture; no rash, ulcers, or subcutaneous nodules appreciated. Neurological: Cranial nerves grossly intact. Normal muscle strength, tone, and bulk. Reflexes, coordination, and sensory function within normal limits. No known gait impairment. Psychiatric: Normal mood and affect. Alert and oriented to person, place, and time. Lab and Diagnostics Result Diagram: 03/29/17 1620 03/29/17 1620 Microbiology C. difficile positive on 02/20/2017 and 03/11/2017. X-Rays, CTs and MRIs CT ABDOMEN AND PELVIS WITH CONTRAST IMPRESSION: 1. No small bowel obstruction. 2. Nonspecific wall thickening involving the hepatic flexure of the colon may be related to incomplete distention. Additionally, there is mild prominence of the wall of a few jejunal bowel loops. Please correlate clinically to exclude focal colitis/enteritis. 3. Small hiatal hernia and small fat containing right inguinal hernia. 4. Left lower lobe pulmonary nodules may be related to scarring or atelectasis. A CT of the chest in 6 months is recommended to evaluate for interval change. Dictated by: Eduardo Torres M.D. on 03/28/2017 at 12:07 Approved by: Eduardo Torres M.D. on 03/28/2017 at 12:17 Assessment & Plan Orlando Levin is a 41-year-old male with past medical history significant for chronic back pain with opioid habituation, recurrent abdominal pain with numerous partial small bowel obstructions, and history of 3 episodes of C. difficile who presents with increasing diarrhea, emesis, and abdominal pain. C. Diff infection, present on admission, active. - Positive PCR on 02/20/2017 and 03/11/2017. - Last bowel movement was on 03/29/2017 at 1230. - Per Dr. Valencia continue vancomycin 125 mg every 6 hours. Patient has been on this regimen for the past 2 weeks. - Per Dr. Valencia likely minimal to no utility in repeating C. difficile PCR as it will likely be positive. - Close documentation by nursing staff of frequency and quantity of episodes. - GI consult placed. Day team to contact in the morning. Patient has previously seen Dr. Mast. Abdominal pain, present on admission, active. - Etiology likely secondary to C. difficile infection but cannot rule out the possibility of small bowel obstruction as patient has a history of small bowel obstruction. - CT abdomen 03/28/2017 showed no sign of small bowel obstruction. - No further imaging at this time as patient has had continued bowel movements and no recent episodes of emesis in the last 10 hours. - Low threshold to repeat CT abdomen or obtain abdominal x-ray. Nausea and vomiting, present on admission, active. - Last episode of emesis was on 03/29/2017 at 0130. - 2 L NS given in the ED. - IV Zofran every 4 hours when necessary. - Close documentation by nursing staff frequency and quantity of episodes. Chronic stable conditions Chronic back pain with opioid habituation - Continue home medication: Oxycodone 5-10mg Q6H PRN pain. Fibromyalgia - Continue home medication: Gabapentin 300 mg daily. PRN Medications - Acetaminophen as needed for mild pain/fever/headache - Bowel regimen as needed - Antiemetic as needed Patient is admitted under observation status with expected length of stay less than 2 midnights due to severity of presenting symptoms, risk of adverse event, and complexity of treatment plan. Pain Evaluation: Adequate Pain Control GI Prophylaxis: Not indicated VTE Prophylaxis: Sub-Q Heparin (Unfractionated) Resuscitation Status: CPR: Attempt Resuscitation Attending Statement //The patient was seen and examined together with house staff on 03/29/2017 and I agree with the history, exam and plan as outlined in the note above. VIC BISHOP DO Mar 29, 2017 20:14 Deepa Eric DO Mar 30, 2017 00:36
[2017-03-29] MEDS: Ondansetron 2 mg/mL 2 mL Inj IVPUSH PRN (21:52)
[2017-03-29] MEDS: Vancomycin 125 mg Oral Capsule PO SCH (22:31)
[2017-03-30] MEDS: Heparin 5,000 Unit/mL Inj SUBQ SCH ×4 (02:30→23:57)
[2017-03-30] MEDS: Ondansetron 2 mg/mL 2 mL Inj IVPUSH PRN ×3 (02:30→12:25)
[2017-03-30] MEDS: Vancomycin 125 mg Oral Capsule PO SCH ×4 (05:21→19:41)
[2017-03-30 05:34] VITALS: BP 125/62; PULSE 54; RESP 20; O2SAT 95
[2017-03-30] MEDS: HYDROmorphone 1 mg/mL Inj IVPUSH PRN ×2 (08:49→15:52)
--- NOTE | 2017-03-30 09:12 | NUR ---
Social Work-initial assessment/ readiness for discharge: Data:See initial assessment. Pt is a 41 y/o male who was admitted on 03/29/17 for C diff per H&P. Pt's insurance is [employer] and [employer] and [facility]CP [facility]. EMR Reviewed. SW met with pt at bedside, SW role explained. Pt is alert and oriented x3. Pt resides at home in trailer with 2 steps to enter with and family where he remains independent with ADLS. Pt occasionally uses a fww or cane and does drive. Pt has no HH or SNF history. Pt has no retirement care insurance or VA benefits. SW discussed DPOA/ advanced directive, pt declines any information. Pt confirms his will provide transport home at discharge. No concerns noted around pt's capacity for self care from RN or Md. Pt has been up independent in his room. SW provided pt with discharge planning checklist and encouraged him to call with any questions, phone number provided on white board in room. No anticipated discharge needs. SW will continue to follow if needs arise. Assessment:Pt who is independent at baseline. Plan:Pt to discharge home when medically stable via POV. No anticipated discharge needs. SW will continue to follow if needs arise. DAFNE Beyer Addendum: 03/30/17 at 0919 by TRUMAN SCHWARZ Amended: Links added.
--- NOTE | 2017-03-30 11:43 | PROG NOTE ---
[address] [address] PROGRESS NOTE PATIENT: SARAH SELBY : 1975 MR#: [id number] ADMIT: 03/29/2017 JOB ID: [id number] DATE: 03/30/2017 REASON FOR FOLLOWUP: C. difficile colitis. INTERVAL HISTORY: Recall this is an extremely complex young man with history of ill-defined bowel problems including irritable bowel syndrome as well as chronic back and neck pain who is on chronic opiate therapy for the chronic pain. He has been seen over 60 times in four local emergency rooms over the past year for a variety of complaints, but mainly related to his GI system. In February and March he had stool PCRs positive for C. diff and was referred to my outpatient clinic two weeks ago today. At that time, it was very unclear to me what was going on, but I decided to embark on a long taper of vancomycin using four times daily, followed by twice daily, followed by once a day, followed by every other day vanco. During the course of his high-dose portion of the oral vancomycin the patient was seen numerous times in our ER as well as in the [facility] for abdominal pain, nausea, and vomiting. Diarrhea was also a component of some of these visits. Finally yesterday the patient was admitted after his second ER visit in two days for abdominal pain, nausea, vomiting, and reports of diarrhea. I advised that we would continue on the four times a day vanco and observe what happened. Overnight the patient reports he has had persistent nausea, but was able to eat and retain his breakfast. He denies any vomiting nor any diarrhea whatsoever in the 14 hours or so he has been here in the hospital. He reports continued back pain. No fevers. No chills. PHYSICAL EXAMINATION: Reveals an afebrile gentleman. He has been afebrile since admission. Temp 36.7, pulse 54, respiratory rate 20, blood pressure 125/52, saturating well on room air. His mood is depressed. His affect is flat and as always when you enter the room the patient is grimacing. He does not have any conjunctival abnormalities. His lungs are clear. Cardiac tones without murmur. Abdomen has reasonable bowel tones, it is diffusely tender almost everywhere one palpates and there is a lot of guarding involved. No skin rashes noted. LABORATORIES: Include white count 10,000 with essentially normal diff. Creatinine 0.68. Normal LFTs. Procalcitonin is zero. Urinalysis negative. No micro-studies are available. A CT scan done during the ED visit on the was again reviewed. It showed some nonspecific bowel wall thickening near the hepatic flexure which could be due to incomplete distention and there was mild prominence of a few jejunal bowel loops. Otherwise basically normal. No evidence of obstruction was seen. IMPRESSION: This is a difficult patient who has chronic pain and is disabled on that basis. He uses opiates chronically in fairly high doses and visits emergency rooms in the local region at least once a week. He has a wide variety of gastrointestinal symptomatology and has been worked up extensively here and elsewhere for that without definitive diagnosis as far as I can tell beyond irritable bowel syndrome, though there have been concerns about gastrointestinal bleeding and Crohn disease and partial small bowel obstructions in the past. At this point, he is just finishing today two weeks of four times a day oral vancomycin therapy for relapsing C. diff. It is very unusual for patients to fail two weeks of the high dose vanco and not surprising I think his diarrhea is resolved. Additional diarrhea is likely on the basis of irritable bowel syndrome rather than vanco at least until he has completed his taper. From an Infectious Disease point of view, I see no particular reason for the patient to remain in the hospital other than to obtain a gastrointestinal consult and perhaps have his food intake and stool output monitored for a bit longer. RECOMMENDATIONS: 1. I would continue on vancomycin 125 four times daily here in the hospital. 2. When he goes home, we can transition to 125 p.o. b.i.d. for two weeks of Vanco, then 125 once a day for two weeks, and then 125 every other day for four weeks. 3. I would like to see the patient in my clinic in about two weeks, and I will consider giving a dose of Zinplava at that time to try and reduce the risk of relapse and perhaps reduce the frequency of these ER visits. 4. Will continue to follow the patient with you as long as he is here in the hospital.
[2017-03-30 12:46] VITALS: BP 135/74; PULSE 57; RESP 21; O2SAT 98
--- NOTE | 2017-03-30 13:02 | NUR ---
Case Management - IMM explained to patient. Patient verbalized understanding. Eli Perez RN, CCM
--- NOTE | 2017-03-30 13:58 | PCM.PNMED ---
Subjective Date of Service Mar 30, 2017 Subjective pt still in pain, requiring dilaudid, had one similar watery diarrhea overnight , pain is similar to where he always has pain, LLQ, had some nausea, no vomiting, Exam Vital Signs Vital Sign - Last Date Time Temp Pulse Resp B/P Pulse Ox O2 Delivery O2 Flow Rate FiO2 03/30/17 05:34 36.7 54 20 125/62 95 Room Air Intake and Output 03/29/17 03/29/17 03/30/17 Cumulative From/Thru 15:00 23:00 07:00 03/29/17 13:49 - 03/30/17 05:51 Intake Total 2000 ml 300 ml 2300 ml Balance 2000 ml 300 ml 2300 ml Intake Oral 300 ml 300 ml IV Total 2000 ml 2000 ml # Voids 2 2 Exam distressed due to pain no JVD, MMM, no LAD RRR, nl s1, s2 no mrg CTAB, no w,c S,ND,marked td on LLQ, normoactive BS+ warm, no edema, pulses 2/2 IVs and Medications Medications Reviewed: Medications were reviewed in detail Lab and Diagnostics Result Diagram: 03/29/17 1620 03/29/17 1620 Microbiology C. difficile positive on 02/20/2017 and 03/11/2017. X-Rays, CTs and MRIs CT ABDOMEN AND PELVIS WITH CONTRAST IMPRESSION: 1. No small bowel obstruction. 2. Nonspecific wall thickening involving the hepatic flexure of the colon may be related to incomplete distention. Additionally, there is mild prominence of the wall of a few jejunal bowel loops. Please correlate clinically to exclude focal colitis/enteritis. 3. Small hiatal hernia and small fat containing right inguinal hernia. 4. Left lower lobe pulmonary nodules may be related to scarring or atelectasis. A CT of the chest in 6 months is recommended to evaluate for interval change. Dictated by: Eduardo Torres M.D. on 03/28/2017 at 12:07 Approved by: Eduardo Torres M.D. on 03/28/2017 at 12:17 Assessment & Plan Orlando Levin is a 41-year-old male with past medical history significant for chronic back pain with opioid habituation, recurrent abdominal pain with numerous partial small bowel obstructions, and history of 3 episodes of C. difficile who presents with increasing diarrhea, emesis, and abdominal pain. acute, active active recurrent C. Diff infection, POA, Positive PCR on 02/20/2017 and 2016. - diarrhea seems to resolving per pt w/ tx - continue vancomycin as scheduled, 125 mg every 6 hours. Patient has been on this regimen for the past 2 weeks. - Per Dr. Valencia likely minimal to no utility in repeating C. difficile PCR as it will likely be positive. - Close documentation by nursing staff of frequency and quantity of episodes. - appreciate GI consult, MR enterography ordered which likely happen tomorrow, last colonoscopy december by , was unremarkable but poorly preped. acute on chronic abdominal pain, POA, intractable, multifactorial: psychosomatic , c.diff, possible partial SBO again. CT abd 03/28 however, very unremarkable. -consider repeat images if clinically worse -MR enterography as above -continue home oxycodone, added dilaudid 1mg q4h for breakthrough pain, -please monitor for any drug seeking behavior Nausea and vomiting, POA, Last episode of emesis was on 03/29/2017 at 0130. 2 L NS given in the ED. - clinically stable today, - IV Zofran every 4 hours when necessary. - Close documentation by nursing staff frequency and quantity of episodes. Chronic stable conditions Chronic back pain with opioid habituation - Continue home medication: Oxycodone 5-10mg Q6H PRN pain. Fibromyalgia - Continue home medication: Gabapentin 300 mg daily. PRN Medications - Acetaminophen as needed for mild pain/fever/headache - Bowel regimen as needed - Antiemetic as needed dispo: pending, given unclear etiology, follow up with ID, GI for optimized dispo. GI Prophylaxis: Not indicated VTE Prophylaxis: Sub-Q Heparin (Unfractionated) Resuscitation Status: CPR: Attempt Resuscitation Time spent 35min Candido Rosenberg MD Mar 30, 2017 08:59
[2017-03-30 16:34] VITALS: BP 111/68; PULSE 60; RESP 20; O2SAT 97
[2017-03-30] MEDS ORDERED: Sodium Biphos-Phos 133 mL Enema RECTAL ONE (16:40)
[2017-03-30] MEDS: 0.9% Sodium Chloride 1,000 ML IV SCH (17:52)
--- NOTE | 2017-03-30 18:30 | NUR ---
Pain/nausea/procedure Pt complains of L Upper quadrant pain, 9-10/10 on pain scale at beginning of shift, requested PRN IV pain med, MD notified and ordered. Pt reports decrease in pain level. Requesting Zofran and PO Oxycodone to be given together. Administered at appro 12:30, requested additional dose of IV Dilaudid at appro 1530, administered. Pt reports decreased pain level. Pt scheduled to have MR Enterogrophy completed 03/31, prep in , pt to be NPO after midnight. Call light in reach,
--- NOTE | 2017-03-30 18:52 | PCM.HPMED ---
Subjective Date of Service Mar 30, 2017 Primary Provider: Admitting Physician: Deepa Eric DO Primary Care Physician: Clinic,[facility] Residency Attending Physician: Candido Rosenberg MD Chief Complaint: Abdominal pain and diarrhea History of Present Illness: Mr. Orlando Levin is a 41 year old gentleman with past medical history significant for chronic back pain with opioid habituation, recurrent abdominal pain with numerous partial small bowel obstructions, and history of 3 episodes of C. difficile who presents with increasing diarrhea, emesis, and abdominal pain who presents with continued abdominal pain, and clear large volume diarrhea since Tuesday (4 days prior.) If you'll recall, Mar 12 patient was diagnosed with Cdiff and treated with oral vancomycin. Patient was "doing fine" until roughly Tuesday, when he became intermittently febrile, nauseous, with severe positional abdominal pain and many episodes of diarrhea. CT scan from prior ED visit at a local hospital and from our own has been negative for obstruction. He has been admitted for abdominal pain, diarrhea, and nausea. Patient has a very extensive past history of ED visits and GI work-ups for abdominal pain. Under Dr. Garcia's direction a prior H&P has been pasted below. This is a 41-year-old gentleman who has extensive GI workup history for obscure GI bleeding, possible small bowel obstruction who also had a history of leaving against medical advice during anemia workup and had rectal bleeding as well as melena. He had multiple EGD/colonoscopies done locally in [place] as well as [facility]. Initially, he was seen in [place], then he saw Dr. Mast a few times and he was transferred to [facility] for further care. It appears the last time he had an EGD done was in 2014 where they found esophagitis. Colonoscopy was also done in 2015 where they found hyperplastic polyps. He also had a double balloon enteroscopy into the small bowel going from antegrade and retrograde and nothing was found. They also did a capsule endoscopy which was negative. He also has a history of cyclic vomiting as well and this was also looked into. At one point, he had C. difficile and he presented with 10-15 times of stools a day. He also has a history of irritable bowel syndrome, and he came to the ED complaining of abdominal pain starting six days ago. Prior to six days ago, he had no prior history of travel, camping. However, there was a barbecue that he was at. Prior to six days ago, he said he was doing great. No abdominal pain, nausea, vomiting. Then, six days ago, he slowly starting having abdominal discomfort. Abdominal discomfort was described as generalized abdominal bloating, cramping sensation with increasing intensity without any radiation. This was also associated with nausea, later vomiting, and diarrhea later on. Then, the following days, his symptoms have gotten worse with increased frequency of diarrhea, worsening of abdominal pain and now getting persistent vomiting. Three days ago, he had a temp of 102.1. Started having chills, diaphoresis and diarrhea worsens. Because the pain was getting worse and every time he tried to eat something, he said he felt like there was glass. Nothing seems to make it better or worse, and he stopped eating. But, he persistently had diarrhea. Then, he went to [facility] where they did a CT scan , and they said there could be Crohn disease. However, I do not have the CT scan results from the [facility]. Then, he was discharged from [facility] saying they could not do anything for him.It appears he was given steroids cipro and flagyl. If the symptoms did not get any better, he was asked to go to [facility]. He was unable to keep food down and he was unable to also keep fluids down. Because of this, because of the persistent symptoms, weakness, he came to the emergency department. In the emergency department, he was noted to be in pain. By the time I saw him, he was given pain medications. His abdominal examination by the ED doctor was documented as atraumatic, soft, no bowel tones, not particularly distended and guarding all over the abdominal region. He said there were mild peritoneal signs. White count was elevated at10.4. The patient was given pain medications. The patient informed me that the pain is better than how it was, but still having quite a bit of pain. He is not nauseated right now and has not vomited since he has been in the hospital. Review of Systems: A comprehensive review of systems was conducted with the patient and found to be negative except as above in the History of Present Illness. Allergies Coded Allergies: No Known Allergies (Unverified , 03/28/17) PMH C. diff colitis, cyclical vomiting, small bowel obstruction, migraine, Guillen's esophagus. However, the [facility] documentation indicates only esophagitis. Reflux, prostatitis, fibromyalgia, kidney stone, cystitis, epidural hematoma, internal and external hemorrhoids, diverticulitis, gastritis. Surgical History 1. Right eardrum repaired. 2. Laparoscopy in 2001 and 2013. 3. Appendectomy. 4. Right ACL reconstruction. 5. Back surgery. Family History Prostate cancer. Social History Hx Alcohol Use: No Hx Substance Use: No Hx Tobacco Use: Yes (5 cigarettes/day x 2years; previous 1ppd x25y) Smoking Status: Current Every Day Smoker Living Arrangement: with Family ( and has 2 kids) Exam Vital Signs Vital Sign - Last Date Time Temp Pulse Resp B/P Pulse Ox O2 Delivery O2 Flow Rate FiO2 03/30/17 16:34 36.5 60 20 111/68 97 Room Air Intake and Output 03/29/17 03/29/17 03/30/17 Cumulative From/Thru 15:00 23:00 07:00 03/29/17 13:49 - 03/30/17 05:51 Intake Total 2000 ml 300 ml 2300 ml Balance 2000 ml 300 ml 2300 ml Intake Oral 300 ml 300 ml IV Total 2000 ml 2000 ml # Voids 2 2 Exam General: In moderate acute distress, well-developed, well-nourished, appropriately interactive HEENT: Normocephalic, atraumatic. External ears without defect. Pupils equal, round, and reactive to light and accommodation. Anicteric sclerae, moist conjunctivae, and no lid lag. Oropharynx free of erythema and cobble stoning with moist mucosa. Neck: Supple with full range of motion. No jugular venous distension. No bruits. No lymphadenopathy or thyromegaly. Cardiovascular: Regular rate and rhythm with no murmurs, rubs, or gallops appreciated Pulmonary: Clear to auscultation bilaterally with no crackles, wheezes, or rhonchi. Normal respiratory effort with no use of accessory muscles. Abdomen: Bowel tones present., Tender to palpation with guarding and rebound tenderness, nondistended. No hepatosplenomegaly or masses appreciated. Extremities: No clubbing, cyanosis, edema, or lymphadenopathy appreciated. Skin: Normal temperature, turgor, and texture; no rash, ulcers, or subcutaneous nodules appreciated. Neurological: Cranial nerves grossly intact. Normal muscle strength, tone, and bulk. Reflexes, coordination, and sensory function within normal limits. No known gait impairment. Psychiatric: Normal mood and affect. Alert and oriented to person, place, and time. Lab and Diagnostics Result Diagram: 03/29/17 1620 03/29/17 1620 Microbiology C. difficile positive on 02/20/2017 and 03/11/2017. X-Rays, CTs and MRIs CT ABDOMEN AND PELVIS WITH CONTRAST IMPRESSION: 1. No small bowel obstruction. 2. Nonspecific wall thickening involving the hepatic flexure of the colon may be related to incomplete distention. Additionally, there is mild prominence of the wall of a few jejunal bowel loops. Please correlate clinically to exclude focal colitis/enteritis. 3. Small hiatal hernia and small fat containing right inguinal hernia. 4. Left lower lobe pulmonary nodules may be related to scarring or atelectasis. A CT of the chest in 6 months is recommended to evaluate for interval change. Dictated by: Eduardo Torres M.D. on 03/28/2017 at 12:07 Approved by: Eduardo Torres M.D. on 03/28/2017 at 12:17 Assessment & Plan Orlando Levin is a 41-year-old male with past medical history significant for chronic back pain with opioid habituation, recurrent abdominal pain with numerous partial small bowel obstructions, and history of 3 episodes of C. difficile who presents with increasing diarrhea, emesis, and abdominal pain. Acute on chronic abdominal pain, Active - Avoid continued CT imaging. Patient has been exposed to are large amount of radiation from repeat CT imaging at various hospitals since 2008. - MR enterography is preferred, however we believe it is not necessary at this time. Re-read of CT abdomen showed no obstruction or distention. There was however some formed stool in the rectum and descending colon. I believe his constipation is related to chronic opioid use. - Ordered Stool studies including stool leukocytes, lactoferin, and serum lactic acid. all currently pending. - Ordered fleets enema, with plan for bowel prep with Golytely tomorrow if the fleets is ineffective. - Recommend supportive treatment with IV fluids. Monitor I/O. - Would like to avoid opiates, but I understand how difficult this may be. Patient has been on roughly 50 mg daily Oxycodone since 2008. Active recurrent C. Diff infection, Resolved. - Continue vancomycin as scheduled, 125 mg every 6 hours. Patient has been on this regimen for the past 2 weeks. - Per Dr. Valencia likely minimal to no utility in repeating C. difficile PCR as it will likely be positive. - Close documentation by nursing staff of frequency and quantity of episodes. Nausea and vomiting, Stable. - Clinically stable today, - IV Zofran every 4 hours when necessary. Chronic stable conditions Chronic back pain with opioid habituation - Continue home medication: Oxycodone 5-10mg Q6H PRN pain. Fibromyalgia Pain Evaluation: Adequate Pain Control GI Prophylaxis: Not indicated VTE Prophylaxis: Sub-Q Heparin (Unfractionated) Resuscitation Status: CPR: Attempt Resuscitation TROY SARAVIA DO Mar 30, 2017 18:52
[2017-03-30 20:04] VITALS: BP 103/56; PULSE 56; RESP 20; O2SAT 97
[2017-03-31] MEDS: Vancomycin 125 mg Oral Capsule PO SCH ×4 (03:59→21:26)
[2017-03-31] MEDS: 0.9% Sodium Chloride 1,000 ML IV SCH ×3 (04:00→21:55)
[2017-03-31 04:10] VITALS: BP 117/71; PULSE 48; RESP 20; O2SAT 97
[2017-03-31 06:53] LABS: BASOPHILS % (AUTO) 0.3 % (0-3); EOSINOPHILS % (AUTO) 1.9 % (0-5); MONOCYTES % (AUTO) 9.4 % (4-12); Mean Corpuscular Volume 90.8 fL (81-100); Platelet Count 188 bil/L (150-400)
[2017-03-31 07:09] LABS: Magnesium 1.8 mg/dL (1.6-2.6)
[2017-03-31] MEDS: Ondansetron 2 mg/mL 2 mL Inj IVPUSH PRN ×4 (08:11→23:32)
[2017-03-31] MEDS: Heparin 5,000 Unit/mL Inj SUBQ SCH ×3 (08:12→23:32)
--- NOTE | 2017-03-31 08:20 | PCM.PNMED ---
Subjective Date of Service Mar 31, 2017 Subjective He has ongoing abdominal pain described as cramping and mostly left right lower quadrant. No fevers or chills overnight. No chest pain, cough or shortness of breath. No bowel movement in several days. No overnight events noted. Nursing requires a bowel program today. He continues on by mouth vancomycin. Exam Vital Signs Vital Sign - Last Date Time Temp Pulse Resp B/P Pulse Ox O2 Delivery O2 Flow Rate FiO2 03/31/17 04:10 36.7 48 20 117/71 97 Room Air Intake and Output 03/30/17 03/30/17 03/31/17 Cumulative From/Thru 15:00 23:00 07:00 03/29/17 13:49 - 03/31/17 06:36 Intake Total 650 ml 1400 ml 4350 ml Output Total 825 ml 675 ml 1500 ml Balance -175 ml 725 ml 2850 ml Intake Oral 650 ml 400 ml 1350 ml IV Total 1000 ml 3000 ml Output Urine Total 825 ml 675 ml 1500 ml # Voids 4 6 # Bowel Movements 2 2 Exam He is alert and oriented, somewhat chronically ill in appearance. Anicteric sclera Lungs are clear with normal effort. Heart is regular without murmur Abdomen is soft, tender in the right lower and left lower quadrants. No guarding or rebound No edema No skin rash or lesions. IVs and Medications Medications Reviewed: Medications were reviewed in detail Lab and Diagnostics Result Diagram: 03/31/1762803/31/17628 Microbiology C. difficile positive on 02/20/2017 and 03/11/2017. X-Rays, CTs and MRIs CT ABDOMEN AND PELVIS WITH CONTRAST IMPRESSION: 1. No small bowel obstruction. 2. Nonspecific wall thickening involving the hepatic flexure of the colon may be related to incomplete distention. Additionally, there is mild prominence of the wall of a few jejunal bowel loops. Please correlate clinically to exclude focal colitis/enteritis. 3. Small hiatal hernia and small fat containing right inguinal hernia. 4. Left lower lobe pulmonary nodules may be related to scarring or atelectasis. A CT of the chest in 6 months is recommended to evaluate for interval change. Dictated by: Eduardo Torres M.D. on 03/28/2017 at 12:07 Approved by: Eduardo oTrres M.D. on 03/28/2017 at 12:17 Assessment & Plan Orlando Levin is a 41-year-old male with past medical history significant for chronic back pain with opioid habituation, recurrent abdominal pain with numerous partial small bowel obstructions, and history of 3 episodes of C. difficile who presents with increasing diarrhea, emesis, and abdominal pain. Acute on chronic abdominal pain, present on admission and Active - MRI enterography had been requested by gastroenterology but then apparently canceled yesterday. Will discuss with they are thinking with him today. At this point he continues on oral vancomycin for possible C. difficile toxin infection. The patient is also on continuous chronic opiates since 2008. The specific etiology of his abdominal pain remains unclear. Active recurrent C. Diff infection, Resolved. - Continue vancomycin as scheduled, 125 mg every 6 hours. Patient has been on this regimen for the past 2 weeks. - Per Dr. Valencia likely minimal to no utility in repeating C. difficile PCR as it will likely be positive. -The patient will continue on vancomycin without change. Nausea and vomiting, present on admission and active. - Clinically stable today, - IV Zofran every 4 hours when necessary. Chronic back pain with opioid dependence, present on admission - Continue home medication: Oxycodone 5-10mg Q6H PRN pain. Fibromyalgia, present on admission This patient is inpatient status. He is full resuscitation. GI Prophylaxis: Not indicated VTE Prophylaxis: Sub-Q Heparin (Unfractionated) Resuscitation Status: CPR: Attempt Resuscitation Lawrence Reeder MD Mar 31, 2017 08:20
[2017-03-31] MEDS: Polyethylene Glycol (PEG) 17 Gm Powder PO SCH (08:30)
[2017-03-31] MEDS: HYDROmorphone 1 mg/mL Inj IVPUSH PRN ×3 (11:35→23:32)
[2017-03-31] MEDS ORDERED: PEG/Electrolytes 4,000 mL Solution PO ONE (11:35)
--- NOTE | 2017-03-31 11:39 | PROG NOTE ---
[address] [address] PROGRESS NOTE PATIENT: SARAH SELBY : 1975 MR#: [id number] ADMIT: 03/29/2017 JOB ID: [id number] DATE: 03/31/2017 DATE: 03/31/2017 INFECTIOUS DISEASE FOLLOW UP NOTE: REASON FOR FOLLOWUP: Recent C difficile colitis, now starting third week of therapy with probably unrelated severe abdominal pain. INTERVAL HISTORY: In the past 24 hours, the patient was seen by the GI team. They felt it was important to increase the patient's bowel motility actually and they gave him an enema which led to some stool production and they now plan to move on to GoLmohchiLY in an attempt to stimulate additional bowel movements and relieve obstipation. Overnight the patient reports no fevers, no chills. No sweats. No pulmonary symptoms. He reports diffuse ongoing severe abdominal pain. He also notes that he has had a rash for about since Tuesday which is erythematous scattered rash primarily on the back which is nonpruritic. He has had no exposure to ill persons and reports his two children do not have a similar rash. PHYSICAL EXAMINATION: Reveals an afebrile gentleman, temperature 36.7, pulse around 50, respiratory rate 20, blood pressure 111/71. He appears to be in pain as before. Flat affect, depressed mood. Mental status is clear. Lungs clear. Cardiac tones without change. Abdomen: Guarding, diffuse tenderness as before. The rash was examined. He has a bit of a [place] tree pattern across his back with erythematous macular lesions. A few of these extend onto the arms and the abdomen but primarily on the back. None of these are vesicular and none of them appear in any way infected.
--- NOTE | 2017-03-31 12:02 | PROG NOTE ---
[address] [address] PROGRESS NOTE PATIENT: SARAH SELBY : 1975 MR#: [id number] ADMIT: 03/29/2017 JOB ID: [id number] DATE: 03/31/2017 REASON FOR FOLLOWUP: Recurrent C. diff infection. INTERVAL HISTORY: Recall this is the young man with many recent ER visits and admissions for various manifestations of abdominal pain and irritable bowel syndrome. He is under my care for a prolonged vancomycin taper for recurrent C. difficile infection. He was admitted with abdominal pain, and is being evaluated by the GI team. They prescribed enema and now GoLYTELY to try and relieve some obstipation. They see no evidence for ongoing colitis nor obstruction at this point. The patient today reports no fevers, chills, or pulmonary symptoms. He does have diffuse abdominal pain, which continues and is present in all quadrants. He does note he has had a couple semi-formed stools overnight. PHYSICAL EXAMINATION: Reveals an uncomfortable appearing gentleman temp 36.7, pulse 50, respiratory rate 20, blood pressure 117/71. He is in no acute distress. Examination of the mental status reveals a diminished mood and flat affect as before. The patient is always grimacing suggesting that he is in pain. His oral cavity negative. Lungs clear. Cardiac tones without murmur. Abdomen is guarded firm and mildly tender throughout. The patient does have a skin rash in a [place] tree pattern spread mostly across the back. This rash consists of erythematous macules in a [place] tree type pattern with some spread around to the flanks, and a few lesions on the arms. LABORATORIES: Include white count now down to normal 7400, normal diff. Creatinine 0.74. Urinalysis without white cells. Micro studies are negative at this point, though recall he did have stool positive for C diff in February and March. IMPRESSION: I suspect the patient has some component of irritable bowel syndrome secondary to his recurrent Clostridium difficile, but that his current symptoms have little or nothing to do with Clostridium difficile colitis. He also has chronic bowel issues which are at least in part due to his relatively heavy and chronic opiate use. At this point, our best plan from an Infectious Disease point of view is to continue with a long taper of vancomycin added single dose of IV Zinplava later. RECOMMENDATIONS: 1. Will continue with the Vanco taper. Once he is discharged, which should be in the next day or two, 125 p.o. b.i.d. of vancomycin for two weeks then 125 once a day for two weeks then 125 every other day for a month. 2. The patient should see me in clinic in mid April and at that time we are going to arrange for a single IV dose of Zinplava to complete the therapy for his recurrent C diff. 3. The skin rash on his back appears to be pityriasis rosea. This requires no specific therapy. 4. ID will go ahead and sign off at this time.
--- NOTE | 2017-03-31 13:00 | NUR ---
Constipation No stool at this time, Pt reports had 1 episode of watery diarrhea, however continues to complains abd pain. Pt reports "feels like I have to have a bowel movement. I'm passing lots of gas but I don't want to bear down because it will really hurt. GI aware, Golytely ordered and started. Pt given 1 dose of IV Dilaudid related to concerns about pain with bearing down. Addendum: 03/31/17 at 1546 by JUAQUIN LAMA RN Pt eliminated large liquid stool, continues to consume GoLytely, reports is feeling less nausea and pain. Call light in reach, will continue to monitor. Addendum: 03/31/17 at 1557 by JUAQUIN LAMA RN Pt reports is feeling much better, was instructed to notified the MD once noted improvement in condition. Dr Mayo notified, will enter order for additional enema to soften stool. Will continue to monitor.
[2017-03-31 13:47] VITALS: BP 123/68; PULSE 57; RESP 21; O2SAT 98
--- NOTE | 2017-03-31 16:41 | NUR ---
Social Work-readiness for discharge/ multidisciplinary rounds: Data:EMR Reviewed. Pt is on day 2 of hospitalization for CDiff per H&P. Pt is likely medically stable in 1-2 more days. Pt has been up independent in his room. Pt's family to provide transport home at discharge. No anticipated discharge needs. SW will continue to follow if needs arise. Assessment:Pt who is independent at baseline. Plan:Pt to discharge home when medically stable via POV. No anticipated discharge needs. SW will continue to follow if needs arise. DAFNE Beyer
--- NOTE | 2017-03-31 19:23 | PCM.PNMED ---
Subjective Date of Service Mar 31, 2017 Subjective Gastroenterology Progress Note Mr. Orlando Levin is a 41 year old gentleman with past medical history significant for chronic back pain with opioid habituation, recurrent abdominal pain with numerous partial small bowel obstructions, and history of 3 episodes of C. difficile who presents with increasing diarrhea, emesis, and abdominal pain who presents with continued abdominal pain, and clear large volume diarrhea since Tuesday (4 days prior.). He has been admitted for abdominal pain, diarrhea and nausea. He is being treated for obstipation with aggressive medical management. Following 2 fleets enemas and Golytely bowel prep he has evacuated large amounts of stool and gas. He feels much better today than the day before. Abdominal pain is nearly resolved. Exam Vital Signs Vital Sign - Last Date Time Temp Pulse Resp B/P Pulse Ox O2 Delivery O2 Flow Rate FiO2 03/31/17 13:47 36.5 57 21 123/68 98 Room Air Intake and Output 03/30/17 03/30/17 03/31/17 Cumulative From/Thru 15:00 23:00 07:00 03/29/17 13:49 - 03/31/17 06:36 Intake Total 650 ml 1400 ml 4350 ml Output Total 825 ml 675 ml 1500 ml Balance -175 ml 725 ml 2850 ml Intake Oral 650 ml 400 ml 1350 ml IV Total 1000 ml 3000 ml Output Urine Total 825 ml 675 ml 1500 ml # Voids 4 6 # Bowel Movements 2 2 Exam General: In moderate acute distress, well-developed, well-nourished, appropriately interactive HEENT: Normocephalic, atraumatic. External ears without defect. Pupils equal, round, and reactive to light and accommodation. Anicteric sclerae, moist conjunctivae, and no lid lag. Oropharynx free of erythema and cobble stoning with moist mucosa. Neck: Supple with full range of motion. No jugular venous distension. No bruits. No lymphadenopathy or thyromegaly. Cardiovascular: Regular rate and rhythm with no murmurs, rubs, or gallops appreciated Pulmonary: Clear to auscultation bilaterally with no crackles, wheezes, or rhonchi. Normal respiratory effort with no use of accessory muscles. Abdomen: Bowel tones present., Mildly Tender to palpation without guarding and rebound tenderness, nondistended. No hepatosplenomegaly or masses appreciated. Extremities: No clubbing, cyanosis, edema, or lymphadenopathy appreciated. Skin: Normal temperature, turgor, and texture; no rash, ulcers, or subcutaneous nodules appreciated. Neurological: Cranial nerves grossly intact. Normal muscle strength, tone, and bulk. Reflexes, coordination, and sensory function within normal limits. No known gait impairment. Psychiatric: Normal mood and affect. Alert and oriented to person, place, and time. IVs and Medications Medications Reviewed: Medications were reviewed in detail Lab and Diagnostics Result Diagram: 03/31/1762803/31/17628 Microbiology C. difficile positive on 02/20/2017 and 03/11/2017. X-Rays, CTs and MRIs CT ABDOMEN AND PELVIS WITH CONTRAST IMPRESSION: 1. No small bowel obstruction. 2. Nonspecific wall thickening involving the hepatic flexure of the colon may be related to incomplete distention. Additionally, there is mild prominence of the wall of a few jejunal bowel loops. Please correlate clinically to exclude focal colitis/enteritis. 3. Small hiatal hernia and small fat containing right inguinal hernia. 4. Left lower lobe pulmonary nodules may be related to scarring or atelectasis. A CT of the chest in 6 months is recommended to evaluate for interval change. Dictated by: Eduardo Torres M.D. on 03/28/2017 at 12:07 Approved by: Eduardo Torres M.D. on 03/28/2017 at 12:17 Assessment & Plan Orlando Levin is a 41-year-old male with past medical history significant for chronic back pain with opioid habituation, recurrent abdominal pain with numerous partial small bowel obstructions, and history of 3 episodes of C. difficile who presents with increasing diarrhea, emesis, and abdominal pain. Acute on chronic abdominal pain, Improving. - Avoid continued CT imaging. Patient has been exposed to are large amount of radiation from repeat CT imaging at various hospitals since 2008. - MR enterography is preferred, however we believe it is not necessary at this time. Re-read of CT abdomen showed no obstruction or distention. There was however some formed stool in the rectum and descending colon. I believe his constipation is related to chronic opioid use. - Ordered Stool studies including stool leukocytes, lactoferin, and serum lactic acid. all currently pending. - Advance diet as tolerated. - Would like to avoid opiates, but I understand how difficult this may be. Patient has been on roughly 50 mg daily Oxycodone since 2008. - Bowel prep with Golytely was very effective today. - Mineral oil enema this evening. - If the mineral oil enema is not effective tonight, I recommend 2 additional fleets enemas. If they are not effective I would then preform a gastrograffin enema (250 ml Gastrograffin in 1L of saline) with concurrent NS IV fluids. - If these measures are effective, I believe the patient could go home as early as tomorrow. C. Diff infection, Resolved. Nausea and vomiting, Stable. Chronic back pain with opioid habituation - Continue home medication: Oxycodone 5-10mg Q6H PRN pain. Pain Evaluation: Adequate Pain Control GI Prophylaxis: Not indicated VTE Prophylaxis: Sub-Q Heparin (Unfractionated) Resuscitation Status: CPR: Attempt Resuscitation TROY SARAVIA DO Mar 31, 2017 19:15
[2017-03-31 22:08] VITALS: BP 118/62; PULSE 52; RESP 20; O2SAT 97
[2017-04-01] MEDS: Vancomycin 125 mg Oral Capsule PO SCH ×2 (02:31→08:16)
[2017-04-01 06:05] VITALS: BP 116/68; PULSE 53; RESP 20; O2SAT 97
[2017-04-01] MEDS: Ondansetron 2 mg/mL 2 mL Inj IVPUSH PRN ×2 (06:12→10:24)
[2017-04-01] MEDS: HYDROmorphone 1 mg/mL Inj IVPUSH PRN ×2 (06:13→10:24)
--- NOTE | 2017-04-01 06:27 | NUR ---
BM/N/pain Pt has been having watery stool with golytely. refused mineral oil enema this shift. Pt has been requesting Zofran for nausea with his pain meds. no vomiting noted Dilaudid given per pt's request for 9/10 abdominal pain with good result.
[2017-04-01] MEDS: 0.9% Sodium Chloride 1,000 ML IV SCH (07:15)
[2017-04-01] MEDS: Polyethylene Glycol (PEG) 17 Gm Powder PO SCH (08:10)
[2017-04-01] MEDS: Heparin 5,000 Unit/mL Inj SUBQ SCH (08:16)
--- NOTE | 2017-04-01 10:52 | PCM.PNMED ---
Subjective Date of Service Apr 01, 2017 Subjective Mr. Orlando Levin is a 41 year old gentleman with past medical history significant for chronic back pain with opioid habituation, recurrent abdominal pain with numerous partial small bowel obstructions, and history of 3 episodes of C. difficile who presents with increasing diarrhea, emesis, and abdominal pain who presents with continued abdominal pain, and clear large volume diarrhea since Tuesday (4 days prior.). He has been admitted for abdominal pain, diarrhea and nausea. He is being treated for obstipation with aggressive medical management. Following 2 fleets enemas and Golytely bowel prep he has evacuated large amounts of liquid and soft stool and large amount of gas. He feels much better today than the day before. Abdominal pain is nearly resolved. Patient is ready for discharge. Denies nausea, vomiting. Exam Vital Signs Vital Sign - Last Date Time Temp Pulse Resp B/P Pulse Ox O2 Delivery O2 Flow Rate FiO2 04/01/17 06:05 36.7 53 20 116/68 97 Room Air Intake and Output 03/31/17 03/31/17 04/01/17 Cumulative From/Thru 15:00 23:00 07:00 03/29/17 13:49 - 04/01/17 06:36 Intake Total 800 ml 800 ml 5950 ml Output Total 650 ml 2150 ml Balance 150 ml 800 ml 3800 ml Intake Oral 800 ml 800 ml 2950 ml IV Total 3000 ml Output Urine Total 650 ml 2150 ml # Voids 6 12 # Bowel Movements 2 2 6 Exam General: In moderate acute distress, well-developed, well-nourished, appropriately interactive HEENT: Normocephalic, atraumatic. External ears without defect. Pupils equal, round, and reactive to light and accommodation. Anicteric sclerae, moist conjunctivae, and no lid lag. Oropharynx free of erythema and cobble stoning with moist mucosa. Neck: Supple with full range of motion. No jugular venous distension. No bruits. No lymphadenopathy or thyromegaly. Cardiovascular: Regular rate and rhythm with no murmurs, rubs, or gallops appreciated Pulmonary: Clear to auscultation bilaterally with no crackles, wheezes, or rhonchi. Normal respiratory effort with no use of accessory muscles. Abdomen: Bowel tones present., Mildly Tender to palpation without guarding and rebound tenderness, nondistended. No hepatosplenomegaly or masses appreciated. Extremities: No clubbing, cyanosis, edema, or lymphadenopathy appreciated. Skin: Normal temperature, turgor, and texture; no rash, ulcers, or subcutaneous nodules appreciated. Neurological: Cranial nerves grossly intact. Normal muscle strength, tone, and bulk. Reflexes, coordination, and sensory function within normal limits. No known gait impairment. Psychiatric: Normal mood and affect. Alert and oriented to person, place, and time. Lab and Diagnostics Result Diagram: 03/31/1762803/31/17628 Microbiology C. difficile positive on 02/20/2017 and 03/11/2017. X-Rays, CTs and MRIs CT ABDOMEN AND PELVIS WITH CONTRAST IMPRESSION: 1. No small bowel obstruction. 2. Nonspecific wall thickening involving the hepatic flexure of the colon may be related to incomplete distention. Additionally, there is mild prominence of the wall of a few jejunal bowel loops. Please correlate clinically to exclude focal colitis/enteritis. 3. Small hiatal hernia and small fat containing right inguinal hernia. 4. Left lower lobe pulmonary nodules may be related to scarring or atelectasis. A CT of the chest in 6 months is recommended to evaluate for interval change. Dictated by: Eduardo Torres M.D. on 03/28/2017 at 12:07 Approved by: Eduardo Torres M.D. on 03/28/2017 at 12:17 Assessment & Plan Orlando Levin is a 41-year-old male with past medical history significant for chronic back pain with opioid habituation, recurrent abdominal pain with numerous partial small bowel obstructions, and history of 3 episodes of C. difficile who presents with increasing diarrhea, emesis, and abdominal pain. Acute on chronic abdominal pain, Improving. - Avoid continued CT imaging. Patient has been exposed to are large amount of radiation from repeat CT imaging at various hospitals since 2008. - MR enterography is preferred, however we believe it is not necessary at this time. Re-read of CT abdomen showed no obstruction or distention. There was however some formed stool in the rectum and descending colon. I believe his constipation is related to chronic opioid use. - Ordered Stool studies including stool leukocytes, lactoferin, and serum lactic acid. all currently pending. - Advance diet as tolerated. - Would like to avoid opiates, but I understand how difficult this may be. Patient has been on roughly 50 mg daily Oxycodone since 2008. - Bowel prep with Golytely and mineral oil enema were very effective overnight. - Okay for discharge from a GI standpoint. Recommend continued bowl health including soaked ivelisse seeds, Kimchi and/or Sauerkraut. Continue adequate PO fluid intake. C. Diff infection, Resolved. Nausea and vomiting, Stable. Chronic back pain with opioid habituation GI Prophylaxis: Not indicated VTE Prophylaxis: Sub-Q Heparin (Unfractionated) Resuscitation Status: CPR: Attempt Resuscitation Attending Statement agree with resident note above TROY SARAVIA DO Apr 01, 2017 10:52 Michelle Mast MD Apr 02, 2017 16:00
--- NOTE | 2017-04-01 11:27 | PCM.DIMED ---
Discharge Instructions Date of Service Apr 01, 2017 Dates of Hospitalization Mar 29, 2017 at 18:24 Discharge Diagnosis Discharge Diagnosis 1. Acute on chronic abdominal pain and constipation, improved. 2. Active recurrent C. Diff colitis, improved. 3. Nausea and vomiting, resolved. 4. Chronic back pain with opioid dependence, stable. 5. Fibromyalgia, stable. Diet Discharge Diet: No restrictions Activity Discharge Activity: No restrictions Call your provider Call your provider for: Vomitting, Excessive diarrhea, Other (abdominal pain) Patient Instructions Patient Instructions You will take vancomycin 125 mg twice a day for the next 2 weeks and then once daily for the next [address] Valencia wants to see you in 2 weeks from now and further discuss the specifics of a taper at that time. Follow-up Provider: [facility] Residency [facility] Follow-up with PCP in: 1 week Provider: Lc Valencia MD Follow-up in: 2 weeks Lawrence Reeder MD Apr 01, 2017 11:27
[2017-04-01] MEDS ORDERED: VANC125C10 PO (11:29)
--- NOTE | 2017-04-01 12:01 | NUR ---
DISCHARGE Pt dc'd home at 1158, req to amb off unit ind. Vital signs stable, denies any pain and in no apparent distress. IV dc'd intact, all belongings returned. All instructions for diet, activity, medications, prescriptions and follow up reviewed with pt, who reports understanding. Pt aware how to follow up with Residency Clinic and Infectious Disease.
[2017-04-01 13:41] VITALS: BP 89/53; PULSE 83; RESP 18; O2SAT 100
--- NOTE | 2017-04-01 14:43 | NUR ---
Social Work: Multidisciplinary Rounds / Discharge Data & Assessment: EMR reviewed. Patient is on day 3 of hospitalization for cdiff per H&P. Patient was discussed in morning rounds. No concerns were noted by MD or staff. Patient has been deemed medically stable for discharge today. Patient will discharge home with spouse. Transportation will be provided by spouse. Patient has no additional needs at this time. Plan: Patient will discharge home. Transportation will be provided by spouse. Patient has no additional needs at this time. DAFNE Omalley
--- NOTE | 2017-04-01 15:55 | PCM.DC.MED ---
Discharge Summary Date of Service Apr 01, 2017 Dates of Hospitalization Date of Hospital Admission Mar 29, 2017 at 18:24 Date of Discharge: Apr 01, 2017 Providers: Admitting Physician: Deepa Eric DO Primary Care Physician: Dennys,[facility] Residency Attending Physician: Lawrence Mar MD Diagnosis at Time of Discharge Diagnosis at Time of Discharge 1. Acute on chronic abdominal pain and constipation, improved. 2. Active recurrent C. Diff colitis, improved. 3. Nausea and vomiting, resolved. 4. Chronic back pain with opioid dependence, stable. 5. Fibromyalgia, stable. Consultations Dr. Valencia, infectious disease Gastroenterology, Dr. Mayo. Procedures XRay, CTs & MRIs CT ABDOMEN AND PELVIS WITH CONTRAST IMPRESSION: 1. No small bowel obstruction. 2. Nonspecific wall thickening involving the hepatic flexure of the colon may be related to incomplete distention. Additionally, there is mild prominence of the wall of a few jejunal bowel loops. Please correlate clinically to exclude focal colitis/enteritis. 3. Small hiatal hernia and small fat containing right inguinal hernia. 4. Left lower lobe pulmonary nodules may be related to scarring or atelectasis. A CT of the chest in 6 months is recommended to evaluate for interval change. Dictated by: Eduardo Torres M.D. on 03/28/2017 at 12:07 Approved by: Eduardo Torres M.D. on 03/28/2017 at 12:17 Invasive Procedures None Brief History Mr. Orlando Levin is a 41 year old gentleman with past medical history significant for chronic back pain with opioid habituation, recurrent abdominal pain with numerous partial small bowel obstructions, and history of 3 episodes of C. difficile who presents with increasing diarrhea, emesis, and abdominal pain who presents with continued abdominal pain, and clear large volume diarrhea since Tuesday (4 days prior.) If you'll recall, Mar 12 patient was diagnosed with Cdiff and treated with oral vancomycin. Patient was "doing fine" until roughly Tuesday, when he became intermittently febrile, nauseous, with severe positional abdominal pain and many episodes of diarrhea. CT scan from prior ED visit at a local hospital and from our own has been negative for obstruction. He has been admitted for abdominal pain, diarrhea, and nausea. Patient has a very extensive past history of ED visits and GI work-ups for abdominal pain. Under Dr. Garcia's direction a prior H&P has been pasted below. This is a 41-year-old gentleman who has extensive GI workup history for obscure GI bleeding, possible small bowel obstruction who also had a history of leaving against medical advice during anemia workup and had rectal bleeding as well as melena. He had multiple EGD/colonoscopies done locally in [place] as well as [facility]. Initially, he was seen in [place], then he saw Dr. Mast a few times and he was transferred to [facility] for further care. It appears the last time he had an EGD done was in 2014 where they found esophagitis. Colonoscopy was also done in 2015 where they found hyperplastic polyps. He also had a double balloon enteroscopy into the small bowel going from antegrade and retrograde and nothing was found. They also did a capsule endoscopy which was negative. He also has a history of cyclic vomiting as well and this was also looked into. At one point, he had C. difficile and he presented with 10-15 times of stools a day. He also has a history of irritable bowel syndrome, and he came to the ED complaining of abdominal pain starting six days ago. Prior to six days ago, he had no prior history of travel, camping. However, there was a barbecue that he was at. Prior to six days ago, he said he was doing great. No abdominal pain, nausea, vomiting. Then, six days ago, he slowly starting having abdominal discomfort. Abdominal discomfort was described as generalized abdominal bloating, cramping sensation with increasing intensity without any radiation. This was also associated with nausea, later vomiting, and diarrhea later on. Then, the following days, his symptoms have gotten worse with increased frequency of diarrhea, worsening of abdominal pain and now getting persistent vomiting. Three days ago, he had a temp of 102.1. Started having chills, diaphoresis and diarrhea worsens. Because the pain was getting worse and every time he tried to eat something, he said he felt like there was glass. Nothing seems to make it better or worse, and he stopped eating. But, he persistently had diarrhea. Then, he went to [facility] where they did a CT scan , and they said there could be Crohn disease. However, I do not have the CT scan results from the [facility]. Then, he was discharged from [facility] saying they could not do anything for him.It appears he was given steroids cipro and flagyl. If the symptoms did not get any better, he was asked to go to [facility]. He was unable to keep food down and he was unable to also keep fluids down. Because of this, because of the persistent symptoms, weakness, he came to the emergency department. In the emergency department, he was noted to be in pain. By the time I saw him, he was given pain medications. His abdominal examination by the ED doctor was documented as atraumatic, soft, no bowel tones, not particularly distended and guarding all over the abdominal region. He said there were mild peritoneal signs. White count was elevated at10.4. The patient was given pain medications. The patient informed me that the pain is better than how it was, but still having quite a bit of pain. He is not nauseated right now and has not vomited since he has been in the hospital. Hospital Course Hospital course. This patient was admitted for acute and chronic abdominal pain. This is in context of a history of chronic intermittent constipation as well as probable recurrent C. difficile toxin colitis. The patient was treated with vancomycin orally as per Dr. Valencia is recommendations. He then had a femoral ball program which ultimately led to his bowel movement. Patient notes that he will intermittently get constipated. This is related recently to stress and change of diet. The patient also does use opiates intermittently but he notes that he uses much less than he used to. We did discuss his bowel program at length on the day of discharge. Dr. Valencia is recommended a very slow vancomycin taper that is as follows, 125 mg twice a day for 2 weeks, 125 mg once a day for 2 weeks and then a more gradual taper at that point. He will see Dr. Valencia in clinic 2 weeks following discharge for further instructions on his taper. Exam Vital Signs (Last) Date Time Temp Pulse Resp B/P Pulse Ox O2 Delivery O2 Flow Rate FiO2 04/01/17 13:41 Exam Patient was seen and examined on the day of discharge. He was felt to be medically stable for discharge. Test 03/29/17 16:20 03/29/17 17:57 03/29/17 20:14 03/30/17 08:40 Hold Andrea Top Tube Received (Received) Hold Urine Received (Received) Urine Color Yellow (YELLOW) Urine Appearance Clear (CLEAR,HAZY) Urine pH 6.0 (5.0-8.0) Urine Specific Ezel 1.020 (1.003-1.035) Urine Protein Negativemg/dL (NEG,TRACE) Urine Glucose (UA) Negativemg/dL (NEGATIVE) Urine Ketones Negativemg/dL (NEGATIVE) Urine Occult Blood Negative (NEGATIVE) Urine Nitrite Negative (NEGATIVE) Urine Bilirubin Negative (NEGATIVE) Urine Urobilinogen Normalmg/dL (NORMAL) Urine Leukocyte Esterase Negative (NEGATIVE) Urine RBC 0-2/hpf (0-2) Urine WBC 0-5/hpf (0-5) Urine Epithelial Cells None/hpf (NONE-MOD) Urine Crystals None seen (NONE SEEN) Urine Bacteria None/hpf (NONE-FEW) Urine Hyaline Casts None/lpf (NONE) Urine Granular Casts None seen (NONE SEEN) Urine Waxy Casts None seen (NONE SEEN) Urine Red Blood Cell Casts None seen (NONE SEEN) Urine White Blood Cell Casts None seen (NONE SEEN) Urine Mucus None seen (None Seen) Urine Trichomonas None seen (NONE SEEN) Urine Yeast None (NONE SEEN) Urinalysis Comment None Urine Culture Reflexed Not indicated Procalcitonin 0.02ng/mL (0.00-0.08) Test 03/30/17 17:25 03/31/17 06:29 Lactic Acid Level 0.7mmol/L (0.4-2.0) White Blood Count 7.4th/mm3 (3.8-10.1) Red Blood Count 4.00mil/mm3 (4.40-5.80) Hemoglobin 12.0g/dL (13.8-17.2) Hematocrit 36.3% (41.0-50.0) Mean Corpuscular Volume 90.8fL (81-100) Mean Corpuscular Hemoglobin 30.0pg (27.0-35.0) Mean Corpuscular Hemoglobin Concent 33.1% (32.0-37.0) Red Cell Distribution Width 13.9% (12.3-15.4) Platelet Count 188bil/L (150-400) Neutrophils (%) (Auto) 50.0% (40-74) Lymphocytes (%) (Auto) 38.3% (14-46) Monocytes (%) (Auto) 9.4% (4-12) Eosinophils (%) (Auto) 1.9% (0-5) Basophils (%) (Auto) 0.3% (0-3) Sodium Level 140mEq/L (134-144) Potassium Level 4.0mEq/L (3.5-5.2) Chloride Level 106mEq/L (97-108) Carbon Dioxide Level 25mmol/L (18-29) Blood Urea Nitrogen 10mg/dL (6-24) Creatinine 0.74mg/dL (0.76-1.27) Estimat Glomerular Filtration Rate 123mL/min (>59) Glucose Level 90mg/dL (60-99) Calcium Level 8.7mg/dL (8.5-10.1) Magnesium Level 1.8mg/dL (1.6-2.6) Total Bilirubin 0.3mg/dL (0.0-1.2) Aspartate Amino Transf (AST/SGOT) 12U/L (0-50) Alanine Aminotransferase (ALT/SGPT) 11U/L (0-44) Alkaline Phosphatase 39U/L (25-150) Total Protein 5.8g/dL (6.4-8.4) Albumin 3.8g/dL (3.4-5.0) Microbiology Results C. difficile positive on 02/20/2017 and 03/11/2017. Discharge Medications Discharge Medications Gabapentin (Gabapentin) 100 Mg Capsule 100-300 MG PO HS (Reported) Vancomycin (Vancomycin) 125 Mg Capsule 125 MG PO BID Prescribed by: LAWRENCE MAR MD As needed Acetaminophen (Acetaminophen) 500 Mg Tablet 1,000 MG PO BID PRN PRN For Pain ( Reported) Ondansetron (Ondansetron) 4 Mg Tablet 4 MG PO BID PRN PRN For Nausea (Reported) oxyCODONE (oxyCODONE) 5 Mg Tablet 10 MG PO q4-6 hours PRN PRN For Pain (Reported ) Followup Plan Disposition: Home Discharge Diet: No restrictions Discharge Activity: No restrictions Patient Instructions You will take vancomycin 125 mg twice a day for the next 2 weeks and then once daily for the next [address] Valencia wants to see you in 2 weeks from now and further discuss the specifics of a taper at that time. Follow-up Provider: [facility] Residency Clinic Follow-up with PCP in: 1 week Provider: Lc Valencia MD Follow-up in: 2 weeks Time spent 35 minutes Lawrence Mar MD Apr 01, 2017 15:55
== END 2017-04-01 11:58 | disposition home or self-care (01) | DRG 372 ==
LOC: SED 13:40 → MPC 18:24 → OBSVTOIN 18:24
PROVIDERS: ADMIT Internal Medicine; ATTEND Hospitalist
DX: A04.7 Enterocolitis due to Clostridium difficile (principal); F11.20 Opioid dependence, uncomplicated; K58.0 Irritable bowel syndrome with diarrhea; K59.03 Drug induced constipation; F17.200 Nicotine dependence, unspecified, uncomplicated